=== PATIENT | female | born 1955 | race Caucasian/White ===

== ENCOUNTER 2019-06-18 12:28 | Inpatient (IN) | payer MEDICARE, OTHER ==
[~2019-06-18] VITALS: Ht 175.3 cm; Wt 68.5 kg
[2019-06-18] VITALS (12 sets, daily range): BP systolic 87–115; BP diastolic 44–67
--- NOTE | 2019-06-18 12:48 | PDOC1 ---
History and Physical Date of Admission Date of Admission DATE: 06/18/19 TIME: 12:48 Identification/Chief Complaint Chief Complaint SEEN IN ER [facility] WITH 4 DAY HX ABDOMINAL PAIN, NOW WORSE FEVER [address] C/W free air, concerning for colon perf, acute, direct admit ICU., SURGERY NOTIFIED, ID CONSULTED, given one gm rocephin in ER, 500MG IV FLAGYL X 1 Past Medical History Cardiovascular: Hyperlipidemia GI: Diverticulosis Heme/Onc: No pertinent hx Hepatobiliary: No pertinent hx Infectious disease: No pertinent hx Renal/: No pertinent hx Endocrine: Hypothyroidism Past Surgical History Past Surgical History: Tonsillectomy Family History Family History: Hypertension, Other (NO FHX COLON CA) Family History: Other Social History Smoke: No ALCOHOL: occassional Drugs: None Allergies Allergies: Coded Allergies: No Known Drug Allergies (Unverified , 06/18/19) ROS General: YES: Chills; No: Night Sweats, Fatigue, Malaise, Appetite, Other PSYCHOLOGICAL ROS: No: Anxiety, Behavioral Disorder, Concentration difficultie, Decreased libido, Depression, Disorientation, Hallucinations, Hostility, Irritablity, Memory difficulties, Mood Swings, Obsessive thoughts, Physical abuse, Sexual abuse, Sleep disturbances, Suicidal ideation, Other Eyes: No Blurry vision, No Decreased vision, No Double vision, No Dry eyes, No Excessive tearing, No Eye Pain, No Itchy Eyes, No Loss of vision, No Photophobia, No Scotomata, No Uses contacts, No Uses glasses, No Other HEENT: No: Heacaches, Visual Changes, Hearing change, Nasal congestion, Nasal discharge, Oral lesions, Sinus pain, Sore Throat, Epistaxis, Sneezing, Snoring, Tinnitus, Vertigo, Vocal changes, Other ALLERGY AND IMMUNOLOGY: No: Hives, Insect Bite Sensitivity, Itchy/Watery Eyes, Nasal Congestion, Post Nasal Drip, Seasonal Allergies, Other Hematological and Lymphatic: No: Bleeding Problems, Blood Clots, Blood Transfusions, Brusing, Night Sweats, Pallor, Swollen Lymph Nodes, Other ENDOCRINE: No: Breast Changes, Galactorrhea, Hair Pattern Changes, Hot Flashes, Malaise/lethargy, Mood Swings, Palpitations, Polydipsia/polyuria, Skin Changes, Temperature Intolerance, Unexpected Weight Changes, Other Breast: No New/Changing Breast Lumps, No Nipple changes, No Nipple discharge, No Other Respiratory: No: Cough, Hemoptysis, Orthopnea, Pleuritic Pain, Shortness of breath, SOB with excertion, Sputum Changes, Stridor, Tachypnea, Wheezing, Other Cardiovascular: No Chest Pain, No Palpitations, No Orthopnea, No Paroxysmal N oc. Dyspnea, No Edema, No Lt Headedness, No Other Gastrointestinal: Yes Abdominal Pain; No Nausea, No Vomiting, No Diarrhea, No Constipation, No Melena, No Hematochezia, No Other Genitourinary: No Dysuria, No Frequency, No Incontinence, No Hematuria, No Retention, No Discharge, No Urgency, No Pain, No Flank Pain, No Other, No , No , No , No , No , No , No Musculoskeletal: No Gait Disturbance, No Joint Pain, No Joint Stiffness, No Joint Swelling, No Muscle Pain, No Muscular Weakness, No Pain In:, No Swelling In:, No Other Neurological: No Behavorial Changes, No Bowel/Bladder ControlChng, No Confusion, No Dizziness, No Gait Disturbance, No Headaches, No Impaired Coord/balance, No Memory Loss, No Numbness/Tingling, No Seizures, No Speech Problems, No Tremors, No Visual Changes, No Weakness, No Other Skin: No Dry Skin, No Eczema, No Hair Changes, No Lumps, No Mole Changes, No Mottling, No Nail Changes, No Pruritus, No Rash, No Skin Lesion Changes, No Other, No Acne Physical Exam General: Alert, Oriented X3, Cooperative, mild distress HEENT: Atraumatic, PERRLA, EOMI, Mucous membr. moist/pink Lungs: Clear to auscultation, Normal air movement Heart: RRR Breasts: Not examined Abdomen: Other (diffuse tenderenee) Rectal Exam: not examined Extremities: No cyanosis Neuro: Normal speech, Cranial nerves 3-12 NL Psych/Mental Status: Mental status NL, Mood NL VTE Prophylaxis Ordered VTE Prophylaxis Devices: Yes VTE Pharmacological Prophylaxi: Contraindicated Assessment/Plan Assessment/Plan impression 1. acute colon perforation 2. abdominal pain SEC #1 3. SEPSIS 4. Thickening of mural high rectal region plan admit icu bed consult popcorn vendor consult DR DAY CONSULT ID CONSULT GI NPO IV FLUID SUPPORT IV PAIN CONTROL CEA EMPERIC IV ANTIBIOTICS, flagyl, zosyn COVID-19 SCREEN SCD'S 34 MIN CC TIME SADI VASQUEZ MD June 18, 2019 12:48
[2019-06-18] MEDS ORDERED: ALBUTEROL SULFATE 2.5 MG/3 ML NEBU. NEB PRN (13:00)
[2019-06-18] MEDS ORDERED: ACETAMINOPHEN 650 MG SUPP.RECT. PR PRN (13:00)
[2019-06-18] MEDS ORDERED: 0.9 % SODIUM CHLORIDE 10 ML DISP.SYRIN. IV PRN (13:00)
[2019-06-18] MEDS ORDERED: ONDANSETRON PF 4 MG/2 ML VIAL. IV PRN (13:00)
[2019-06-18] MEDS: IV NORMAL SALINE 1000ML BAG 1,000 ML IV SCH ×5 (13:15→22:48)
[2019-06-18] MEDS: fentaNYL PF VIAL 100 MCG/2 ML VIAL IVP PRN (13:16)
[2019-06-18] MEDS ORDERED: PANTOPRAZOLE IV PUSH 40 MG VIAL. IVP ONE (13:45)
[2019-06-18] MEDS: PIPERACILLIN/TAZOBACTAM 3.375 GM in IV NORMAL SALINE 50ML 50 ML IV SCH ×3 (13:47→23:21)
--- NOTE | 2019-06-18 14:08 | PDOC ---
PULMONARY PROGRESS NOTES Vitals Vital Signs Date Time Temp Pulse Resp B/P (MAP) Pulse Ox O2 Delivery O2 Flow Rate FiO2 06/18/19 13:16 Room Air Impression . Full note dictated, agree with current medical management for sepsis and colon perforation no signs of respiratory involvement DEREK BURNS MD June 18, 2019 14:08
[2019-06-18] MEDS ORDERED: HYDROmorphone 2 MG/ML VIAL IV PRN (14:30)
--- NOTE | 2019-06-18 15:11 | PDOC2 ---
BRANDIE RODRIGUEZ 06/18/19 1511: GI CONSULT Reason For Consult: possible colon perf HPI: HPI: Pleasant 64 y/o female transferred from [facility]. From [place], traveled here about 1.5 weeks ago to help w/ grandchildren - daughter is supposed to deliver twins soon. Noted fatigue, fevers up to 103, maybe some decreased appetite, and also constipation and "heaviness" in lower abdomen - no stools since she arrived except for small amount after Correctol a couple days ago. Occasional constipation in the past related to diet - this time assumed related to eating cashews on her drive. Progressively worse lower abdominal pain. At [facility]: WBC 15.5, Hgb 13.6, MCV 92, normal Cr, normal LFTs and lipase. CT w/ multifocal areas of bowel inflammation including the proximal sigmoid colon, rectum, and terminal ileum which may reflect colitis w/ reactive enteritis. There is associated perforation w/ free intraperitoneal air and extensive phlegmon (ddx: infectious/inflammatory colitis vs ischemic colitis, neoplasm also possible). Also noted is indeterminate left hepatic mass (1.7 x 1.5cm) and bilateral adnexal varices. On IV antibiotics and PPI; surgery and ID to see as well. Nurse says testing for COVID-19 as well. Denies reflux/heartburn, dysphagia, n/v, chronic abd pain, diarrhea, bleeding, and weight loss. ER note mentions h/o gastric ulcer - she denies. No previous EGD. Does say she had a colonoscopy in her 20s for some bleeding and was diagnosed w/ hemorrhoids. No colonoscopy since. No GB, liver, or pancreas history. Used to take pain meds long ago for migraines, but no frequent NSAID use now. PMH: PMH: HTN, hypothyroidism, HLD FH: Family History: No pertinent hx (denies GI cancers) Social History: Smoke: No ALCOHOL: occassional Drugs: None ROS: GEN: +fever HEENT: Denies blurred vision, sore throat CV: Denies chest pain RESP: Denies shortness of air, cough GI: Per HPI : Denies hematuria, dysuria ENDO: Denies weight changes NEURO: Denies confusion, dizziness MSK: +weakness SKIN: Denies jaundice, pruritus Vitals: Vitals: Vital Signs Date Time Temp Pulse Resp B/P (MAP) Pulse Ox O2 Delivery O2 Flow Rate FiO2 06/18/19 13:16 Room Air Allergies: Coded Allergies: No Known Drug Allergies (Unverified , 06/18/19) Medications: Current Medications Medications (Trade) Dose Ordered Sig/Neda Route PRN Reason Start Time Stop Time Status Last Admin Dose Admin Sodium Chloride 1,000 ml @ 100 mls/hr Q10H IV 06/18/19 12:48 06/18/19 13:15 Piperacillin Sod/ Tazobactam Sod 3.375 gm/Sodium Chloride 50 ml @ 100 mls/hr Q6HRS IV 06/18/19 13:00 06/18/19 13:47 Fentanyl Citrate (Fentanyl 2ml Vial) 50 mcg PRN Q2HR PRN IVP MOD TO SEVERE PAIN, 2ND CHOICE 06/18/19 13:00 06/18/19 13:16 Pantoprazole Sodium (PROTONIX VIAL for IV PUSH) 40 mg 1X ONCE IVP 06/18/19 13:45 06/18/19 13:46 DC 06/18/19 13:50 Imaging: Imaging: Per HPI. PE: GEN: NAD, calm and cooperative HEENT: Atraumatic, PERRL LUNGS: clear anteriorly HEART: RRR ABD: quiet, quite tender BLQ and suprapubic region EXTREMITY: No edema SKIN: No rashes, no jaundice NEURO/PSYCH: A & O 3 A/P: A/P: Fever, change in bowel habits/constipation Leukocytosis Abnormal CT - multifocal areas of bowel inflammation including the proximal sigmoid colon, rectum, and TI, associated perforation w/ free intraperitoneal air and extensive phlegmon, indeterminate left hepatic mass CRC screen - colonoscopy 40 years ago, reportedly normal except hemorrhoids R/o COVID-19 -- Agree w/ NPO, antibiotics, and PPI. D/w nurse - surgery has seen. Will review additional recs w/ Dr. Wang. JC WANG MD 06/18/19 1519: BRANDIE RODRIGUEZ June 18, 2019 15:11 JC WANG MD June 18, 2019 15:19
[2019-06-18] MEDS: HYDROmorphone 2 MG/ML VIAL IV PRN ×3 (15:12→21:16)
[2019-06-18] MEDS ORDERED: IV NORMAL SALINE 500ML BAG 500 ML IV PRN (15:15)
--- NOTE | 2019-06-18 15:21 | PDOC2 ---
CONSULT Date of Consult Date of Consult DATE: 06/18/19 TIME: 15:14 Reason for Consult Reason for Consult: perforated diverticulitis Referring Physician Referring Physician: HELGA Identification/Chief Complaint Chief Complaint severe abdominal pain Source Source: Chart review, Patient History of Present Illness Reason for Visit: Ms Dumont is a 64 yo lady who drove from [employer] to be with her daughter who is expecting twins. She developed severe abdominal pain and in the ED at [facility] was found to have sigmoid colitis with microperf. She was transferred to [facility] for further care Past Medical History Cardiovascular: Hyperlipidemia GI: Diverticulosis Heme/Onc: No pertinent hx Hepatobiliary: No pertinent hx Infectious disease: No pertinent hx Renal/: No pertinent hx Endocrine: Hypothyroidism Past Surgical History Past Surgical History: Tonsillectomy Family History Family History: Hypertension, Other (NO FHX COLON CA) Social History Social History: Other No ALCOHOL: occassional Drugs: None Current Medications Current Medications Current Medications Sodium Chloride (Normal Saline Flush) 3 ml QSHIFT PRN IV AFTER MEDS AND BLOOD DRAWS; Start 06/18/19 at 13:00 Sodium Chloride 1,000 ml @ 100 mls/hr Q10H IV Last administered on 06/18/19at 13:15; Start 06/18/19 at 12:48 Ondansetron HCl (Zofran) 4 mg PRN Q4HRS PRN IV NAUSEA/VOMITING; Start 06/18/19 at 13:00 Acetaminophen (Tylenol Supp) 650 mg PRN Q4HRS PRN HI TEMP OVER 100.4F OR MILD PAIN; Start 06/18/19 at 13:00 Albuterol Sulfate (Ventolin Neb Soln) 2.5 mg PRN Q4HRS PRN NEB SHORTNESS OF BREATH; Start 06/18/19 at 13:00 Piperacillin Sod/ Tazobactam Sod 3.375 gm/Sodium Chloride 50 ml @ 100 mls/hr Q6HRS IV Last administered on 06/18/19at 13:47; Start 06/18/19 at 13:00 Fentanyl Citrate (Fentanyl 2ml Vial) 50 mcg PRN Q2HR PRN IVP MOD TO SEVERE PAIN, 2ND CHOICE Last administered on 06/18/19at 13:16; Start 06/18/19 at 13:00 Pantoprazole Sodium (PROTONIX VIAL for IV PUSH) 40 mg DAILYAC IVP ; Start 06/19/19 at 07:30 Pantoprazole Sodium (PROTONIX VIAL for IV PUSH) 40 mg 1X ONCE IVP Last administered on 06/18/19at 13:50; Start 06/18/19 at 13:45; Stop 06/18/19 at 13:46; Status DC Metronidazole 100 ml @ 100 mls/hr Q8HRS IV Last administered on 06/18/19at 15:12; Start 06/18/19 at 14:00 Hydromorphone HCl (Dilaudid) 1 mg PRN Q3HRS PRN IV MODERATE PAIN, 1ST CHOICE Last administered on 06/18/19at 15:12; Start 06/18/19 at 14:30 Hydromorphone HCl (Dilaudid) 1.5 mg PRN Q3HRS PRN IV SEVERE PAIN 7-10, 1ST CHOICE; Start 06/18/19 at 14:30 Sodium Chloride 1,000 ml @ 1,980 mls/hr Q31M IV ; Start 06/18/19 at 15:06 Sodium Chloride 500 ml @ 1,000 mls/hr PRN Q30MIN PRN IV SEE COMMENTS; Start 06/18/19 at 15:15 Meropenem 1 gm/ Sodium Chloride 100 ml @ 200 mls/hr Q8HRS IV ; Start 06/18/19 at 15:15 Allergies Allergies: Coded Allergies: No Known Drug Allergies (Unverified , 06/18/19) ROS Review of System negative with exception of present complaints Physical Exam General: Alert, Oriented X3, No acute distress HEENT: Atraumatic Lungs: Normal air movement Heart: Regular rate Abdomen: Other (exquisitely TTP in BLQ) Extremities: No clubbing Skin: Other (warm,dry) Vitals VITALS Vital Signs Date Time Temp Pulse Resp B/P (MAP) Pulse Ox O2 Delivery O2 Flow Rate FiO2 06/18/19 15:12 Room Air Images Images CT done at [facility] is reviewed Assessment/Plan Assessment/Plan colitis with microperforation recommend bowel rest, IV abx, serial exams hopefully manage non operative initially to avoid stoma d/w patient questions answered Thanks for consult CADE DAY MD June 18, 2019 15:21
[2019-06-18 15:56] LABS: BASO % 0 % (0-3); EOS % 0 % (0-3); HEMATOCRIT 37.1 % (36.0-47.0); HEMOGLOBIN 12.3 g/dL (12.0-15.5); LYMPH # 1.1 x10^3/uL (1.0-4.8); LYMPH % 8 % (24-48); MEAN CORPUSCULAR HEMOGLOBIN 30 pg (25-35); MEAN CORPUSCULAR HGB CONC 33 g/dL (31-37); MEAN CORPUSCULAR VOLUME 90 fL (79-100); MONO # 1.2 x10^3/uL (0.0-1.1); MONO % 9 % (0-9); NEUT # 11.7 x10^3/uL (1.8-7.7); NEUT % 83 % (31-73); PLATELET COUNT 292 x10^3/uL (140-400); RED BLOOD COUNT 4.11 x10^6/uL (3.50-5.40); RED CELL DISTRIBUTION WIDTH 17.2 % (11.5-14.5); WHITE BLOOD COUNT 14.1 x10^3/uL (4.0-11.0)
[2019-06-18 16:12] LABS: PROTHROMBIN TIME PATIENT 15.9 SEC (11.7-14.0)
[2019-06-18 16:14] LABS: ALBUMIN 2.7 g/dL (3.4-5.0); ALBUMIN/GLOBULIN RATIO 0.7 (1.0-1.7); CALCIUM 8.4 mg/dL (8.5-10.1); CREATININE 0.7 mg/dL (0.6-1.0); POTASSIUM 3.7 mmol/L (3.5-5.1); TOTAL BILIRUBIN 0.6 mg/dL (0.2-1.0); TOTAL PROTEIN 6.5 g/dL (6.4-8.2)
[2019-06-18] MEDS: MEROPENEM 1 GM in IV NORMAL SALINE 100ML 100 ML IV SCH ×2 (16:44→22:31)
[2019-06-18] MEDS ORDERED: LIOT5TAB4 PO (19:25)
[2019-06-18] MEDS ORDERED: VITA100T5 PO (19:25)
[2019-06-18] MEDS ORDERED: LISI10TA2 PO (19:25)
[2019-06-18] MEDS ORDERED: SAFF1000 PO (19:25)
[2019-06-18] MEDS ORDERED: MAGN200T7 PO (19:25)
[2019-06-18] MEDS ORDERED: LEVO100T5 PO (19:25)
[2019-06-18] MEDS ORDERED: CYAN25008 PO (19:25)
[2019-06-18] MEDS ORDERED: PRAV20TA2 PO (19:25)
--- NOTE | 2019-06-18 20:53 | CONS ---
DATE OF CONSULTATION: 06/18/2019 ATTENDING PHYSICIAN: Dr. Mcclure. REASON FOR CONSULTATION: The patient seen in pulmonary consultation at the request of Dr. Mcclure during the COVID-19 pandemic, temperature of 103, and abdominal pain. HISTORY OF PRESENT ILLNESS: The patient is a 64-year-old that was visiting her daughter at [place]. She presented to [facility] with a 4-day history of abdominal pain, worsening over the last 24 hours. She had a fever of 103. She was transferred to [place] for further evaluation. She had a CT abdomen and pelvis revealing free air. There were concern for colon perforation. She was directly admitted to the ICU. I was asked to see her in consultation. Unclear at this time if the patient requires surgical intervention. She has no pulmonary issues, now with increasing shortness of breath. She has been a social smoker. No history of asthma. PAST MEDICAL HISTORY: Diverticulosis, hyperlipidemia, and hypothyroidism. PAST SURGICAL HISTORY: Status post tonsillectomy. FAMILY HISTORY: Hypertension and colon cancer. SOCIAL HISTORY: Occasional use of alcohol, currently not smoking. ALLERGIES: No known drug allergies. REVIEW OF SYSTEMS: As indicated above, otherwise, a 10-point system was reviewed and negative. PHYSICAL EXAMINATION: VITAL SIGNS: Since admission, she has been afebrile. HEENT: Eyes: The sclerae were nonicteric. NECK: Jugular venous distention was not elevated. No lymphadenopathy. CHEST: Full expansion. LUNGS: Adequate air flow with no wheezes. CARDIOVASCULAR: Regular rate and rhythm with S1, S2. No S3. ABDOMEN: Diffuse tenderness. EXTREMITIES: No clubbing, cyanosis or edema NEUROLOGIC: The patient was awake, alert, following commands. A detailed neuro exam was not performed. LABORATORY DATA: Currently pending. Chest x-ray is pending. IMPRESSION: 1. Abdominal pain secondary to acute colon perforation. 2. Colon perforation. 3. Sepsis. 4. Fever. 5. Remote history of social smoking. 6. Hypothyroidism. DISCUSSION: I suspect fever is related to her colon perforation and sepsis, doubt anyhow is related to COVID-19 or pneumonia. With that being said, we will continue current support. The patient is currently on Flagyl and Zosyn. PLAN: 1. She will be seen by Dr. Chau for possible surgical intervention. ID has been consulted. GI has been consulted. Her respiratory status is currently stable. 2. SARS-CoV-2 pending. I do appreciate the privilege in sharing in the patient's care. DEREK BURNS MD DR: ANTONIO/kayla JOB#: [id number] / [id number]
[2019-06-19] VITALS (17 sets, daily range): BP systolic 84–118; BP diastolic 45–69
[2019-06-19] MEDS: HYDROmorphone 2 MG/ML VIAL IV PRN ×3 (00:19→23:13)
[2019-06-19] MEDS: PIPERACILLIN/TAZOBACTAM 3.375 GM in IV NORMAL SALINE 50ML 50 ML IV SCH ×4 (05:18→23:12)
[2019-06-19 05:35] LABS: BASO # 0.1 x10^3/uL (0.0-0.2); BASO % 0 % (0-3); EOS # 0.1 x10^3/uL (0.0-0.7); EOS % 1 % (0-3); HEMATOCRIT 31.4 % (36.0-47.0); HEMOGLOBIN 10.5 g/dL (12.0-15.5); LYMPH % 9 % (24-48); MEAN CORPUSCULAR HEMOGLOBIN 30 pg (25-35); MEAN CORPUSCULAR HGB CONC 33 g/dL (31-37); MEAN CORPUSCULAR VOLUME 90 fL (79-100); MONO # 1.1 x10^3/uL (0.0-1.1); MONO % 10 % (0-9); NEUT # 9.3 x10^3/uL (1.8-7.7); NEUT % 81 % (31-73); PLATELET COUNT 254 x10^3/uL (140-400); RED BLOOD COUNT 3.47 x10^6/uL (3.50-5.40); WHITE BLOOD COUNT 11.6 x10^3/uL (4.0-11.0)
[2019-06-19] MEDS: MEROPENEM 1 GM in IV NORMAL SALINE 100ML 100 ML IV SCH (05:50)
[2019-06-19 05:53] LABS: ALBUMIN 2.2 g/dL (3.4-5.0); ALBUMIN/GLOBULIN RATIO 0.7 (1.0-1.7); CALCIUM 7.9 mg/dL (8.5-10.1); CREATININE 0.7 mg/dL (0.6-1.0); POTASSIUM 3.3 mmol/L (3.5-5.1); TOTAL BILIRUBIN 0.6 mg/dL (0.2-1.0); TOTAL PROTEIN 5.4 g/dL (6.4-8.2)
[2019-06-19] MEDS: IV NORMAL SALINE 1000ML BAG 1,000 ML IV SCH ×3 (05:54→23:19)
[2019-06-19] MEDS: PANTOPRAZOLE IV PUSH 40 MG VIAL. IVP SCH (07:47)
--- NOTE | 2019-06-19 08:25 | PDOC ---
Infectious Disease Note Vital Sign Vital Signs Vital Signs Date Time Temp Pulse Resp B/P (MAP) Pulse Ox O2 Delivery O2 Flow Rate FiO2 06/19/19 07:15 95 Room Air 06/19/19 07:00 77 30 90/46 (61) 06/19/19 04:00 98.9 98.9 Labs Lab Laboratory Tests Test 06/18/19 12:45 06/18/19 15:48 06/19/19 05:00 Coronavirus (COVID-19)(PCR) See separate report White Blood Count 14.1 x10^3/uL (4.0-11.0) 11.6 x10^3/uL (4.0-11.0) Red Blood Count 4.11 x10^6/uL (3.50-5.40) 3.47 x10^6/uL (3.50-5.40) Hemoglobin 12.3 g/dL (12.0-15.5) 10.5 g/dL (12.0-15.5) Hematocrit 37.1 % (36.0-47.0) 31.4 % (36.0-47.0) Mean Corpuscular Volume 90 fL (79-100) 90 fL (79-100) Mean Corpuscular Hemoglobin 30 pg (25-35) 30 pg (25-35) Mean Corpuscular Hemoglobin Concent 33 g/dL (31-37) 33 g/dL (31-37) Red Cell Distribution Width 17.2 % (11.5-14.5) 17.0 % (11.5-14.5) Platelet Count 292 x10^3/uL (140-400) 254 x10^3/uL (140-400) Neutrophils (%) (Auto) 83 % (31-73) 81 % (31-73) Lymphocytes (%) (Auto) 8 % (24-48) 9 % (24-48) Monocytes (%) (Auto) 9 % (0-9) 10 % (0-9) Eosinophils (%) (Auto) 0 % (0-3) 1 % (0-3) Basophils (%) (Auto) 0 % (0-3) 0 % (0-3) Neutrophils # (Auto) 11.7 x10^3/uL (1.8-7.7) 9.3 x10^3/uL (1.8-7.7) Lymphocytes # (Auto) 1.1 x10^3/uL (1.0-4.8) 1.0 x10^3/uL (1.0-4.8) Monocytes # (Auto) 1.2 x10^3/uL (0.0-1.1) 1.1 x10^3/uL (0.0-1.1) Eosinophils # (Auto) 0.0 x10^3/uL (0.0-0.7) 0.1 x10^3/uL (0.0-0.7) Basophils # (Auto) 0.0 x10^3/uL (0.0-0.2) 0.1 x10^3/uL (0.0-0.2) Prothrombin Time 15.9 SEC (11.7-14.0) Prothromb Time International Ratio 1.3 (0.8-1.1) Fibrinogen 766 mg/dL (200-440) D-Dimer (Ana Lilia) 2.00 ug/mlFEU (0.00-0.50) Sodium Level 135 mmol/L (136-145) 141 mmol/L (136-145) Potassium Level 3.7 mmol/L (3.5-5.1) 3.3 mmol/L (3.5-5.1) Chloride Level 99 mmol/L (98-107) 107 mmol/L (98-107) Carbon Dioxide Level 24 mmol/L (21-32) 21 mmol/L (21-32) Anion Gap 12 (6-14) 13 (6-14) Blood Urea Nitrogen 11 mg/dL (7-20) 10 mg/dL (7-20) Creatinine 0.7 mg/dL (0.6-1.0) 0.7 mg/dL (0.6-1.0) Estimated GFR (Cockcroft-Gault) 84.0 84.0 BUN/Creatinine Ratio 16 (6-20) 14 (6-20) Glucose Level 91 mg/dL (70-99) 79 mg/dL (70-99) Lactic Acid Level 0.8 mmol/L (0.4-2.0) Calcium Level 8.4 mg/dL (8.5-10.1) 7.9 mg/dL (8.5-10.1) Total Bilirubin 0.6 mg/dL (0.2-1.0) 0.6 mg/dL (0.2-1.0) Aspartate Amino Transf (AST/SGOT) 11 U/L (15-37) 11 U/L (15-37) Alanine Aminotransferase (ALT/SGPT) 11 U/L (14-59) 12 U/L (14-59) Alkaline Phosphatase 43 U/L (46-116) 38 U/L (46-116) Total Protein 6.5 g/dL (6.4-8.2) 5.4 g/dL (6.4-8.2) Albumin 2.7 g/dL (3.4-5.0) 2.2 g/dL (3.4-5.0) Albumin/Globulin Ratio 0.7 (1.0-1.7) 0.7 (1.0-1.7) Procalcitonin 0.68 ng/mL (0.00-0.10) Objective Assessment Acute sigmoid colitis with perforation Leukocytosis Pyruia, 5/8 (SJ) Left hepatic mass (measures1.7 x 1.5 cm) Hypothyroidism r/o COVID-19 Plan Plan of Care Continue Zosyn Discontinue Merrem and Flagyl Bowel rest f/u cultures and labs Airborne isolation till COVID-19 resulted D/w nursing D/w Dr. Chau Thank you [id number] Patient seen and examined. Chart reviewed in detail. Case discussed with CALL CENTER OPERATIONS MANAGER. Agree with above plan DUC POLLARD APRN June 19, 2019 08:25 NOE CLARK MD June 19, 2019 20:58
--- NOTE | 2019-06-19 09:17 | PDOC ---
SURGICAL PROGRESS NOTE Subjective pain a little better is thirsty Vital Signs Vital Signs Date Time Temp Pulse Resp B/P (MAP) Pulse Ox O2 Delivery O2 Flow Rate FiO2 06/19/19 09:01 76 14 87/47 (60) 95 Room Air 06/19/19 04:00 98.9 98.9 has been afebrile since presentation I&O Intake and Output 06/19/19 07:00 Intake Total 1300 ml Output Total 700 ml Balance 600 ml Intake Oral 0 ml IV Total 1300 ml Output Urine Total 700 ml # Voids 1 PATIENT HAS A MAYA: No General: Alert, No acute distress Labs Laboratory Tests Test 06/18/19 12:45 06/18/19 15:48 06/19/19 05:00 Coronavirus (COVID-19)(PCR) See separate report White Blood Count 14.1 x10^3/uL (4.0-11.0) 11.6 x10^3/uL (4.0-11.0) Red Blood Count 4.11 x10^6/uL (3.50-5.40) 3.47 x10^6/uL (3.50-5.40) Hemoglobin 12.3 g/dL (12.0-15.5) 10.5 g/dL (12.0-15.5) Hematocrit 37.1 % (36.0-47.0) 31.4 % (36.0-47.0) Mean Corpuscular Volume 90 fL (79-100) 90 fL (79-100) Mean Corpuscular Hemoglobin 30 pg (25-35) 30 pg (25-35) Mean Corpuscular Hemoglobin Concent 33 g/dL (31-37) 33 g/dL (31-37) Red Cell Distribution Width 17.2 % (11.5-14.5) 17.0 % (11.5-14.5) Platelet Count 292 x10^3/uL (140-400) 254 x10^3/uL (140-400) Neutrophils (%) (Auto) 83 % (31-73) 81 % (31-73) Lymphocytes (%) (Auto) 8 % (24-48) 9 % (24-48) Monocytes (%) (Auto) 9 % (0-9) 10 % (0-9) Eosinophils (%) (Auto) 0 % (0-3) 1 % (0-3) Basophils (%) (Auto) 0 % (0-3) 0 % (0-3) Neutrophils # (Auto) 11.7 x10^3/uL (1.8-7.7) 9.3 x10^3/uL (1.8-7.7) Lymphocytes # (Auto) 1.1 x10^3/uL (1.0-4.8) 1.0 x10^3/uL (1.0-4.8) Monocytes # (Auto) 1.2 x10^3/uL (0.0-1.1) 1.1 x10^3/uL (0.0-1.1) Eosinophils # (Auto) 0.0 x10^3/uL (0.0-0.7) 0.1 x10^3/uL (0.0-0.7) Basophils # (Auto) 0.0 x10^3/uL (0.0-0.2) 0.1 x10^3/uL (0.0-0.2) Prothrombin Time 15.9 SEC (11.7-14.0) Prothromb Time International Ratio 1.3 (0.8-1.1) Fibrinogen 766 mg/dL (200-440) D-Dimer (Ana Lilia) 2.00 ug/mlFEU (0.00-0.50) Sodium Level 135 mmol/L (136-145) 141 mmol/L (136-145) Potassium Level 3.7 mmol/L (3.5-5.1) 3.3 mmol/L (3.5-5.1) Chloride Level 99 mmol/L (98-107) 107 mmol/L (98-107) Carbon Dioxide Level 24 mmol/L (21-32) 21 mmol/L (21-32) Anion Gap 12 (6-14) 13 (6-14) Blood Urea Nitrogen 11 mg/dL (7-20) 10 mg/dL (7-20) Creatinine 0.7 mg/dL (0.6-1.0) 0.7 mg/dL (0.6-1.0) Estimated GFR (Cockcroft-Gault) 84.0 84.0 BUN/Creatinine Ratio 16 (6-20) 14 (6-20) Glucose Level 91 mg/dL (70-99) 79 mg/dL (70-99) Lactic Acid Level 0.8 mmol/L (0.4-2.0) Calcium Level 8.4 mg/dL (8.5-10.1) 7.9 mg/dL (8.5-10.1) Total Bilirubin 0.6 mg/dL (0.2-1.0) 0.6 mg/dL (0.2-1.0) Aspartate Amino Transf (AST/SGOT) 11 U/L (15-37) 11 U/L (15-37) Alanine Aminotransferase (ALT/SGPT) 11 U/L (14-59) 12 U/L (14-59) Alkaline Phosphatase 43 U/L (46-116) 38 U/L (46-116) Total Protein 6.5 g/dL (6.4-8.2) 5.4 g/dL (6.4-8.2) Albumin 2.7 g/dL (3.4-5.0) 2.2 g/dL (3.4-5.0) Albumin/Globulin Ratio 0.7 (1.0-1.7) 0.7 (1.0-1.7) Procalcitonin 0.68 ng/mL (0.00-0.10) Laboratory Tests Test 06/18/19 12:45 06/18/19 15:48 06/19/19 05:00 Coronavirus (COVID-19)(PCR) See separate report White Blood Count 14.1 x10^3/uL (4.0-11.0) 11.6 x10^3/uL (4.0-11.0) Red Blood Count 4.11 x10^6/uL (3.50-5.40) 3.47 x10^6/uL (3.50-5.40) Hemoglobin 12.3 g/dL (12.0-15.5) 10.5 g/dL (12.0-15.5) Hematocrit 37.1 % (36.0-47.0) 31.4 % (36.0-47.0) Mean Corpuscular Volume 90 fL (79-100) 90 fL (79-100) Mean Corpuscular Hemoglobin 30 pg (25-35) 30 pg (25-35) Mean Corpuscular Hemoglobin Concent 33 g/dL (31-37) 33 g/dL (31-37) Red Cell Distribution Width 17.2 % (11.5-14.5) 17.0 % (11.5-14.5) Platelet Count 292 x10^3/uL (140-400) 254 x10^3/uL (140-400) Neutrophils (%) (Auto) 83 % (31-73) 81 % (31-73) Lymphocytes (%) (Auto) 8 % (24-48) 9 % (24-48) Monocytes (%) (Auto) 9 % (0-9) 10 % (0-9) Eosinophils (%) (Auto) 0 % (0-3) 1 % (0-3) Basophils (%) (Auto) 0 % (0-3) 0 % (0-3) Neutrophils # (Auto) 11.7 x10^3/uL (1.8-7.7) 9.3 x10^3/uL (1.8-7.7) Lymphocytes # (Auto) 1.1 x10^3/uL (1.0-4.8) 1.0 x10^3/uL (1.0-4.8) Monocytes # (Auto) 1.2 x10^3/uL (0.0-1.1) 1.1 x10^3/uL (0.0-1.1) Eosinophils # (Auto) 0.0 x10^3/uL (0.0-0.7) 0.1 x10^3/uL (0.0-0.7) Basophils # (Auto) 0.0 x10^3/uL (0.0-0.2) 0.1 x10^3/uL (0.0-0.2) Prothrombin Time 15.9 SEC (11.7-14.0) Prothromb Time International Ratio 1.3 (0.8-1.1) Fibrinogen 766 mg/dL (200-440) D-Dimer (Ana Lilia) 2.00 ug/mlFEU (0.00-0.50) Sodium Level 135 mmol/L (136-145) 141 mmol/L (136-145) Potassium Level 3.7 mmol/L (3.5-5.1) 3.3 mmol/L (3.5-5.1) Chloride Level 99 mmol/L (98-107) 107 mmol/L (98-107) Carbon Dioxide Level 24 mmol/L (21-32) 21 mmol/L (21-32) Anion Gap 12 (6-14) 13 (6-14) Blood Urea Nitrogen 11 mg/dL (7-20) 10 mg/dL (7-20) Creatinine 0.7 mg/dL (0.6-1.0) 0.7 mg/dL (0.6-1.0) Estimated GFR (Cockcroft-Gault) 84.0 84.0 BUN/Creatinine Ratio 16 (6-20) 14 (6-20) Glucose Level 91 mg/dL (70-99) 79 mg/dL (70-99) Lactic Acid Level 0.8 mmol/L (0.4-2.0) Calcium Level 8.4 mg/dL (8.5-10.1) 7.9 mg/dL (8.5-10.1) Total Bilirubin 0.6 mg/dL (0.2-1.0) 0.6 mg/dL (0.2-1.0) Aspartate Amino Transf (AST/SGOT) 11 U/L (15-37) 11 U/L (15-37) Alanine Aminotransferase (ALT/SGPT) 11 U/L (14-59) 12 U/L (14-59) Alkaline Phosphatase 43 U/L (46-116) 38 U/L (46-116) Total Protein 6.5 g/dL (6.4-8.2) 5.4 g/dL (6.4-8.2) Albumin 2.7 g/dL (3.4-5.0) 2.2 g/dL (3.4-5.0) Albumin/Globulin Ratio 0.7 (1.0-1.7) 0.7 (1.0-1.7) Procalcitonin 0.68 ng/mL (0.00-0.10) WBC improved Problem List colitis with microperf covid 19 testing PND sips of water, ice continue current Rx CADE DAY MD June 19, 2019 09:17
--- NOTE | 2019-06-19 09:59 | CONS ---
DATE OF CONSULTATION: 06/19/2019 DICTATED BY: This is Rommel Ramírez, nurse practitioner dictating for Dr. Noe Clark, Infectious Disease. REFERRING PHYSICIAN: Thai Mcclure MD REASON FOR CONSULTATION: Colon perforation. HISTORY OF PRESENT ILLNESS: This patient is a 64-year-old female with a history of diverticulosis who initially presented to [facility] yesterday with a 4-day history of worsening lower abdominal pain, fever of 103 and chills. She says she had been eating cashews on her drive up to [place] from [place] when she started not to feel well. She became bloated, constipated and her appetite decreased. She took aspirin and two Correctol laxatives with minimal relief. A CT abdomen/pelvis demonstrated multifocal areas of bowel inflammation including the proximal sigmoid colon, rectum and terminal ileum associated perforation with free intraperitoneal air and extensive phlegmon without a definite abscess. A indeterminate left hepatic mass measuring 1.7 x 1.5 cm also noted. She has since been transferred to [facility] and is now on bowel rest and IV antibiotics. She was seen by Dr. Chau with no plans for surgery at this time. The patient says she is feeling a little bit better. She states her abdominal pain is not as intense. She says she is not passing any gas. She denies nausea or vomiting. She is currently being tested for COVID-19. She denies exposure. She has been staying at home and when she goes out to the store for example, she wears her mask and gloves and uses good handwashing. She denies recent antibiotics or hospitalizations within the last several months. Denies cough, shortness of air, chest discomfort or headache. PAST MEDICAL HISTORY: Diverticulosis, hypothyroidism, history of gastric ulcer, hypercholesterolemia and hypertension. PAST SURGICAL HISTORY: Tonsillectomy and adenoidectomy. SOCIAL HISTORY: The patient is a . She lives in [place], [place]. Former smoker. FAMILY HISTORY: Hypertension. ALLERGIES: No known drug allergies. MEDICATIONS: Reviewed on APR and includes meropenem, metronidazole, Zosyn, one time dose of ceftriaxone and pantoprazole. REVIEW OF SYSTEMS: Per HPI, otherwise all other review of systems are negative. PHYSICAL EXAMINATION: VITAL SIGNS: Temperature 98.9, blood pressure 90/46, heart rate 77, respiratory rate 30, pulse oximetry 95% on room air, BMI 23. GENERAL: The patient is propped up in bed, alert, appears comfortable. HEENT: Pupils equally round and reactive. Oropharynx pink and moist. No lesions seen. NECK: Supple. LUNGS: Clear to auscultation. CARDIAC: S1 and S2 regular. ABDOMEN: Mildly distended, soft, diffusely tender. Bowel sounds present. EXTREMITIES: No gross edema or cyanosis. SKIN: Warm to touch or signs of rash. NEUROLOGIC: Alert and oriented x 3. LABORATORY DATA: Today's WBC 11.6 from 15.5, hemoglobin 10.5 and platelets 254,000. Sodium 141, potassium 3.3, creatinine 0.7, BUN 10 and glucose 79. Lactic acid 0.8, total bilirubin 0.6, AST 11, ALT 12 and albumin 2.2. Procalcitonin 0.68. Lipase 114. Urinalysis from 06/18/2019 ([facility]) positive for wbc's, leukocyte esterase, bacteria and moderate squamous epithelial cells. Blood cultures from 06/18/[address] A [address] abdomen/pelvis per HPI. Chest x-ray showed clear lungs bilaterally. IMPRESSION: 1. Acute sigmoid colitis with perforation. 2. Leukocytosis. 3. Pyuria. 4. Left hepatic mass. 5. Hypothyroidism. 6. Rule out COVID-19. PLAN: 1. Records from [facility] were reviewed. 2. Continue Zosyn. 3. Discontinue the meropenem and metronidazole. 4. Follow up on cultures. 5. Monitor laboratory values. 6. Bowel rest. 7. Airborne isolation until COVID-19 results known. 8. Discussed with nursing and Dr. Chau. Thank you, Dr. Mcclure for asking us to participate in this patient's care. Should you have further questions or concerns, please call. NOE CLARK MD DR: LAKISHA/kayla JOB#: [id number] / [id number] WENDY
--- NOTE | 2019-06-19 11:00 | NUR ---
IP:Pt is COVID negative.
--- NOTE | 2019-06-19 11:27 | PDOC ---
PROGRESS NOTES Chief Complaint Chief Complaint 1. acute colitis with microperforation 2. abdominal pain secondary to the above improved 3. SEPSIS secondary to the above improved 4. Thickening of mural high rectal region Plan: Patient may be transferred out of the intensive care unit to a telemetry floor now that COVID-19 testing has come back negative Pain management Continue antibiotics Supportive measures Pain management Follow blood pressure which is on the low end due to pain management most likely Is is in the a.m. Further recommendations based on the clinical course History of Present Illness History of Present Illness No acute events reported overnight, case discussed with nursing staff patient in no acute distress no complaints during my visit Vitals Vitals Vital Signs Date Time Temp Pulse Resp B/P (MAP) Pulse Ox O2 Delivery O2 Flow Rate FiO2 06/19/19 11:05 78 20 118/69 (85) 97 Room Air 06/19/19 10:04 98.7 98.7 Physical Exam General: Alert, No acute distress Heart: Regular rate Abdomen: Other (exquisitely TTP in BLQ) Extremities: No clubbing Skin: Other (warm,dry) Labs LABS Laboratory Tests Test 06/18/19 12:45 06/18/19 15:48 06/19/19 05:00 Coronavirus (COVID-19)(PCR) See separate report White Blood Count 14.1 x10^3/uL (4.0-11.0) 11.6 x10^3/uL (4.0-11.0) Red Blood Count 4.11 x10^6/uL (3.50-5.40) 3.47 x10^6/uL (3.50-5.40) Hemoglobin 12.3 g/dL (12.0-15.5) 10.5 g/dL (12.0-15.5) Hematocrit 37.1 % (36.0-47.0) 31.4 % (36.0-47.0) Mean Corpuscular Volume 90 fL (79-100) 90 fL (79-100) Mean Corpuscular Hemoglobin 30 pg (25-35) 30 pg (25-35) Mean Corpuscular Hemoglobin Concent 33 g/dL (31-37) 33 g/dL (31-37) Red Cell Distribution Width 17.2 % (11.5-14.5) 17.0 % (11.5-14.5) Platelet Count 292 x10^3/uL (140-400) 254 x10^3/uL (140-400) Neutrophils (%) (Auto) 83 % (31-73) 81 % (31-73) Lymphocytes (%) (Auto) 8 % (24-48) 9 % (24-48) Monocytes (%) (Auto) 9 % (0-9) 10 % (0-9) Eosinophils (%) (Auto) 0 % (0-3) 1 % (0-3) Basophils (%) (Auto) 0 % (0-3) 0 % (0-3) Neutrophils # (Auto) 11.7 x10^3/uL (1.8-7.7) 9.3 x10^3/uL (1.8-7.7) Lymphocytes # (Auto) 1.1 x10^3/uL (1.0-4.8) 1.0 x10^3/uL (1.0-4.8) Monocytes # (Auto) 1.2 x10^3/uL (0.0-1.1) 1.1 x10^3/uL (0.0-1.1) Eosinophils # (Auto) 0.0 x10^3/uL (0.0-0.7) 0.1 x10^3/uL (0.0-0.7) Basophils # (Auto) 0.0 x10^3/uL (0.0-0.2) 0.1 x10^3/uL (0.0-0.2) Prothrombin Time 15.9 SEC (11.7-14.0) Prothromb Time International Ratio 1.3 (0.8-1.1) Fibrinogen 766 mg/dL (200-440) D-Dimer (Ana Lilia) 2.00 ug/mlFEU (0.00-0.50) Sodium Level 135 mmol/L (136-145) 141 mmol/L (136-145) Potassium Level 3.7 mmol/L (3.5-5.1) 3.3 mmol/L (3.5-5.1) Chloride Level 99 mmol/L (98-107) 107 mmol/L (98-107) Carbon Dioxide Level 24 mmol/L (21-32) 21 mmol/L (21-32) Anion Gap 12 (6-14) 13 (6-14) Blood Urea Nitrogen 11 mg/dL (7-20) 10 mg/dL (7-20) Creatinine 0.7 mg/dL (0.6-1.0) 0.7 mg/dL (0.6-1.0) Estimated GFR (Cockcroft-Gault) 84.0 84.0 BUN/Creatinine Ratio 16 (6-20) 14 (6-20) Glucose Level 91 mg/dL (70-99) 79 mg/dL (70-99) Lactic Acid Level 0.8 mmol/L (0.4-2.0) Calcium Level 8.4 mg/dL (8.5-10.1) 7.9 mg/dL (8.5-10.1) Total Bilirubin 0.6 mg/dL (0.2-1.0) 0.6 mg/dL (0.2-1.0) Aspartate Amino Transf (AST/SGOT) 11 U/L (15-37) 11 U/L (15-37) Alanine Aminotransferase (ALT/SGPT) 11 U/L (14-59) 12 U/L (14-59) Alkaline Phosphatase 43 U/L (46-116) 38 U/L (46-116) Total Protein 6.5 g/dL (6.4-8.2) 5.4 g/dL (6.4-8.2) Albumin 2.7 g/dL (3.4-5.0) 2.2 g/dL (3.4-5.0) Albumin/Globulin Ratio 0.7 (1.0-1.7) 0.7 (1.0-1.7) Procalcitonin 0.68 ng/mL (0.00-0.10) Comment Review of Relevant I have reviewed the following items franklyn (where applicable) has been applied. Labs Laboratory Tests Test 06/18/19 12:45 06/18/19 15:48 06/19/19 05:00 Coronavirus (COVID-19)(PCR) See separate report White Blood Count 14.1 x10^3/uL (4.0-11.0) 11.6 x10^3/uL (4.0-11.0) Red Blood Count 4.11 x10^6/uL (3.50-5.40) 3.47 x10^6/uL (3.50-5.40) Hemoglobin 12.3 g/dL (12.0-15.5) 10.5 g/dL (12.0-15.5) Hematocrit 37.1 % (36.0-47.0) 31.4 % (36.0-47.0) Mean Corpuscular Volume 90 fL (79-100) 90 fL (79-100) Mean Corpuscular Hemoglobin 30 pg (25-35) 30 pg (25-35) Mean Corpuscular Hemoglobin Concent 33 g/dL (31-37) 33 g/dL (31-37) Red Cell Distribution Width 17.2 % (11.5-14.5) 17.0 % (11.5-14.5) Platelet Count 292 x10^3/uL (140-400) 254 x10^3/uL (140-400) Neutrophils (%) (Auto) 83 % (31-73) 81 % (31-73) Lymphocytes (%) (Auto) 8 % (24-48) 9 % (24-48) Monocytes (%) (Auto) 9 % (0-9) 10 % (0-9) Eosinophils (%) (Auto) 0 % (0-3) 1 % (0-3) Basophils (%) (Auto) 0 % (0-3) 0 % (0-3) Neutrophils # (Auto) 11.7 x10^3/uL (1.8-7.7) 9.3 x10^3/uL (1.8-7.7) Lymphocytes # (Auto) 1.1 x10^3/uL (1.0-4.8) 1.0 x10^3/uL (1.0-4.8) Monocytes # (Auto) 1.2 x10^3/uL (0.0-1.1) 1.1 x10^3/uL (0.0-1.1) Eosinophils # (Auto) 0.0 x10^3/uL (0.0-0.7) 0.1 x10^3/uL (0.0-0.7) Basophils # (Auto) 0.0 x10^3/uL (0.0-0.2) 0.1 x10^3/uL (0.0-0.2) Prothrombin Time 15.9 SEC (11.7-14.0) Prothromb Time International Ratio 1.3 (0.8-1.1) Fibrinogen 766 mg/dL (200-440) D-Dimer (Ana Lilia) 2.00 ug/mlFEU (0.00-0.50) Sodium Level 135 mmol/L (136-145) 141 mmol/L (136-145) Potassium Level 3.7 mmol/L (3.5-5.1) 3.3 mmol/L (3.5-5.1) Chloride Level 99 mmol/L (98-107) 107 mmol/L (98-107) Carbon Dioxide Level 24 mmol/L (21-32) 21 mmol/L (21-32) Anion Gap 12 (6-14) 13 (6-14) Blood Urea Nitrogen 11 mg/dL (7-20) 10 mg/dL (7-20) Creatinine 0.7 mg/dL (0.6-1.0) 0.7 mg/dL (0.6-1.0) Estimated GFR (Cockcroft-Gault) 84.0 84.0 BUN/Creatinine Ratio 16 (6-20) 14 (6-20) Glucose Level 91 mg/dL (70-99) 79 mg/dL (70-99) Lactic Acid Level 0.8 mmol/L (0.4-2.0) Calcium Level 8.4 mg/dL (8.5-10.1) 7.9 mg/dL (8.5-10.1) Total Bilirubin 0.6 mg/dL (0.2-1.0) 0.6 mg/dL (0.2-1.0) Aspartate Amino Transf (AST/SGOT) 11 U/L (15-37) 11 U/L (15-37) Alanine Aminotransferase (ALT/SGPT) 11 U/L (14-59) 12 U/L (14-59) Alkaline Phosphatase 43 U/L (46-116) 38 U/L (46-116) Total Protein 6.5 g/dL (6.4-8.2) 5.4 g/dL (6.4-8.2) Albumin 2.7 g/dL (3.4-5.0) 2.2 g/dL (3.4-5.0) Albumin/Globulin Ratio 0.7 (1.0-1.7) 0.7 (1.0-1.7) Procalcitonin 0.68 ng/mL (0.00-0.10) Laboratory Tests Test 06/18/19 12:45 06/18/19 15:48 06/19/19 05:00 Coronavirus (COVID-19)(PCR) See separate report White Blood Count 14.1 x10^3/uL (4.0-11.0) 11.6 x10^3/uL (4.0-11.0) Red Blood Count 4.11 x10^6/uL (3.50-5.40) 3.47 x10^6/uL (3.50-5.40) Hemoglobin 12.3 g/dL (12.0-15.5) 10.5 g/dL (12.0-15.5) Hematocrit 37.1 % (36.0-47.0) 31.4 % (36.0-47.0) Mean Corpuscular Volume 90 fL (79-100) 90 fL (79-100) Mean Corpuscular Hemoglobin 30 pg (25-35) 30 pg (25-35) Mean Corpuscular Hemoglobin Concent 33 g/dL (31-37) 33 g/dL (31-37) Red Cell Distribution Width 17.2 % (11.5-14.5) 17.0 % (11.5-14.5) Platelet Count 292 x10^3/uL (140-400) 254 x10^3/uL (140-400) Neutrophils (%) (Auto) 83 % (31-73) 81 % (31-73) Lymphocytes (%) (Auto) 8 % (24-48) 9 % (24-48) Monocytes (%) (Auto) 9 % (0-9) 10 % (0-9) Eosinophils (%) (Auto) 0 % (0-3) 1 % (0-3) Basophils (%) (Auto) 0 % (0-3) 0 % (0-3) Neutrophils # (Auto) 11.7 x10^3/uL (1.8-7.7) 9.3 x10^3/uL (1.8-7.7) Lymphocytes # (Auto) 1.1 x10^3/uL (1.0-4.8) 1.0 x10^3/uL (1.0-4.8) Monocytes # (Auto) 1.2 x10^3/uL (0.0-1.1) 1.1 x10^3/uL (0.0-1.1) Eosinophils # (Auto) 0.0 x10^3/uL (0.0-0.7) 0.1 x10^3/uL (0.0-0.7) Basophils # (Auto) 0.0 x10^3/uL (0.0-0.2) 0.1 x10^3/uL (0.0-0.2) Prothrombin Time 15.9 SEC (11.7-14.0) Prothromb Time International Ratio 1.3 (0.8-1.1) Fibrinogen 766 mg/dL (200-440) D-Dimer (Ana Lilia) 2.00 ug/mlFEU (0.00-0.50) Sodium Level 135 mmol/L (136-145) 141 mmol/L (136-145) Potassium Level 3.7 mmol/L (3.5-5.1) 3.3 mmol/L (3.5-5.1) Chloride Level 99 mmol/L (98-107) 107 mmol/L (98-107) Carbon Dioxide Level 24 mmol/L (21-32) 21 mmol/L (21-32) Anion Gap 12 (6-14) 13 (6-14) Blood Urea Nitrogen 11 mg/dL (7-20) 10 mg/dL (7-20) Creatinine 0.7 mg/dL (0.6-1.0) 0.7 mg/dL (0.6-1.0) Estimated GFR (Cockcroft-Gault) 84.0 84.0 BUN/Creatinine Ratio 16 (6-20) 14 (6-20) Glucose Level 91 mg/dL (70-99) 79 mg/dL (70-99) Lactic Acid Level 0.8 mmol/L (0.4-2.0) Calcium Level 8.4 mg/dL (8.5-10.1) 7.9 mg/dL (8.5-10.1) Total Bilirubin 0.6 mg/dL (0.2-1.0) 0.6 mg/dL (0.2-1.0) Aspartate Amino Transf (AST/SGOT) 11 U/L (15-37) 11 U/L (15-37) Alanine Aminotransferase (ALT/SGPT) 11 U/L (14-59) 12 U/L (14-59) Alkaline Phosphatase 43 U/L (46-116) 38 U/L (46-116) Total Protein 6.5 g/dL (6.4-8.2) 5.4 g/dL (6.4-8.2) Albumin 2.7 g/dL (3.4-5.0) 2.2 g/dL (3.4-5.0) Albumin/Globulin Ratio 0.7 (1.0-1.7) 0.7 (1.0-1.7) Procalcitonin 0.68 ng/mL (0.00-0.10) Medications Current Medications Sodium Chloride (Normal Saline Flush) 3 ml QSHIFT PRN IV AFTER MEDS AND BLOOD DRAWS; Start 06/18/19 at 13:00 Sodium Chloride 1,000 ml @ 100 mls/hr Q10H IV Last administered on 06/19/19at 05:54; Start 06/18/19 at 12:48 Ondansetron HCl (Zofran) 4 mg PRN Q4HRS PRN IV NAUSEA/VOMITING; Start 06/18/19 at 13:00 Acetaminophen (Tylenol Supp) 650 mg PRN Q4HRS PRN NM TEMP OVER 100.4F OR MILD PAIN; Start 06/18/19 at 13:00 Albuterol Sulfate (Ventolin Neb Soln) 2.5 mg PRN Q4HRS PRN NEB SHORTNESS OF BREATH; Start 06/18/19 at 13:00 Piperacillin Sod/ Tazobactam Sod 3.375 gm/Sodium Chloride 50 ml @ 100 mls/hr Q6HRS IV Last administered on 06/19/19at 05:18; Start 06/18/19 at 13:00 Fentanyl Citrate (Fentanyl 2ml Vial) 50 mcg PRN Q2HR PRN IVP MOD TO SEVERE PAIN, 2ND CHOICE Last administered on 06/18/19at 13:16; Start 06/18/19 at 13:00 Pantoprazole Sodium (PROTONIX VIAL for IV PUSH) 40 mg DAILYAC IVP Last administered on 06/19/19at 07:47; Start 06/19/19 at 07:30 Pantoprazole Sodium (PROTONIX VIAL for IV PUSH) 40 mg 1X ONCE IVP Last administered on 06/18/19at 13:50; Start 06/18/19 at 13:45; Stop 06/18/19 at 13:46; Status DC Metronidazole 100 ml @ 100 mls/hr Q8HRS IV Last administered on 06/19/19at 06:45; Start 06/18/19 at 14:00; Stop 06/19/19 at 08:51; Status DC Hydromorphone HCl (Dilaudid) 1 mg PRN Q3HRS PRN IV MODERATE PAIN, 1ST CHOICE Last administered on 06/19/19at 06:45; Start 06/18/19 at 14:30 Hydromorphone HCl (Dilaudid) 1.5 mg PRN Q3HRS PRN IV SEVERE PAIN 7-10, 1ST CHOICE; Start 06/18/19 at 14:30 Sodium Chloride 1,000 ml @ 1,980 mls/hr Q31M IV Last administered on 06/18/19at 16:44; Start 06/18/19 at 15:06; Stop 06/18/19 at 16:06; Status DC Sodium Chloride 500 ml @ 1,000 mls/hr PRN Q30MIN PRN IV SEE COMMENTS; Start 06/18/19 at 15:15 Meropenem 1 gm/ Sodium Chloride 100 ml @ 200 mls/hr Q8HRS IV Last administered on 06/19/19at 05:50; Start 06/18/19 at 15:15; Stop 06/19/19 at 08:51; Status DC Active Scripts Active Reported Vitamin B12 (Cyanocobalamin (Vitamin B-12)) 2,500 Mcg Tablet 1 Tab PO DAILY 30 Days Vitamin E (Vitamin E Acid Succinate) 100 Unit Tablet 100 Unit PO DAILY Tonalin Cla 1,000 Mg Softgel (Safflower Oil/Linoleic Acid,Co) 1,000 Mg Capsule 1,000 Mg PO DAILY Mag-Oxide (Magnesium Oxide) 200 Mg Tablet 1 Tab PO DAILY 30 Days Levothyroxine Sodium 100 Mcg Tablet 1 Tab PO DAILY Liothyronine Sodium 5 Mcg Tablet 1 Tab PO DAILY 30 Days Lisinopril 10 Mg Tablet 1 Tab PO DAILY Pravastatin Sodium 20 Mg Tablet 1 Tab PO DAILY Vitals/I & O Vital Sign - Last 24 Hours 06/18/19 06/18/19 06/18/19 06/18/19 12:00 13:00 13:00 13:16 Temp 98.7 98.7 Pulse 90 90 Resp 20 18 B/P (MAP) 112/56 (74) 102/63 (76) Pulse Ox 98 95 O2 Delivery Room Air Room Air Room Air Room Air 06/18/19 06/18/19 06/18/19 06/18/19 14:00 15:12 15:30 15:52 Pulse 92 92 Resp 20 18 B/P (MAP) 115/66 (82) 110/67 (81) Pulse Ox 98 96 O2 Delivery Room Air Room Air Room Air Room Air 06/18/19 06/18/19 06/18/19 06/18/19 16:30 16:30 17:30 18:29 Temp 99.0 99.0 Pulse 90 90 Resp 18 18 B/P (MAP) 97/56 (70) 97/56 (70) Pulse Ox 98 95 O2 Delivery Room Air Room Air Room Air Room Air 06/18/19 06/18/19 06/18/19 06/18/19 18:30 19:00 19:13 20:00 Temp 99.0 99.2 99.0 99.2 Pulse 86 90 90 Resp 18 15 18 B/P (MAP) 95/54 (68) 100/59 (73) 97/54 (68) Pulse Ox 97 94 95 O2 Delivery Room Air Room Air Room Air Room Air 06/18/19 06/18/19 06/18/19 06/18/19 20:00 21:00 21:16 21:46 Pulse 90 Resp 15 18 16 B/P (MAP) 108/55 (72) Pulse Ox 94 O2 Delivery Room Air Room Air Room Air Room Air 06/18/19 06/18/19 06/19/19 06/19/19 22:00 23:00 00:00 00:00 Temp 98.9 98.9 Pulse 83 79 86 Resp 15 14 20 B/P (MAP) 87/55 (66) 102/44 (63) 99/58 (72) Pulse Ox 94 100 95 O2 Delivery Room Air Room Air Room Air Room Air 06/19/19 06/19/19 06/19/19 06/19/19 00:19 00:49 01:00 02:00 Pulse 86 81 Resp 18 18 16 15 B/P (MAP) 86/45 (59) 84/48 (60) Pulse Ox 94 96 O2 Delivery Room Air Room Air Room Air Room Air 06/19/19 06/19/19 06/19/19 06/19/19 03:00 04:00 04:00 05:00 Temp 98.9 98.9 Pulse 84 80 78 Resp 15 19 17 B/P (MAP) 94/58 (70) 94/58 (70) 104/59 (74) Pulse Ox 92 94 95 O2 Delivery Room Air Room Air Room Air Room Air 06/19/19 06/19/19 06/19/19 06/19/19 06:00 06:45 07:00 07:15 Pulse 86 77 Resp 20 18 30 B/P (MAP) 107/63 (78) 90/46 (61) Pulse Ox 95 96 95 O2 Delivery Room Air Room Air Room Air Room Air 06/19/19 06/19/19 06/19/19 06/19/19 08:17 08:17 09:01 10:04 Temp 98.7 98.7 Pulse 84 76 76 Resp 20 14 14 B/P (MAP) 107/63 (78) 87/47 (60) 103/59 (74) Pulse Ox 95 95 95 O2 Delivery Room Air Room Air Room Air Room Air 06/19/19 11:05 Pulse 78 Resp 20 B/P (MAP) 118/69 (85) Pulse Ox 97 O2 Delivery Room Air Intake and Output 06/18/19 06/18/19 06/19/19 15:00 23:00 07:00 Intake Total 100 ml 1200 ml Output Total 300 ml 400 ml Balance -300 ml 100 ml 800 ml MICHELLE TORRES MD June 19, 2019 11:27
--- NOTE | 2019-06-19 11:35 | PDOC ---
PULMONARY PROGRESS NOTES Subjective Patient is on room air, no overnight concerns from nursing Denies increase cough or SOA, afebrile Vitals Vital Signs Date Time Temp Pulse Resp B/P (MAP) Pulse Ox O2 Delivery O2 Flow Rate FiO2 06/19/19 11:05 78 20 118/69 (85) 97 Room Air 06/19/19 10:04 98.7 98.7 Comments Physical exam deferred secondary to COVID-19 pandemic, visual exam, patient looks good, no respiratory distress, no obvious rash or edema On room air Labs Laboratory Tests Test 06/18/19 12:45 06/18/19 15:48 06/19/19 05:00 Coronavirus (COVID-19)(PCR) See separate report White Blood Count 14.1 x10^3/uL (4.0-11.0) 11.6 x10^3/uL (4.0-11.0) Red Blood Count 4.11 x10^6/uL (3.50-5.40) 3.47 x10^6/uL (3.50-5.40) Hemoglobin 12.3 g/dL (12.0-15.5) 10.5 g/dL (12.0-15.5) Hematocrit 37.1 % (36.0-47.0) 31.4 % (36.0-47.0) Mean Corpuscular Volume 90 fL (79-100) 90 fL (79-100) Mean Corpuscular Hemoglobin 30 pg (25-35) 30 pg (25-35) Mean Corpuscular Hemoglobin Concent 33 g/dL (31-37) 33 g/dL (31-37) Red Cell Distribution Width 17.2 % (11.5-14.5) 17.0 % (11.5-14.5) Platelet Count 292 x10^3/uL (140-400) 254 x10^3/uL (140-400) Neutrophils (%) (Auto) 83 % (31-73) 81 % (31-73) Lymphocytes (%) (Auto) 8 % (24-48) 9 % (24-48) Monocytes (%) (Auto) 9 % (0-9) 10 % (0-9) Eosinophils (%) (Auto) 0 % (0-3) 1 % (0-3) Basophils (%) (Auto) 0 % (0-3) 0 % (0-3) Neutrophils # (Auto) 11.7 x10^3/uL (1.8-7.7) 9.3 x10^3/uL (1.8-7.7) Lymphocytes # (Auto) 1.1 x10^3/uL (1.0-4.8) 1.0 x10^3/uL (1.0-4.8) Monocytes # (Auto) 1.2 x10^3/uL (0.0-1.1) 1.1 x10^3/uL (0.0-1.1) Eosinophils # (Auto) 0.0 x10^3/uL (0.0-0.7) 0.1 x10^3/uL (0.0-0.7) Basophils # (Auto) 0.0 x10^3/uL (0.0-0.2) 0.1 x10^3/uL (0.0-0.2) Prothrombin Time 15.9 SEC (11.7-14.0) Prothromb Time International Ratio 1.3 (0.8-1.1) Fibrinogen 766 mg/dL (200-440) D-Dimer (Ana Lilia) 2.00 ug/mlFEU (0.00-0.50) Sodium Level 135 mmol/L (136-145) 141 mmol/L (136-145) Potassium Level 3.7 mmol/L (3.5-5.1) 3.3 mmol/L (3.5-5.1) Chloride Level 99 mmol/L (98-107) 107 mmol/L (98-107) Carbon Dioxide Level 24 mmol/L (21-32) 21 mmol/L (21-32) Anion Gap 12 (6-14) 13 (6-14) Blood Urea Nitrogen 11 mg/dL (7-20) 10 mg/dL (7-20) Creatinine 0.7 mg/dL (0.6-1.0) 0.7 mg/dL (0.6-1.0) Estimated GFR (Cockcroft-Gault) 84.0 84.0 BUN/Creatinine Ratio 16 (6-20) 14 (6-20) Glucose Level 91 mg/dL (70-99) 79 mg/dL (70-99) Lactic Acid Level 0.8 mmol/L (0.4-2.0) Calcium Level 8.4 mg/dL (8.5-10.1) 7.9 mg/dL (8.5-10.1) Total Bilirubin 0.6 mg/dL (0.2-1.0) 0.6 mg/dL (0.2-1.0) Aspartate Amino Transf (AST/SGOT) 11 U/L (15-37) 11 U/L (15-37) Alanine Aminotransferase (ALT/SGPT) 11 U/L (14-59) 12 U/L (14-59) Alkaline Phosphatase 43 U/L (46-116) 38 U/L (46-116) Total Protein 6.5 g/dL (6.4-8.2) 5.4 g/dL (6.4-8.2) Albumin 2.7 g/dL (3.4-5.0) 2.2 g/dL (3.4-5.0) Albumin/Globulin Ratio 0.7 (1.0-1.7) 0.7 (1.0-1.7) Procalcitonin 0.68 ng/mL (0.00-0.10) Laboratory Tests Test 06/18/19 12:45 06/18/19 15:48 06/19/19 05:00 Coronavirus (COVID-19)(PCR) See separate report White Blood Count 14.1 x10^3/uL (4.0-11.0) 11.6 x10^3/uL (4.0-11.0) Red Blood Count 4.11 x10^6/uL (3.50-5.40) 3.47 x10^6/uL (3.50-5.40) Hemoglobin 12.3 g/dL (12.0-15.5) 10.5 g/dL (12.0-15.5) Hematocrit 37.1 % (36.0-47.0) 31.4 % (36.0-47.0) Mean Corpuscular Volume 90 fL (79-100) 90 fL (79-100) Mean Corpuscular Hemoglobin 30 pg (25-35) 30 pg (25-35) Mean Corpuscular Hemoglobin Concent 33 g/dL (31-37) 33 g/dL (31-37) Red Cell Distribution Width 17.2 % (11.5-14.5) 17.0 % (11.5-14.5) Platelet Count 292 x10^3/uL (140-400) 254 x10^3/uL (140-400) Neutrophils (%) (Auto) 83 % (31-73) 81 % (31-73) Lymphocytes (%) (Auto) 8 % (24-48) 9 % (24-48) Monocytes (%) (Auto) 9 % (0-9) 10 % (0-9) Eosinophils (%) (Auto) 0 % (0-3) 1 % (0-3) Basophils (%) (Auto) 0 % (0-3) 0 % (0-3) Neutrophils # (Auto) 11.7 x10^3/uL (1.8-7.7) 9.3 x10^3/uL (1.8-7.7) Lymphocytes # (Auto) 1.1 x10^3/uL (1.0-4.8) 1.0 x10^3/uL (1.0-4.8) Monocytes # (Auto) 1.2 x10^3/uL (0.0-1.1) 1.1 x10^3/uL (0.0-1.1) Eosinophils # (Auto) 0.0 x10^3/uL (0.0-0.7) 0.1 x10^3/uL (0.0-0.7) Basophils # (Auto) 0.0 x10^3/uL (0.0-0.2) 0.1 x10^3/uL (0.0-0.2) Prothrombin Time 15.9 SEC (11.7-14.0) Prothromb Time International Ratio 1.3 (0.8-1.1) Fibrinogen 766 mg/dL (200-440) D-Dimer (Ana Lilia) 2.00 ug/mlFEU (0.00-0.50) Sodium Level 135 mmol/L (136-145) 141 mmol/L (136-145) Potassium Level 3.7 mmol/L (3.5-5.1) 3.3 mmol/L (3.5-5.1) Chloride Level 99 mmol/L (98-107) 107 mmol/L (98-107) Carbon Dioxide Level 24 mmol/L (21-32) 21 mmol/L (21-32) Anion Gap 12 (6-14) 13 (6-14) Blood Urea Nitrogen 11 mg/dL (7-20) 10 mg/dL (7-20) Creatinine 0.7 mg/dL (0.6-1.0) 0.7 mg/dL (0.6-1.0) Estimated GFR (Cockcroft-Gault) 84.0 84.0 BUN/Creatinine Ratio 16 (6-20) 14 (6-20) Glucose Level 91 mg/dL (70-99) 79 mg/dL (70-99) Lactic Acid Level 0.8 mmol/L (0.4-2.0) Calcium Level 8.4 mg/dL (8.5-10.1) 7.9 mg/dL (8.5-10.1) Total Bilirubin 0.6 mg/dL (0.2-1.0) 0.6 mg/dL (0.2-1.0) Aspartate Amino Transf (AST/SGOT) 11 U/L (15-37) 11 U/L (15-37) Alanine Aminotransferase (ALT/SGPT) 11 U/L (14-59) 12 U/L (14-59) Alkaline Phosphatase 43 U/L (46-116) 38 U/L (46-116) Total Protein 6.5 g/dL (6.4-8.2) 5.4 g/dL (6.4-8.2) Albumin 2.7 g/dL (3.4-5.0) 2.2 g/dL (3.4-5.0) Albumin/Globulin Ratio 0.7 (1.0-1.7) 0.7 (1.0-1.7) Procalcitonin 0.68 ng/mL (0.00-0.10) Medications Active Scripts Medications Dose Route/Sig Max Daily Dose Days Date Category Vitamin B12 (Cyanocobalamin (Vitamin B-12)) 2,500 Mcg Tablet 1 Tab PO DAILY 30 06/18/19 Reported Vitamin E (Vitamin E Acid Succinate) 100 Unit Tablet 100 Unit PO DAILY 06/18/19 Reported Tonalin Cla 1,000 Mg Softgel (Safflower Oil/Linoleic Acid,Co) 1,000 Mg Capsule 1,000 Mg PO DAILY 06/18/19 Reported Mag-Oxide (Magnesium Oxide) 200 Mg Tablet 1 Tab PO DAILY 30 06/18/19 Reported Levothyroxine Sodium 100 Mcg Tablet 1 Tab PO DAILY 06/18/19 Reported Liothyronine Sodium 5 Mcg Tablet 1 Tab PO DAILY 30 06/18/19 Reported Lisinopril 10 Mg Tablet 1 Tab PO DAILY 06/18/19 Reported Pravastatin Sodium 20 Mg Tablet 1 Tab PO DAILY 06/18/19 Reported Impression . IMPRESSION: 1. Abdominal pain secondary to acute colon perforation. 2. Colon perforation. 3. Sepsis- improving 4. Fever--resolved 5. Remote history of social smoking. 6. Hypothyroidism. Plan . PLAN: COVID-19 (-) on 06/19/2019-- no need to repeat this test Follow GI recs Follow surgery recs Cont. ABX Stable from respiratory standpoint May move out of ICU/ isolation if ok with other consults GI PPX:Protonix DEREK BURNS MD June 19, 2019 11:34
[2019-06-19] MEDS: ACETAMINOPHEN 325 MG TABLET. PO PRN ×2 (11:37→17:31)
--- NOTE | 2019-06-19 13:08 | PDOC ---
GI PROGRESS NOTES Date Date/Time DATE: 06/19/19 TIME: 13:03 Subjective Subjective ABD PAIN, ABN CT Objective Vitals Vital Signs Date Time Temp Pulse Resp B/P (MAP) Pulse Ox O2 Delivery O2 Flow Rate FiO2 06/19/19 12:04 73 20 90/49 (63) 99 Room Air 06/19/19 11:05 78 20 118/69 (85) 97 Room Air 06/19/19 10:04 98.7 76 14 103/59 (74) 95 Room Air 98.7 06/19/19 09:01 76 14 87/47 (60) 95 Room Air 06/19/19 08:17 84 20 107/63 (78) 95 Room Air 06/19/19 08:17 Room Air 06/19/19 07:15 95 Room Air 06/19/19 07:00 77 30 90/46 (61) 96 Room Air 06/19/19 06:45 18 Room Air 06/19/19 06:00 86 20 107/63 (78) 95 Room Air 06/19/19 05:00 78 17 104/59 (74) 95 Room Air 06/19/19 04:00 Room Air 06/19/19 04:00 98.9 80 19 94/58 (70) 94 Room Air 98.9 06/19/19 03:00 84 15 94/58 (70) 92 Room Air 06/19/19 02:00 81 15 84/48 (60) 96 Room Air 06/19/19 01:00 86 16 86/45 (59) 94 Room Air 06/19/19 00:49 18 Room Air 06/19/19 00:19 18 Room Air 06/19/19 00:00 98.9 86 20 99/58 (72) 95 Room Air 98.9 06/19/19 00:00 Room Air 06/18/19 23:00 79 14 102/44 (63) 100 Room Air 06/18/19 22:00 83 15 87/55 (66) 94 Room Air 06/18/19 21:46 16 Room Air 06/18/19 21:16 18 Room Air 06/18/19 21:00 90 15 108/55 (72) 94 Room Air 06/18/19 20:00 Room Air 06/18/19 20:00 99.2 90 18 97/54 (68) 95 Room Air 99.2 06/18/19 19:13 Room Air 06/18/19 19:00 90 15 100/59 (73) 94 Room Air 06/18/19 18:30 99.0 86 18 95/54 (68) 97 Room Air 99.0 06/18/19 18:29 Room Air 06/18/19 17:30 99.0 90 18 97/56 (70) 95 Room Air 99.0 06/18/19 16:30 90 18 97/56 (70) 98 Room Air 06/18/19 16:30 Room Air 06/18/19 15:52 Room Air 06/18/19 15:30 92 18 110/67 (81) 96 Room Air 06/18/19 15:12 Room Air 06/18/19 14:00 92 20 115/66 (82) 98 Room Air 06/18/19 13:16 Room Air Labs Labs Laboratory Tests Test 06/18/19 15:48 06/19/19 05:00 White Blood Count 14.1 x10^3/uL (4.0-11.0) 11.6 x10^3/uL (4.0-11.0) Red Blood Count 4.11 x10^6/uL (3.50-5.40) 3.47 x10^6/uL (3.50-5.40) Hemoglobin 12.3 g/dL (12.0-15.5) 10.5 g/dL (12.0-15.5) Hematocrit 37.1 % (36.0-47.0) 31.4 % (36.0-47.0) Mean Corpuscular Volume 90 fL (79-100) 90 fL (79-100) Mean Corpuscular Hemoglobin 30 pg (25-35) 30 pg (25-35) Mean Corpuscular Hemoglobin Concent 33 g/dL (31-37) 33 g/dL (31-37) Red Cell Distribution Width 17.2 % (11.5-14.5) 17.0 % (11.5-14.5) Platelet Count 292 x10^3/uL (140-400) 254 x10^3/uL (140-400) Neutrophils (%) (Auto) 83 % (31-73) 81 % (31-73) Lymphocytes (%) (Auto) 8 % (24-48) 9 % (24-48) Monocytes (%) (Auto) 9 % (0-9) 10 % (0-9) Eosinophils (%) (Auto) 0 % (0-3) 1 % (0-3) Basophils (%) (Auto) 0 % (0-3) 0 % (0-3) Neutrophils # (Auto) 11.7 x10^3/uL (1.8-7.7) 9.3 x10^3/uL (1.8-7.7) Lymphocytes # (Auto) 1.1 x10^3/uL (1.0-4.8) 1.0 x10^3/uL (1.0-4.8) Monocytes # (Auto) 1.2 x10^3/uL (0.0-1.1) 1.1 x10^3/uL (0.0-1.1) Eosinophils # (Auto) 0.0 x10^3/uL (0.0-0.7) 0.1 x10^3/uL (0.0-0.7) Basophils # (Auto) 0.0 x10^3/uL (0.0-0.2) 0.1 x10^3/uL (0.0-0.2) Prothrombin Time 15.9 SEC (11.7-14.0) Prothromb Time International Ratio 1.3 (0.8-1.1) Fibrinogen 766 mg/dL (200-440) D-Dimer (Ana Lilia) 2.00 ug/mlFEU (0.00-0.50) Sodium Level 135 mmol/L (136-145) 141 mmol/L (136-145) Potassium Level 3.7 mmol/L (3.5-5.1) 3.3 mmol/L (3.5-5.1) Chloride Level 99 mmol/L (98-107) 107 mmol/L (98-107) Carbon Dioxide Level 24 mmol/L (21-32) 21 mmol/L (21-32) Anion Gap 12 (6-14) 13 (6-14) Blood Urea Nitrogen 11 mg/dL (7-20) 10 mg/dL (7-20) Creatinine 0.7 mg/dL (0.6-1.0) 0.7 mg/dL (0.6-1.0) Estimated GFR (Cockcroft-Gault) 84.0 84.0 BUN/Creatinine Ratio 16 (6-20) 14 (6-20) Glucose Level 91 mg/dL (70-99) 79 mg/dL (70-99) Lactic Acid Level 0.8 mmol/L (0.4-2.0) Calcium Level 8.4 mg/dL (8.5-10.1) 7.9 mg/dL (8.5-10.1) Total Bilirubin 0.6 mg/dL (0.2-1.0) 0.6 mg/dL (0.2-1.0) Aspartate Amino Transf (AST/SGOT) 11 U/L (15-37) 11 U/L (15-37) Alanine Aminotransferase (ALT/SGPT) 11 U/L (14-59) 12 U/L (14-59) Alkaline Phosphatase 43 U/L (46-116) 38 U/L (46-116) Total Protein 6.5 g/dL (6.4-8.2) 5.4 g/dL (6.4-8.2) Albumin 2.7 g/dL (3.4-5.0) 2.2 g/dL (3.4-5.0) Albumin/Globulin Ratio 0.7 (1.0-1.7) 0.7 (1.0-1.7) Procalcitonin 0.68 ng/mL (0.00-0.10) Physical Exam Physical Exam Alert chest -clear abd- soft- mildly tender but no point tenderness or rebound. Bowel sounds decreased but present Assessment Assessment ABd pain - history of constipation, worsening this week then acute abd pain- here with daughter helping with children ( with twins and in and out of country)- CT and labs suggest perforation - could be IBD based on several areas of inflammation but could also be diverticular or neoplastic- no colonoscopy in 40 years, so all options are a possibility Plan Plan ABX monitor defer to surgery on plans FELY MCINTOSH MD June 19, 2019 13:08
[2019-06-19] MEDS: fentaNYL PF VIAL 100 MCG/2 ML VIAL IVP PRN ×2 (15:50→20:23)
--- NOTE | 2019-06-19 18:49 | RAD ---
Exam: VENOUS LOWER EXT BILATERAL Indication: Bilateral leg pain, elevated d-dimer Technique: Color-flow and pulsed wave duplex ultrasound with compression of venous structures of the bilateral lower extremities. Comparison: None Available. Findings: Duplex ultrasound with compression of the deep venous structures of the bilateral lower extremities from the common femoral vein through the popliteal vein is negative for DVT. The posterior tibial and peroneal veins are segmentally visualized and patent where seen. Normal venous waveforms and augmentation are noted throughout. Impression: No evidence for DVT in the bilateral lower extremities. Electronically signed by: Mickey Ulrich MD (06/19/2019 6:46 PM) [facility]
[2019-06-20 03:00] VITALS: BP 107/55
[2019-06-20] MEDS: PIPERACILLIN/TAZOBACTAM 3.375 GM in IV NORMAL SALINE 50ML 50 ML IV SCH ×4 (05:09→23:02)
[2019-06-20] MEDS: fentaNYL PF VIAL 100 MCG/2 ML VIAL IVP PRN (05:09)
[2019-06-20 07:00] VITALS: BP 125/78
[2019-06-20] MEDS: PANTOPRAZOLE IV PUSH 40 MG VIAL. IVP SCH (08:27)
--- NOTE | 2019-06-20 09:52 | PDOC ---
PULMONARY PROGRESS NOTES Subjective Patient is on room air Denies increase cough or SOA, afebrile Vitals Vital Signs Date Time Temp Pulse Resp B/P (MAP) Pulse Ox O2 Delivery O2 Flow Rate FiO2 06/20/19 07:00 98.6 77 17 125/78 (94) 96 Room Air 98.6 ROS: No Nausea, No Chest Pain, No Abdominal Pain, No Increase Cough General: Alert, Oriented X4 Lungs: Clear Cardiovascular: S2 Abdomen: Soft, Non-tender Neuro Exam: Alert, Oriented Extremities: No Edema Skin: Warm Labs Laboratory Tests Test 06/18/19 12:45 06/18/19 15:48 06/19/19 05:00 Coronavirus (COVID-19)(PCR) See separate report White Blood Count 14.1 x10^3/uL (4.0-11.0) 11.6 x10^3/uL (4.0-11.0) Red Blood Count 4.11 x10^6/uL (3.50-5.40) 3.47 x10^6/uL (3.50-5.40) Hemoglobin 12.3 g/dL (12.0-15.5) 10.5 g/dL (12.0-15.5) Hematocrit 37.1 % (36.0-47.0) 31.4 % (36.0-47.0) Mean Corpuscular Volume 90 fL (79-100) 90 fL (79-100) Mean Corpuscular Hemoglobin 30 pg (25-35) 30 pg (25-35) Mean Corpuscular Hemoglobin Concent 33 g/dL (31-37) 33 g/dL (31-37) Red Cell Distribution Width 17.2 % (11.5-14.5) 17.0 % (11.5-14.5) Platelet Count 292 x10^3/uL (140-400) 254 x10^3/uL (140-400) Neutrophils (%) (Auto) 83 % (31-73) 81 % (31-73) Lymphocytes (%) (Auto) 8 % (24-48) 9 % (24-48) Monocytes (%) (Auto) 9 % (0-9) 10 % (0-9) Eosinophils (%) (Auto) 0 % (0-3) 1 % (0-3) Basophils (%) (Auto) 0 % (0-3) 0 % (0-3) Neutrophils # (Auto) 11.7 x10^3/uL (1.8-7.7) 9.3 x10^3/uL (1.8-7.7) Lymphocytes # (Auto) 1.1 x10^3/uL (1.0-4.8) 1.0 x10^3/uL (1.0-4.8) Monocytes # (Auto) 1.2 x10^3/uL (0.0-1.1) 1.1 x10^3/uL (0.0-1.1) Eosinophils # (Auto) 0.0 x10^3/uL (0.0-0.7) 0.1 x10^3/uL (0.0-0.7) Basophils # (Auto) 0.0 x10^3/uL (0.0-0.2) 0.1 x10^3/uL (0.0-0.2) Prothrombin Time 15.9 SEC (11.7-14.0) Prothromb Time International Ratio 1.3 (0.8-1.1) Fibrinogen 766 mg/dL (200-440) D-Dimer (Ana Lilia) 2.00 ug/mlFEU (0.00-0.50) Sodium Level 135 mmol/L (136-145) 141 mmol/L (136-145) Potassium Level 3.7 mmol/L (3.5-5.1) 3.3 mmol/L (3.5-5.1) Chloride Level 99 mmol/L (98-107) 107 mmol/L (98-107) Carbon Dioxide Level 24 mmol/L (21-32) 21 mmol/L (21-32) Anion Gap 12 (6-14) 13 (6-14) Blood Urea Nitrogen 11 mg/dL (7-20) 10 mg/dL (7-20) Creatinine 0.7 mg/dL (0.6-1.0) 0.7 mg/dL (0.6-1.0) Estimated GFR (Cockcroft-Gault) 84.0 84.0 BUN/Creatinine Ratio 16 (6-20) 14 (6-20) Glucose Level 91 mg/dL (70-99) 79 mg/dL (70-99) Lactic Acid Level 0.8 mmol/L (0.4-2.0) Calcium Level 8.4 mg/dL (8.5-10.1) 7.9 mg/dL (8.5-10.1) Total Bilirubin 0.6 mg/dL (0.2-1.0) 0.6 mg/dL (0.2-1.0) Aspartate Amino Transf (AST/SGOT) 11 U/L (15-37) 11 U/L (15-37) Alanine Aminotransferase (ALT/SGPT) 11 U/L (14-59) 12 U/L (14-59) Alkaline Phosphatase 43 U/L (46-116) 38 U/L (46-116) Total Protein 6.5 g/dL (6.4-8.2) 5.4 g/dL (6.4-8.2) Albumin 2.7 g/dL (3.4-5.0) 2.2 g/dL (3.4-5.0) Albumin/Globulin Ratio 0.7 (1.0-1.7) 0.7 (1.0-1.7) Procalcitonin 0.68 ng/mL (0.00-0.10) Medications Active Scripts Medications Dose Route/Sig Max Daily Dose Days Date Category Vitamin B12 (Cyanocobalamin (Vitamin B-12)) 2,500 Mcg Tablet 1 Tab PO DAILY 06/18/19 Reported Vitamin E (Vitamin E Acid Succinate) 100 Unit Tablet 100 Unit PO DAILY 06/18/19 Reported Tonalin Cla 1,000 Mg Softgel (Safflower Oil/Linoleic Acid,Co) 1,000 Mg Capsule 1,000 Mg PO DAILY 06/18/19 Reported Mag-Oxide (Magnesium Oxide) 200 Mg Tablet 1 Tab PO DAILY 06/18/19 Reported Levothyroxine Sodium 100 Mcg Tablet 1 Tab PO DAILY 06/18/19 Reported Liothyronine Sodium 5 Mcg Tablet 1 Tab PO DAILY 06/18/19 Reported Lisinopril 10 Mg Tablet 1 Tab PO DAILY 06/18/19 Reported Pravastatin Sodium 20 Mg Tablet 1 Tab PO DAILY 06/18/19 Reported Impression . IMPRESSION: 1. Abdominal pain secondary to acute colon perforation. 2. Colon perforation. 3. Sepsis- improving 4. Fever--resolved 5. Remote history of social smoking. 6. Hypothyroidism. Plan . PLAN: COVID-19 (-) on 06/19/2019-- no need to repeat this test Follow GI recs Follow surgery recs Cont. ABX Stable from respiratory standpoint-- we will sign off, feel free to call with any concerns thank you DEREK BURNS MD June 20, 2019 09:52
--- NOTE | 2019-06-20 10:31 | PDOC ---
PROGRESS NOTES Chief Complaint Chief Complaint impression 1. acute colitis with microperforation 2. abdominal pain secondary to the above improved 3. SEPSIS secondary to the above improved 4. Thickening of mural high rectal region Plan: Patient may be transferred telemetry floor now that COVID-19 testing has come back negative Pain management Continue antibiotics Supportive measures Pain management Follow blood pressure which is on the low end due to pain management most likely 37 MIN pt exam, chart review, > 50% of time spent with exam, chart review, pt care coordination History of Present Illness History of Present Illness No acute events reported overnight, case discussed with nursing staff patient in no acute distress no complaints during my visit Vitals Vitals Vital Signs Date Time Temp Pulse Resp B/P (MAP) Pulse Ox O2 Delivery O2 Flow Rate FiO2 06/20/19 07:00 98.6 77 17 125/78 (94) 96 Room Air 98.6 Physical Exam General: Alert, Oriented X3, Cooperative, No acute distress Heart: Regular rate, Normal S1 Lungs: Clear Abdomen: Other (exquisitely TTP in BLQ) Extremities: No clubbing Skin: Other (warm,dry) Labs LABS Exam: VENOUS LOWER EXT BILATERAL Indication: Bilateral leg pain, elevated d-dimer Technique: Color-flow and pulsed wave duplex ultrasound with compression of venous structures of the bilateral lower extremities. Comparison: None Available. Findings: Duplex ultrasound with compression of the deep venous structures of the bilateral lower extremities from the common femoral vein through the popliteal vein is negative for DVT. The posterior tibial and peroneal veins are segmentally visualized and patent where seen. Normal venous waveforms and augmentation are noted throughout. Impression: No evidence for DVT in the bilateral lower extremities. Electronically signed by: Wenceslao Victoria MD (06/19/2019 6:46 PM) [facility] DICTATED and SIGNED BY: WENCESLAO VICTORIA MD DATE: 06/19/19 184 Comment Review of Relevant I have reviewed the following items franklyn (where applicable) has been applied. Labs Laboratory Tests Test 06/18/19 12:45 06/18/19 15:48 06/19/19 05:00 Coronavirus (COVID-19)(PCR) See separate report White Blood Count 14.1 x10^3/uL (4.0-11.0) 11.6 x10^3/uL (4.0-11.0) Red Blood Count 4.11 x10^6/uL (3.50-5.40) 3.47 x10^6/uL (3.50-5.40) Hemoglobin 12.3 g/dL (12.0-15.5) 10.5 g/dL (12.0-15.5) Hematocrit 37.1 % (36.0-47.0) 31.4 % (36.0-47.0) Mean Corpuscular Volume 90 fL (79-100) 90 fL (79-100) Mean Corpuscular Hemoglobin 30 pg (25-35) 30 pg (25-35) Mean Corpuscular Hemoglobin Concent 33 g/dL (31-37) 33 g/dL (31-37) Red Cell Distribution Width 17.2 % (11.5-14.5) 17.0 % (11.5-14.5) Platelet Count 292 x10^3/uL (140-400) 254 x10^3/uL (140-400) Neutrophils (%) (Auto) 83 % (31-73) 81 % (31-73) Lymphocytes (%) (Auto) 8 % (24-48) 9 % (24-48) Monocytes (%) (Auto) 9 % (0-9) 10 % (0-9) Eosinophils (%) (Auto) 0 % (0-3) 1 % (0-3) Basophils (%) (Auto) 0 % (0-3) 0 % (0-3) Neutrophils # (Auto) 11.7 x10^3/uL (1.8-7.7) 9.3 x10^3/uL (1.8-7.7) Lymphocytes # (Auto) 1.1 x10^3/uL (1.0-4.8) 1.0 x10^3/uL (1.0-4.8) Monocytes # (Auto) 1.2 x10^3/uL (0.0-1.1) 1.1 x10^3/uL (0.0-1.1) Eosinophils # (Auto) 0.0 x10^3/uL (0.0-0.7) 0.1 x10^3/uL (0.0-0.7) Basophils # (Auto) 0.0 x10^3/uL (0.0-0.2) 0.1 x10^3/uL (0.0-0.2) Prothrombin Time 15.9 SEC (11.7-14.0) Prothromb Time International Ratio 1.3 (0.8-1.1) Fibrinogen 766 mg/dL (200-440) D-Dimer (Ana Lilia) 2.00 ug/mlFEU (0.00-0.50) Sodium Level 135 mmol/L (136-145) 141 mmol/L (136-145) Potassium Level 3.7 mmol/L (3.5-5.1) 3.3 mmol/L (3.5-5.1) Chloride Level 99 mmol/L (98-107) 107 mmol/L (98-107) Carbon Dioxide Level 24 mmol/L (21-32) 21 mmol/L (21-32) Anion Gap 12 (6-14) 13 (6-14) Blood Urea Nitrogen 11 mg/dL (7-20) 10 mg/dL (7-20) Creatinine 0.7 mg/dL (0.6-1.0) 0.7 mg/dL (0.6-1.0) Estimated GFR (Cockcroft-Gault) 84.0 84.0 BUN/Creatinine Ratio 16 (6-20) 14 (6-20) Glucose Level 91 mg/dL (70-99) 79 mg/dL (70-99) Lactic Acid Level 0.8 mmol/L (0.4-2.0) Calcium Level 8.4 mg/dL (8.5-10.1) 7.9 mg/dL (8.5-10.1) Total Bilirubin 0.6 mg/dL (0.2-1.0) 0.6 mg/dL (0.2-1.0) Aspartate Amino Transf (AST/SGOT) 11 U/L (15-37) 11 U/L (15-37) Alanine Aminotransferase (ALT/SGPT) 11 U/L (14-59) 12 U/L (14-59) Alkaline Phosphatase 43 U/L (46-116) 38 U/L (46-116) Total Protein 6.5 g/dL (6.4-8.2) 5.4 g/dL (6.4-8.2) Albumin 2.7 g/dL (3.4-5.0) 2.2 g/dL (3.4-5.0) Albumin/Globulin Ratio 0.7 (1.0-1.7) 0.7 (1.0-1.7) Procalcitonin 0.68 ng/mL (0.00-0.10) Microbiology 06/18/19 Blood Culture - Preliminary, Resulted NO GROWTH AFTER 1 DAY Medications Current Medications Sodium Chloride (Normal Saline Flush) 3 ml QSHIFT PRN IV AFTER MEDS AND BLOOD DRAWS; Start 06/18/19 at 13:00 Sodium Chloride 1,000 ml @ 100 mls/hr Q10H IV Last administered on 06/19/19at 23:19; Start 06/18/19 at 12:48 Ondansetron HCl (Zofran) 4 mg PRN Q4HRS PRN IV NAUSEA/VOMITING; Start 06/18/19 at 13:00 Acetaminophen (Tylenol Supp) 650 mg PRN Q4HRS PRN WA TEMP OVER 100.4F OR MILD PAIN; Start 06/18/19 at 13:00 Albuterol Sulfate (Ventolin Neb Soln) 2.5 mg PRN Q4HRS PRN NEB SHORTNESS OF BREATH; Start 06/18/19 at 13:00 Piperacillin Sod/ Tazobactam Sod 3.375 gm/Sodium Chloride 50 ml @ 100 mls/hr Q6HRS IV Last administered on 06/20/19at 05:09; Start 06/18/19 at 13:00 Fentanyl Citrate (Fentanyl 2ml Vial) 50 mcg PRN Q2HR PRN IVP MOD TO SEVERE PAIN, 2ND CHOICE Last administered on 06/20/19at 05:09; Start 06/18/19 at 13:00 Pantoprazole Sodium (PROTONIX VIAL for IV PUSH) 40 mg DAILYAC IVP Last administered on 06/20/19at 08:27; Start 06/19/19 at 07:30 Pantoprazole Sodium (PROTONIX VIAL for IV PUSH) 40 mg 1X ONCE IVP Last administered on 06/18/19at 13:50; Start 06/18/19 at 13:45; Stop 06/18/19 at 13:46; Status DC Metronidazole 100 ml @ 100 mls/hr Q8HRS IV Last administered on 06/19/19at 06:45; Start 06/18/19 at 14:00; Stop 06/19/19 at 08:51; Status DC Hydromorphone HCl (Dilaudid) 1 mg PRN Q3HRS PRN IV MODERATE PAIN, 1ST CHOICE Last administered on 06/19/19at 23:13; Start 06/18/19 at 14:30 Hydromorphone HCl (Dilaudid) 1.5 mg PRN Q3HRS PRN IV SEVERE PAIN 7-10, 1ST CHOICE; Start 06/18/19 at 14:30 Sodium Chloride 1,000 ml @ 1,980 mls/hr Q31M IV Last administered on 06/18/19at 16:44; Start 06/18/19 at 15:06; Stop 06/18/19 at 16:06; Status DC Sodium Chloride 500 ml @ 1,000 mls/hr PRN Q30MIN PRN IV SEE COMMENTS; Start 06/18/19 at 15:15 Meropenem 1 gm/ Sodium Chloride 100 ml @ 200 mls/hr Q8HRS IV Last administered on 06/19/19at 05:50; Start 06/18/19 at 15:15; Stop 06/19/19 at 08:51; Status DC Acetaminophen (Tylenol) 650 mg PRN Q6HRS PRN PO PAIN Last administered on 06/19/19at 17:31; Start 06/19/19 at 11:30 Active Scripts Active Reported Vitamin B12 (Cyanocobalamin (Vitamin B-12)) 2,500 Mcg Tablet 1 Tab PO DAILY 30 Days Vitamin E (Vitamin E Acid Succinate) 100 Unit Tablet 100 Unit PO DAILY Tonalin Cla 1,000 Mg Softgel (Safflower Oil/Linoleic Acid,Co) 1,000 Mg Capsule 1,000 Mg PO DAILY Mag-Oxide (Magnesium Oxide) 200 Mg Tablet 1 Tab PO DAILY 30 Days Levothyroxine Sodium 100 Mcg Tablet 1 Tab PO DAILY Liothyronine Sodium 5 Mcg Tablet 1 Tab PO DAILY 30 Days Lisinopril 10 Mg Tablet 1 Tab PO DAILY Pravastatin Sodium 20 Mg Tablet 1 Tab PO DAILY Vitals/I & O Vital Sign - Last 24 Hours 06/19/19 06/19/19 06/19/19 06/19/19 11:05 12:04 13:39 15:15 Temp 98.9 98.9 Pulse 78 73 74 68 Resp 20 20 20 16 B/P (MAP) 118/69 (85) 90/49 (63) 111/67 (82) 115/69 (84) Pulse Ox 97 99 98 96 O2 Delivery Room Air Room Air Room Air Room Air 06/19/19 06/19/19 06/19/19 06/19/19 15:50 16:20 19:00 20:00 Temp 98.4 98.4 Pulse 65 Resp 18 B/P (MAP) 116/63 (80) Pulse Ox 96 O2 Delivery Room Air Room Air Room Air Room Air 06/19/19 06/19/19 06/19/19 06/19/19 20:23 20:53 23:00 23:13 Temp 98.7 98.7 Pulse 79 Resp 18 18 18 18 B/P (MAP) 108/60 (76) Pulse Ox 96 96 96 96 O2 Delivery Room Air Room Air Room Air Room Air 06/19/19 06/20/19 06/20/19 06/20/19 23:43 03:00 05:09 05:39 Temp 98.9 98.9 Pulse 74 Resp 18 18 18 18 B/P (MAP) 107/55 (72) Pulse Ox 96 95 95 95 O2 Delivery Room Air Room Air Room Air Room Air 06/20/19 07:00 Temp 98.6 98.6 Pulse 77 Resp 17 B/P (MAP) 125/78 (94) Pulse Ox 96 O2 Delivery Room Air Intake and Output 06/19/19 06/19/19 06/20/19 15:00 23:00 07:00 Intake Total 250 ml 500 ml Output Total 350 ml Balance -100 ml 500 ml SADI VASQUEZ MD June 20, 2019 10:31
[2019-06-20] MEDS: IV NORMAL SALINE 1000ML BAG 1,000 ML IV SCH ×2 (10:58→21:04)
[2019-06-20 11:00] VITALS: BP 128/80
--- NOTE | 2019-06-20 11:09 | PDOC ---
Infectious Disease Note Subjective Subjective Transferred to 4th floor COVID-19 neg Tolerating ice chips Denies worsening abdominal pain Still feeling bloated. No BM or flatus No F/C ROS ROS per HPI Vital Sign Vital Signs Vital Signs Date Time Temp Pulse Resp B/P (MAP) Pulse Ox O2 Delivery O2 Flow Rate FiO2 06/20/19 07:00 98.6 77 17 125/78 (94) 96 Room Air 98.6 Physical Exam PHYSICAL EXAM GENERAL: Propped up in bed, alert, appears comfortable. HEENT: Pupils equally round and reactive. Oropharynx pink and moist. No lesions seen. NECK: Supple. LUNGS: Clear to auscultation. CARDIAC: S1 and S2 regular. ABDOMEN: Mildly distended, soft, diffusely tender. Bowel sounds present. EXTREMITIES: No gross edema or cyanosis. SKIN: Warm to touch or signs of rash. Tattoo NEUROLOGIC: Alert and oriented x 3. Labs Micro Microbiology 06/18/19 Blood Culture - Preliminary, Resulted NO GROWTH AFTER 1 DAY Objective Assessment Acute sigmoid colitis with perforation Leukocytosis - improved Pyruia, 06/17 (SJ) Left hepatic mass (measures1.7 x 1.5 cm) Hypothyroidism COVID-19 negative Plan Plan of Care Continue Zosyn Bowel rest f/u cultures and labs Supportive care Last colonoscopy > 40yrs ago Patient seen and examined. Chart reviewed in detail. Case discussed with [employer].Agree with above plan DUC POLLARD APRN June 20, 2019 11:07 NOE CLARK MD June 20, 2019 16:51
--- NOTE | 2019-06-20 11:57 | PDOC ---
GI PROGRESS NOTES Date Date/Time DATE: 06/20/19 TIME: 11:53 Subjective Subjective feels better- panel machine tender - more in R abd than LLQ Objective Vitals Vital Signs Date Time Temp Pulse Resp B/P (MAP) Pulse Ox O2 Delivery O2 Flow Rate FiO2 06/20/19 11:00 98.4 78 17 128/80 (96) 97 Room Air 98.4 06/20/19 07:00 98.6 77 17 125/78 (94) 96 Room Air 98.6 06/20/19 05:39 18 95 Room Air 06/20/19 05:09 18 95 Room Air 06/20/19 03:00 98.9 74 18 107/55 (72) 95 Room Air 98.9 06/19/19 23:43 18 96 Room Air 06/19/19 23:13 18 96 Room Air 06/19/19 23:00 98.7 79 18 108/60 (76) 96 Room Air 98.7 06/19/19 20:53 18 96 Room Air 06/19/19 20:23 18 96 Room Air 06/19/19 20:00 Room Air 06/19/19 19:00 98.4 65 18 116/63 (80) 96 Room Air 98.4 06/19/19 16:20 Room Air 06/19/19 15:50 Room Air 06/19/19 15:15 98.9 68 16 115/69 (84) 96 Room Air 98.9 06/19/19 13:39 74 20 111/67 (82) 98 Room Air 06/19/19 12:04 73 20 90/49 (63) 99 Room Air Physical Exam Physical Exam Alert chest -clear abd- soft- mildly tender inn R mid abd and lesser tenderness in LLQ but no point tenderness or rebound. Bowel sounds decreased but present Assessment Assessment ABd pain - history of constipation, worsening this week then acute abd pain- here with daughter helping with children ( with twins and in and out of country)- CT and labs suggest perforation - could be IBD based on several areas of inflammation but could also be diverticular or neoplastic- no colonoscopy in 40 years, so all options are a possibility Plan Plan ABX monitor draw markers - CRP CEA etc to guide us since improving, consider CLD and careful miralax or similar to gently get bowels working- will defer to surgery when to start Now suggesting conservative treatment and then colonoscopy as soon as deemed safe as outpt to confirm diagnosis FELY MCINTOSH MD June 20, 2019 11:57
[2019-06-20 15:00] VITALS: BP 130/84
[2019-06-20] MEDS: POLYETHYLENE GLYCOL 3350 17 GM PACKET. PO SCH (17:19)
[2019-06-20] MEDS: ACETAMINOPHEN 325 MG TABLET. PO PRN ×2 (17:24→20:57)
[2019-06-20 19:00] VITALS: BP 133/77
[2019-06-20 23:00] VITALS: BP 114/75
[2019-06-21 03:00] VITALS: BP 140/85
[2019-06-21] MEDS: PIPERACILLIN/TAZOBACTAM 3.375 GM in IV NORMAL SALINE 50ML 50 ML IV SCH ×3 (05:34→18:08)
[2019-06-21] MEDS: PANTOPRAZOLE IV PUSH 40 MG VIAL. IVP SCH (05:34)
[2019-06-21] MEDS: IV NORMAL SALINE 1000ML BAG 1,000 ML IV SCH ×2 (06:04→20:48)
[2019-06-21 07:00] VITALS: BP 126/75
[2019-06-21] MEDS: POLYETHYLENE GLYCOL 3350 17 GM PACKET. PO SCH (07:56)
--- NOTE | 2019-06-21 09:04 | PDOC ---
Infectious Disease Note Subjective Subjective feeling good, has no abd pain, no n/v/d/or fever ROS ROS as above Vital Sign Vital Signs Vital Signs Date Time Temp Pulse Resp B/P (MAP) Pulse Ox O2 Delivery O2 Flow Rate FiO2 06/21/19 07:00 98.6 62 18 126/75 (92) 96 Room Air 98.6 Physical Exam PHYSICAL EXAM GENERAL: Propped up in bed, alert, appears comfortable. HEENT: Pupils equally round and reactive. Oropharynx pink and moist. No lesions seen. NECK: Supple. LUNGS: Clear to auscultation. CARDIAC: S1 and S2 regular. ABDOMEN: Mildly distended, soft, diffusely tender. Bowel sounds present. EXTREMITIES: No gross edema or cyanosis. SKIN: Warm to touch or signs of rash. Tattoo NEUROLOGIC: Alert and oriented x 3. Labs Lab Laboratory Tests Test 06/21/19 03:25 C-Reactive Protein, Quantitative 100.5 mg/L (0-3.3) Micro Microbiology 06/18/19 Blood Culture - Preliminary, Resulted NO GROWTH AFTER 2 DAYS Objective Assessment Acute sigmoid colitis with perforation Leukocytosis - improved Pyruia, 06/17 ([facility]) Left hepatic mass (measures1.7 x 1.5 cm) Hypothyroidism COVID-19 negative Plan Plan of Care Continue Zosyn,,, change to po augmentin soon f/u cultures and labs Supportive care colonoscopy planned out pt ROSLYN GARCIA MD June 21, 2019 09:04
--- NOTE | 2019-06-21 10:11 | PDOC ---
Subjective: Subjective: Feels 100% better, would like to be discharged - also curious if having another CT would be beneficial. No abd pain. Passing gas, no stool. Tolerating clears. Wants to get up and walk. Will take daughter and grandchildren back to [place] after twin born - they are moving to [place] later this year. She understands she should having a colonoscopy and would like to schedule that at home over the summer. Pain began around belly button before moving lower. Objective: Objective: D/w Dr. Maloney - changing to PO atbx. Vital Signs: Vital Signs Date Time Temp Pulse Resp B/P (MAP) Pulse Ox O2 Delivery O2 Flow Rate FiO2 06/21/19 07:00 98.6 62 18 126/75 (92) 96 Room Air 98.6 Labs: Laboratory Tests Test 06/21/19 03:25 C-Reactive Protein, Quantitative 100.5 mg/L BLOOD CULTURE Preliminary NO GROWTH AFTER 2 DAYS PE: GEN: NAD LUNGS: CTAB HEART: RRR ABD: NABS, soft, non-tender NEURO/PSYCH: A & O 3 A/P: Fever (resolved), change in bowel habits/constipation Leukocytosis (improved), elevated CRP Abnormal CT - multifocal areas of bowel inflammation including the proximal sigmoid colon, rectum, and TI, associated perforation w/ free intraperitoneal air and extensive phlegmon, indeterminate left hepatic mass CRC screen - done 40 years ago COVID-19 negative Anemia -- Reviewed w/ Dr. Wang - defer diet, ?interval CT (she asks about), and DC consideration to surgery. Colonoscopy recommendations discussed. Consider US at some point to monitor hepatic findings on CT. Check anemia parameters. Hemodynamically unstable?: No Is patient in severe pain?: No Is NPO status required?: No BRANDIE RODRIGUEZ June 21, 2019 10:11
--- NOTE | 2019-06-21 10:59 | PDOC ---
PROGRESS NOTES Chief Complaint Chief Complaint impression 1. acute colitis with microperforation 2. abdominal pain secondary to the above improved 3. SEPSIS secondary to the above improved 4. Thickening of mural high rectal region Plan: Patient may be transferred telemetry floor now that COVID-19 testing has come back negative Pain management Continue antibiotics Supportive measures Pain management Follow blood pressure which is on the low end due to pain management most likely D/C SOON WHEN OK WITH SURGERY 06/20 CONTINUE IV ZOSYN 38 MIN pt exam, chart review, > 50% of time spent with exam, chart review, pt care coordination History of Present Illness History of Present Illness No acute events reported overnight, case discussed with nursing staff patient in no acute distress no complaints during my visit HAD A BM, FEELS MUCH BETTER 06/20 Vitals Vitals Vital Signs Date Time Temp Pulse Resp B/P (MAP) Pulse Ox O2 Delivery O2 Flow Rate FiO2 06/21/19 07:52 Room Air 06/21/19 07:00 98.6 62 18 126/75 (92) 96 98.6 Physical Exam Physical Exam GENERAL: Propped up in bed, alert, appears comfortable. HEENT: Pupils equally round and reactive. Oropharynx pink and moist. No lesions seen. NECK: Supple. LUNGS: Clear to auscultation. CARDIAC: S1 and S2 regular. ABDOMEN: Mildly distended, soft, diffusely tender. Bowel sounds present. EXTREMITIES: No gross edema or cyanosis. SKIN: Warm to touch or signs of rash. Tattoo NEUROLOGIC: Alert and oriented x 3. General: Alert, Oriented X3, Cooperative, No acute distress Heart: Regular rate, Normal S1, No murmurs Lungs: Clear Abdomen: Normal bowel sounds, Other (MINIMAL TENDERNESS) Extremities: No clubbing Skin: Other (warm,dry) Labs LABS Laboratory Tests Test 06/21/19 03:25 Iron Level 28 ug/dL (50-170) Total Iron Binding Capacity 108 ug/dL (250-450) Iron Saturation 26 % (15-34) C-Reactive Protein, Quantitative 100.5 mg/L (0-3.3) Comment Review of Relevant I have reviewed the following items franklyn (where applicable) has been applied. Labs Laboratory Tests Test 06/21/19 03:25 Iron Level 28 ug/dL (50-170) Total Iron Binding Capacity 108 ug/dL (250-450) Iron Saturation 26 % (15-34) C-Reactive Protein, Quantitative 100.5 mg/L (0-3.3) Laboratory Tests Test 06/21/19 03:25 Iron Level 28 ug/dL (50-170) Total Iron Binding Capacity 108 ug/dL (250-450) Iron Saturation 26 % (15-34) C-Reactive Protein, Quantitative 100.5 mg/L (0-3.3) Microbiology 06/18/19 Blood Culture - Preliminary, Resulted NO GROWTH AFTER 2 DAYS Medications Current Medications Sodium Chloride (Normal Saline Flush) 3 ml QSHIFT PRN IV AFTER MEDS AND BLOOD DRAWS; Start 06/18/19 at 13:00 Sodium Chloride 1,000 ml @ 100 mls/hr Q10H IV Last administered on 06/21/19at 06:04; Start 06/18/19 at 12:48 Ondansetron HCl (Zofran) 4 mg PRN Q4HRS PRN IV NAUSEA/VOMITING; Start 06/18/19 at 13:00 Acetaminophen (Tylenol Supp) 650 mg PRN Q4HRS PRN NE TEMP OVER 100.4F OR MILD PAIN; Start 06/18/19 at 13:00 Albuterol Sulfate (Ventolin Neb Soln) 2.5 mg PRN Q4HRS PRN NEB SHORTNESS OF BREATH; Start 06/18/19 at 13:00 Piperacillin Sod/ Tazobactam Sod 3.375 gm/Sodium Chloride 50 ml @ 100 mls/hr Q6HRS IV Last administered on 06/21/19at 05:34; Start 06/18/19 at 13:00 Fentanyl Citrate (Fentanyl 2ml Vial) 50 mcg PRN Q2HR PRN IVP MOD TO SEVERE PAIN, 2ND CHOICE Last administered on 06/20/19at 05:09; Start 06/18/19 at 13:00 Pantoprazole Sodium (PROTONIX VIAL for IV PUSH) 40 mg DAILYAC IVP Last administered on 06/21/19at 05:34; Start 06/19/19 at 07:30; Stop 06/21/19 at 10:11; Status DC Pantoprazole Sodium (PROTONIX VIAL for IV PUSH) 40 mg 1X ONCE IVP Last administered on 06/18/19at 13:50; Start 06/18/19 at 13:45; Stop 06/18/19 at 13:46; Status DC Metronidazole 100 ml @ 100 mls/hr Q8HRS IV Last administered on 06/19/19at 06:45; Start 06/18/19 at 14:00; Stop 06/19/19 at 08:51; Status DC Hydromorphone HCl (Dilaudid) 1 mg PRN Q3HRS PRN IV MODERATE PAIN, 1ST CHOICE Last administered on 06/19/19at 23:13; Start 06/18/19 at 14:30 Hydromorphone HCl (Dilaudid) 1.5 mg PRN Q3HRS PRN IV SEVERE PAIN 7-10, 1ST CHOICE; Start 06/18/19 at 14:30 Sodium Chloride 1,000 ml @ 1,980 mls/hr Q31M IV Last administered on 06/18/19at 16:44; Start 06/18/19 at 15:06; Stop 06/18/19 at 16:06; Status DC Sodium Chloride 500 ml @ 1,000 mls/hr PRN Q30MIN PRN IV SEE COMMENTS; Start 06/18/19 at 15:15 Meropenem 1 gm/ Sodium Chloride 100 ml @ 200 mls/hr Q8HRS IV Last administered on 06/19/19at 05:50; Start 06/18/19 at 15:15; Stop 06/19/19 at 08:51; Status DC Acetaminophen (Tylenol) 650 mg PRN Q6HRS PRN PO PAIN Last administered on 06/20/19at 20:57; Start 06/19/19 at 11:30 Polyethylene Glycol (miraLAX PACKET) 17 gm DAILY PO Last administered on 06/21/19at 07:56; Start 06/20/19 at 17:30 Pantoprazole Sodium (Protonix) 40 mg DAILYAC PO ; Start 06/22/19 at 07:30 Active Scripts Active Reported Vitamin B12 (Cyanocobalamin (Vitamin B-12)) 2,500 Mcg Tablet 1 Tab PO DAILY 30 Days Vitamin E (Vitamin E Acid Succinate) 100 Unit Tablet 100 Unit PO DAILY Tonalin Cla 1,000 Mg Softgel (Safflower Oil/Linoleic Acid,Co) 1,000 Mg Capsule 1,000 Mg PO DAILY Mag-Oxide (Magnesium Oxide) 200 Mg Tablet 1 Tab PO DAILY 30 Days Levothyroxine Sodium 100 Mcg Tablet 1 Tab PO DAILY Liothyronine Sodium 5 Mcg Tablet 1 Tab PO DAILY 30 Days Lisinopril 10 Mg Tablet 1 Tab PO DAILY Pravastatin Sodium 20 Mg Tablet 1 Tab PO DAILY Vitals/I & O Vital Sign - Last 24 Hours 06/20/19 06/20/19 06/20/19 06/20/19 11:00 15:00 19:00 20:00 Temp 98.4 98.4 97.9 98.4 98.4 97.9 Pulse 78 78 69 Resp 17 17 18 B/P (MAP) 128/80 (96) 130/84 (99) 133/77 (95) Pulse Ox 97 96 95 O2 Delivery Room Air Room Air Room Air Room Air 06/20/19 06/21/19 06/21/19 06/21/19 23:00 03:00 07:00 07:52 Temp 98.4 98.6 98.6 98.4 98.6 98.6 Pulse 62 67 62 Resp 18 18 18 B/P (MAP) 114/75 (88) 140/85 (103) 126/75 (92) Pulse Ox 95 94 96 O2 Delivery Room Air Room Air Room Air Room Air Intake and Output 06/20/19 06/20/19 06/21/19 14:59 22:59 06:59 Intake Total 1350 ml 1100 ml Balance 1350 ml 1100 ml Hemodynamically unstable?: No Is patient in severe pain?: No Is NPO status required?: No SADI VASQUEZ MD June 21, 2019 10:59
[2019-06-21 11:04] VITALS: BP 128/77
--- NOTE | 2019-06-21 12:09 | NUR ---
SW following. Discussed with RN, pt wanting to go home today, COVID-19 negative, clear liquid diet, room air. Pt on IV zosyn, blood cultures pending. SW will continue to follow.
[2019-06-21] MEDS ORDERED: POTASSIUM CHLORIDE 20 MEQ TABLET.ER. PO ONE ×2 (13:15→18:30)
[2019-06-21 13:29] LABS: BASO # 0.1 x10^3/uL (0.0-0.2); BASO % 1 % (0-3); EOS # 0.2 x10^3/uL (0.0-0.7); EOS % 3 % (0-3); HEMATOCRIT 33.4 % (36.0-47.0); HEMOGLOBIN 11.2 g/dL (12.0-15.5); LYMPH # 1.2 x10^3/uL (1.0-4.8); LYMPH % 17 % (24-48); MEAN CORPUSCULAR HEMOGLOBIN 30 pg (25-35); MEAN CORPUSCULAR HGB CONC 34 g/dL (31-37); MEAN CORPUSCULAR VOLUME 91 fL (79-100); MONO # 0.8 x10^3/uL (0.0-1.1); MONO % 12 % (0-9); NEUT # 4.6 x10^3/uL (1.8-7.7); NEUT % 67 % (31-73); PLATELET COUNT 316 x10^3/uL (140-400); RED CELL DISTRIBUTION WIDTH 16.9 % (11.5-14.5); WHITE BLOOD COUNT 6.9 x10^3/uL (4.0-11.0)
[2019-06-21 13:51] LABS: ALBUMIN 2.3 g/dL (3.4-5.0); ALBUMIN/GLOBULIN RATIO 0.9 (1.0-1.7); CALCIUM 8.1 mg/dL (8.5-10.1); CREATININE 0.6 mg/dL (0.6-1.0); GFR 100.3; POTASSIUM 3.1 mmol/L (3.5-5.1); TOTAL BILIRUBIN 0.5 mg/dL (0.2-1.0)
[2019-06-21 15:00] VITALS: BP 126/68
--- NOTE | 2019-06-21 16:05 | RAD ---
EXAM: ABDOMEN 2 VIEWS. HISTORY: Colonic perforation. COMPARISON: 06/18/2019. FINDINGS: Supine and upright views of the abdomen are obtained. There is no clear free pneumoperitoneum. There is mild gaseous distention of the small and large bowel with gas distally. The small site of focal perforation in the right hemipelvis is not well appreciated by radiographs. There are moderate degenerative changes of the lower lumbar spine with a mild S-shaped scoliosis. IMPRESSION: 1. The small focal perforation in the right hemipelvis is not appreciable by radiographs. No evidence of free perforation or obstruction. Electronically signed by: Josie Givens MD (06/21/2019 4:02 PM) [id number]
[2019-06-21 19:00] VITALS: BP 131/71
[2019-06-21 23:00] VITALS: BP 129/49
[2019-06-22] MEDS: PIPERACILLIN/TAZOBACTAM 3.375 GM in IV NORMAL SALINE 50ML 50 ML IV SCH ×2 (00:18→06:10)
[2019-06-22 03:00] VITALS: BP 138/79
[2019-06-22] MEDS: PANTOPRAZOLE 40 MG TABLET.DR. PO SCH (06:30)
[2019-06-22 07:00] VITALS: BP 126/63
[2019-06-22] MEDS ORDERED: IOHEXOL 300 MG/ML 100ML VIAL. IV ONE (08:30)
[2019-06-22] MEDS ORDERED: IOHEXOL 240 MG/ML 50ML VIAL. PO ONE (08:30)
[2019-06-22] MEDS ORDERED: CONTRAST GIVEN. MC PRN (08:30)
--- NOTE | 2019-06-22 08:36 | PDOC ---
Infectious Disease Note Subjective Subjective feeling good, has no abd pain, no n/v/d/or fever Vital Sign Vital Signs Vital Signs Date Time Temp Pulse Resp B/P (MAP) Pulse Ox O2 Delivery O2 Flow Rate FiO2 06/22/19 07:00 98.5 76 17 126/63 (84) 94 Room Air 98.5 Physical Exam PHYSICAL EXAM GENERAL: Propped up in bed, alert, appears comfortable. HEENT: Pupils equally round and reactive. Oropharynx pink and moist. No lesions seen. NECK: Supple. LUNGS: Clear to auscultation. CARDIAC: S1 and S2 regular. ABDOMEN: Mildly distended, soft, diffusely tender. Bowel sounds present. EXTREMITIES: No gross edema or cyanosis. SKIN: Warm to touch or signs of rash. Tattoo NEUROLOGIC: Alert and oriented x 3. Labs Micro Microbiology 06/18/19 Blood Culture - Preliminary, Resulted NO GROWTH AFTER 2 DAYS Objective Assessment Acute sigmoid colitis with perforation Leukocytosis - improved Pyruia, 06/17 ([place]) Left hepatic mass (measures1.7 x 1.5 cm) Hypothyroidism COVID-19 negative Plan Plan of Care Continue Zosyn,,, change to po augmentin soon f/u cultures and labs Supportive care colonoscopy planned out pt ct today ROSLYN GARCIA MD June 22, 2019 08:36
[2019-06-22] MEDS: AMOXICILLIN/K CLAV 875/125MG TABLET. PO SCH ×2 (10:02→21:59)
[2019-06-22] MEDS: POLYETHYLENE GLYCOL 3350 17 GM PACKET. PO SCH (10:03)
--- NOTE | 2019-06-22 10:10 | RAD ---
EXAM: CT ABDOMEN/PELVIS WITH CONTRAST. HISTORY: Abdominal pain, colitis. TECHNIQUE: Computed tomography of the abdomen and pelvis was performed after the intravenous administration of iodinated contrast. One or more of the following individualized dose reduction techniques were utilized for this examination: 1. Automated exposure control. 2. Adjustment of the mA and/or kV according to patient size. 3. Use of iterative reconstruction technique. COMPARISON: None. FINDINGS: Lung windows through the visualized portions of the bases reveal trace bilateral pleural effusions and dependent atelectasis. Bone windows reveal no suspicious lesions. A peripherally enhancing lesion in hepatic segment 2 comparison views 2.3 cm and is consistent with a benign hemangioma. A long calculus in the right distal ureter measures 2.2 cm in length and 6 mm transaxially. There is only mild dilatation of a right extrarenal pelvis. The kidneys are otherwise unremarkable. The gallbladder, pancreas, adrenal glands, and spleen are unremarkable. There are no pathologically enlarged lymph nodes. An extraluminal gas and fluid collection in the midline false pelvis measures 4.8 x 3.5 cm and is consistent with an abscess. It abuts a few adjacent small bowel loops in the sigmoid colon with mild secondary inflammation. There is no small bowel obstruction. Fluid throughout the right colon may be normal or reflect diarrhea. IMPRESSION: 1. 4.8 x 3.5 cm abscess in the false pelvis to the right of midline. 2. A long calculus in the right distal ureter measures 2.2 x 0.6 cm. No significant proximal obstructive findings 3. Trace bilateral pleural effusions. Electronically signed by: Josie Givens MD (06/22/2019 10:07 AM) [id number]
--- NOTE | 2019-06-22 10:24 | PDOC ---
Objective: Objective: Reviewed ID note. Vital Signs: Vital Signs Date Time Temp Pulse Resp B/P (MAP) Pulse Ox O2 Delivery O2 Flow Rate FiO2 06/22/19 07:00 98.5 76 17 126/63 (84) 94 Room Air 98.5 Imaging: CT A/P w/ PO & IV contrast FINDINGS: Lung windows through the visualized portions of the bases reveal trace bilateral pleural effusions and dependent atelectasis. Bone windows reveal no suspicious lesions. A peripherally enhancing lesion in hepatic segment 2 comparison views 2.3 cm and is consistent with a benign hemangioma. A long calculus in the right distal ureter measures 2.2 cm in length and 6 mm transaxially. There is only mild dilatation of a right extrarenal pelvis. The kidneys are otherwise unremarkable. The gallbladder, pancreas, adrenal glands, and spleen ar e unremarkable. There are no pathologically enlarged lymph nodes. An extraluminal gas and fluid collection in the midline false pelvis measures 4.8 x 3.5 cm and is consistent with an abscess. It abuts a few adjacent small bowel loops in the sigmoid colon with mild secondary inflammation. There is no small bowel obstruction. Fluid throughout the right colon may be normal or reflect diarrhea. IMPRESSION: 1. 4.8 x 3.5 cm abscess in the false pelvis to the right of midline. 2. A long calculus in the right distal ureter measures 2.2 x 0.6 cm. No significant proximal obstructive findings 3. Trace bilateral pleural effusions. PE: out of room A/P: Abnormal CT - 4.8 x 3.5 cm abscess in the false pelvis to the right of midline Hepatic hemangioma ACD -- Interval CT as above, await surgery follow-up. Previously discussed outpt colonoscopy. Hemodynamically unstable?: No Is patient in severe pain?: No Is NPO status required?: No BRANDIE RODRIGUEZ June 22, 2019 10:24
[2019-06-22 10:47] VITALS: BP 121/78
--- NOTE | 2019-06-22 11:01 | NUR ---
SW following. Discussed with RN, pt having a CT today, full liquid diet. PO Augmentin soon. Pt wanting to go home. SW will continue to follow.
--- NOTE | 2019-06-22 11:40 | PDOC ---
SURGICAL PROGRESS NOTE Subjective feels well taking full liquids denies pain has had bowel movements Vital Signs Vital Signs Date Time Temp Pulse Resp B/P (MAP) Pulse Ox O2 Delivery O2 Flow Rate FiO2 06/22/19 10:47 98.4 83 18 121/78 (92) 95 Room Air 98.4 I&O Intake and Output 06/22/19 07:00 Intake Total 2000 ml Balance 2000 ml Intake Oral 2000 ml # Voids 7 PATIENT HAS A MAYA: No General: Alert, Oriented X3, No acute distress Abdomen: Soft, No tenderness Labs Laboratory Tests Test 06/21/19 03:25 White Blood Count 6.9 x10^3/uL (4.0-11.0) Red Blood Count 3.70 x10^6/uL (3.50-5.40) Hemoglobin 11.2 g/dL (12.0-15.5) Hematocrit 33.4 % (36.0-47.0) Mean Corpuscular Volume 91 fL (79-100) Mean Corpuscular Hemoglobin 30 pg (25-35) Mean Corpuscular Hemoglobin Concent 34 g/dL (31-37) Red Cell Distribution Width 16.9 % (11.5-14.5) Platelet Count 316 x10^3/uL (140-400) Neutrophils (%) (Auto) 67 % (31-73) Lymphocytes (%) (Auto) 17 % (24-48) Monocytes (%) (Auto) 12 % (0-9) Eosinophils (%) (Auto) 3 % (0-3) Basophils (%) (Auto) 1 % (0-3) Neutrophils # (Auto) 4.6 x10^3/uL (1.8-7.7) Lymphocytes # (Auto) 1.2 x10^3/uL (1.0-4.8) Monocytes # (Auto) 0.8 x10^3/uL (0.0-1.1) Eosinophils # (Auto) 0.2 x10^3/uL (0.0-0.7) Basophils # (Auto) 0.1 x10^3/uL (0.0-0.2) Sodium Level 142 mmol/L (136-145) Potassium Level 3.1 mmol/L (3.5-5.1) Chloride Level 106 mmol/L (98-107) Carbon Dioxide Level 22 mmol/L (21-32) Anion Gap 14 (6-14) Blood Urea Nitrogen 1 mg/dL (7-20) Creatinine 0.6 mg/dL (0.6-1.0) Estimated GFR (Cockcroft-Gault) 100.3 BUN/Creatinine Ratio 2 (6-20) Glucose Level 70 mg/dL (70-99) Calcium Level 8.1 mg/dL (8.5-10.1) Iron Level 28 ug/dL (50-170) Total Iron Binding Capacity 108 ug/dL (250-450) Iron Saturation 26 % (15-34) Total Bilirubin 0.5 mg/dL (0.2-1.0) Aspartate Amino Transf (AST/SGOT) 14 U/L (15-37) Alanine Aminotransferase (ALT/SGPT) 17 U/L (14-59) Alkaline Phosphatase 80 U/L (46-116) C-Reactive Protein, Quantitative 100.5 mg/L (0-3.3) Total Protein 5.0 g/dL (6.4-8.2) Albumin 2.3 g/dL (3.4-5.0) Albumin/Globulin Ratio 0.9 (1.0-1.7) Vitamin B12 Level 1548 pg/mL (247-911) I have reviewed the following CT done this morning is reviewed with radiologist and IR progression of abscess with suggestion of possible appendiceal origin explained options to Ms Dumont and by speaker phone (at her request) her two daughters !) continue same (bowel rest, IV abx) which has not been successful to this point 2)attempt per cutaneous drainage with plan to defervesce acute process and return later (6 wks) for elective appendectomy 3)l/s appendectomy with drainage, possible bowel resection with temporary stoma if the abscess originates from the colon risks explained for each questions answered she will take under advisement, discuss with her family and I will talk with her later CADE DAY MD June 22, 2019 11:40
--- NOTE | 2019-06-22 11:50 | PDOC ---
PROGRESS NOTES Chief Complaint Chief Complaint 1. acute colitis with microperforation 2. abdominal pain secondary to the above improved 3. SEPSIS secondary to the above improved 4. Thickening of mural high rectal region Plan: Pain management Continue IV abx Supportive measures Pain management Follow blood pressure which is on the low end due to pain management most likely repeat CT shows: 1. 4.8 x 3.5 cm abscess in the false pelvis to the right of midline. 2. A long calculus in the right distal ureter measures 2.2 x 0.6 cm. No significant proximal obstructive findings 3. Trace bilateral pleural effusions. Surgery discussing with patient regarding surgical options since conservative therapy not working it seems 06/20 CONTINUE IV ZOSYN 38 MIN pt exam, chart review, > 50% of time spent with exam, chart review, pt care coordination History of Present Illness History of Present Illness No acute events reported overnight, case discussed with nursing staff patient in no acute distress no complaints during my visit HAD A BM, FEELS MUCH BETTER 06/20 Vitals Vitals Vital Signs Date Time Temp Pulse Resp B/P (MAP) Pulse Ox O2 Delivery O2 Flow Rate FiO2 06/22/19 10:47 98.4 83 18 121/78 (92) 95 Room Air 98.4 Physical Exam Physical Exam GENERAL: Propped up in bed, alert, appears comfortable. HEENT: Pupils equally round and reactive. Oropharynx pink and moist. No lesions seen. NECK: Supple. LUNGS: Clear to auscultation. CARDIAC: S1 and S2 regular. ABDOMEN: Mildly distended, soft, diffusely tender. Bowel sounds present. EXTREMITIES: No gross edema or cyanosis. SKIN: Warm to touch or signs of rash. Tattoo NEUROLOGIC: Alert and oriented x 3. General: Alert, Oriented X3, No acute distress Heart: Regular rate, Normal S1, No murmurs Lungs: Clear Abdomen: Soft, No tenderness Extremities: No clubbing Skin: Other (warm,dry) Comment Review of Relevant I have reviewed the following items franklyn (where applicable) has been applied. Labs Laboratory Tests Test 06/21/19 03:25 White Blood Count 6.9 x10^3/uL (4.0-11.0) Red Blood Count 3.70 x10^6/uL (3.50-5.40) Hemoglobin 11.2 g/dL (12.0-15.5) Hematocrit 33.4 % (36.0-47.0) Mean Corpuscular Volume 91 fL (79-100) Mean Corpuscular Hemoglobin 30 pg (25-35) Mean Corpuscular Hemoglobin Concent 34 g/dL (31-37) Red Cell Distribution Width 16.9 % (11.5-14.5) Platelet Count 316 x10^3/uL (140-400) Neutrophils (%) (Auto) 67 % (31-73) Lymphocytes (%) (Auto) 17 % (24-48) Monocytes (%) (Auto) 12 % (0-9) Eosinophils (%) (Auto) 3 % (0-3) Basophils (%) (Auto) 1 % (0-3) Neutrophils # (Auto) 4.6 x10^3/uL (1.8-7.7) Lymphocytes # (Auto) 1.2 x10^3/uL (1.0-4.8) Monocytes # (Auto) 0.8 x10^3/uL (0.0-1.1) Eosinophils # (Auto) 0.2 x10^3/uL (0.0-0.7) Basophils # (Auto) 0.1 x10^3/uL (0.0-0.2) Sodium Level 142 mmol/L (136-145) Potassium Level 3.1 mmol/L (3.5-5.1) Chloride Level 106 mmol/L (98-107) Carbon Dioxide Level 22 mmol/L (21-32) Anion Gap 14 (6-14) Blood Urea Nitrogen 1 mg/dL (7-20) Creatinine 0.6 mg/dL (0.6-1.0) Estimated GFR (Cockcroft-Gault) 100.3 BUN/Creatinine Ratio 2 (6-20) Glucose Level 70 mg/dL (70-99) Calcium Level 8.1 mg/dL (8.5-10.1) Iron Level 28 ug/dL (50-170) Total Iron Binding Capacity 108 ug/dL (250-450) Iron Saturation 26 % (15-34) Total Bilirubin 0.5 mg/dL (0.2-1.0) Aspartate Amino Transf (AST/SGOT) 14 U/L (15-37) Alanine Aminotransferase (ALT/SGPT) 17 U/L (14-59) Alkaline Phosphatase 80 U/L (46-116) C-Reactive Protein, Quantitative 100.5 mg/L (0-3.3) Total Protein 5.0 g/dL (6.4-8.2) Albumin 2.3 g/dL (3.4-5.0) Albumin/Globulin Ratio 0.9 (1.0-1.7) Vitamin B12 Level 1548 pg/mL (247-911) Microbiology 06/18/19 Blood Culture - Preliminary, Resulted NO GROWTH AFTER 3 DAYS Medications Current Medications Sodium Chloride (Normal Saline Flush) 3 ml QSHIFT PRN IV AFTER MEDS AND BLOOD DRAWS; Start 06/18/19 at 13:00 Sodium Chloride 1,000 ml @ 100 mls/hr Q10H IV Last administered on 06/21/19at 06:04; Start 06/18/19 at 12:48 Ondansetron HCl (Zofran) 4 mg PRN Q4HRS PRN IV NAUSEA/VOMITING; Start 06/18/19 at 13:00 Acetaminophen (Tylenol Supp) 650 mg PRN Q4HRS PRN NH TEMP OVER 100.4F OR MILD PAIN; Start 06/18/19 at 13:00 Albuterol Sulfate (Ventolin Neb Soln) 2.5 mg PRN Q4HRS PRN NEB SHORTNESS OF BREATH; Start 06/18/19 at 13:00 Piperacillin Sod/ Tazobactam Sod 3.375 gm/Sodium Chloride 50 ml @ 100 mls/hr Q6HRS IV Last administered on 06/22/19at 06:10; Start 06/18/19 at 13:00; Stop 06/22/19 at 08:34; Status DC Fentanyl Citrate (Fentanyl 2ml Vial) 50 mcg PRN Q2HR PRN IVP MOD TO SEVERE PAIN, 2ND CHOICE Last administered on 06/20/19at 05:09; Start 06/18/19 at 13:00 Pantoprazole Sodium (PROTONIX VIAL for IV PUSH) 40 mg DAILYAC IVP Last administered on 06/21/19at 05:34; Start 06/19/19 at 07:30; Stop 06/21/19 at 10:11; Status DC Pantoprazole Sodium (PROTONIX VIAL for IV PUSH) 40 mg 1X ONCE IVP Last administered on 06/18/19at 13:50; Start 06/18/19 at 13:45; Stop 06/18/19 at 13:46; Status DC Metronidazole 100 ml @ 100 mls/hr Q8HRS IV Last administered on 06/19/19at 06:45; Start 06/18/19 at 14:00; Stop 06/19/19 at 08:51; Status DC Hydromorphone HCl (Dilaudid) 1 mg PRN Q3HRS PRN IV MODERATE PAIN, 1ST CHOICE Last administered on 06/19/19at 23:13; Start 06/18/19 at 14:30 Hydromorphone HCl (Dilaudid) 1.5 mg PRN Q3HRS PRN IV SEVERE PAIN 7-10, 1ST CHOICE; Start 06/18/19 at 14:30 Sodium Chloride 1,000 ml @ 1,980 mls/hr Q31M IV Last administered on 06/18/19at 16:44; Start 06/18/19 at 15:06; Stop 06/18/19 at 16:06; Status DC Sodium Chloride 500 ml @ 1,000 mls/hr PRN Q30MIN PRN IV SEE COMMENTS; Start 06/18/19 at 15:15 Meropenem 1 gm/ Sodium Chloride 100 ml @ 200 mls/hr Q8HRS IV Last administered on 06/19/19at 05:50; Start 06/18/19 at 15:15; Stop 06/19/19 at 08:51; Status DC Acetaminophen (Tylenol) 650 mg PRN Q6HRS PRN PO PAIN Last administered on 06/20/19at 20:57; Start 06/19/19 at 11:30 Polyethylene Glycol (miraLAX PACKET) 17 gm DAILY PO Last administered on 06/22/19at 10:03; Start 06/20/19 at 17:30 Pantoprazole Sodium (Protonix) 40 mg DAILYAC PO Last administered on 06/22/19at 06:30; Start 06/22/19 at 07:30 Potassium Chloride (Klor-Con) 40 meq 1X ONCE PO Last administered on 06/21/19at 18:09; Start 06/21/19 at 13:15; Stop 06/21/19 at 13:16; Status DC Potassium Chloride (Klor-Con) 40 meq 1X ONCE PO ; Start 06/21/19 at 18:30; St op 06/21/19 at 18:31; Status DC Iohexol (Omnipaque 240 Mg/ml) 50 ml 1X ONCE PO Last administered on 06/22/19at 08:30; Start 06/22/19 at 08:30; Stop 06/22/19 at 08:31; Status DC Iohexol (Omnipaque 300 Mg/ml) 75 ml 1X ONCE IV Last administered on 06/22/19at 08:30; Start 06/22/19 at 08:30; Stop 06/22/19 at 08:31; Status DC Info (CONTRAST GIVEN -- Rx MONITORING) 1 each PRN DAILY PRN MC SEE COMMENTS; Start 06/22/19 at 08:30; Stop 06/24/19 at 08:29 Amoxicillin/ Clavulanate Potassium (Augmentin 875/ 125mg) 1 tab BID PO Last administered on 06/22/19at 10:02; Start 06/22/19 at 09:00 Active Scripts Active Reported Vitamin B12 (Cyanocobalamin (Vitamin B-12)) 2,500 Mcg Tablet 1 Tab PO DAILY 30 Days Vitamin E (Vitamin E Acid Succinate) 100 Unit Tablet 100 Unit PO DAILY Tonalin Cla 1,000 Mg Softgel (Safflower Oil/Linoleic Acid,Co) 1,000 Mg Capsule 1,000 Mg PO DAILY Mag-Oxide (Magnesium Oxide) 200 Mg Tablet 1 Tab PO DAILY 30 Days Levothyroxine Sodium 100 Mcg Tablet 1 Tab PO DAILY Liothyronine Sodium 5 Mcg Tablet 1 Tab PO DAILY 30 Days Lisinopril 10 Mg Tablet 1 Tab PO DAILY Pravastatin Sodium 20 Mg Tablet 1 Tab PO DAILY Vitals/I & O Vital Sign - Last 24 Hours 06/21/19 06/21/19 06/21/19 06/21/19 15:00 19:00 20:25 23:00 Temp 99.3 98.4 98.0 99.3 98.4 98.0 Pulse 66 69 73 Resp 18 18 18 B/P (MAP) 126/68 (87) 131/71 (91) 129/49 (75) Pulse Ox 96 97 92 O2 Delivery Room Air Room Air Room Air Room Air 06/22/19 06/22/19 06/22/19 03:00 07:00 10:47 Temp 98.4 98.5 98.4 98.4 98.5 98.4 Pulse 66 76 83 Resp 18 17 18 B/P (MAP) 138/79 (98) 126/63 (84) 121/78 (92) Pulse Ox 95 94 95 O2 Delivery Room Air Room Air Room Air Intake and Output 06/21/19 06/21/19 06/22/19 15:00 23:00 07:00 Intake Total 200 ml 1400 ml 400 ml Balance 200 ml 1400 ml 400 ml Hemodynamically unstable?: No Is patient in severe pain?: No Is NPO status required?: No KELVIN AGUIRRE MD June 22, 2019 11:50
[2019-06-22 14:49] VITALS: BP 115/74
[2019-06-22] MEDS: IV NORMAL SALINE 1000ML BAG 1,000 ML IV SCH (16:43)
[2019-06-22 19:30] VITALS: BP 112/77
[2019-06-22] MEDS ORDERED: LORazepam 0.5 MG TABLET PO ONE (21:00)
[2019-06-22 23:10] VITALS: BP 132/81
[2019-06-23] VITALS (10 sets, daily range): BP systolic 121–142; BP diastolic 64–84
[2019-06-23] MEDS ORDERED: IV RINGERS,LACTATED 1000ML 1,000 ML IV SCH (07:00)
[2019-06-23] MEDS ORDERED: ONDANSETRON PF 4 MG/2 ML VIAL. IV PRN (07:00)
[2019-06-23] MEDS ORDERED: HYDROmorphone 2 MG/ML VIAL IV PRN ×2 (07:00→12:00)
[2019-06-23] MEDS ORDERED: fentaNYL PF VIAL 100 MCG/2 ML VIAL IV PRN (07:00)
[2019-06-23] MEDS ORDERED: LIDOCAINE 1% PF 2 ML VIAL. ID PRN (07:00)
[2019-06-23] MEDS ORDERED: PROCHLORPERAZINE 10 MG/2 ML VIAL. IV PRN (07:00)
[2019-06-23] MEDS: PANTOPRAZOLE 40 MG TABLET.DR. PO SCH (07:30)
--- NOTE | 2019-06-23 07:54 | NUR ---
Has been NPO since midnight. Refusing IV stick at this time, "want to take shower first, but not now."
--- NOTE | 2019-06-23 08:04 | PDOC ---
Infectious Disease Note Subjective Subjective feeling good, has no abd pain, no n/v/d/or fever ROS ROS as above Vital Sign Vital Signs Vital Signs Date Time Temp Pulse Resp B/P (MAP) Pulse Ox O2 Delivery O2 Flow Rate FiO2 06/23/19 03:15 99.5 69 20 121/64 (83) 94 Room Air 99.5 Physical Exam PHYSICAL EXAM GENERAL: Propped up in bed, alert, appears comfortable. HEENT: Pupils equally round and reactive. Oropharynx pink and moist. No lesions seen. NECK: Supple. LUNGS: Clear to auscultation. CARDIAC: S1 and S2 regular. ABDOMEN: Mildly distended, soft, diffusely tender. Bowel sounds present. EXTREMITIES: No gross edema or cyanosis. SKIN: Warm to touch or signs of rash. Tattoo NEUROLOGIC: Alert and oriented x 3. Labs Micro Microbiology 06/18/19 Blood Culture - Preliminary, Resulted NO GROWTH AFTER 2 DAYS Objective Assessment Acute sigmoid colitis with perforation Leukocytosis - improved Pyruia, 06/17 ([facility]) Left hepatic mass (measures1.7 x 1.5 cm) Hypothyroidism COVID-19 negative Abd abscess Plan Plan of Care Continue Zosyn,,, f/u cultures and labs Supportive care ct noted, surgery planned for today ROSLYN GARCIA MD June 23, 2019 08:04
--- NOTE | 2019-06-23 08:38 | NUR ---
SW following. Discussed with RN, pt now on IV zosyn. Pt having surgery today. SW will continue to follow.
[2019-06-23] MEDS: POLYETHYLENE GLYCOL 3350 17 GM PACKET. PO SCH (09:00)
--- NOTE | 2019-06-23 09:18 | NUR ---
Attempted IV restart x2 without success, will leave for surgery to restart
[2019-06-23] MEDS ORDERED: SUCCINYLCHOLINE 200 MG/10 ML VIAL. ONE (09:41)
[2019-06-23] MEDS ORDERED: PROPOFOL 10 MG/ML (20ML) VIAL. IV ONE (09:41)
[2019-06-23] MEDS ORDERED: fentaNYL PF VIAL 100 MCG/2 ML VIAL ONE ×4 (09:41→12:56)
[2019-06-23] MEDS ORDERED: ONDANSETRON PF 4 MG/2 ML VIAL. ONE ×2 (09:41)
[2019-06-23] MEDS ORDERED: DEXAMETHASONE SOD PHOS 4 MG/ML VIAL ONE (09:41)
[2019-06-23] MEDS ORDERED: LIDOCAINE 2% PF 5 ML VIAL. ONE (09:41)
[2019-06-23] MEDS ORDERED: ROCURONIUM 50 MG/5 ML VIAL. ONE (09:42)
--- NOTE | 2019-06-23 09:44 | NUR ---
To surgery per bed, alert/oriented
[2019-06-23] MEDS ORDERED: BUPIVACAINE-EPI 0.5%-1:200000 MPF 30 ML VIAL. ONE (09:45)
[2019-06-23] MEDS: PIPERACILLIN/TAZOBACTAM 3.375 GM in IV NORMAL SALINE 50ML 50 ML IV SCH ×2 (09:59→17:45)
[2019-06-23] MEDS ORDERED: BACITRACIN 50,000 UNIT in IV NORMAL SALINE 500ML BAG 500 ML IRR ONE (10:00)
--- NOTE | 2019-06-23 10:24 | PDOC ---
Subjective: Subjective: Uncomfortable, feels like bad gas pains. Objective: Objective: D/w Dr. Maloney, reviewed surg notes. Vital Signs: Vital Signs Date Time Temp Pulse Resp B/P (MAP) Pulse Ox O2 Delivery O2 Flow Rate FiO2 06/23/19 09:54 99.7 81 15 135/75 97 Room Air 99.7 PE: GEN: NAD LUNGS: CTAB HEART: RRR ABD: a bit distended, periumbilical tenderness and below NEURO/PSYCH: A & O 3 A/P: Abd pain Abnormal CT - 4.8 x 3.5 cm abscess in the false pelvis to the right of midline Hepatic hemangioma ACD -- To OR today, will follow. Hemodynamically unstable?: No Is patient in severe pain?: No Is NPO status required?: No BRANDIE RODRIGUEZ June 23, 2019 10:24
[2019-06-23] MEDS ORDERED: NEOSTIGMINE METHYLSULFATE 5 MG/5 ML SYRINGE. ONE (11:01)
[2019-06-23] MEDS ORDERED: GLYCOPYRROLATE 1 MG/5 ML VIAL. ONE (11:01)
[2019-06-23] MEDS ORDERED: PHENYLEPHRINE in 0.9% NACL PF 1 MG/10 ML SYRINGE. IV ONE (11:02)
[2019-06-23] MEDS ORDERED: DESFLURANE 61 TO 120 MINUTES IH ONE (11:18)
[2019-06-23] MEDS ORDERED: IV NORMAL SALINE 1000ML BAG 1,000 ML IV SCH (11:57)
[2019-06-23] MEDS ORDERED: diphenhydrAMINE HCL 25 MG CAPSULE PO PRN (12:00)
[2019-06-23] MEDS ORDERED: NALOXONE 0.4 MG/ML VIAL. IV PRN (12:00)
[2019-06-23] MEDS ORDERED: 0.9 % SODIUM CHLORIDE 10 ML DISP.SYRIN. IV PRN (12:00)
[2019-06-23] MEDS ORDERED: ONDANSETRON PF 4 MG/2 ML VIAL. IVP PRN (12:00)
[2019-06-23] MEDS ORDERED: MORPHINE SULFATE 2 MG/ML VIAL. ONE (12:12)
[2019-06-23] MEDS: MORPHINE SULFATE 2 MG/ML VIAL. IV PRN ×2 (12:14→12:31)
--- NOTE | 2019-06-23 12:18 | PDOC ---
BRIEF OPERATIVE NOTE Date: June 23, 2019 Pre-Op Diagnosis pelvic abscess Post-Op Diagnosis same 2/2 perforated appendicitis Procedure Performed Dx l/s, open appendectomy Surgeon Isac DE LA TORRE Anesthesia Type: General Blood Loss 25cc IV Fluid 900cc Urine Output 100cc Specimens Obtained appendix, cultures Findings ruptured appendicitis with abscess Complications none Operative Note Wk # [id number] CADE DAY MD June 23, 2019 12:17
[2019-06-23] MEDS: fentaNYL PF VIAL 100 MCG/2 ML VIAL IV PRN ×3 (12:22→12:58)
--- NOTE | 2019-06-23 12:26 | OP ---
DATE OF SURGERY: PREOPERATIVE DIAGNOSIS: Pelvic abscess. POSTOPERATIVE DIAGNOSIS: Pelvic abscess secondary to perforated appendicitis. PROCEDURE: Diagnostic laparoscopy, open appendectomy. SURGEON: Dayton Day MD [employer] SE[employer] AND TESTER: WIL Cash ANESTHESIA: General endotracheal. ESTIMATED BLOOD LOSS: 25 mL. INTRAVENOUS FLUIDS: 900 mL. URINE OUTPUT: 100 mL. INDICATIONS: The patient is a 64-year-old with pelvic abscess brought for exploration. OPERATIVE FINDINGS: She had an acute appendicitis, which had ruptured at the tip and drained into the pelvis. DESCRIPTION OF PROCEDURE: The patient brought to the operating suite, given a general endotracheal anesthetic. Alvarado catheter placed to dependent drainage. She was placed in lithotomy position. An epigastric incision was infiltrated with local anesthetic, incised and a 5 mm Visiport used to gain access into the abdominal cavity. Pneumoperitoneum established. Camera inserted. Inspection carried out. A suprapubic and left lower quadrant port were placed under direct vision. Inspection of the right lower quadrant with the bed in Trendelenburg rolled to the left, revealed an acute suppurative appendix, which headed down toward a very firm indurated area in the right hemipelvis. Attempt to break into the abscess was unsuccessful and as such, I opted to convert to an open procedure. Ports were removed. Table returned to level, and a low midline incision was made and access gained to the abdomen. The Omni self-retaining retractor was used for exposure and with careful blunt dissection, we broke into a large abscess, which was evacuated and then cultured. The base of the appendix was transected with an Endo-REANNA stapler with tissue load. The mesoappendix was taken serially with vascular loads. Good hemostasis was present at the appendiceal stump and mesoappendix. Area was then copiously irrigated in the distal small bowel run to assure no loculated abscess. None were found. A 19-[place] round Po drain was brought through the left lower quadrant port site and left in the pelvis for postoperative drainage. When a correct sponge count had been obtained, the incision was closed by running the posterior sheath peritoneum with 0 Vicryl. Anterior sheath closed in running fashion with looped 0 PDS tied in the middle. SubQ irrigated and checked for hemostasis. When present and a Austin drain was left in the subcutaneous space and the skin was closed with a subcuticular 4-0 Monocryl. Sterile dressings applied. Alvarado catheter removed. Postop foreign body film was negative for unexplained foreign body. The patient was awakened from her anesthetic and taken to the recovery room in satisfactory condition. DAYTON DAY MD DR: SARIA/kayla JOB#: [id number] / [id number] CURTIS Dewey MD
[2019-06-23] MEDS: HYDROmorphone 2 MG/ML VIAL IV PRN ×3 (13:20→20:29)
--- NOTE | 2019-06-23 13:27 | NUR ---
Returned from PACU ped bed, states pain 10/10 medicated Dilaudid IVP, drsg to midline shows some shadowing, DAWOOD drain with serosanguineous drainage, emptied 60cc, called a spoke with family members by telephone, side rails up x2 call light in place, oxygen at 2l?nc desats to 90% reminede to breath deeply, pulls in 2000cc with incentive spirometry, will continue to observe.
--- NOTE | 2019-06-23 13:40 | RAD ---
EXAM: KUB 06/23/2019 12:00 AM CLINICAL INDICATION:Postop KUB in OR. Post open appendectomy, abscess drain. Counts okay. COMPARISON:CT abdomen and pelvis 06/22/2019 TECHNIQUE:AP supine view of the abdomen FINDINGS:There is a new surgical drain projecting over the pelvis, terminating near the right sacroiliac joint. Adjacent to this is a long rectangular radiopaque device measuring approximately 12 x 0.8 cm with a bent end, possibly part of the surgical drain with an intervening nonradiopaque component. Otherwise, no retained radiopaque foreign body. Suture material seen in the pelvis. There is gaseous distention of bowel. Lumbar scoliosis and degenerative disc disease is redemonstrated. IMPRESSION:New surgical drain in the pelvis. A long rectangular radiopaque device projecting over the right hemisacrum is likely part of the surgical drain, however recommend correlation with operative report to exclude retained surgical sponge. Electronically signed by: Kiki Vo MD (06/23/2019 1:37 PM) [id number]
--- NOTE | 2019-06-23 13:58 | PDOC ---
PROGRESS NOTES Chief Complaint Chief Complaint ASSESSMENT acute colitis with microperforation abdominal pain secondary to the above SEPSIS secondary to the above improved Pelvic abscess secondary to perforated appendicitis. PLAN Pain management Continue IV abx Supportive measures Pain management Follow blood pressure which is on the low end due to pain management most likely repeat CT shows: 1. 4.8 x 3.5 cm abscess in the false pelvis to the right of midline. 2. A long calculus in the right distal ureter measures 2.2 x 0.6 cm. No significant proximal obstructive findings 3. Trace bilateral pleural effusions. s/p Diagnostic laparoscopy, open appendectomy 06/22. noted Pelvic abscess secondary to perforated appendicitis. diet per sx 38 MIN pt exam, chart review, > 50% of time spent with exam, chart review, pt care coordination History of Present Illness History of Present Illness No acute events reported overnight, case discussed with nursing staff patient in no acute distress no complaints during my visit HAD A BM, FEELS MUCH BETTER 06/20 Vitals Vitals Vital Signs Date Time Temp Pulse Resp B/P (MAP) Pulse Ox O2 Delivery O2 Flow Rate FiO2 06/23/19 13:15 98.2 73 18 133/84 (100) 95 Nasal Cannula 2.0 98.2 Physical Exam Physical Exam GENERAL: Propped up in bed, alert, appears comfortable. HEENT: Pupils equally round and reactive. Oropharynx pink and moist. No lesions seen. NECK: Supple. LUNGS: Clear to auscultation. CARDIAC: S1 and S2 regular. ABDOMEN: Mildly distended, soft, diffusely tender. Bowel sounds present. EXTREMITIES: No gross edema or cyanosis. SKIN: Warm to touch or signs of rash. Tattoo NEUROLOGIC: Alert and oriented x 3. General: Alert, Oriented X3, No acute distress Heart: Regular rate, Normal S1, No murmurs Lungs: Clear Abdomen: Soft, No tenderness Extremities: No clubbing Skin: Other (warm,dry) Comment Review of Relevant I have reviewed the following items franklyn (where applicable) has been applied. Labs Microbiology 06/18/19 Blood Culture - Preliminary, Resulted NO GROWTH AFTER 4 DAYS Medications Current Medications Sodium Chloride (Normal Saline Flush) 3 ml QSHIFT PRN IV AFTER MEDS AND BLOOD DRAWS; Start 06/18/19 at 13:00; Stop 06/23/19 at 12:09; Status DC Sodium Chloride 1,000 ml @ 100 mls/hr Q10H IV Last administered on 06/21/19at 06:04; Start 06/18/19 at 12:48 Ondansetron HCl (Zofran) 4 mg PRN Q4HRS PRN IV NAUSEA/VOMITING; Start 06/18/19 at 13:00; Stop 06/23/19 at 12:10; Status DC Acetaminophen (Tylenol Supp) 650 mg PRN Q4HRS PRN WI TEMP OVER 100.4F OR MILD PAIN; Start 06/18/19 at 13:00 Albuterol Sulfate (Ventolin Neb Soln) 2.5 mg PRN Q4HRS PRN NEB SHORTNESS OF BREATH; Start 06/18/19 at 13:00 Piperacillin Sod/ Tazobactam Sod 3.375 gm/Sodium Chloride 50 ml @ 100 mls/hr Q6HRS IV Last administered on 06/22/19at 06:10; Start 06/18/19 at 13:00; Stop 06/22/19 at 08:34; Status DC Fentanyl Citrate (Fentanyl 2ml Vial) 50 mcg PRN Q2HR PRN IVP MOD TO SEVERE PAIN, 2ND CHOICE Last administered on 06/20/19at 05:09; Start 06/18/19 at 13:00 Pantoprazole Sodium (PROTONIX VIAL for IV PUSH) 40 mg DAILYAC IVP Last administered on 06/21/19at 05:34; Start 06/19/19 at 07:30; Stop 06/21/19 at 10:11; Status DC Pantoprazole Sodium (PROTONIX VIAL for IV PUSH) 40 mg 1X ONCE IVP Last administered on 06/18/19at 13:50; Start 06/18/19 at 13:45; Stop 06/18/19 at 13:46; Status DC Metronidazole 100 ml @ 100 mls/hr Q8HRS IV Last administered on 06/19/19at 06:45; Start 06/18/19 at 14:00; Stop 06/19/19 at 08:51; Status DC Hydromorphone HCl (Dilaudid) 1 mg PRN Q3HRS PRN IV MODERATE PAIN, 1ST CHOICE Last administered on 06/23/19at 13:20; Start 06/18/19 at 14:30 Hydromorphone HCl (Dilaudid) 1.5 mg PRN Q3HRS PRN IV SEVERE PAIN 7-10, 1ST CHOICE; Start 06/18/19 at 14:30 Sodium Chloride 1,000 ml @ 1,980 mls/hr Q31M IV Last administered on 06/18/19at 16:44; Start 06/18/19 at 15:06; Stop 06/18/19 at 16:06; Status DC Sodium Chloride 500 ml @ 1,000 mls/hr PRN Q30MIN PRN IV SEE COMMENTS; Start 06/18/19 at 15:15 Meropenem 1 gm/ Sodium Chloride 100 ml @ 200 mls/hr Q8HRS IV Last administered on 06/19/19at 05:50; Start 06/18/19 at 15:15; Stop 06/19/19 at 08:51; Status DC Acetaminophen (Tylenol) 650 mg PRN Q6HRS PRN PO PAIN Last administered on 06/20/19at 20:57; Start 06/19/19 at 11:30 Polyethylene Glycol (miraLAX PACKET) 17 gm DAILY PO Last administered on 06/21at 10:03; Start 06/20/19 at 17:30 Pantoprazole Sodium (Protonix) 40 mg DAILYAC PO Last administered on 06/22/19at 06:30; Start 06/22/19 at 07:30 Potassium Chloride (Klor-Con) 40 meq 1X ONCE PO Last administered on 06/21/19at 18:09; Start 06/21/19 at 13:15; Stop 06/21/19 at 13:16; Status DC Potassium Chloride (Klor-Con) 40 meq 1X ONCE PO ; Start 06/21/19 at 18:30; Stop 06/21/19 at 18:31; Status DC Iohexol (Omnipaque 240 Mg/ml) 50 ml 1X ONCE PO Last administered on 06/22/19at 08:30; Start 06/22/19 at 08:30; Stop 06/22/19 at 08:31; Status DC Iohexol (Omnipaque 300 Mg/ml) 75 ml 1X ONCE IV Last administered on 06/22/19at 08:30; Start 06/22/19 at 08:30; Stop 06/22/19 at 08:31; Status DC Info (CONTRAST GIVEN -- Rx MONITORING) 1 each PRN DAILY PRN MC SEE COMMENTS; Start 06/22/19 at 08:30; Stop 06/24/19 at 08:29 Amoxicillin/ Clavulanate Potassium (Augmentin 875/ 125mg) 1 tab BID PO Last administered on 06/22/19at 21:59; Start 06/22/19 at 09:00; Stop 06/23/19 at 08:04; Status DC Lorazepam (Ativan) 2 mg 1X ONCE PO Last administered on 06/22/19at 21:59; Start 06/22/19 at 21:00; Stop 06/22/19 at 21:01; Status DC Ondansetron HCl (Zofran) 4 mg PRN Q6HRS PRN IV NAUSEA/VOMITING; Start 06/23/19 at 07:00; Stop 06/24/19 at 06:59 Fentanyl Citrate (Fentanyl 2ml Vial) 25 mcg PRN Q5MIN PRN IV MILD PAIN 1-3; Start 06/23/19 at 07:00; Stop 06/24/19 at 06:59 Fentanyl Citrate (Fentanyl 2ml Vial) 50 mcg PRN Q5MIN PRN IV MODERATE TO SEVERE PAIN Last administered on 06/23/19at 12:58; Start 06/23/19 at 07:00; Stop 06/24/19 at 06:59 Morphine Sulfate (Morphine Sulfate) 1 mg PRN Q10MIN PRN IV SEVERE PAIN 7-10 Last administered on 06/23/19at 12:31; Start 06/23/19 at 07:00; Stop 06/24/19 at 06:59 Ringer's Solution 1,000 ml @ 30 mls/hr Q24H IV Last administered on 06/23/19at 09:58; Start 06/23/19 at 07:00; Stop 06/23/19 at 18:59 Lidocaine HCl (Xylocaine-Mpf 1% 2ml Vial) 2 ml PRN 1X PRN ID PRIOR TO IV START; Start 06/23/19 at 07:00; Stop 06/24/19 at 06:59 Hydromorphone HCl (Dilaudid) 0.5 mg PRN Q10MIN PRN IV SEV PAIN, Second choice; Start 06/23/19 at 07:00; Stop 06/24/19 at 06:59 Prochlorperazine Edisylate (Compazine) 5 mg PACU PRN PRN IV NAUSEA, MRX1; Sta rt 06/23/19 at 07:00; Stop 06/24/19 at 06:59 Piperacillin Sod/ Tazobactam Sod 3.375 gm/Sodium Chloride 50 ml @ 100 mls/hr Q6HRS IV Last administered on 06/23/19at 09:59; Start 06/23/19 at 10:00 Propofol (Diprivan) 200 mg STK-MED ONCE IV ; Start 06/23/19 at 09:41; Stop 06/23/19 at 09:41; Status DC Dexamethasone Sodium Phosphate (Decadron) 4 mg STK-MED ONCE .ROUTE ; Start 06/23/19 at 09:41; Stop 06/23/19 at 09:41; Status DC Lidocaine HCl (Lidocaine Pf 2% Vial) 5 ml STK-MED ONCE .ROUTE ; Start 06/23/19 at 09:41; Stop 06/23/19 at 09:41; Status DC Ondansetron HCl (Zofran) 4 mg STK-MED ONCE .ROUTE ; Start 06/23/19 at 09:41; Stop 06/23/19 at 09:41; Status DC Succinylcholine Chloride (Anectine) 200 mg STK-MED ONCE .ROUTE ; Start 06/23/19 at 09:41; Stop 06/23/19 at 09:41; Status DC Ondansetron HCl (Zofran) 4 mg STK-MED ONCE .ROUTE ; Start 06/23/19 at 09:41; Stop 06/23/19 at 09:42; Status DC Fentanyl Citrate (Fentanyl 2ml Vial) 100 mcg STK-MED ONCE .ROUTE ; Start 06/23/19 at 09:41; Stop 06/23/19 at 09:42; Status DC Rocuronium Whiteside (Zemuron) 50 mg STK-MED ONCE .ROUTE ; Start 06/23/19 at 09:42; Stop 06/23/19 at 09:42; Status DC Bupivacaine HCl/ Epinephrine Bitart (Sensorcain-Epi 0.5%-1:947956 Mpf) 30 ml STK-MED ONCE .ROUTE Last administered on 06/23/19at 10:33; Start 06/23/19 at 09:45; Stop 06/23/19 at 09:46; Status DC Bacitracin 62386 unit/Sodium Chloride 500 ml @ 500 mls/hr 1X ONCE IRR ; Start 06/23/19 at 10:00; Stop 06/23/19 at 10:59; Status DC Glycopyrrolate (Robinul) 1 mg STK-MED ONCE .ROUTE ; Start 06/23/19 at 11:01; Stop 06/23/19 at 11:01; Status DC Neostigmine Whiteside (Neostigmine Methylsulfate) 5 mg STK-MED ONCE .ROUTE ; S tart 06/23/19 at 11:01; Stop 06/23/19 at 11:01; Status DC Phenylephrine HCl (PHENYLEPHRINE in 0.9% NACL PF) 1 mg STK-MED ONCE IV ; Start 06/23/19 at 11:02; Stop 06/23/19 at 11:02; Status DC Desflurane (Suprane) 60 ml STK-MED ONCE IH ; Start 06/23/19 at 11:18; Stop 06/23/19 at 11:19; Status DC Fentanyl Citrate (Fentanyl 2ml Vial) 100 mcg STK-MED ONCE .ROUTE ; Start 06/23/19 at 11:18; Stop 06/23/19 at 11:19; Status DC Diphenhydramine HCl (Benadryl) 25 mg PRN Q6HRS PRN PO ITCHING; Start 06/23/19 at 12:00 Enoxaparin Sodium (Lovenox 40mg Syringe) 40 mg Q24H SQ ; Start 06/23/19 at 21:00 Sodium Chloride (Normal Saline Flush) 3 ml QSHIFT PRN IV AFTER MEDS AND BLOOD DRAWS; Start 06/23/19 at 12:00 Oxycodone/ Acetaminophen (Percocet 5/325) 1 tab PRN Q4HRS PRN PO MILD PAIN, 1ST CHOICE; Start 06/23/19 at 12:00 Naloxone HCl (Narcan) 0.4 mg PRN Q2MIN PRN IV SEE INSTRUCTIONS; Start 06/23/19 at 12:00 Sodium Chloride 1,000 ml @ 25 mls/hr Q24H IV ; Start 06/23/19 at 11:57; Status UNV Hydromorphone HCl (Dilaudid) 1 mg PRN Q3HRS PRN IV PAIN; Start 06/23/19 at 12:00 Docusate Sodium (Colace) 100 mg BID PO ; Start 06/23/19 at 21:00 Ondansetron HCl (Zofran) 4 mg PRN Q6HRS PRN IVP NAUESA, 1ST CHOICE; Start 06/23/19 at 12:00 Morphine Sulfate (Morphine Sulfate) 2 mg STK-MED ONCE .ROUTE ; Start 06/23/19 at 12:12; Stop 06/23/19 at 12:12; Status DC Fentanyl Citrate (Fentanyl 2ml Vial) 100 mcg STK-MED ONCE .ROUTE ; Start 06/23/19 at 12:21; Stop 06/23/19 at 12:22; Status DC Fentanyl Citrate (Fentanyl 2ml Vial) 100 mcg STK-MED ONCE .ROUTE ; Start 06/23/19 at 12:56; Stop 06/23/19 at 12:57; Status DC Active Scripts Active Reported Vitamin B12 (Cyanocobalamin (Vitamin B-12)) 2,500 Mcg Tablet 1 Tab PO DAILY 30 Days Vitamin E (Vitamin E Acid Succinate) 100 Unit Tablet 100 Unit PO DAILY Tonalin Cla 1,000 Mg Softgel (Safflower Oil/Linoleic Acid,Co) 1,000 Mg Capsule 1,000 Mg PO DAILY Mag-Oxide (Magnesium Oxide) 200 Mg Tablet 1 Tab PO DAILY 30 Days Levothyroxine Sodium 100 Mcg Tablet 1 Tab PO DAILY Liothyronine Sodium 5 Mcg Tablet 1 Tab PO DAILY 30 Days Lisinopril 10 Mg Tablet 1 Tab PO DAILY Pravastatin Sodium 20 Mg Tablet 1 Tab PO DAILY Vitals/I & O Vital Sign - Last 24 Hours 06/22/19 06/22/19 06/22/19 06/23/19 14:49 19:30 23:10 03:15 Temp 99.2 99.2 98.8 99.5 99.2 99.2 98.8 99.5 Pulse 76 79 68 69 Resp 18 18 18 20 B/P (MAP) 115/74 (88) 112/77 (89) 132/81 (98) 121/64 (83) Pulse Ox 96 94 93 94 O2 Delivery Room Air Room Air Room Air Room Air 06/23/19 06/23/19 06/23/19 06/23/19 07:00 09:54 11:43 11:43 Temp 97.9 99.7 98.0 97.9 99.7 98.0 Pulse 86 81 68 Resp 17 15 14 B/P (MAP) 122/80 (94) 135/75 171/52 Pulse Ox 92 97 100 O2 Delivery Room Air Room Air Simple Mask Room Air O2 Flow Rate 8 8 06/23/19 06/23/19 06/23/19 06/23/19 12:00 12:14 12:15 12:22 Pulse 70 69 Resp 18 18 14 14 B/P (MAP) 147/74 131/53 Pulse Ox 100 100 99 100 O2 Delivery Simple Mask Simple Mask Simple Mask Simple Mask O2 Flow Rate 8 8.0 8 8.0 06/23/19 06/23/19 06/23/19 06/23/19 12:30 12:31 12:36 12:45 Temp 98.0 98.0 98.0 98.0 Pulse 66 67 Resp 12 18 14 14 B/P (MAP) 126/75 132/73 Pulse Ox 97 94 97 97 O2 Delivery Nasal Cannula Nasal Cannula Nasal Cannula Nasal Cannula O2 Flow Rate 2 2.0 2.0 2 06/23/19 06/23/19 06/23/19 06/23/19 12:51 12:58 13:00 13:15 Temp 98.0 98.2 98.0 98.2 Pulse 72 73 Resp 14 14 18 B/P (MAP) 126/77 133/84 (100) Pulse Ox 96 96 95 O2 Delivery Nasal Cannula Nasal Cannula Nasal Cannula Nasal Cannula O2 Flow Rate 2 2.0 2 2.0 Intake and Output 06/22/19 06/22/19 06/23/19 15:00 23:00 07:00 Intake Total 680 ml 240 ml 540 ml Balance 680 ml 240 ml 540 ml Hemodynamically unstable?: No Is patient in severe pain?: No Is NPO status required?: No KELVIN AGUIRRE MD June 23, 2019 13:58
[2019-06-23] MEDS: IV NORMAL SALINE 1000ML BAG 1,000 ML IV SCH (20:21)
[2019-06-23] MEDS: DOCUSATE SODIUM 100 MG CAPSULE. PO SCH (20:28)
--- NOTE | 2019-06-23 23:00 | NUR ---
Ambulated w/o difficulty, voided 250cc tea colored urine.
[2019-06-24] MEDS: PIPERACILLIN/TAZOBACTAM 3.375 GM in IV NORMAL SALINE 50ML 50 ML IV SCH ×4 (00:11→17:25)
[2019-06-24] MEDS: ENOXAPARIN 40 MG/0.4 ML SYRINGE. SQ SCH ×2 (00:11→20:36)
[2019-06-24] MEDS: HYDROmorphone 2 MG/ML VIAL IV PRN (00:19)
[2019-06-24 03:00] VITALS: BP 116/70
[2019-06-24] MEDS: oxyCODONE/APAP 5/325 1 TAB TABLET PO PRN ×5 (04:54→20:37)
[2019-06-24 07:00] VITALS: BP 137/79
[2019-06-24] MEDS: DOCUSATE SODIUM 100 MG CAPSULE. PO SCH ×2 (08:26→20:35)
[2019-06-24] MEDS: PANTOPRAZOLE 40 MG TABLET.DR. PO SCH (08:26)
[2019-06-24] MEDS: POLYETHYLENE GLYCOL 3350 17 GM PACKET. PO SCH (08:26)
[2019-06-24] MEDS: IV NORMAL SALINE 1000ML BAG 1,000 ML IV SCH ×3 (08:29→17:30)
--- NOTE | 2019-06-24 09:05 | PDOC ---
PROGRESS NOTES Chief Complaint Chief Complaint ASSESSMENT acute colitis with microperforation, s/p Diagnostic laparoscopy, open appendectomy 06/22. noted Pelvic abscess secondary to perforated appendicitis. abdominal pain secondary to the above SEPSIS secondary to the above improved Pelvic abscess secondary to perforated appendicitis. PLAN Pain management Continue IV zosyn Supportive measures Pain management repeat CT shows: 1. 4.8 x 3.5 cm abscess in the false pelvis to the right of midline. 2. A long calculus in the right distal ureter measures 2.2 x 0.6 cm. No significant proximal obstructive findings 3. Trace bilateral pleural effusions. advance diet per sx apprec ID input 38 MIN pt exam, chart review, > 50% of time spent with exam, chart review, pt care coordination History of Present Illness History of Present Illness doing well, no complaints. denies chest pain sob. VSS. tolerating PO diet. Vitals Vitals Vital Signs Date Time Temp Pulse Resp B/P (MAP) Pulse Ox O2 Delivery O2 Flow Rate FiO2 06/24/19 08:25 Room Air 06/24/19 07:00 99.1 70 18 137/79 (98) 90 99.1 06/24/19 04:54 3.0 Physical Exam Physical Exam GENERAL: Propped up in bed, alert, appears comfortable. HEENT: Pupils equally round and reactive. Oropharynx pink and moist. No lesions seen. NECK: Supple. LUNGS: Clear to auscultation. CARDIAC: S1 and S2 regular. ABDOMEN: Mildly distended, soft, diffusely tender. Bowel sounds present. EXTREMITIES: No gross edema or cyanosis. SKIN: Warm to touch or signs of rash. Tattoo NEUROLOGIC: Alert and oriented x 3. General: Alert, Oriented X3, No acute distress Heart: Regular rate, Normal S1, No murmurs Lungs: Clear Abdomen: Soft, No tenderness Extremities: No clubbing Skin: Other (warm,dry) Comment Review of Relevant I have reviewed the following items franklyn (where applicable) has been applied. Labs Microbiology 06/18/19 Blood Culture - Final, Complete NO GROWTH AFTER 5 DAYS Medications Current Medications Sodium Chloride (Normal Saline Flush) 3 ml QSHIFT PRN IV AFTER MEDS AND BLOOD DRAWS; Start 06/18/19 at 13:00; Stop 06/23/19 at 12:09; Status DC Sodium Chloride 1,000 ml @ 100 mls/hr Q10H IV Last administered on 06/24/19at 08:29; Start 06/18/19 at 12:48 Ondansetron HCl (Zofran) 4 mg PRN Q4HRS PRN IV NAUSEA/VOMITING; Start 06/18/19 at 13:00; Stop 06/23/19 at 12:10; Status DC Acetaminophen (Tylenol Supp) 650 mg PRN Q4HRS PRN TN TEMP OVER 100.4F OR MILD PAIN; Start 06/18/19 at 13:00 Albuterol Sulfate (Ventolin Neb Soln) 2.5 mg PRN Q4HRS PRN NEB SHORTNESS OF BREATH; Start 06/18/19 at 13:00 Piperacillin Sod/ Tazobactam Sod 3.375 gm/Sodium Chloride 50 ml @ 100 mls/hr Q6HRS IV Last administered on 06/22/19at 06:10; Start 06/18/19 at 13:00; Stop 06/22/19 at 08:34; Status DC Fentanyl Citrate (Fentanyl 2ml Vial) 50 mcg PRN Q2HR PRN IVP MOD TO SEVERE PAIN, 2ND CHOICE Last administered on 06/20/19at 05:09; Start 06/18/19 at 13:00 Pantoprazole Sodium (PROTONIX VIAL for IV PUSH) 40 mg DAILYAC IVP Last administered on 06/21/19at 05:34; Start 06/19/19 at 07:30; Stop 06/21/19 at 10:11; Status DC Pantoprazole Sodium (PROTONIX VIAL for IV PUSH) 40 mg 1X ONCE IVP Last administered on 06/18/19at 13:50; Start 06/18/19 at 13:45; Stop 06/18/19 at 13:46; Status DC Metronidazole 100 ml @ 100 mls/hr Q8HRS IV Last administered on 06/19/19at 06:45; Start 06/18/19 at 14:00; Stop 06/19/19 at 08:51; Status DC Hydromorphone HCl (Dilaudid) 1 mg PRN Q3HRS PRN IV MODERATE PAIN, 1ST CHOICE Last administered on 06/24/19at 00:19; Start 06/18/19 at 14:30 Hydromorphone HCl (Dilaudid) 1.5 mg PRN Q3HRS PRN IV SEVERE PAIN 7-10, 1ST CHOICE; Start 06/18/19 at 14:30 Sodium Chloride 1,000 ml @ 1,980 mls/hr Q31M IV Last administered on 06/18/19at 16:44; Start 06/18/19 at 15:06; Stop 06/18/19 at 16:06; Status DC Sodium Chloride 500 ml @ 1,000 mls/hr PRN Q30MIN PRN IV SEE COMMENTS; Start 06/18/19 at 15:15 Meropenem 1 gm/ Sodium Chloride 100 ml @ 200 mls/hr Q8HRS IV Last administered on 06/19/19at 05:50; Start 06/18/19 at 15:15; Stop 06/19/19 at 08:51; Status DC Acetaminophen (Tylenol) 650 mg PRN Q6HRS PRN PO PAIN Last administered on 06/20/19at 20:57; Start 06/19/19 at 11:30 Polyethylene Glycol (miraLAX PACKET) 17 gm DAILY PO Last administered on 06/24/19at 08:26; Start 06/20/19 at 17:30 Pantoprazole Sodium (Protonix) 40 mg DAILYAC PO Last administered on 06/24/19at 08:26; Start 06/22/19 at 07:30 Potassium Chloride (Klor-Con) 40 meq 1X ONCE PO Last administered on 06/21/19at 18:09; Start 06/21/19 at 13:15; Stop 06/21/19 at 13:16; Status DC Potassium Chloride (Klor-Con) 40 meq 1X ONCE PO ; Start 06/21/19 at 18:30; Stop 06/21/19 at 18:31; Status DC Iohexol (Omnipaque 240 Mg/ml) 50 ml 1X ONCE PO Last administered on 06/22/19at 08:30; Start 06/22/19 at 08:30; Stop 06/22/19 at 08:31; Status DC Iohexol (Omnipaque 300 Mg/ml) 75 ml 1X ONCE IV Last administered on 06/22/19at 08:30; Start 06/22/19 at 08:30; Stop 06/22/19 at 08:31; Status DC Info (CONTRAST GIVEN -- Rx MONITORING) 1 each PRN DAILY PRN MC SEE COMMENTS; Start 06/22/19 at 08:30; Stop 06/24/19 at 08:29; Status DC Amoxicillin/ Clavulanate Potassium (Augmentin 875/ 125mg) 1 tab BID PO Last administered on 06/22/19at 21:59; Start 06/22/19 at 09:00; Stop 06/23/19 at 08:04; Status DC Lorazepam (Ativan) 2 mg 1X ONCE PO Last administered on 06/22/19at 21:59; Start 06/22/19 at 21:00; Stop 06/22/19 at 21:01; Status DC Ondansetron HCl (Zofran) 4 mg PRN Q6HRS PRN IV NAUSEA/VOMITING; Start 06/23/19 at 07:00; Stop 06/24/19 at 06:59; Status DC Fentanyl Citrate (Fentanyl 2ml Vial) 25 mcg PRN Q5MIN PRN IV MILD PAIN 1-3; Start 06/23/19 at 07:00; Stop 06/24/19 at 06:59; Status DC Fentanyl Citrate (Fentanyl 2ml Vial) 50 mcg PRN Q5MIN PRN IV MODERATE TO SEVERE PAIN Last administered on 06/23/19at 12:58; Start 06/23/19 at 07:00; Stop 06/24/19 at 06:59; Status DC Morphine Sulfate (Morphine Sulfate) 1 mg PRN Q10MIN PRN IV SEVERE PAIN 7-10 Last administered on 06/23/19at 12:31; Start 06/23/19 at 07:00; Stop 06/24/19 at 06:59; Status DC Ringer's Solution 1,000 ml @ 30 mls/hr Q24H IV Last administered on 06/23/19at 09:58; Start 06/23/19 at 07:00; Stop 06/23/19 at 18:59; Status DC Lidocaine HCl (Xylocaine-Mpf 1% 2ml Vial) 2 ml PRN 1X PRN ID PRIOR TO IV START; Start 06/23/19 at 07:00; Stop 06/24/19 at 06:59; Status DC Hydromorphone HCl (Dilaudid) 0.5 mg PRN Q10MIN PRN IV SEV PAIN, Second choice; Start 06/23/19 at 07:00; Stop 06/24/19 at 06:59; Status DC Prochlorperazine Edisylate (Compazine) 5 mg PACU PRN PRN IV NAUSEA, MRX1; Start 06/23/19 at 07:00; Stop 06/24/19 at 06:59; Status DC Piperacillin Sod/ Tazobactam Sod 3.375 gm/Sodium Chloride 50 ml @ 100 mls/hr Q6HRS IV Last administered on 06/24/19at 06:00; Start 06/23/19 at 10:00 Propofol (Diprivan) 200 mg STK-MED ONCE IV ; Start 06/23/19 at 09:41; Stop 06/23/19 at 09:41; Status DC Dexamethasone Sodium Phosphate (Decadron) 4 mg STK-MED ONCE .ROUTE ; Start 06/23/19 at 09:41; Stop 06/23/19 at 09:41; Status DC Lidocaine HCl (Lidocaine Pf 2% Vial) 5 ml STK-MED ONCE .ROUTE ; Start 06/23/19 at 09:41; Stop 06/23/19 at 09:41; Status DC Ondansetron HCl (Zofran) 4 mg STK-MED ONCE .ROUTE ; Start 06/23/19 at 09:41; Stop 06/23/19 at 09:41; Status DC Succinylcholine Chloride (Anectine) 200 mg STK-MED ONCE .ROUTE ; Start 06/23/19 at 09:41; Stop 06/23/19 at 09:41; Status DC Ondansetron HCl (Zofran) 4 mg STK-MED ONCE .ROUTE ; Start 06/23/19 at 09:41; Stop 06/23/19 at 09:42; Status DC Fentanyl Citrate (Fentanyl 2ml Vial) 100 mcg STK-MED ONCE .ROUTE ; Start 06/23/19 at 09:41; Stop 06/23/19 at 09:42; Status DC Rocuronium [place] (Zemuron) 50 mg STK-MED ONCE .ROUTE ; Start 06/23/19 at 09:42; Stop 06/23/19 at 09:42; Status DC Bupivacaine HCl/ Epinephrine Bitart (Sensorcain-Epi 0.5%-1:197921 Mpf) 30 ml STK-MED ONCE .ROUTE Last administered on 06/23/19at 10:33; Start 06/23/19 at 09:45; Stop 06/23/19 at 09:46; Status DC Bacitracin 24130 unit/Sodium Chloride 500 ml @ 500 mls/hr 1X ONCE IRR ; Start 06/23/19 at 10:00; Stop 06/23/19 at 10:59; Status DC Glycopyrrolate (Robinul) 1 mg STK-MED ONCE .ROUTE ; Start 06/23/19 at 11:01; Stop 06/23/19 at 11:01; Status DC Neostigmine [place] (Neostigmine Methylsulfate) 5 mg STK-MED ONCE .ROUTE ; Start 06/23/19 at 11:01; Stop 06/23/19 at 11:01; Status DC Phenylephrine HCl (PHENYLEPHRINE in 0.9% NACL PF) 1 mg STK-MED ONCE IV ; Start 06/23/19 at 11:02; Stop 06/23/19 at 11:02; Status DC Desflurane (Suprane) 60 ml STK-MED ONCE IH ; Start 06/23/19 at 11:18; Stop 06/23/19 at 11:19; Status DC Fentanyl Citrate (Fentanyl 2ml Vial) 100 mcg STK-MED ONCE .ROUTE ; Start 06/23/19 at 11:18; Stop 06/23/19 at 11:19; Status DC Diphenhydramine HCl (Benadryl) 25 mg PRN Q6HRS PRN PO ITCHING; Start 06/23/19 at 12:00 Enoxaparin Sodium (Lovenox 40mg Syringe) 40 mg Q24H SQ Last administered on 06/24/19at 00:11; Start 06/23/19 at 21:00 Sodium Chloride (Normal Saline Flush) 3 ml QSHIFT PRN IV AFTER MEDS AND BLOOD DRAWS; Start 06/23/19 at 12:00 Oxycodone/ Acetaminophen (Percocet 5/325) 1 tab PRN Q4HRS PRN PO MILD PAIN, 1ST CHOICE Last administered on 06/24/19at 08:25; Start 06/23/19 at 12:00 Naloxone HCl (Narcan) 0.4 mg PRN Q2MIN PRN IV SEE INSTRUCTIONS; Start 06/23/19 at 12:00 Sodium Chloride 1,000 ml @ 25 mls/hr Q24H IV ; Start 06/23/19 at 11:57; Status UNV Hydromorphone HCl (Dilaudid) 1 mg PRN Q3HRS PRN IV PAIN; Start 06/23/19 at 12:00 Docusate Sodium (Colace) 100 mg BID PO Last administered on 06/24/19at 08:26; Start 06/23/19 at 21:00 Ondansetron HCl (Zofran) 4 mg PRN Q6HRS PRN IVP NAUESA, 1ST CHOICE; Start 06/23/19 at 12:00 Morphine Sulfate (Morphine Sulfate) 2 mg STK-MED ONCE .ROUTE ; Start 06/23/19 at 12:12; Stop 06/23/19 at 12:12; Status DC Fentanyl Citrate (Fentanyl 2ml Vial) 100 mcg STK-MED ONCE .ROUTE ; Start 06/23/19 at 12:21; Stop 06/23/19 at 12:22; Status DC Fentanyl Citrate (Fentanyl 2ml Vial) 100 mcg STK-MED ONCE .ROUTE ; Start 06/23/19 at 12:56; Stop 06/23/19 at 12:57; Status DC Active Scripts Active Reported Vitamin B12 (Cyanocobalamin (Vitamin B-12)) 2,500 Mcg Tablet 1 Tab PO DAILY 30 Days Vitamin E (Vitamin E Acid Succinate) 100 Unit Tablet 100 Unit PO DAILY Tonalin Cla 1,000 Mg Softgel (Safflower Oil/Linoleic Acid,Co) 1,000 Mg Capsule 1,000 Mg PO DAILY Mag-Oxide (Magnesium Oxide) 200 Mg Tablet 1 Tab PO DAILY 30 Days Levothyroxine Sodium 100 Mcg Tablet 1 Tab PO DAILY Liothyronine Sodium 5 Mcg Tablet 1 Tab PO DAILY 30 Days Lisinopril 10 Mg Tablet 1 Tab PO DAILY Pravastatin Sodium 20 Mg Tablet 1 Tab PO DAILY Vitals/I & O Vital Sign - Last 24 Hours 06/23/19 06/23/19 06/23/19 06/23/19 09:54 11:43 11:43 12:00 Temp 99.7 98.0 99.7 98.0 Pulse 81 68 70 Resp 15 14 18 B/P (MAP) 135/75 171/52 147/74 Pulse Ox 97 100 100 O2 Delivery Room Air Simple Mask Room Air Simple Mask O2 Flow Rate 8 8 8 06/23/19 06/23/19 06/23/19 06/23/19 12:14 12:15 12:22 12:30 Temp 98.0 98.0 Pulse 69 66 Resp 18 14 14 12 B/P (MAP) 131/53 126/75 Pulse Ox 100 99 100 97 O2 Delivery Simple Mask Simple Mask Simple Mask Nasal Cannula O2 Flow Rate 8.0 8 8.0 2 06/23/19 06/23/19 06/23/19 06/23/19 12:31 12:36 12:45 12:51 Temp 98.0 98.0 Pulse 67 Resp 18 14 14 B/P (MAP) 132/73 Pulse Ox 94 97 97 O2 Delivery Nasal Cannula Nasal Cannula Nasal Cannula Nasal Cannula O2 Flow Rate 2.0 2.0 2 2 06/23/19 06/23/19 06/23/19 06/23/19 12:58 13:00 13:15 13:30 Temp 98.0 98.2 98.0 98.2 Pulse 72 73 71 Resp 14 14 18 B/P (MAP) 126/77 133/84 (100) 129/77 (94) Pulse Ox 96 96 95 O2 Delivery Nasal Cannula Nasal Cannula Nasal Cannula O2 Flow Rate 2.0 2 2.0 06/23/19 06/23/19 06/23/19 06/23/19 13:45 14:00 14:15 14:30 Temp 97.6 97.6 Pulse 66 69 76 Resp 20 B/P (MAP) 131/80 (97) 132/69 (90) 124/77 (93) Pulse Ox 96 92 O2 Delivery Nasal Cannula Nasal Cannula O2 Flow Rate 2.0 2.0 06/23/19 06/23/19 06/23/19 06/23/19 15:00 16:13 19:00 20:00 Temp 98.1 97.5 98.1 97.5 Pulse 77 71 Resp 18 16 B/P (MAP) 133/84 (100) 121/77 (92) Pulse Ox 96 96 92 O2 Delivery Nasal Cannula Nasal Cannula Nasal Cannula Nasal Cannula O2 Flow Rate 2.0 2.0 2.0 2.0 06/23/19 06/23/19 06/23/19 06/24/19 20:29 21:00 23:00 00:19 Temp 98.5 98.5 Pulse 67 Resp 20 20 16 20 B/P (MAP) 142/73 (96) Pulse Ox 94 O2 Delivery Room Air Nasal Cannula Nasal Cannula O2 Flow Rate 2.0 2.0 06/24/19 06/24/19 06/24/19 06/24/19 00:50 03:00 04:54 05:58 Temp 98.0 98.0 Pulse 64 Resp 24 16 20 24 B/P (MAP) 116/70 (85) Pulse Ox 97 O2 Delivery Nasal Cannula Nasal Cannula Nasal Cannula O2 Flow Rate 2.0 3.0 06/24/19 06/24/19 07:00 08:25 Temp 99.1 99.1 Pulse 70 Resp 18 B/P (MAP) 137/79 (98) Pulse Ox 90 O2 Delivery Room Air Room Air Intake and Output 06/23/19 06/23/19 06/24/19 15:00 23:00 07:00 Intake Total 1200 ml 1000 ml Output Total 125 ml 50 ml 335 ml Balance 1075 ml 950 ml -335 ml Hemodynamically unstable?: No Is patient in severe pain?: No Is NPO status required?: No KELVIN AGUIRRE MD June 24, 2019 09:05
--- NOTE | 2019-06-24 09:29 | PDOC ---
Infectious Disease Note Subjective Subjective Patient is feeling okay does have abdominal pain. Did have surgery yesterday ROS ROS No nausea vomiting diarrhea chest pain Vital Sign Vital Signs Vital Signs Date Time Temp Pulse Resp B/P (MAP) Pulse Ox O2 Delivery O2 Flow Rate FiO2 06/24/19 08:25 Room Air 06/24/19 07:00 99.1 70 18 137/79 (98) 90 99.1 06/24/19 04:54 3.0 Physical Exam PHYSICAL EXAM GENERAL: Propped up in bed, alert, appears comfortable. HEENT: Pupils equally round and reactive. Oropharynx pink and moist. No lesions seen. NECK: Supple. LUNGS: Clear to auscultation. CARDIAC: S1 and S2 regular. ABDOMEN: Mildly distended, soft, diffusely tender. Bowel sounds present. EXTREMITIES: No gross edema or cyanosis. SKIN: Warm to touch or signs of rash. Tattoo NEUROLOGIC: Alert and oriented x 3. Labs Micro Microbiology 06/18/19 Blood Culture - Preliminary, Resulted NO GROWTH AFTER 2 DAYS Objective Assessment Acute sigmoid colitis with perforation, perforated appendix status post surgery Leukocytosis - improved Pyruia, 06/17 ([facility]) Left hepatic mass (measures1.7 x 1.5 cm) Hypothyroidism COVID-19 negative Abd abscess Plan Plan of Care Continue Zosyn,,, f/u cultures and labs Supportive care ROSLYN GARCIA MD June 24, 2019 09:29
--- NOTE | 2019-06-24 09:57 | PDOC ---
Subjective: Subjective: Has pain like gas cramps, wonders if drain is leaking. Drank some tea, no flatus. Asks details of surgery. Objective: Vital Signs: Vital Signs Date Time Temp Pulse Resp B/P (MAP) Pulse Ox O2 Delivery O2 Flow Rate FiO2 06/24/19 08:25 Room Air 06/24/19 07:00 99.1 70 18 137/79 (98) 90 99.1 06/24/19 04:54 3.0 PE: GEN: NAD LUNGS: CTAB HEART: RRR ABD: tender to light touch, dressing intact, drain NEURO/PSYCH: A & O 3 A/P: Pelvic abscess 2/2 perforated appendicitis s/p diagnostic laparoscopy and open appendectomy 06/23/19 -- Continue per surgery. Hemodynamically unstable?: No Is patient in severe pain?: No Is NPO status required?: No BRANDIE RODRIGUEZ June 24, 2019 09:57
--- NOTE | 2019-06-24 10:39 | NUR ---
SW following. Discussed with RN, pt from [place], here visiting daughters. Pt had surgery yesterday, clear liquid diet. Pt does not normally wear oxygen at home. SW will continue to follow.
[2019-06-24 10:53] VITALS: BP 134/75
[2019-06-24 15:02] VITALS: BP 126/72
--- NOTE | 2019-06-24 18:06 | PATHOLOGY ---
[facility] Accession Number: [id number] . 01 Material submitted: . appendix - APPENDIX . 01 Clinical history: . perforated appendicitis . 02 Diagnosis: Appendix, open appendectomy: - Acute appendicitis of distal appendiceal tip, ruptured, with acute periappendicitis/periappendiceal abscess. (JPM/db; 06/24/2019) LBQ 06/24/2019 1310 Local . 02 Electronically signed: . Marty Aviles MD, Pathologist NPI- [id number] . 01 Gross description: . The specimen is received in formalin, labeled "Jaspersadiq, Carrol, appendix" and consists of an intact pink-purple appendix measuring 9.7 cm in length and up to 1.2 cm in diameter with an attached hemorrhagic mesoappendix measuring up to 2.6 cm in thickness with a slight amount of overlying exudate. There are two serosal surface defects measuring 0.9 x 0.3 cm and 0.6 x 0.2 cm with possible evidence of perforation at the distal tip. The proximal margin is inked. Sectioning reveals a lumen measuring from pinpoint up to 0.3 cm in diameter. [employer] Teacher sections are submitted as follows: A1: Proximal margin and bisected tip A2: Serosal defects A3: Additional cross sections of the appendix (GILBERT; 06/23/2019) JFQ/JFQ 06/24/2019 1308 Local . 02 Pathologist provided ICD-10: K35.21 . 02 CPT . 833651 Specimen Comment: A courtesy copy of this report has been sent to [phone] Specimen Comment: [id number] Specimen Comment: Report sent to / DR VASQUEZ Performed at: 01 [facility] [address], [place], [place] [id number] MD Alfonso Rose MD Phone: [phone] Performed at: 02 [facility] [address] [place], [place] [id number] MD Marty Aviles MD Phone: [phone]
[2019-06-24 23:00] VITALS: BP 131/68
[2019-06-25] MEDS: PIPERACILLIN/TAZOBACTAM 3.375 GM in IV NORMAL SALINE 50ML 50 ML IV SCH ×4 (00:31→18:11)
[2019-06-25] MEDS: oxyCODONE/APAP 5/325 1 TAB TABLET PO PRN ×6 (00:32→21:29)
[2019-06-25 02:23] VITALS: BP 112/66
[2019-06-25 05:09] LABS: HEMOGLOBIN 11.4 g/dL (12.0-15.5); RED BLOOD COUNT 3.79 x10^6/uL (3.50-5.40); RED CELL DISTRIBUTION WIDTH 16.8 % (11.5-14.5); WHITE BLOOD COUNT 7.5 x10^3/uL (4.0-11.0)
[2019-06-25 05:20] LABS: CALCIUM 7.7 mg/dL (8.5-10.1); CREATININE 0.8 mg/dL (0.6-1.0); POTASSIUM 3.5 mmol/L (3.5-5.1)
[2019-06-25 07:00] VITALS: BP 120/66
[2019-06-25] MEDS: PANTOPRAZOLE 40 MG TABLET.DR. PO SCH (07:26)
[2019-06-25] MEDS: POLYETHYLENE GLYCOL 3350 17 GM PACKET. PO SCH (08:50)
[2019-06-25] MEDS: DOCUSATE SODIUM 100 MG CAPSULE. PO SCH ×2 (08:50→21:28)
--- NOTE | 2019-06-25 08:57 | PDOC ---
Infectious Disease Note Subjective Subjective Patient is feeling much better. Walking. Eating on soft diet Pain is much better ROS ROS No nausea vomiting diarrhea fever Vital Sign Vital Signs Vital Signs Date Time Temp Pulse Resp B/P (MAP) Pulse Ox O2 Delivery O2 Flow Rate FiO2 06/25/19 07:00 98.6 58 16 120/66 (84) 92 Room Air 98.6 06/25/19 06:33 3.0 Physical Exam PHYSICAL EXAM GENERAL: Propped up in bed, alert, appears comfortable. HEENT: Pupils equally round and reactive. Oropharynx pink and moist. No lesions seen. NECK: Supple. LUNGS: Clear to auscultation. CARDIAC: S1 and S2 regular. ABDOMEN: Mildly distended, soft, diffusely tender. Bowel sounds present. EXTREMITIES: No gross edema or cyanosis. SKIN: Warm to touch or signs of rash. Tattoo NEUROLOGIC: Alert and oriented x 3. Labs Lab Laboratory Tests Test 06/25/19 03:47 White Blood Count 7.5 x10^3/uL (4.0-11.0) Red Blood Count 3.79 x10^6/uL (3.50-5.40) Hemoglobin 11.4 g/dL (12.0-15.5) Hematocrit 34.0 % (36.0-47.0) Mean Corpuscular Volume 90 fL (79-100) Mean Corpuscular Hemoglobin 30 pg (25-35) Mean Corpuscular Hemoglobin Concent 34 g/dL (31-37) Red Cell Distribution Width 16.8 % (11.5-14.5) Platelet Count 473 x10^3/uL (140-400) Sodium Level 143 mmol/L (136-145) Potassium Level 3.5 mmol/L (3.5-5.1) Chloride Level 105 mmol/L (98-107) Carbon Dioxide Level 31 mmol/L (21-32) Anion Gap 7 (6-14) Blood Urea Nitrogen 5 mg/dL (7-20) Creatinine 0.8 mg/dL (0.6-1.0) Estimated GFR (Cockcroft-Gault) 72.0 Glucose Level 80 mg/dL (70-99) Calcium Level 7.7 mg/dL (8.5-10.1) Micro Microbiology 06/18/19 Blood Culture - Preliminary, Resulted NO GROWTH AFTER 2 DAYS Abdominal culture gram-negative rods Objective Assessment Acute sigmoid colitis with perforation, perforated appendix status post surgery Leukocytosis - improved Pyruia, 5/8 ([facility]) Left hepatic mass (measures1.7 x 1.5 cm) Hypothyroidism COVID-19 negative Abd abscess Plan Plan of Care Continue Zosyn,,, f/u cultures and labs Supportive care ROSLYN GARCIA MD June 25, 2019 08:57
--- NOTE | 2019-06-25 09:28 | PDOC ---
PROGRESS NOTES Chief Complaint Chief Complaint ASSESSMENT acute colitis with microperforation, s/p Diagnostic laparoscopy, open appendectomy 06/22. noted Pelvic abscess secondary to perforated appendicitis. abdominal pain secondary to the above SEPSIS secondary to the above improved Pelvic abscess secondary to perforated appendicitis. PLAN Pain management Continue IV zosyn Supportive measures Pain management repeat CT shows: 1. 4.8 x 3.5 cm abscess in the false pelvis to the right of midline. 2. A long calculus in the right distal ureter measures 2.2 x 0.6 cm. No significant proximal obstructive findings 3. Trace bilateral pleural effusions. advance diet per sx apprec ID input 38 MIN pt exam, chart review, > 50% of time spent with exam, chart review, pt care coordination History of Present Illness History of Present Illness doing well, no complaints. denies chest pain sob. VSS. tolerating PO diet. Vitals Vitals Vital Signs Date Time Temp Pulse Resp B/P (MAP) Pulse Ox O2 Delivery O2 Flow Rate FiO2 06/25/19 07:00 98.6 58 16 120/66 (84) 92 Room Air 98.6 06/25/19 06:33 3.0 Physical Exam Physical Exam GENERAL: Propped up in bed, alert, appears comfortable. HEENT: Pupils equally round and reactive. Oropharynx pink and moist. No lesions seen. NECK: Supple. LUNGS: Clear to auscultation. CARDIAC: S1 and S2 regular. ABDOMEN: Mildly distended, soft, diffusely tender. Bowel sounds present. EXTREMITIES: No gross edema or cyanosis. SKIN: Warm to touch or signs of rash. Tattoo NEUROLOGIC: Alert and oriented x 3. General: Alert, Oriented X3, No acute distress Heart: Regular rate, Normal S1, No murmurs Lungs: Clear Abdomen: Soft, No tenderness Extremities: No clubbing Skin: Other (warm,dry) Labs LABS Laboratory Tests Test 06/25/19 03:47 White Blood Count 7.5 x10^3/uL (4.0-11.0) Red Blood Count 3.79 x10^6/uL (3.50-5.40) Hemoglobin 11.4 g/dL (12.0-15.5) Hematocrit 34.0 % (36.0-47.0) Mean Corpuscular Volume 90 fL (79-100) Mean Corpuscular Hemoglobin 30 pg (25-35) Mean Corpuscular Hemoglobin Concent 34 g/dL (31-37) Red Cell Distribution Width 16.8 % (11.5-14.5) Platelet Count 473 x10^3/uL (140-400) Sodium Level 143 mmol/L (136-145) Potassium Level 3.5 mmol/L (3.5-5.1) Chloride Level 105 mmol/L (98-107) Carbon Dioxide Level 31 mmol/L (21-32) Anion Gap 7 (6-14) Blood Urea Nitrogen 5 mg/dL (7-20) Creatinine 0.8 mg/dL (0.6-1.0) Estimated GFR (Cockcroft-Gault) 72.0 Glucose Level 80 mg/dL (70-99) Calcium Level 7.7 mg/dL (8.5-10.1) Comment Review of Relevant I have reviewed the following items franklyn (where applicable) has been applied. Labs Laboratory Tests Test 06/25/19 03:47 White Blood Count 7.5 x10^3/uL (4.0-11.0) Red Blood Count 3.79 x10^6/uL (3.50-5.40) Hemoglobin 11.4 g/dL (12.0-15.5) Hematocrit 34.0 % (36.0-47.0) Mean Corpuscular Volume 90 fL (79-100) Mean Corpuscular Hemoglobin 30 pg (25-35) Mean Corpuscular Hemoglobin Concent 34 g/dL (31-37) Red Cell Distribution Width 16.8 % (11.5-14.5) Platelet Count 473 x10^3/uL (140-400) Sodium Level 143 mmol/L (136-145) Potassium Level 3.5 mmol/L (3.5-5.1) Chloride Level 105 mmol/L (98-107) Carbon Dioxide Level 31 mmol/L (21-32) Anion Gap 7 (6-14) Blood Urea Nitrogen 5 mg/dL (7-20) Creatinine 0.8 mg/dL (0.6-1.0) Estimated GFR (Cockcroft-Gault) 72.0 Glucose Level 80 mg/dL (70-99) Calcium Level 7.7 mg/dL (8.5-10.1) Laboratory Tests Test 06/25/19 03:47 White Blood Count 7.5 x10^3/uL (4.0-11.0) Red Blood Count 3.79 x10^6/uL (3.50-5.40) Hemoglobin 11.4 g/dL (12.0-15.5) Hematocrit 34.0 % (36.0-47.0) Mean Corpuscular Volume 90 fL (79-100) Mean Corpuscular Hemoglobin 30 pg (25-35) Mean Corpuscular Hemoglobin Concent 34 g/dL (31-37) Red Cell Distribution Width 16.8 % (11.5-14.5) Platelet Count 473 x10^3/uL (140-400) Sodium Level 143 mmol/L (136-145) Potassium Level 3.5 mmol/L (3.5-5.1) Chloride Level 105 mmol/L (98-107) Carbon Dioxide Level 31 mmol/L (21-32) Anion Gap 7 (6-14) Blood Urea Nitrogen 5 mg/dL (7-20) Creatinine 0.8 mg/dL (0.6-1.0) Estimated GFR (Cockcroft-Gault) 72.0 Glucose Level 80 mg/dL (70-99) Calcium Level 7.7 mg/dL (8.5-10.1) Microbiology 06/23/19 Aerobic and Anaerobic Culture, Resulted Pending 06/23/19 Anaerobic Culture Result 1 (GLENROY), Resulted Pending 06/23/19 Aerobic Culture, Resulted Pending 06/23/19 Aerobic Culture Result 1 (GLENROY), Resulted Pending 06/23/19 Gram Stain - Final, Resulted 06/23/19 Gram Stain Result 1 (GLENROY) - Final, Resulted 06/23/19 Gram Stain Result 2 (GLENROY) - Final, Resulted 06/18/19 Blood Culture - Final, Complete NO GROWTH AFTER 5 DAYS Medications Current Medications Sodium Chloride (Normal Saline Flush) 3 ml QSHIFT PRN IV AFTER MEDS AND BLOOD DRAWS; Start 06/18/19 at 13:00; Stop 06/23/19 at 12:09; Status DC Sodium Chloride 1,000 ml @ 50 mls/hr Q20H IV Last administered on 06/24/19at 17:30; Start 06/18/19 at 12:48 Ondansetron HCl (Zofran) 4 mg PRN Q4HRS PRN IV NAUSEA/VOMITING; Start 06/18/19 at 13:00; Stop 06/23/19 at 12:10; Status DC Acetaminophen (Tylenol Supp) 650 mg PRN Q4HRS PRN MO TEMP OVER 100.4F OR MILD PAIN; Start 06/18/19 at 13:00 Albuterol Sulfate (Ventolin Neb Soln) 2.5 mg PRN Q4HRS PRN NEB SHORTNESS OF BREATH; Start 06/18/19 at 13:00 Piperacillin Sod/ Tazobactam Sod 3.375 gm/Sodium Chloride 50 ml @ 100 mls/hr Q6HRS IV Last administered on 06/22/19at 06:10; Start 06/18/19 at 13:00; Stop 06/22/19 at 08:34; Status DC Fentanyl Citrate (Fentanyl 2ml Vial) 50 mcg PRN Q2HR PRN IVP MOD TO SEVERE PAIN, 2ND CHOICE Last administered on 06/20/19at 05:09; Start 06/18/19 at 13:00 Pantoprazole Sodium (PROTONIX VIAL for IV PUSH) 40 mg DAILYAC IVP Last administered on 06/21/19at 05:34; Start 06/19/19 at 07:30; Stop 06/21/19 at 10:11; Status DC Pantoprazole Sodium (PROTONIX VIAL for IV PUSH) 40 mg 1X ONCE IVP Last ad ministered on 06/18/19at 13:50; Start 06/18/19 at 13:45; Stop 06/18/19 at 13:46; Status DC Metronidazole 100 ml @ 100 mls/hr Q8HRS IV Last administered on 06/19/19at 06:45; Start 06/18/19 at 14:00; Stop 06/19/19 at 08:51; Status DC Hydromorphone HCl (Dilaudid) 1 mg PRN Q3HRS PRN IV MODERATE PAIN, 1ST CHOICE Last administered on 06/24/19at 00:19; Start 06/18/19 at 14:30 Hydromorphone HCl (Dilaudid) 1.5 mg PRN Q3HRS PRN IV SEVERE PAIN 7-10, 1ST CHOICE; Start 06/18/19 at 14:30 Sodium Chloride 1,000 ml @ 1,980 mls/hr Q31M IV Last administered on 06/18/19at 16:44; Start 06/18/19 at 15:06; Stop 06/18/19 at 16:06; Status DC Sodium Chloride 500 ml @ 1,000 mls/hr PRN Q30MIN PRN IV SEE COMMENTS; Start 06/18/19 at 15:15 Meropenem 1 gm/ Sodium Chloride 100 ml @ 200 mls/hr Q8HRS IV Last administered on 06/19/19at 05:50; Start 06/18/19 at 15:15; Stop 06/19/19 at 08:51; Status DC Acetaminophen (Tylenol) 650 mg PRN Q6HRS PRN PO MILD PAIN 1-3 Last administered on 06/20/19at 20:57; Start 06/19/19 at 11:30 Polyethylene Glycol (miraLAX PACKET) 17 gm DAILY PO Last administered on 06/25/19at 08:50; Start 06/20/19 at 17:30 Pantoprazole Sodium (Protonix) 40 mg DAILYAC PO Last administered on 06/25/19at 07:26; Start 06/22/19 at 07:30 Potassium Chloride (Klor-Con) 40 meq 1X ONCE PO Last administered on 06/21/19at 18:09; Start 06/21/19 at 13:15; Stop 06/21/19 at 13:16; Status DC Potassium Chloride (Klor-Con) 40 meq 1X ONCE PO ; Start 06/21/19 at 18:30; Stop 06/21/19 at 18:31; Status DC Iohexol (Omnipaque 240 Mg/ml) 50 ml 1X ONCE PO Last administered on 06/22/19at 08:30; Start 06/22/19 at 08:30; Stop 06/22/19 at 08:31; Status DC Iohexol (Omnipaque 300 Mg/ml) 75 ml 1X ONCE IV Last administered on 06/22/19at 08:30; Start 06/22/19 at 08:30; Stop 06/22/19 at 08:31; Status DC Info (CONTRAST GIVEN -- Rx MONITORING) 1 each PRN DAILY PRN MC SEE COMMENTS; Start 06/22/19 at 08:30; Stop 06/24/19 at 08:29; Status DC Amoxicillin/ Clavulanate Potassium (Augmentin 875/ 125mg) 1 tab BID PO Last administered on 06/22/19at 21:59; Start 06/22/19 at 09:00; Stop 06/23/19 at 08:04; Status DC Lorazepam (Ativan) 2 mg 1X ONCE PO Last administered on 06/22/19at 21:59; Start 06/22/19 at 21:00; Stop 06/22/19 at 21:01; Status DC Ondansetron HCl (Zofran) 4 mg PRN Q6HRS PRN IV NAUSEA/VOMITING; Start 06/23/19 at 07:00; Stop 06/24/19 at 06:59; Status DC Fentanyl Citrate (Fentanyl 2ml Vial) 25 mcg PRN Q5MIN PRN IV MILD PAIN 1-3; Start 06/23/19 at 07:00; Stop 06/24/19 at 06:59; Status DC Fentanyl Citrate (Fentanyl 2ml Vial) 50 mcg PRN Q5MIN PRN IV MODERATE TO SEVERE PAIN Last administered on 06/23/19at 12:58; Start 06/23/19 at 07:00; Stop 06/24/19 at 06:59; Status DC Morphine Sulfate (Morphine Sulfate) 1 mg PRN Q10MIN PRN IV SEVERE PAIN 7-10 Last administered on 06/23/19at 12:31; Start 06/23/19 at 07:00; Stop 06/24/19 at 06:59; Status DC Ringer's Solution 1,000 ml @ 30 mls/hr Q24H IV Last administered on 06/23/19at 09:58; Start 06/23/19 at 07:00; Stop 06/23/19 at 18:59; Status DC Lidocaine HCl (Xylocaine-Mpf 1% 2ml Vial) 2 ml PRN 1X PRN ID PRIOR TO IV START; Start 06/23/19 at 07:00; Stop 06/24/19 at 06:59; Status DC Hydromorphone HCl (Dilaudid) 0.5 mg PRN Q10MIN PRN IV SEV PAIN, Second choice; Start 06/23/19 at 07:00; Stop 06/24/19 at 06:59; Status DC Prochlorperazine Edisylate (Compazine) 5 mg PACU PRN PRN IV NAUSEA, MRX1; Start 06/23/19 at 07:00; Stop 06/24/19 at 06:59; Status DC Piperacillin Sod/ Tazobactam Sod 3.375 gm/Sodium Chloride 50 ml @ 100 mls/hr Q6HRS IV Last administered on 06/25/19at 06:00; Start 06/23/19 at 10:00 Propofol (Diprivan) 200 mg STK-MED ONCE IV ; Start 06/23/19 at 09:41; Stop 06/23/19 at 09:41; Status DC Dexamethasone Sodium Phosphate (Decadron) 4 mg STK-MED ONCE .ROUTE ; Start 06/23/19 at 09:41; Stop 06/23/19 at 09:41; Status DC Lidocaine HCl (Lidocaine Pf 2% Vial) 5 ml STK-MED ONCE .ROUTE ; Start 06/23/19 at 09:41; Stop 06/23/19 at 09:41; Status DC Ondansetron HCl (Zofran) 4 mg STK-MED ONCE .ROUTE ; Start 06/23/19 at 09:41; Stop 06/23/19 at 09:41; Status DC Succinylcholine Chloride (Anectine) 200 mg STK-MED ONCE .ROUTE ; Start 06/23/19 at 09:41; Stop 06/23/19 at 09:41; Status DC Ondansetron HCl (Zofran) 4 mg STK-MED ONCE .ROUTE ; Start 06/23/19 at 09:41; Stop 06/23/19 at 09:42; Status DC Fentanyl Citrate (Fentanyl 2ml Vial) 100 mcg STK-MED ONCE .ROUTE ; Start 06/23/19 at 09:41; Stop 06/23/19 at 09:42; Status DC Rocuronium [place] (Zemuron) 50 mg STK-MED ONCE .ROUTE ; Start 06/23/19 at 09:42; Stop 06/23/19 at 09:42; Status DC Bupivacaine HCl/ Epinephrine Bitart (Sensorcain-Epi 0.5%-1:259169 Mpf) 30 ml STK-MED ONCE .ROUTE Last administered on 06/23/19at 10:33; Start 06/23/19 at 09:45; Stop 06/23/19 at 09:46; Status DC Bacitracin 24084 unit/Sodium Chloride 500 ml @ 500 mls/hr 1X ONCE IRR ; Start 06/23/19 at 10:00; Stop 06/23/19 at 10:59; Status DC Glycopyrrolate (Robinul) 1 mg STK-MED ONCE .ROUTE ; Start 06/23/19 at 11:01; Stop 06/23/19 at 11:01; Status DC Neostigmine [place] (Neostigmine Methylsulfate) 5 mg STK-MED ONCE .ROUTE ; Start 06/23/19 at 11:01; Stop 06/23/19 at 11:01; Status DC Phenylephrine HCl (PHENYLEPHRINE in 0.9% NACL PF) 1 mg STK-MED ONCE IV ; Start 06/23/19 at 11:02; Stop 06/23/19 at 11:02; Status DC Desflurane (Suprane) 60 ml STK-MED ONCE IH ; Start 06/23/19 at 11:18; Stop 06/23/19 at 11:19; Status DC Fentanyl Citrate (Fentanyl 2ml Vial) 100 mcg STK-MED ONCE .ROUTE ; Start 06/23/19 at 11:18; Stop 06/23/19 at 11:19; Status DC Diphenhydramine HCl (Benadryl) 25 mg PRN Q6HRS PRN PO ITCHING; Start 06/23/19 at 12:00 Enoxaparin Sodium (Lovenox 40mg Syringe) 40 mg Q24H SQ Last administered on 06/24/19at 20:36; Start 06/23/19 at 21:00 Sodium Chloride (Normal Saline Flush) 3 ml QSHIFT PRN IV AFTER MEDS AND BLOOD DRAWS; Start 06/23/19 at 12:00 Oxycodone/ Acetaminophen (Percocet 5/325) 1 tab PRN Q4HRS PRN PO MODERATE PAIN, SEVERE PAIN Last administered on 06/25/19at 08:50; Start 06/23/19 at 12:00 Naloxone HCl (Narcan) 0.4 mg PRN Q2MIN PRN IV SEE INSTRUCTIONS; Start 06/23/19 at 12:00 Sodium Chloride 1,000 ml @ 25 mls/hr Q24H IV ; Start 06/23/19 at 11:57; Status UNV Hydromorphone HCl (Dilaudid) 1 mg PRN Q3HRS PRN IV PAIN; Start 06/23/19 at 12:00; Stop 06/24/19 at 12:16; Status DC Docusate Sodium (Colace) 100 mg BID PO Last administered on 06/25/19at 08:50; Start 06/23/19 at 21:00 Ondansetron HCl (Zofran) 4 mg PRN Q6HRS PRN IVP NAUESA, 1ST CHOICE; Start 06/23/19 at 12:00 Morphine Sulfate (Morphine Sulfate) 2 mg STK-MED ONCE .ROUTE ; Start 06/23/19 at 12:12; Stop 06/23/19 at 12:12; Status DC Fentanyl Citrate (Fentanyl 2ml Vial) 100 mcg STK-MED ONCE .ROUTE ; Start 06/23/19 at 12:21; Stop 06/23/19 at 12:22; Status DC Fentanyl Citrate (Fentanyl 2ml Vial) 100 mcg STK-MED ONCE .ROUTE ; Start 06/23/19 at 12:56; Stop 06/23/19 at 12:57; Status DC Active Scripts Active Reported Vitamin B12 (Cyanocobalamin (Vitamin B-12)) 2,500 Mcg Tablet 1 Tab PO DAILY 30 Days Vitamin E (Vitamin E Acid Succinate) 100 Unit Tablet 100 Unit PO DAILY Tonalin Cla 1,000 Mg Softgel (Safflower Oil/Linoleic Acid,Co) 1,000 Mg Capsule 1,000 Mg PO DAILY Mag-Oxide (Magnesium Oxide) 200 Mg Tablet 1 Tab PO DAILY 30 Days Levothyroxine Sodium 100 Mcg Tablet 1 Tab PO DAILY Liothyronine Sodium 5 Mcg Tablet 1 Tab PO DAILY 30 Days Lisinopril 10 Mg Tablet 1 Tab PO DAILY Pravastatin Sodium 20 Mg Tablet 1 Tab PO DAILY Vitals/I & O Vital Sign - Last 24 Hours 06/24/19 06/24/19 06/24/19 06/24/19 10:53 12:30 13:30 15:02 Temp 98.2 98.1 98.2 98.1 Pulse 65 63 Resp 18 20 B/P (MAP) 134/75 (94) 126/72 (90) Pulse Ox 91 92 O2 Delivery Room Air Room Air Room Air Room Air 06/24/19 06/24/19 06/24/19 06/24/19 16:42 17:40 20:00 20:37 Resp 18 O2 Delivery Room Air Room Air Room Air Room Air O2 Flow Rate 3.0 06/24/19 06/24/19 06/25/19 06/25/19 21:40 23:00 00:32 02:23 Temp 98.7 98.7 98.7 98.7 Pulse 76 66 Resp 20 18 18 16 B/P (MAP) 131/68 (89) 112/66 (81) Pulse Ox 92 90 91 O2 Delivery Nasal Cannula Room Air Room Air O2 Flow Rate 3.0 06/25/19 06/25/19 06/25/19 05:25 06:33 07:00 Temp 98.6 98.6 Pulse 58 Resp 20 16 B/P (MAP) 120/66 (84) Pulse Ox 91 92 O2 Delivery Room Air Room Air O2 Flow Rate 3.0 Intake and Output 06/24/19 06/24/19 06/25/19 14:59 22:59 06:59 Intake Total 360 ml 410 ml 50 ml Output Total 340 ml 660 ml Balance 20 ml -250 ml 50 ml Hemodynamically unstable?: No Is patient in severe pain?: No Is NPO status required?: No KELVIN AGUIRRE MD June 25, 2019 09:28
--- NOTE | 2019-06-25 10:18 | PDOC ---
Subjective: Subjective: Hangin' in there, had a rough night. Taking sips of clears, no flatus. Objective: Vital Signs: Vital Signs Date Time Temp Pulse Resp B/P (MAP) Pulse Ox O2 Delivery O2 Flow Rate FiO2 06/25/19 08:00 Room Air 06/25/19 07:00 98.6 58 16 120/66 (84) 92 98.6 06/25/19 06:33 3.0 Labs: Laboratory Tests Test 06/25/19 03:47 White Blood Count 7.5 x10^3/uL Red Blood Count 3.79 x10^6/uL Hemoglobin 11.4 g/dL Hematocrit 34.0 % Mean Corpuscular Volume 90 fL Mean Corpuscular Hemoglobin 30 pg Mean Corpuscular Hemoglobin Concent 34 g/dL Red Cell Distribution Width 16.8 % Platelet Count 473 x10^3/uL Sodium Level 143 mmol/L Potassium Level 3.5 mmol/L Chloride Level 105 mmol/L Carbon Dioxide Level 31 mmol/L Anion Gap 7 Blood Urea Nitrogen 5 mg/dL Creatinine 0.8 mg/dL Estimated GFR (Cockcroft-Gault) 72.0 Glucose Level 80 mg/dL Calcium Level 7.7 mg/dL Material submitted: . appendix - APPENDIX Clinical history: . perforated appendicitis Diagnosis: Appendix, open appendectomy: - Acute appendicitis of distal appendiceal tip, ruptured, with acute periappendicitis/periappendiceal abscess. PE: GEN: NAD LUNGS: CTAB HEART: RRR ABD: a few quiet gurgles, tender to light palpation BLQ (worse to left?) NEURO/PSYCH: A & O 3 A/P: Pelvic abscess 2/2 perforated appendicitis s/p diagnostic laparoscopy and open appendectomy 06/23/19 ACD -- Says she's taking Miralax - defer this and diet to surgery. Hemodynamically unstable?: No Is patient in severe pain?: No Is NPO status required?: No BRANDIE RODRIGUEZ June 25, 2019 10:18
[2019-06-25 10:37] VITALS: BP 130/73
--- NOTE | 2019-06-25 10:37 | NUR ---
SW following. Discussed with RN, pt on room air, IV zosyn, full liquid diet. SW will continue to follow.
[2019-06-25] MEDS: IV NORMAL SALINE 1000ML BAG 1,000 ML IV SCH (11:35)
--- NOTE | 2019-06-25 13:34 | PDOC ---
SURGICAL PROGRESS NOTE Subjective would like something more to eat Vital Signs Vital Signs Date Time Temp Pulse Resp B/P (MAP) Pulse Ox O2 Delivery O2 Flow Rate FiO2 06/25/19 10:37 98.1 67 16 130/73 (92) 92 Room Air 98.1 06/25/19 06:33 3.0 I&O Intake and Output 06/25/19 07:00 Intake Total 820 ml Output Total 1000 ml Balance -180 ml Intake Oral 720 ml IV Total 100 ml Output Urine Total 800 ml Drainage Total 200 ml # Voids 3 PATIENT HAS A MAYA: No General: Alert Abdomen: Soft, Other (DAWOOD with serous drainage) Labs Laboratory Tests Test 06/25/19 03:47 White Blood Count 7.5 x10^3/uL (4.0-11.0) Red Blood Count 3.79 x10^6/uL (3.50-5.40) Hemoglobin 11.4 g/dL (12.0-15.5) Hematocrit 34.0 % (36.0-47.0) Mean Corpuscular Volume 90 fL (79-100) Mean Corpuscular Hemoglobin 30 pg (25-35) Mean Corpuscular Hemoglobin Concent 34 g/dL (31-37) Red Cell Distribution Width 16.8 % (11.5-14.5) Platelet Count 473 x10^3/uL (140-400) Sodium Level 143 mmol/L (136-145) Potassium Level 3.5 mmol/L (3.5-5.1) Chloride Level 105 mmol/L (98-107) Carbon Dioxide Level 31 mmol/L (21-32) Anion Gap 7 (6-14) Blood Urea Nitrogen 5 mg/dL (7-20) Creatinine 0.8 mg/dL (0.6-1.0) Estimated GFR (Cockcroft-Gault) 72.0 Glucose Level 80 mg/dL (70-99) Calcium Level 7.7 mg/dL (8.5-10.1) Laboratory Tests Test 06/25/19 03:47 White Blood Count 7.5 x10^3/uL (4.0-11.0) Red Blood Count 3.79 x10^6/uL (3.50-5.40) Hemoglobin 11.4 g/dL (12.0-15.5) Hematocrit 34.0 % (36.0-47.0) Mean Corpuscular Volume 90 fL (79-100) Mean Corpuscular Hemoglobin 30 pg (25-35) Mean Corpuscular Hemoglobin Concent 34 g/dL (31-37) Red Cell Distribution Width 16.8 % (11.5-14.5) Platelet Count 473 x10^3/uL (140-400) Sodium Level 143 mmol/L (136-145) Potassium Level 3.5 mmol/L (3.5-5.1) Chloride Level 105 mmol/L (98-107) Carbon Dioxide Level 31 mmol/L (21-32) Anion Gap 7 (6-14) Blood Urea Nitrogen 5 mg/dL (7-20) Creatinine 0.8 mg/dL (0.6-1.0) Estimated GFR (Cockcroft-Gault) 72.0 Glucose Level 80 mg/dL (70-99) Calcium Level 7.7 mg/dL (8.5-10.1) Assessment/Plan POD 2 open appendectomy advance diet, activity Dr Blum to follow over the weekend CADE DAY MD June 25, 2019 13:34
[2019-06-25 14:17] VITALS: BP 134/77
[2019-06-25 19:31] VITALS: BP 137/78
[2019-06-25] MEDS: LACTOBACILLUS RHAMNOSUS GG 1 CAPSULE. PO SCH (21:28)
[2019-06-25] MEDS: ENOXAPARIN 40 MG/0.4 ML SYRINGE. SQ SCH (21:29)
[2019-06-25 23:25] VITALS: BP 118/68
[2019-06-26] MEDS: oxyCODONE/APAP 5/325 1 TAB TABLET PO PRN ×5 (01:46→23:34)
[2019-06-26 03:28] VITALS: BP 118/68
[2019-06-26] MEDS: PIPERACILLIN/TAZOBACTAM 3.375 GM in IV NORMAL SALINE 50ML 50 ML IV SCH ×6 (05:47→23:34)
[2019-06-26] MEDS: PANTOPRAZOLE 40 MG TABLET.DR. PO SCH (05:48)
[2019-06-26 07:59] VITALS: BP 113/67
--- NOTE | 2019-06-26 08:53 | PDOC ---
Infectious Disease Note Subjective Subjective Patient is feeling much better. Walking. Eating on soft diet Pain is much better + BM today Vital Sign Vital Signs Vital Signs Date Time Temp Pulse Resp B/P (MAP) Pulse Ox O2 Delivery O2 Flow Rate FiO2 06/26/19 05:47 3 06/26/19 03:28 98.2 60 118/68 (85) 91 Room Air 98.2 06/26/19 03:00 3.0 Physical Exam PHYSICAL EXAM GENERAL: Propped up in bed, alert, appears comfortable. HEENT: Pupils equally round and reactive. Oropharynx pink and moist. No lesions seen. NECK: Supple. LUNGS: Clear to auscultation. CARDIAC: S1 and S2 regular. ABDOMEN: Mildly distended, soft, diffusely tender. Bowel sounds present.DAWOOD with serous fluid EXTREMITIES: No gross edema or cyanosis. SKIN: Warm to touch or signs of rash. Tattoo NEUROLOGIC: Alert and oriented x 3. Labs Micro Microbiology 06/23/19 Aerobic and Anaerobic Culture, Resulted Pending 06/23/19 Anaerobic Culture Result 1 (GLENROY), Resulted Pending 06/23/19 Aerobic Culture - Preliminary, Resulted 06/23/19 Aerobic Culture Result 1 (GLENROY) - Preliminary, Resulted 06/23/19 Gram Stain - Final, Resulted 06/23/19 Gram Stain Result 1 (GLENROY) - Final, Resulted 06/23/19 Gram Stain Result 2 (GLENROY) - Final, Resulted 06/18/19 Blood Culture - Final, Complete NO GROWTH AFTER 5 DAYS Objective Assessment Acute sigmoid colitis with perforation, perforated appendix status post surgery 06/22 Abd abscess - GNR 06/22 Leukocytosis - improved Pyruia, 06/17 ([facility]) Left hepatic mass (measures1.7 x 1.5 cm) Hypothyroidism COVID-19 negative Plan Plan of Care Continue Zosyn f/u cultures and labs Supportive care RICHARD SIERRA MD June 26, 2019 08:53
[2019-06-26] MEDS: POLYETHYLENE GLYCOL 3350 17 GM PACKET. PO SCH (09:00)
--- NOTE | 2019-06-26 09:11 | PDOC ---
PROGRESS NOTES Chief Complaint Chief Complaint ASSESSMENT acute colitis with microperforation, s/p Diagnostic laparoscopy, open appendectomy 06/22. noted Pelvic abscess secondary to perforated appendicitis. abdominal pain secondary to the above SEPSIS secondary to the above improved Pelvic abscess secondary to perforated appendicitis. PLAN Pain management Continue IV zosyn Supportive measures Pain management repeat CT shows: 1. 4.8 x 3.5 cm abscess in the false pelvis to the right of midline. 2. A long calculus in the right distal ureter measures 2.2 x 0.6 cm. No significant proximal obstructive findings 3. Trace bilateral pleural effusions. advance diet per sx apprec ID input [id number] MIN pt exam, chart review, > 50% of time spent with exam, chart review, pt care coordination History of Present Illness History of Present Illness doing well, no complaints. denies chest pain sob. VSS. tolerating PO diet. drain in place and still drainging Vitals Vitals Vital Signs Date Time Temp Pulse Resp B/P (MAP) Pulse Ox O2 Delivery O2 Flow Rate FiO2 06/26/19 05:47 3 06/26/19 03:28 98.2 60 118/68 (85) 91 Room Air 98.2 06/26/19 03:00 3.0 Physical Exam Physical Exam GENERAL: Propped up in bed, alert, appears comfortable. HEENT: Pupils equally round and reactive. Oropharynx pink and moist. No lesions seen. NECK: Supple. LUNGS: Clear to auscultation. CARDIAC: S1 and S2 regular. ABDOMEN: Mildly distended, soft, diffusely tender. Bowel sounds present.DAWOOD with serous fluid EXTREMITIES: No gross edema or cyanosis. SKIN: Warm to touch or signs of rash. Tattoo NEUROLOGIC: Alert and oriented x 3. General: Alert Heart: Regular rate, Normal S1, No murmurs Lungs: Clear Abdomen: Soft, Other (DAWOOD with serous drainage) Extremities: No clubbing Skin: Other (warm,dry) Comment Review of Relevant I have reviewed the following items franklyn (where applicable) has been applied. Labs Laboratory Tests Test 06/25/19 03:47 White Blood Count 7.5 x10^3/uL (4.0-11.0) Red Blood Count 3.79 x10^6/uL (3.50-5.40) Hemoglobin 11.4 g/dL (12.0-15.5) Hematocrit 34.0 % (36.0-47.0) Mean Corpuscular Volume 90 fL (79-100) Mean Corpuscular Hemoglobin 30 pg (25-35) Mean Corpuscular Hemoglobin Concent 34 g/dL (31-37) Red Cell Distribution Width 16.8 % (11.5-14.5) Platelet Count 473 x10^3/uL (140-400) Sodium Level 143 mmol/L (136-145) Potassium Level 3.5 mmol/L (3.5-5.1) Chloride Level 105 mmol/L (98-107) Carbon Dioxide Level 31 mmol/L (21-32) Anion Gap 7 (6-14) Blood Urea Nitrogen 5 mg/dL (7-20) Creatinine 0.8 mg/dL (0.6-1.0) Estimated GFR (Cockcroft-Gault) 72.0 Glucose Level 80 mg/dL (70-99) Calcium Level 7.7 mg/dL (8.5-10.1) Microbiology 06/23/19 Aerobic and Anaerobic Culture, Resulted Pending 06/23/19 Anaerobic Culture Result 1 (GLENROY), Resulted Pending 06/23/19 Aerobic Culture - Preliminary, Resulted 06/23/19 Aerobic Culture Result 1 (GLENROY) - Preliminary, Resulted 06/23/19 Gram Stain - Final, Resulted 06/23/19 Gram Stain Result 1 (GLENROY) - Final, Resulted 06/23/19 Gram Stain Result 2 (GLENROY) - Final, Resulted 06/18/19 Blood Culture - Final, Complete NO GROWTH AFTER 5 DAYS Medications Current Medications Sodium Chloride (Normal Saline Flush) 3 ml QSHIFT PRN IV AFTER MEDS AND BLOOD DRAWS; Start 06/18/19 at 13:00; Stop 06/23/19 at 12:09; Status DC Sodium Chloride 1,000 ml @ 50 mls/hr Q20H IV Last administered on 06/25/19at 11:35; Start 06/18/19 at 12:48 Ondansetron HCl (Zofran) 4 mg PRN Q4HRS PRN IV NAUSEA/VOMITING; Start 06/18/19 at 13:00; Stop 06/23/19 at 12:10; Status DC Acetaminophen (Tylenol Supp) 650 mg PRN Q4HRS PRN WA TEMP OVER 100.4F OR MILD PAIN; Start 06/18/19 at 13:00 Albuterol Sulfate (Ventolin Neb Soln) 2.5 mg PRN Q4HRS PRN NEB SHORTNESS OF BREATH; Start 06/18/19 at 13:00 Piperacillin Sod/ Tazobactam Sod 3.375 gm/Sodium Chloride 50 ml @ 100 mls/hr Q6HRS IV Last administered on 06/22/19at 06:10; Start 06/18/19 at 13:00; Stop 06/22/19 at 08:34; Status DC Fentanyl Citrate (Fentanyl 2ml Vial) 50 mcg PRN Q2HR PRN IVP MOD TO SEVERE PAIN, 2ND CHOICE Last administered on 06/20/19at 05:09; Start 06/18/19 at 13:00 Pantoprazole Sodium (PROTONIX VIAL for IV PUSH) 40 mg DAILYAC IVP Last administered on 06/21/19at 05:34; Start 06/19/19 at 07:30; Stop 06/21/19 at 10:11; Status DC Pantoprazole Sodium (PROTONIX VIAL for IV PUSH) 40 mg 1X ONCE IVP Last administered on 06/18/19at 13:50; Start 06/18/19 at 13:45; Stop 06/18/19 at 13:46; Status DC Metronidazole 100 ml @ 100 mls/hr Q8HRS IV Last administered on 06/19/19at 06:45; Start 06/18/19 at 14:00; Stop 06/19/19 at 08:51; Status DC Hydromorphone HCl (Dilaudid) 1 mg PRN Q3HRS PRN IV MODERATE PAIN, 1ST CHOICE Last administered on 06/24/19at 00:19; Start 06/18/19 at 14:30 Hydromorphone HCl (Dilaudid) 1.5 mg PRN Q3HRS PRN IV SEVERE PAIN 7-10, 1ST CHOICE; Start 06/18/19 at 14:30 Sodium Chloride 1,000 ml @ 1,980 mls/hr Q31M IV Last administered on 06/18/19at 16:44; Start 06/18/19 at 15:06; Stop 06/18/19 at 16:06; Status DC Sodium Chloride 500 ml @ 1,000 mls/hr PRN Q30MIN PRN IV SEE COMMENTS; Start 06/18/19 at 15:15 Meropenem 1 gm/ Sodium Chloride 100 ml @ 200 mls/hr Q8HRS IV Last administered on 06/19/19at 05:50; Start 06/18/19 at 15:15; Stop 06/19/19 at 08:51; Status DC Acetaminophen (Tylenol) 650 mg PRN Q6HRS PRN PO MILD PAIN 1-3 Last administered on 06/20/19at 20:57; Start 06/19/19 at 11:30 Polyethylene Glycol (miraLAX PACKET) 17 gm DAILY PO Last administered on 06/25/19at 08:50; Start 06/20/19 at 17:30 Pantoprazole Sodium (Protonix) 40 mg DAILYAC PO Last administered on 06/26/19at 05:48; Start 06/22/19 at 07:30 Potassium Chloride (Klor-Con) 40 meq 1X ONCE PO Last administered on 06/21/19at 18:09; Start 06/21/19 at 13:15; Stop 06/21/19 at 13:16; Status DC Potassium Chloride (Klor-Con) 40 meq 1X ONCE PO ; Start 06/21/19 at 18:30; Stop 06/21/19 at 18:31; Status DC Iohexol (Omnipaque 240 Mg/ml) 50 ml 1X ONCE PO Last administered on 06/22/19at 08:30; Start 06/22/19 at 08:30; Stop 06/22/19 at 08:31; Status DC Iohexol (Omnipaque 300 Mg/ml) 75 ml 1X ONCE IV Last administered on 06/22/19at 08:30; Start 06/22/19 at 08:30; Stop 06/22/19 at 08:31; Status DC Info (CONTRAST GIVEN -- Rx MONITORING) 1 each PRN DAILY PRN MC SEE COMMENTS; Start 06/22/19 at 08:30; Stop 06/24/19 at 08:29; Status DC Amoxicillin/ Clavulanate Potassium (Augmentin 875/ 125mg) 1 tab BID PO Last administered on 06/22/19at 21:59; Start 06/22/19 at 09:00; Stop 06/23/19 at 08:0 4; Status DC Lorazepam (Ativan) 2 mg 1X ONCE PO Last administered on 06/22/19at 21:59; Start 06/22/19 at 21:00; Stop 06/22/19 at 21:01; Status DC Ondansetron HCl (Zofran) 4 mg PRN Q6HRS PRN IV NAUSEA/VOMITING; Start 06/23/19 at 07:00; Stop 06/24/19 at 06:59; Status DC Fentanyl Citrate (Fentanyl 2ml Vial) 25 mcg PRN Q5MIN PRN IV MILD PAIN 1-3; Start 06/23/19 at 07:00; Stop 06/24/19 at 06:59; Status DC Fentanyl Citrate (Fentanyl 2ml Vial) 50 mcg PRN Q5MIN PRN IV MODERATE TO SEVERE PAIN Last administered on 06/23/19at 12:58; Start 06/23/19 at 07:00; Stop 06/24/19 at 06:59; Status DC Morphine Sulfate (Morphine Sulfate) 1 mg PRN Q10MIN PRN IV SEVERE PAIN 7-10 Last administered on 06/23/19at 12:31; Start 06/23/19 at 07:00; Stop 06/24/19 at 06:59; Status DC Ringer's Solution 1,000 ml @ 30 mls/hr Q24H IV Last administered on 06/23/19at 09:58; Start 06/23/19 at 07:00; Stop 06/23/19 at 18:59; Status DC Lidocaine HCl (Xylocaine-Mpf 1% 2ml Vial) 2 ml PRN 1X PRN ID PRIOR TO IV START; Start 06/23/19 at 07:00; Stop 06/24/19 at 06:59; Status DC Hydromorphone HCl (Dilaudid) 0.5 mg PRN Q10MIN PRN IV SEV PAIN, Second choice; Start 06/23/19 at 07:00; Stop 06/24/19 at 06:59; Status DC Prochlorperazine Edisylate (Compazine) 5 mg PACU PRN PRN IV NAUSEA, MRX1; Start 06/23/19 at 07:00; Stop 06/24/19 at 06:59; Status DC Piperacillin Sod/ Tazobactam Sod 3.375 gm/Sodium Chloride 50 ml @ 100 mls/hr Q6HRS IV Last administered on 06/26/19at 05:47; Start 06/23/19 at 10:00 Propofol (Diprivan) 200 mg STK-MED ONCE IV ; Start 06/23/19 at 09:41; Stop 06/23/19 at 09:41; Status DC Dexamethasone Sodium Phosphate (Decadron) 4 mg STK-MED ONCE .ROUTE ; Start 06/23/19 at 09:41; Stop 06/23/19 at 09:41; Status DC Lidocaine HCl (Lidocaine Pf 2% Vial) 5 ml STK-MED ONCE .ROUTE ; Start 06/23/19 at 09:41; Stop 06/23/19 at 09:41; Status DC Ondansetron HCl (Zofran) 4 mg STK-MED ONCE .ROUTE ; Start 06/23/19 at 09:41; S top 06/23/19 at 09:41; Status DC Succinylcholine Chloride (Anectine) 200 mg STK-MED ONCE .ROUTE ; Start 06/23/19 at 09:41; Stop 06/23/19 at 09:41; Status DC Ondansetron HCl (Zofran) 4 mg STK-MED ONCE .ROUTE ; Start 06/23/19 at 09:41; Stop 06/23/19 at 09:42; Status DC Fentanyl Citrate (Fentanyl 2ml Vial) 100 mcg STK-MED ONCE .ROUTE ; Start 06/23/19 at 09:41; Stop 06/23/19 at 09:42; Status DC Rocuronium [place] (Zemuron) 50 mg STK-MED ONCE .ROUTE ; Start 06/23/19 at 09:42; Stop 06/23/19 at 09:42; Status DC Bupivacaine HCl/ Epinephrine Bitart (Sensorcain-Epi 0.5%-1:454765 Mpf) 30 ml STK-MED ONCE .ROUTE Last administered on 06/23/19at 10:33; Start 06/23/19 at 09:45; Stop 06/23/19 at 09:46; Status DC Bacitracin 88426 unit/Sodium Chloride 500 ml @ 500 mls/hr 1X ONCE IRR ; Start 06/23/19 at 10:00; Stop 06/23/19 at 10:59; Status DC Glycopyrrolate (Robinul) 1 mg STK-MED ONCE .ROUTE ; Start 06/23/19 at 11:01; Stop 06/23/19 at 11:01; Status DC Neostigmine [place] (Neostigmine Methylsulfate) 5 mg STK-MED ONCE .ROUTE ; Start 06/23/19 at 11:01; Stop 06/23/19 at 11:01; Status DC Phenylephrine HCl (PHENYLEPHRINE in 0.9% NACL PF) 1 mg STK-MED ONCE IV ; Start 06/23/19 at 11:02; Stop 06/23/19 at 11:02; Status DC Desflurane (Suprane) 60 ml STK-MED ONCE IH ; Start 06/23/19 at 11:18; Stop 06/23/19 at 11:19; Status DC Fentanyl Citrate (Fentanyl 2ml Vial) 100 mcg STK-MED ONCE .ROUTE ; Start at 11:18; Stop 06/23/19 at 11:19; Status DC Diphenhydramine HCl (Benadryl) 25 mg PRN Q6HRS PRN PO ITCHING; Start 06/23/19 a t 12:00 Enoxaparin Sodium (Lovenox 40mg Syringe) 40 mg Q24H SQ Last administered on 06/25/19at 21:29; Start 06/23/19 at 21:00 Sodium Chloride (Normal Saline Flush) 3 ml QSHIFT PRN IV AFTER MEDS AND BLOOD DRAWS; Start 06/23/19 at 12:00 Oxycodone/ Acetaminophen (Percocet 5/325) 1 tab PRN Q4HRS PRN PO MODERATE PAIN, SEVERE PAIN Last administered on 06/26/19at 05:47; Start 06/23/19 at 12:00 Naloxone HCl (Narcan) 0.4 mg PRN Q2MIN PRN IV SEE INSTRUCTIONS; Start 06/23/19 at 12:00 Sodium Chloride 1,000 ml @ 25 mls/hr Q24H IV ; Start 06/23/19 at 11:57; Status UNV Hydromorphone HCl (Dilaudid) 1 mg PRN Q3HRS PRN IV PAIN; Start 06/23/19 at 12:00; Stop 06/24/19 at 12:16; Status DC Docusate Sodium (Colace) 100 mg BID PO Last administered on 06/25/19at 21:28; Start 06/23/19 at 21:00 Ondansetron HCl (Zofran) 4 mg PRN Q6HRS PRN IVP NAUESA, 1ST CHOICE; Start 06/23/19 at 12:00 Morphine Sulfate (Morphine Sulfate) 2 mg STK-MED ONCE .ROUTE ; Start 06/23/19 at 12:12; Stop 06/23/19 at 12:12; Status DC Fentanyl Citrate (Fentanyl 2ml Vial) 100 mcg STK-MED ONCE .ROUTE ; Start 06/23/19 at 12:21; Stop 06/23/19 at 12:22; Status DC Fentanyl Citrate (Fentanyl 2ml Vial) 100 mcg STK-MED ONCE .ROUTE ; Start 06/23/19 at 12:56; Stop 06/23/19 at 12:57; Status DC Lactobacillus Rhamnosus (Culturelle) 1 cap BID PO Last administered on 06/25/19at 21:28; Start 06/25/19 at 21:00 Active Scripts Active Reported Vitamin B12 (Cyanocobalamin (Vitamin B-12)) 2,500 Mcg Tablet 1 Tab PO DAILY 30 Days Vitamin E (Vitamin E Acid Succinate) 100 Unit Tablet 100 Unit PO DAILY Tonalin Cla 1,000 Mg Softgel (Safflower Oil/Linoleic Acid,Co) 1,000 Mg Capsule 1,000 Mg PO DAILY Mag-Oxide (Magnesium Oxide) 200 Mg Tablet 1 Tab PO DAILY 30 Days Levothyroxine Sodium 100 Mcg Tablet 1 Tab PO DAILY Liothyronine Sodium 5 Mcg Tablet 1 Tab PO DAILY 30 Days Lisinopril 10 Mg Tablet 1 Tab PO DAILY Pravastatin Sodium 20 Mg Tablet 1 Tab PO DAILY Vitals/I & O Vital Sign - Last 24 Hours 06/25/19 06/25/19 06/25/19 06/25/19 10:37 13:42 14:17 19:31 Temp 98.1 98.3 98.1 98.1 98.3 98.1 Pulse 67 52 62 Resp 16 16 17 B/P (MAP) 130/73 (92) 134/77 (96) 137/78 (97) Pulse Ox 92 94 92 O2 Delivery Room Air Room Air Room Air Room Air 06/25/19 06/25/19 06/25/19 06/26/19 20:00 21:29 23:25 03:00 Temp 98.8 98.8 Pulse 76 Resp 22 17 20 B/P (MAP) 118/68 (85) Pulse Ox 92 91 O2 Delivery Room Air Room Air Room Air O2 Flow Rate 3.0 06/26/19 06/26/19 03:28 05:47 Temp 98.2 98.2 Pulse 60 Resp 16 3 B/P (MAP) 118/68 (85) Pulse Ox 91 O2 Delivery Room Air Intake and Output 06/25/19 06/25/19 06/26/19 15:00 23:00 07:00 Intake Total 120 ml Output Total 770 ml 950 ml 480 ml Balance -650 ml -950 ml -480 ml Hemodynamically unstable?: No Is patient in severe pain?: No Is NPO status required?: No KELVIN AGUIRRE MD June 26, 2019 09:11
[2019-06-26] MEDS: IV NORMAL SALINE 1000ML BAG 1,000 ML IV SCH ×2 (10:08→17:26)
[2019-06-26] MEDS: LACTOBACILLUS RHAMNOSUS GG 1 CAPSULE. PO SCH ×2 (10:08→20:48)
[2019-06-26] MEDS: DOCUSATE SODIUM 100 MG CAPSULE. PO SCH ×2 (10:09→20:48)
--- NOTE | 2019-06-26 10:35 | PDOC ---
PROGRESS NOTES Subjective Subjective feels distended, but having stools Objective Objective Vital Signs Date Time Temp Pulse Resp B/P (MAP) Pulse Ox O2 Delivery O2 Flow Rate FiO2 06/26/19 10:08 20 Room Air 06/26/19 07:59 98.1 71 113/67 (82) 94 98.1 06/26/19 03:00 3.0 Intake and Output 06/26/19 07:00 Intake Total 120 ml Output Total 2200 ml Balance -2080 ml Intake Oral 120 ml Output Urine Total 1450 ml Drainage Total 750 ml # Voids 3 Physical Exam Abdomen: Soft (distended) Assessment Assessment S/P appy Plan Plan of Care Continue abx, postop management Comment Review of Relevant I have reviewed the following items franklyn (where applicable) has been applied. Labs Laboratory Tests Test 06/25/19 03:47 White Blood Count 7.5 x10^3/uL (4.0-11.0) Red Blood Count 3.79 x10^6/uL (3.50-5.40) Hemoglobin 11.4 g/dL (12.0-15.5) Hematocrit 34.0 % (36.0-47.0) Mean Corpuscular Volume 90 fL (79-100) Mean Corpuscular Hemoglobin 30 pg (25-35) Mean Corpuscular Hemoglobin Concent 34 g/dL (31-37) Red Cell Distribution Width 16.8 % (11.5-14.5) Platelet Count 473 x10^3/uL (140-400) Sodium Level 143 mmol/L (136-145) Potassium Level 3.5 mmol/L (3.5-5.1) Chloride Level 105 mmol/L (98-107) Carbon Dioxide Level 31 mmol/L (21-32) Anion Gap 7 (6-14) Blood Urea Nitrogen 5 mg/dL (7-20) Creatinine 0.8 mg/dL (0.6-1.0) Estimated GFR (Cockcroft-Gault) 72.0 Glucose Level 80 mg/dL (70-99) Calcium Level 7.7 mg/dL (8.5-10.1) Microbiology 06/23/19 Aerobic and Anaerobic Culture, Resulted Pending 06/23/19 Anaerobic Culture Result 1 (GLENROY), Resulted Pending 06/23/19 Aerobic Culture - Preliminary, Resulted 06/23/19 Aerobic Culture Result 1 (GLENROY) - Preliminary, Resulted 06/23/19 Gram Stain - Final, Resulted 06/23/19 Gram Stain Result 1 (GLENROY) - Final, Resulted 06/23/19 Gram Stain Result 2 (GLENROY) - Final, Resulted 06/18/19 Blood Culture - Final, Complete NO GROWTH AFTER 5 DAYS Medications Current Medications Sodium Chloride (Normal Saline Flush) 3 ml QSHIFT PRN IV AFTER MEDS AND BLOOD DRAWS; Start 06/18/19 at 13:00; Stop 06/23/19 at 12:09; Status DC Sodium Chloride 1,000 ml @ 50 mls/hr Q20H IV Last administered on 06/26/19at 10:08; Start 06/18/19 at 12:48 Ondansetron HCl (Zofran) 4 mg PRN Q4HRS PRN IV NAUSEA/VOMITING; Start 06/18/19 at 13:00; Stop 06/23/19 at 12:10; Status DC Acetaminophen (Tylenol Supp) 650 mg PRN Q4HRS PRN IA TEMP OVER 100.4F OR MILD PAIN; Start 06/18/19 at 13:00 Albuterol Sulfate (Ventolin Neb Soln) 2.5 mg PRN Q4HRS PRN NEB SHORTNESS OF BREATH; Start 06/18/19 at 13:00 Piperacillin Sod/ Tazobactam Sod 3.375 gm/Sodium Chloride 50 ml @ 100 mls/hr Q6HRS IV Last administered on 06/22/19at 06:10; Start 06/18/19 at 13:00; Stop 06/22/19 at 08:34; Status DC Fentanyl Citrate (Fentanyl 2ml Vial) 50 mcg PRN Q2HR PRN IVP MOD TO SEVERE PAIN, 2ND CHOICE Last administered on 06/20/19at 05:09; Start 06/18/19 at 13:00 Pantoprazole Sodium (PROTONIX VIAL for IV PUSH) 40 mg DAILYAC IVP Last administered on 06/21/19at 05:34; Start 06/19/19 at 07:30; Stop 06/21/19 at 10:11; Status DC Pantoprazole Sodium (PROTONIX VIAL for IV PUSH) 40 mg 1X ONCE IVP Last administered on 06/18/19at 13:50; Start 06/18/19 at 13:45; Stop 06/18/19 at 13:46; Status DC Metronidazole 100 ml @ 100 mls/hr Q8HRS IV Last administered on 06/19/19at 06:45; Start 06/18/19 at 14:00; Stop 06/19/19 at 08:51; Status DC Hydromorphone HCl (Dilaudid) 1 mg PRN Q3HRS PRN IV MODERATE PAIN, 1ST CHOICE Last administered on 06/24/19at 00:19; Start 06/18/19 at 14:30 Hydromorphone HCl (Dilaudid) 1.5 mg PRN Q3HRS PRN IV SEVERE PAIN 7-10, 1ST CHOICE; Start 06/18/19 at 14:30 Sodium Chloride 1,000 ml @ 1,980 mls/hr Q31M IV Last administered on 06/18/19at 16:44; Start 06/18/19 at 15:06; Stop 06/18/19 at 16:06; Status DC Sodium Chloride 500 ml @ 1,000 mls/hr PRN Q30MIN PRN IV SEE COMMENTS; Start 06/18/19 at 15:15 Meropenem 1 gm/ Sodium Chloride 100 ml @ 200 mls/hr Q8HRS IV Last administered on 06/19/19at 05:50; Start 06/18/19 at 15:15; Stop 06/19/19 at 08:51; Status DC Acetaminophen (Tylenol) 650 mg PRN Q6HRS PRN PO MILD PAIN 1-3 Last administered on 06/20/19at 20:57; Start 06/19/19 at 11:30 Polyethylene Glycol (miraLAX PACKET) 17 gm DAILY PO Last administered on 06/25/19at 08:50; Start 06/20/19 at 17:30 Pantoprazole Sodium (Protonix) 40 mg DAILYAC PO Last administered on 06/26/19at 05:48; Start 06/22/19 at 07:30 Potassium Chloride (Klor-Con) 40 meq 1X ONCE PO Last administered on 06/21/19at 18:09; Start 06/21/19 at 13:15; Stop 06/21/19 at 13:16; Status DC Potassium Chloride (Klor-Con) 40 meq 1X ONCE PO ; Start 06/21/19 at 18:30; Stop 06/21/19 at 18:31; Status DC Iohexol (Omnipaque 240 Mg/ml) 50 ml 1X ONCE PO Last administered on 06/22/19at 08:30; Start 06/22/19 at 08:30; Stop 06/22/19 at 08:31; Status DC Iohexol (Omnipaque 300 Mg/ml) 75 ml 1X ONCE IV Last administered on 06/22/19at 08:30; Start 06/22/19 at 08:30; Stop 06/22/19 at 08:31; Status DC Info (CONTRAST GIVEN -- Rx MONITORING) 1 each PRN DAILY PRN MC SEE COMMENTS; Start 06/22/19 at 08:30; Stop 06/24/19 at 08:29; Status DC Amoxicillin/ Clavulanate Potassium (Augmentin 875/ 125mg) 1 tab BID PO Last administered on 06/22/19at 21:59; Start 06/22/19 at 09:00; Stop 06/23/19 at 08:04; Status DC Lorazepam (Ativan) 2 mg 1X ONCE PO Last administered on 06/22/19at 21:59; Start 06/22/19 at 21:00; Stop 06/22/19 at 21:01; Status DC Ondansetron HCl (Zofran) 4 mg PRN Q6HRS PRN IV NAUSEA/VOMITING; Start 06/23/19 at 07:00; Stop 06/24/19 at 06:59; Status DC Fentanyl Citrate (Fentanyl 2ml Vial) 25 mcg PRN Q5MIN PRN IV MILD PAIN 1-3; Start 06/23/19 at 07:00; Stop 06/24/19 at 06:59; Status DC Fentanyl Citrate (Fentanyl 2ml Vial) 50 mcg PRN Q5MIN PRN IV MODERATE TO SEVERE PAIN Last administered on 06/23/19at 12:58; Start 06/23/19 at 07:00; Stop 06/24/19 at 06:59; Status DC Morphine Sulfate (Morphine Sulfate) 1 mg PRN Q10MIN PRN IV SEVERE PAIN 7-10 Last administered on 06/23/19at 12:31; Start 06/23/19 at 07:00; Stop 06/24/19 at 06:59; Status DC Ringer's Solution 1,000 ml @ 30 mls/hr Q24H IV Last administered on 06/23/19at 09:58; Start 06/23/19 at 07:00; Stop 06/23/19 at 18:59; Status DC Lidocaine HCl (Xylocaine-Mpf 1% 2ml Vial) 2 ml PRN 1X PRN ID PRIOR TO IV START; Start 06/23/19 at 07:00; Stop 06/24/19 at 06:59; Status DC Hydromorphone HCl (Dilaudid) 0.5 mg PRN Q10MIN PRN IV SEV PAIN, Second choice; Start 06/23/19 at 07:00; Stop 06/24/19 at 06:59; Status DC Prochlorperazine Edisylate (Compazine) 5 mg PACU PRN PRN IV NAUSEA, MRX1; Start 06/23/19 at 07:00; Stop 06/24/19 at 06:59; Status DC Piperacillin Sod/ Tazobactam Sod 3.375 gm/Sodium Chloride 50 ml @ 100 mls/hr Q6HRS IV Last administered on 06/26/19at 05:47; Start 06/23/19 at 10:00 Propofol (Diprivan) 200 mg STK-MED ONCE IV ; Start 06/23/19 at 09:41; Stop 06/23/19 at 09:41; Status DC Dexamethasone Sodium Phosphate (Decadron) 4 mg STK-MED ONCE .ROUTE ; Start 06/23/19 at 09:41; Stop 06/23/19 at 09:41; Status DC Lidocaine HCl (Lidocaine Pf 2% Vial) 5 ml STK-MED ONCE .ROUTE ; Start 06/23/19 at 09:41; Stop 06/23/19 at 09:41; Status DC Ondansetron HCl (Zofran) 4 mg STK-MED ONCE .ROUTE ; Start 06/23/19 at 09:41; Stop 06/23/19 at 09:41; Status DC Succinylcholine Chloride (Anectine) 200 mg STK-MED ONCE .ROUTE ; Start 06/23/19 at 09:41; Stop 06/23/19 at 09:41; Status DC Ondansetron HCl (Zofran) 4 mg STK-MED ONCE .ROUTE ; Start 06/23/19 at 09:41; Stop 06/23/19 at 09:42; Status DC Fentanyl Citrate (Fentanyl 2ml Vial) 100 mcg STK-MED ONCE .ROUTE ; Start 06/23/19 at 09:41; Stop 06/23/19 at 09:42; Status DC Rocuronium [place] (Zemuron) 50 mg STK-MED ONCE .ROUTE ; Start 06/23/19 at 09:42; Stop 06/23/19 at 09:42; Status DC Bupivacaine HCl/ Epinephrine Bitart (Sensorcain-Epi 0.5%-1:334865 Mpf) 30 ml STK-MED ONCE .ROUTE Last administered on 06/23/19at 10:33; Start 06/23/19 at 09:45; Stop 06/23/19 at 09:46; Status DC Bacitracin 28096 unit/Sodium Chloride 500 ml @ 500 mls/hr 1X ONCE IRR ; Start 06/23/19 at 10:00; Stop 06/23/19 at 10:59; Status DC Glycopyrrolate (Robinul) 1 mg STK-MED ONCE .ROUTE ; Start 06/23/19 at 11:01; Stop 06/23/19 at 11:01; Status DC Neostigmine [place] (Neostigmine Methylsulfate) 5 mg STK-MED ONCE .ROUTE ; Start 06/23/19 at 11:01; Stop 06/23/19 at 11:01; Status DC Phenylephrine HCl (PHENYLEPHRINE in 0.9% NACL PF) 1 mg STK-MED ONCE IV ; Start 06/23/19 at 11:02; Stop 06/23/19 at 11:02; Status DC Desflurane (Suprane) 60 ml STK-MED ONCE IH ; Start 06/23/19 at 11:18; Stop 06/23/19 at 11:19; Status DC Fentanyl Citrate (Fentanyl 2ml Vial) 100 mcg STK-MED ONCE .ROUTE ; Start 06/23/19 at 11:18; Stop 06/23/19 at 11:19; Status DC Diphenhydramine HCl (Benadryl) 25 mg PRN Q6HRS PRN PO ITCHING; Start 06/23/19 at 12:00 Enoxaparin Sodium (Lovenox 40mg Syringe) 40 mg Q24H SQ Last administered on 06/25/19at 21:29; Start 06/23/19 at 21:00 Sodium Chloride (Normal Saline Flush) 3 ml QSHIFT PRN IV AFTER MEDS AND BLOOD DRAWS; Start 06/23/19 at 12:00 Oxycodone/ Acetaminophen (Percocet 5/325) 1 tab PRN Q4HRS PRN PO MODERATE PAIN, SEVERE PAIN Last administered on 06/26/19at 10:08; Start 06/23/19 at 12:00 Naloxone HCl (Narcan) 0.4 mg PRN Q2MIN PRN IV SEE INSTRUCTIONS; Start 06/23/19 at 12:00 Sodium Chloride 1,000 ml @ 25 mls/hr Q24H IV ; Start 06/23/19 at 11:57; Status UNV Hydromorphone HCl (Dilaudid) 1 mg PRN Q3HRS PRN IV PAIN; Start 06/23/19 at 12:00; Stop 06/24/19 at 12:16; Status DC Docusate Sodium (Colace) 100 mg BID PO Last administered on 06/26/19at 10:09; Start 06/23/19 at 21:00 Ondansetron HCl (Zofran) 4 mg PRN Q6HRS PRN IVP NAUESA, 1ST CHOICE; Start 06/23/19 at 12:00 Morphine Sulfate (Morphine Sulfate) 2 mg STK-MED ONCE .ROUTE ; Start 06/23/19 at 12:12; Stop 06/23/19 at 12:12; Status DC Fentanyl Citrate (Fentanyl 2ml Vial) 100 mcg STK-MED ONCE .ROUTE ; Start 06/23/19 at 12:21; Stop 06/23/19 at 12:22; Status DC Fentanyl Citrate (Fentanyl 2ml Vial) 100 mcg STK-MED ONCE .ROUTE ; Start 06/23/19 at 12:56; Stop 06/23/19 at 12:57; Status DC Lactobacillus Rhamnosus (Culturelle) 1 cap BID PO Last administered on 06/26/19at 10:08; Start 06/25/19 at 21:00 Active Scripts Active Reported Vitamin B12 (Cyanocobalamin (Vitamin B-12)) 2,500 Mcg Tablet 1 Tab PO DAILY 30 Days Vitamin E (Vitamin E Acid Succinate) 100 Unit Tablet 100 Unit PO DAILY Tonalin Cla 1,000 Mg Softgel (Safflower Oil/Linoleic Acid,Co) 1,000 Mg Capsule 1,000 Mg PO DAILY Mag-Oxide (Magnesium Oxide) 200 Mg Tablet 1 Tab PO DAILY 30 Days Levothyroxine Sodium 100 Mcg Tablet 1 Tab PO DAILY Liothyronine Sodium 5 Mcg Tablet 1 Tab PO DAILY 30 Days Lisinopril 10 Mg Tablet 1 Tab PO DAILY Pravastatin Sodium 20 Mg Tablet 1 Tab PO DAILY Vitals/I & O Vital Sign - Last 24 Hours 06/25/19 06/25/19 06/25/19 06/25/19 10:37 13:42 14:17 19:31 Temp 98.1 98.3 98.1 98.1 98.3 98.1 Pulse 67 52 62 Resp 16 16 17 B/P (MAP) 130/73 (92) 134/77 (96) 137/78 (97) Pulse Ox 92 94 92 O2 Delivery Room Air Room Air Room Air Room Air 06/25/19 06/25/19 06/25/19 06/26/19 20:00 21:29 23:25 03:00 Temp 98.8 98.8 Pulse 76 Resp 22 17 20 B/P (MAP) 118/68 (85) Pulse Ox 92 91 O2 Delivery Room Air Room Air Room Air O2 Flow Rate 3.0 06/26/19 06/26/19 06/26/19 06/26/19 03:28 05:47 07:59 10:08 Temp 98.2 98.1 98.2 98.1 Pulse 60 71 Resp 16 3 18 20 B/P (MAP) 118/68 (85) 113/67 (82) Pulse Ox 91 94 O2 Delivery Room Air Room Air Room Air Intake and Output 06/25/19 06/25/19 06/26/19 15:00 23:00 07:00 Intake Total 120 ml Output Total 770 ml 950 ml 480 ml Balance -650 ml -950 ml -480 ml Hemodynamically unstable?: No Is patient in severe pain?: No Is NPO status required?: No JC YAN MD June 26, 2019 10:35
[2019-06-26 11:03] VITALS: BP 139/82
--- NOTE | 2019-06-26 13:51 | PDOC ---
G I PROGRESS NOTE Reason for Follow-up Peritonitis with appendicitis Subjective Feeling better/hungry Physical Exam Lungs clear CV S1 S2 ABD +BS, soft, incision intact Review of Relevant I have reviewed the following items franklyn (where applicable) has been applied. Labs Laboratory Tests Test 06/25/19 03:47 White Blood Count 7.5 x10^3/uL (4.0-11.0) Red Blood Count 3.79 x10^6/uL (3.50-5.40) Hemoglobin 11.4 g/dL (12.0-15.5) Hematocrit 34.0 % (36.0-47.0) Mean Corpuscular Volume 90 fL (79-100) Mean Corpuscular Hemoglobin 30 pg (25-35) Mean Corpuscular Hemoglobin Concent 34 g/dL (31-37) Red Cell Distribution Width 16.8 % (11.5-14.5) Platelet Count 473 x10^3/uL (140-400) Sodium Level 143 mmol/L (136-145) Potassium Level 3.5 mmol/L (3.5-5.1) Chloride Level 105 mmol/L (98-107) Carbon Dioxide Level 31 mmol/L (21-32) Anion Gap 7 (6-14) Blood Urea Nitrogen 5 mg/dL (7-20) Creatinine 0.8 mg/dL (0.6-1.0) Estimated GFR (Cockcroft-Gault) 72.0 Glucose Level 80 mg/dL (70-99) Calcium Level 7.7 mg/dL (8.5-10.1) Microbiology 06/23/19 Aerobic and Anaerobic Culture, Resulted Pending 06/23/19 Anaerobic Culture Result 1 (GLENROY), Resulted Pending 06/23/19 Aerobic Culture - Preliminary, Resulted 06/23/19 Aerobic Culture Result 1 (GLENROY) - Preliminary, Resulted 06/23/19 Gram Stain - Final, Resulted 06/23/19 Gram Stain Result 1 (GLENROY) - Final, Resulted 06/23/19 Gram Stain Result 2 (GLENROY) - Final, Resulted 06/18/19 Blood Culture - Final, Complete NO GROWTH AFTER 5 DAYS Medications Current Medications Sodium Chloride (Normal Saline Flush) 3 ml QSHIFT PRN IV AFTER MEDS AND BLOOD DRAWS; Start 06/18/19 at 13:00; Stop 06/23/19 at 12:09; Status DC Sodium Chloride 1,000 ml @ 50 mls/hr Q20H IV Last administered on 06/26/19at 10:08; Start 06/18/19 at 12:48 Ondansetron HCl (Zofran) 4 mg PRN Q4HRS PRN IV NAUSEA/VOMITING; Start 06/18/19 at 13:00; Stop 06/23/19 at 12:10; Status DC Acetaminophen (Tylenol Supp) 650 mg PRN Q4HRS PRN IA TEMP OVER 100.4F OR MILD PAIN; Start 06/18/19 at 13:00 Albuterol Sulfate (Ventolin Neb Soln) 2.5 mg PRN Q4HRS PRN NEB SHORTNESS OF BREATH; Start 06/18/19 at 13:00 Piperacillin Sod/ Tazobactam Sod 3.375 gm/Sodium Chloride 50 ml @ 100 mls/hr Q6HRS IV Last administered on 06/22/19at 06:10; Start 06/18/19 at 13:00; Stop 06/22/19 at 08:34; Status DC Fentanyl Citrate (Fentanyl 2ml Vial) 50 mcg PRN Q2HR PRN IVP MOD TO SEVERE PAIN, 2ND CHOICE Last administered on 06/20/19at 05:09; Start 06/18/19 at 13:00 Pantoprazole Sodium (PROTONIX VIAL for IV PUSH) 40 mg DAILYAC IVP Last administered on 06/21/19at 05:34; Start 06/19/19 at 07:30; Stop 06/21/19 at 10:11; Status DC Pantoprazole Sodium (PROTONIX VIAL for IV PUSH) 40 mg 1X ONCE IVP Last administered on 06/18/19at 13:50; Start 06/18/19 at 13:45; Stop 06/18/19 at 13:46; Status DC Metronidazole 100 ml @ 100 mls/hr Q8HRS IV Last administered on 06/19/19at 06:45; Start 06/18/19 at 14:00; Stop 06/19/19 at 08:51; Status DC Hydromorphone HCl (Dilaudid) 1 mg PRN Q3HRS PRN IV MODERATE PAIN, 1ST CHOICE Last administered on 06/24/19at 00:19; Start 06/18/19 at 14:30 Hydromorphone HCl (Dilaudid) 1.5 mg PRN Q3HRS PRN IV SEVERE PAIN 7-10, 1ST CHOICE; Start 06/18/19 at 14:30 Sodium Chloride 1,000 ml @ 1,980 mls/hr Q31M IV Last administered on 06/18/19at 16:44; Start 06/18/19 at 15:06; Stop 06/18/19 at 16:06; Status DC Sodium Chloride 500 ml @ 1,000 mls/hr PRN Q30MIN PRN IV SEE COMMENTS; Start 06/18/19 at 15:15 Meropenem 1 gm/ Sodium Chloride 100 ml @ 200 mls/hr Q8HRS IV Last administered on 06/19/19at 05:50; Start 06/18/19 at 15:15; Stop 06/19/19 at 08:51; Status DC Acetaminophen (Tylenol) 650 mg PRN Q6HRS PRN PO MILD PAIN 1-3 Last administered on 06/20/19at 20:57; Start 06/19/19 at 11:30 Polyethylene Glycol (miraLAX PACKET) 17 gm DAILY PO Last administered on 06/25/19at 08:50; Start 06/20/19 at 17:30 Pantoprazole Sodium (Protonix) 40 mg DAILYAC PO Last administered on 06/26/19at 05:48; Start 06/22/19 at 07:30 Potassium Chloride (Klor-Con) 40 meq 1X ONCE PO Last administered on 06/21/19at 18:09; Start 06/21/19 at 13:15; Stop 06/21/19 at 13:16; Status DC Potassium Chloride (Klor-Con) 40 meq 1X ONCE PO ; Start 06/21/19 at 18:30; Stop 06/21/19 at 18:31; Status DC Iohexol (Omnipaque 240 Mg/ml) 50 ml 1X ONCE PO Last administered on 06/22/19at 08:30; Start 06/22/19 at 08:30; Stop 06/22/19 at 08:31; Status DC Iohexol (Omnipaque 300 Mg/ml) 75 ml 1X ONCE IV Last administered on 06/22/19at 08:30; Start 06/22/19 at 08:30; Stop 06/22/19 at 08:31; Status DC Info (CONTRAST GIVEN -- Rx MONITORING) 1 each PRN DAILY PRN MC SEE COMMENTS; Start 06/22/19 at 08:30; Stop 06/24/19 at 08:29; Status DC Amoxicillin/ Clavulanate Potassium (Augmentin 875/ 125mg) 1 tab BID PO Last administered on 06/22/19at 21:59; Start 06/22/19 at 09:00; Stop 06/23/19 at 08:04; Status DC Lorazepam (Ativan) 2 mg 1X ONCE PO Last administered on 06/22/19at 21:59; Start 06/22/19 at 21:00; Stop 06/22/19 at 21:01; Status DC Ondansetron HCl (Zofran) 4 mg PRN Q6HRS PRN IV NAUSEA/VOMITING; Start 06/23/19 at 07:00; Stop 06/24/19 at 06:59; Status DC Fentanyl Citrate (Fentanyl 2ml Vial) 25 mcg PRN Q5MIN PRN IV MILD PAIN 1-3; Start 06/23/19 at 07:00; Stop 06/24/19 at 06:59; Status DC Fentanyl Citrate (Fentanyl 2ml Vial) 50 mcg PRN Q5MIN PRN IV MODERATE TO SEVERE PAIN Last administered on 06/23/19at 12:58; Start 06/23/19 at 07:00; Stop 06/24/19 at 06:59; Status DC Morphine Sulfate (Morphine Sulfate) 1 mg PRN Q10MIN PRN IV SEVERE PAIN 7-10 Last administered on 06/23/19at 12:31; Start 06/23/19 at 07:00; Stop 06/24/19 at 06:59; Status DC Ringer's Solution 1,000 ml @ 30 mls/hr Q24H IV Last administered on 06/23/19at 09:58; Start 06/23/19 at 07:00; Stop 06/23/19 at 18:59; Status DC Lidocaine HCl (Xylocaine-Mpf 1% 2ml Vial) 2 ml PRN 1X PRN ID PRIOR TO IV START; Start 06/23/19 at 07:00; Stop 06/24/19 at 06:59; Status DC Hydromorphone HCl (Dilaudid) 0.5 mg PRN Q10MIN PRN IV SEV PAIN, Second choice; Start 06/23/19 at 07:00; Stop 06/24/19 at 06:59; Status DC Prochlorperazine Edisylate (Compazine) 5 mg PACU PRN PRN IV NAUSEA, MRX1; Start 06/23/19 at 07:00; Stop 06/24/19 at 06:59; Status DC Piperacillin Sod/ Tazobactam Sod 3.375 gm/Sodium Chloride 50 ml @ 100 mls/hr Q6HRS IV Last administered on 06/26/19at 12:11; Start 06/23/19 at 10:00 Propofol (Diprivan) 200 mg STK-MED ONCE IV ; Start 06/23/19 at 09:41; Stop 06/23/19 at 09:41; Status DC Dexamethasone Sodium Phosphate (Decadron) 4 mg STK-MED ONCE .ROUTE ; Start 06/23/19 at 09:41; Stop 06/23/19 at 09:41; Status DC Lidocaine HCl (Lidocaine Pf 2% Vial) 5 ml STK-MED ONCE .ROUTE ; Start 06/23/19 at 09:41; Stop 06/23/19 at 09:41; Status DC Ondansetron HCl (Zofran) 4 mg STK-MED ONCE .ROUTE ; Start 06/23/19 at 09:41; Stop 06/23/19 at 09:41; Status DC Succinylcholine Chloride (Anectine) 200 mg STK-MED ONCE .ROUTE ; Start 06/23/19 at 09:41; Stop 06/23/19 at 09:41; Status DC Ondansetron HCl (Zofran) 4 mg STK-MED ONCE .ROUTE ; Start 06/23/19 at 09:41; Stop 06/23/19 at 09:42; Status DC Fentanyl Citrate (Fentanyl 2ml Vial) 100 mcg STK-MED ONCE .ROUTE ; Start 06/23/19 at 09:41; Stop 06/23/19 at 09:42; Status DC Rocuronium [place] (Zemuron) 50 mg STK-MED ONCE .ROUTE ; Start 06/23/19 at 09:42; Stop 06/23/19 at 09:42; Status DC Bupivacaine HCl/ Epinephrine Bitart (Sensorcain-Epi 0.5%-1:274463 Mpf) 30 ml STK-MED ONCE .ROUTE Last administered on 06/23/19at 10:33; Start 06/23/19 at 09:45; Stop 06/23/19 at 09:46; Status DC Bacitracin 67351 unit/Sodium Chloride 500 ml @ 500 mls/hr 1X ONCE IRR ; Start 06/23/19 at 10:00; Stop 06/23/19 at 10:59; Status DC Glycopyrrolate (Robinul) 1 mg STK-MED ONCE .ROUTE ; Start 06/23/19 at 11:01; Stop 06/23/19 at 11:01; Status DC Neostigmine [place] (Neostigmine Methylsulfate) 5 mg STK-MED ONCE .ROUTE ; Start 06/23/19 at 11:01; Stop 06/23/19 at 11:01; Status DC Phenylephrine HCl (PHENYLEPHRINE in 0.9% NACL PF) 1 mg STK-MED ONCE IV ; Start 06/23/19 at 11:02; Stop 06/23/19 at 11:02; Status DC Desflurane (Suprane) 60 ml STK-MED ONCE IH ; Start 06/23/19 at 11:18; Stop 06/23/19 at 11:19; Status DC Fentanyl Citrate (Fentanyl 2ml Vial) 100 mcg STK-MED ONCE .ROUTE ; Start 06/23/19 at 11:18; Stop 06/23/19 at 11:19; Status DC Diphenhydramine HCl (Benadryl) 25 mg PRN Q6HRS PRN PO ITCHING; Start 06/23/19 at 12:00 Enoxaparin Sodium (Lovenox 40mg Syringe) 40 mg Q24H SQ Last administered on 06/25/19at 21:29; Start 06/23/19 at 21:00 Sodium Chloride (Normal Saline Flush) 3 ml QSHIFT PRN IV AFTER MEDS AND BLOOD DRAWS; Start 06/23/19 at 12:00 Oxycodone/ Acetaminophen (Percocet 5/325) 1 tab PRN Q4HRS PRN PO MODERATE PAIN, SEVERE PAIN Last administered on 06/26/19at 10:08; Start 06/23/19 at 12:00 Naloxone HCl (Narcan) 0.4 mg PRN Q2MIN PRN IV SEE INSTRUCTIONS; Start 06/23/19 at 12:00 Sodium Chloride 1,000 ml @ 25 mls/hr Q24H IV ; Start 06/23/19 at 11:57; Status UNV Hydromorphone HCl (Dilaudid) 1 mg PRN Q3HRS PRN IV PAIN; Start 06/23/19 at 12:00; Stop 06/24/19 at 12:16; Status DC Docusate Sodium (Colace) 100 mg BID PO Last administered on 06/26/19at 10:09; Start 06/23/19 at 21:00 Ondansetron HCl (Zofran) 4 mg PRN Q6HRS PRN IVP NAUESA, 1ST CHOICE; Start at 12:00 Morphine Sulfate (Morphine Sulfate) 2 mg STK-MED ONCE .ROUTE ; Start 06/23/19 at 12:12; Stop 06/23/19 at 12:12; Status DC Fentanyl Citrate (Fentanyl 2ml Vial) 100 mcg STK-MED ONCE .ROUTE ; Start 06/23/19 at 12:21; Stop 06/23/19 at 12:22; Status DC Fentanyl Citrate (Fentanyl 2ml Vial) 100 mcg STK-MED ONCE .ROUTE ; Start 06/23/19 at 12:56; Stop 06/23/19 at 12:57; Status DC Lactobacillus Rhamnosus (Culturelle) 1 cap BID PO Last administered on 06/26/19at 10:08; Start 06/25/19 at 21:00 Active Scripts Active Reported Vitamin B12 (Cyanocobalamin (Vitamin B-12)) 2,500 Mcg Tablet 1 Tab PO DAILY 30 Days Vitamin E (Vitamin E Acid Succinate) 100 Unit Tablet 100 Unit PO DAILY Tonalin Cla 1,000 Mg Softgel (Safflower Oil/Linoleic Acid,Co) 1,000 Mg Capsule 1,000 Mg PO DAILY Mag-Oxide (Magnesium Oxide) 200 Mg Tablet 1 Tab PO DAILY 30 Days Levothyroxine Sodium 100 Mcg Tablet 1 Tab PO DAILY Liothyronine Sodium 5 Mcg Tablet 1 Tab PO DAILY 30 Days Lisinopril 10 Mg Tablet 1 Tab PO DAILY Pravastatin Sodium 20 Mg Tablet 1 Tab PO DAILY Vitals/I & O Vital Sign - Last 24 Hours 06/25/19 06/25/19 06/25/19 06/25/19 14:17 19:31 20:00 21:29 Temp 98.3 98.1 98.3 98.1 Pulse 52 62 Resp 16 17 22 B/P (MAP) 134/77 (96) 137/78 (97) Pulse Ox 94 92 O2 Delivery Room Air Room Air Room Air 06/25/19 06/26/19 06/26/19 06/26/19 23:25 03:00 03:28 05:47 Temp 98.8 98.2 98.8 98.2 Pulse 76 60 Resp 17 20 16 3 B/P (MAP) 118/68 (85) 118/68 (85) Pulse Ox 92 91 91 O2 Delivery Room Air Room Air Room Air O2 Flow Rate 3.0 06/26/19 06/26/19 06/26/19 06/26/19 06:47 07:59 10:08 11:03 Temp 98.1 98.3 98.1 98.3 Pulse 71 63 Resp 20 18 20 18 B/P (MAP) 113/67 (82) 139/82 (101) Pulse Ox 94 92 O2 Delivery Room Air Room Air Room Air Room Air 06/26/19 11:08 Resp 20 O2 Delivery Room Air Intake and Output 06/25/19 06/25/19 06/26/19 15:00 23:00 07:00 Intake Total 120 ml Output Total 770 ml 950 ml 480 ml Balance -650 ml -950 ml -480 ml Problem List Appendicitis- with abscess, continue with antibiotics, monitor drain output. CPM. Interval CT scan to reassess prior to discharge may be helpful Hemodynamically unstable?: No Is patient in severe pain?: No Is NPO status required?: No JC RAMIREZ MD June 26, 2019 13:51
[2019-06-26 14:51] VITALS: BP 125/75
[2019-06-26 19:30] VITALS: BP 141/78
[2019-06-26] MEDS: ENOXAPARIN 40 MG/0.4 ML SYRINGE. SQ SCH (20:48)
[2019-06-26 23:40] VITALS: BP 144/81
[2019-06-27 03:30] VITALS: BP 135/78
[2019-06-27 05:01] LABS: BASO # 0.1 x10^3/uL (0.0-0.2); BASO % 1 % (0-3); EOS # 0.5 x10^3/uL (0.0-0.7); EOS % 6 % (0-3); HEMATOCRIT 35.4 % (36.0-47.0); LYMPH # 1.9 x10^3/uL (1.0-4.8); LYMPH % 26 % (24-48); MEAN CORPUSCULAR HEMOGLOBIN 30 pg (25-35); MEAN CORPUSCULAR HGB CONC 34 g/dL (31-37); MEAN CORPUSCULAR VOLUME 88 fL (79-100); MONO # 0.7 x10^3/uL (0.0-1.1); MONO % 10 % (0-9); NEUT # 4.2 x10^3/uL (1.8-7.7); NEUT % 57 % (31-73); PLATELET COUNT 598 x10^3/uL (140-400); RED BLOOD COUNT 4.01 x10^6/uL (3.50-5.40); RED CELL DISTRIBUTION WIDTH 16.9 % (11.5-14.5); WHITE BLOOD COUNT 7.4 x10^3/uL (4.0-11.0)
[2019-06-27 05:29] LABS: CALCIUM 8.1 mg/dL (8.5-10.1); CREATININE 0.7 mg/dL (0.6-1.0)
[2019-06-27] MEDS: PIPERACILLIN/TAZOBACTAM 3.375 GM in IV NORMAL SALINE 50ML 50 ML IV SCH ×3 (05:42→18:05)
[2019-06-27] MEDS: PANTOPRAZOLE 40 MG TABLET.DR. PO SCH (05:45)
[2019-06-27] MEDS: oxyCODONE/APAP 5/325 1 TAB TABLET PO PRN ×4 (05:46→22:27)
[2019-06-27 07:30] VITALS: BP 134/83
--- NOTE | 2019-06-27 08:19 | PDOC ---
Infectious Disease Note Subjective Subjective Patient is feeling much better. Walking. Eating on soft diet Pain is much better. hoping to go home soon + BM today Vital Sign Vital Signs Vital Signs Date Time Temp Pulse Resp B/P (MAP) Pulse Ox O2 Delivery O2 Flow Rate FiO2 06/27/19 07:30 97.7 60 18 134/83 (100) 92 Room Air 97.7 Physical Exam PHYSICAL EXAM GENERAL: Propped up in bed, alert, appears comfortable. HEENT: Pupils equally round and reactive. Oropharynx pink and moist. No lesions seen. NECK: Supple. LUNGS: Clear to auscultation. CARDIAC: S1 and S2 regular. ABDOMEN: Mildly distended, soft, diffusely tender. Bowel sounds present.DAWOOD with serous fluid EXTREMITIES: No gross edema or cyanosis. SKIN: Warm to touch or signs of rash. Tattoo NEUROLOGIC: Alert and oriented x 3. Labs Lab Laboratory Tests Test 06/27/19 04:00 White Blood Count 7.4 x10^3/uL (4.0-11.0) Red Blood Count 4.01 x10^6/uL (3.50-5.40) Hemoglobin 12.0 g/dL (12.0-15.5) Hematocrit 35.4 % (36.0-47.0) Mean Corpuscular Volume 88 fL (79-100) Mean Corpuscular Hemoglobin 30 pg (25-35) Mean Corpuscular Hemoglobin Concent 34 g/dL (31-37) Red Cell Distribution Width 16.9 % (11.5-14.5) Platelet Count 598 x10^3/uL (140-400) Neutrophils (%) (Auto) 57 % (31-73) Lymphocytes (%) (Auto) 26 % (24-48) Monocytes (%) (Auto) 10 % (0-9) Eosinophils (%) (Auto) 6 % (0-3) Basophils (%) (Auto) 1 % (0-3) Neutrophils # (Auto) 4.2 x10^3/uL (1.8-7.7) Lymphocytes # (Auto) 1.9 x10^3/uL (1.0-4.8) Monocytes # (Auto) 0.7 x10^3/uL (0.0-1.1) Eosinophils # (Auto) 0.5 x10^3/uL (0.0-0.7) Basophils # (Auto) 0.1 x10^3/uL (0.0-0.2) Sodium Level 140 mmol/L (136-145) Potassium Level 3.0 mmol/L (3.5-5.1) Chloride Level 106 mmol/L (98-107) Carbon Dioxide Level 27 mmol/L (21-32) Anion Gap 7 (6-14) Blood Urea Nitrogen 5 mg/dL (7-20) Creatinine 0.7 mg/dL (0.6-1.0) Estimated GFR (Cockcroft-Gault) 84.0 Glucose Level 91 mg/dL (70-99) Calcium Level 8.1 mg/dL (8.5-10.1) Micro Microbiology 06/23/19 Aerobic and Anaerobic Culture, Resulted Pending 06/23/19 Anaerobic Culture Result 1 (GLENROY), Resulted Pending 06/23/19 Aerobic Culture - Preliminary, Resulted 06/23/19 Aerobic Culture Result 1 (GLENROY) - Preliminary, Resulted 06/23/19 Gram Stain - Final, Resulted 06/23/19 Gram Stain Result 1 (GLENROY) - Final, Resulted 06/23/19 Gram Stain Result 2 (GLENROY) - Final, Resulted 06/18/19 Blood Culture - Final, Complete NO GROWTH AFTER 5 DAYS Objective Assessment Acute sigmoid colitis with perforation, perforated appendix status post surgery 06/22 Abd abscess - GNR 06/22 Leukocytosis - improved Pyruia, 06/17 ([facility]) Left hepatic mass (measures1.7 x 1.5 cm) Hypothyroidism COVID-19 negative Plan Plan of Care Continue Zosyn - f/u GNR f/u cultures and labs Supportive care RICHARD SIERRA MD June 27, 2019 08:19
[2019-06-27] MEDS: IV NORMAL SALINE 1000ML BAG 1,000 ML IV SCH (08:46)
[2019-06-27] MEDS: LACTOBACILLUS RHAMNOSUS GG 1 CAPSULE. PO SCH ×2 (08:47→21:16)
[2019-06-27] MEDS: DOCUSATE SODIUM 100 MG CAPSULE. PO SCH ×2 (08:58→21:16)
[2019-06-27] MEDS: POLYETHYLENE GLYCOL 3350 17 GM PACKET. PO SCH (08:58)
--- NOTE | 2019-06-27 10:27 | PDOC ---
PROGRESS NOTES Chief Complaint Chief Complaint IMPRESSION acute colitis with microperforation, s/p Diagnostic laparoscopy, open appendectomy 06/22. noted Pelvic abscess secondary to perforated appendicitis. perforated appendix status post surgery 06/22 Abd abscess - GNR 06/22 abdominal pain secondary to the above SEPSIS secondary to the above improved Pelvic abscess secondary to perforated appendicitis. hypokalemia on replacement PLAN Pain management Continue IV zosyn Supportive measures Pain management repeat CT shows: 1. 4.8 x 3.5 cm abscess in the false pelvis to the right of midline. 2. A long calculus in the right distal ureter measures 2.2 x 0.6 cm. No significant proximal obstructive findings 3. Trace bilateral pleural effusions. advance diet per sx apprec ID input iv k 37 MIN pt exam, chart review, > 50% of time spent with exam, chart review, pt care coordination History of Present Illness History of Present Illness doing well, no complaints. denies chest pain sob. VSS. tolerating PO diet. drain in place and still draining // Bowel sounds present.DAWOOD with serous fluid Vitals Vitals Vital Signs Date Time Temp Pulse Resp B/P (MAP) Pulse Ox O2 Delivery O2 Flow Rate FiO2 06/27/19 07:30 97.7 60 18 134/83 (100) 92 Room Air 97.7 Physical Exam Physical Exam GENERAL: Propped up in bed, alert, appears comfortable. HEENT: Pupils equally round and reactive. Oropharynx pink and moist. No lesions seen. NECK: Supple. LUNGS: Clear to auscultation. CARDIAC: S1 and S2 regular. ABDOMEN: Mildly distended, soft, diffusely tender. Bowel sounds present.DAWOOD with serous fluid EXTREMITIES: No gross edema or cyanosis. SKIN: Warm to touch or signs of rash. Tattoo NEUROLOGIC: Alert and oriented x 3. General: Alert, Oriented X3, Cooperative, No acute distress Heart: Regular rate, Normal S1, No murmurs Lungs: Clear Abdomen: Soft (distended) Extremities: No clubbing Skin: Other (warm,dry) Labs LABS HISTORY: Abdominal pain, colitis. TECHNIQUE: Computed tomography of the abdomen and pelvis was performed after the intravenous administration of iodinated contrast. One or more of the following individualized dose reduction techniques were utilized for this examination: 1. Automated exposure control. 2. Adjustment of the mA and/or kV according to patient size. 3. Use of iterative reconstruction technique. COMPARISON: None. FINDINGS: Lung windows through the visualized portions of the bases reveal trace bilateral pleural effusions and dependent atelectasis. Bone windows reveal no suspicious lesions. A peripherally enhancing lesion in hepatic segment 2 comparison views 2.3 cm and is consistent with a benign hemangioma. A long calculus in the right distal ureter measures 2.2 cm in length and 6 mm transaxially. There is only mild dilatation of a right extrarenal pelvis. The kidneys are otherwise unremarkable. The gallbladder, pancreas, adrenal glands, and spleen are unremarkable. There are no pathologically enlarged lymph nodes. An extraluminal gas and fluid collection in the midline false pelvis measures 4.8 x 3.5 cm and is consistent with an abscess. It abuts a few adjacent small bowel loops in the sigmoid colon with mild secondary inflammation. There is no small bowel obstruction. Fluid throughout the right colon may be normal or reflect diarrhea. IMPRESSION: 1. 4.8 x 3.5 cm abscess in the false pelvis to the right of midline. 2. A long calculus in the right distal ureter measures 2.2 x 0.6 cm. No significant proximal obstructive findings 3. Trace bilateral pleural effusions. Electronically signed by: Josie Givens MD (06/22/2019 10:07 AM) [id number] DICTATED and SIGNED BY: CURTIS GIVENS MD DATE: 06/22/19 1007 EXAM: KUB 06/23/2019 12:00 AM CLINICAL INDICATION:Postop KUB in OR. Post open appendectomy, abscess drain. Counts okay. COMPARISON:CT abdomen and pelvis 06/22/2019 TECHNIQUE:AP supine view of the abdomen FINDINGS:There is a new surgical drain projecting over the pelvis, terminating near the right sacroiliac joint. Adjacent to this is a long rectangular radiopaque device measuring approximately 12 x 0.8 cm with a bent end, possibly part of the surgical drain with an intervening nonradiopaque component. Otherwise, no retained radiopaque foreign body. Suture material seen in the pelvis. There is gaseous distention of bowel. Lumbar scoliosis and degenerative disc disease is redemonstrated. IMPRESSION:New surgical drain in the pelvis. A long rectangular radiopaque device projecting over the right hemisacrum is likely part of the surgical drain, however recommend correlation with operative report to exclude retained surgical sponge. Electronically signed by: Kiki Vo MD (06/23/2019 1:37 PM) [id number] DICTATED and SIGNED BY: KIKI VO MD DATE: 06/23/19 4800 EXAM: CT ABDOMEN/PELVIS WITH CONTRAST. HISTORY: Abdominal pain, colitis. TECHNIQUE: Computed tomography of the abdomen and pelvis was performed after the intravenous administration of iodinated contrast. One or more of the following individualized dose reduction techniques were utilized for this examination: 1. Automated exposure control. 2. Adjustment of the mA and/or kV according to patient size. 3. Use of iterative reconstruction technique. COMPARISON: None. FINDINGS: Lung windows through the visualized portions of the bases reveal trace bilateral pleural effusions and dependent atelectasis. Bone windows reveal no suspicious lesions. A peripherally enhancing lesion in hepatic segment 2 comparison views 2.3 cm and is consistent with a benign hemangioma. A long calculus in the right distal ureter measures 2.2 cm in length and 6 mm transaxially. There is only mild dilatation of a right extrarenal pelvis. The kidneys are otherwise unremarkable. The gallbladder, pancreas, adrenal glands, and spleen are unremarkable. There are no pathologically enlarged lymph nodes. An extraluminal gas and fluid collection in the midline false pelvis measures 4.8 x 3.5 cm and is consistent with an abscess. It abuts a few adjacent small bowel loops in the sigmoid colon with mild secondary inflammation. There is no small bowel obstruction. Fluid throughout the right colon may be normal or reflect diarrhea. IMPRESSION: 1. 4.8 x 3.5 cm abscess in the false pelvis to the right of midline. 2. A long calculus in the right distal ureter measures 2.2 x 0.6 cm. No significant proximal obstructive findings 3. Trace bilateral pleural effusions. Electronically signed by: Josie Givens MD (06/22/2019 10:07 AM) [id number] Laboratory Tests Test 06/27/19 04:00 White Blood Count 7.4 x10^3/uL (4.0-11.0) Red Blood Count 4.01 x10^6/uL (3.50-5.40) Hemoglobin 12.0 g/dL (12.0-15.5) Hematocrit 35.4 % (36.0-47.0) Mean Corpuscular Volume 88 fL (79-100) Mean Corpuscular Hemoglobin 30 pg (25-35) Mean Corpuscular Hemoglobin Concent 34 g/dL (31-37) Red Cell Distribution Width 16.9 % (11.5-14.5) Platelet Count 598 x10^3/uL (140-400) Neutrophils (%) (Auto) 57 % (31-73) Lymphocytes (%) (Auto) 26 % (24-48) Monocytes (%) (Auto) 10 % (0-9) Eosinophils (%) (Auto) 6 % (0-3) Basophils (%) (Auto) 1 % (0-3) Neutrophils # (Auto) 4.2 x10^3/uL (1.8-7.7) Lymphocytes # (Auto) 1.9 x10^3/uL (1.0-4.8) Monocytes # (Auto) 0.7 x10^3/uL (0.0-1.1) Eosinophils # (Auto) 0.5 x10^3/uL (0.0-0.7) Basophils # (Auto) 0.1 x10^3/uL (0.0-0.2) Sodium Level 140 mmol/L (136-145) Potassium Level 3.0 mmol/L (3.5-5.1) Chloride Level 106 mmol/L (98-107) Carbon Dioxide Level 27 mmol/L (21-32) Anion Gap 7 (6-14) Blood Urea Nitrogen 5 mg/dL (7-20) Creatinine 0.7 mg/dL (0.6-1.0) Estimated GFR (Cockcroft-Gault) 84.0 Glucose Level 91 mg/dL (70-99) Calcium Level 8.1 mg/dL (8.5-10.1) Comment Review of Relevant I have reviewed the following items franklyn (where applicable) has been applied. Labs Laboratory Tests Test 06/27/19 04:00 White Blood Count 7.4 x10^3/uL (4.0-11.0) Red Blood Count 4.01 x10^6/uL (3.50-5.40) Hemoglobin 12.0 g/dL (12.0-15.5) Hematocrit 35.4 % (36.0-47.0) Mean Corpuscular Volume 88 fL (79-100) Mean Corpuscular Hemoglobin 30 pg (25-35) Mean Corpuscular Hemoglobin Concent 34 g/dL (31-37) Red Cell Distribution Width 16.9 % (11.5-14.5) Platelet Count 598 x10^3/uL (140-400) Neutrophils (%) (Auto) 57 % (31-73) Lymphocytes (%) (Auto) 26 % (24-48) Monocytes (%) (Auto) 10 % (0-9) Eosinophils (%) (Auto) 6 % (0-3) Basophils (%) (Auto) 1 % (0-3) Neutrophils # (Auto) 4.2 x10^3/uL (1.8-7.7) Lymphocytes # (Auto) 1.9 x10^3/uL (1.0-4.8) Monocytes # (Auto) 0.7 x10^3/uL (0.0-1.1) Eosinophils # (Auto) 0.5 x10^3/uL (0.0-0.7) Basophils # (Auto) 0.1 x10^3/uL (0.0-0.2) Sodium Level 140 mmol/L (136-145) Potassium Level 3.0 mmol/L (3.5-5.1) Chloride Level 106 mmol/L (98-107) Carbon Dioxide Level 27 mmol/L (21-32) Anion Gap 7 (6-14) Blood Urea Nitrogen 5 mg/dL (7-20) Creatinine 0.7 mg/dL (0.6-1.0) Estimated GFR (Cockcroft-Gault) 84.0 Glucose Level 91 mg/dL (70-99) Calcium Level 8.1 mg/dL (8.5-10.1) Laboratory Tests Test 06/27/19 04:00 White Blood Count 7.4 x10^3/uL (4.0-11.0) Red Blood Count 4.01 x10^6/uL (3.50-5.40) Hemoglobin 12.0 g/dL (12.0-15.5) Hematocrit 35.4 % (36.0-47.0) Mean Corpuscular Volume 88 fL (79-100) Mean Corpuscular Hemoglobin 30 pg (25-35) Mean Corpuscular Hemoglobin Concent 34 g/dL (31-37) Red Cell Distribution Width 16.9 % (11.5-14.5) Platelet Count 598 x10^3/uL (140-400) Neutrophils (%) (Auto) 57 % (31-73) Lymphocytes (%) (Auto) 26 % (24-48) Monocytes (%) (Auto) 10 % (0-9) Eosinophils (%) (Auto) 6 % (0-3) Basophils (%) (Auto) 1 % (0-3) Neutrophils # (Auto) 4.2 x10^3/uL (1.8-7.7) Lymphocytes # (Auto) 1.9 x10^3/uL (1.0-4.8) Monocytes # (Auto) 0.7 x10^3/uL (0.0-1.1) Eosinophils # (Auto) 0.5 x10^3/uL (0.0-0.7) Basophils # (Auto) 0.1 x10^3/uL (0.0-0.2) Sodium Level 140 mmol/L (136-145) Potassium Level 3.0 mmol/L (3.5-5.1) Chloride Level 106 mmol/L (98-107) Carbon Dioxide Level 27 mmol/L (21-32) Anion Gap 7 (6-14) Blood Urea Nitrogen 5 mg/dL (7-20) Creatinine 0.7 mg/dL (0.6-1.0) Estimated GFR (Cockcroft-Gault) 84.0 Glucose Level 91 mg/dL (70-99) Calcium Level 8.1 mg/dL (8.5-10.1) Microbiology 06/23/19 Aerobic and Anaerobic Culture, Resulted Pending 06/23/19 Anaerobic Culture Result 1 (GLENROY), Resulted Pending 06/23/19 Aerobic Culture - Preliminary, Resulted 06/23/19 Aerobic Culture Result 1 (GLENROY) - Preliminary, Resulted 06/23/19 Gram Stain - Final, Resulted 06/23/19 Gram Stain Result 1 (GLENROY) - Final, Resulted 06/23/19 Gram Stain Result 2 (GLENROY) - Final, Resulted 06/18/19 Blood Culture - Final, Complete NO GROWTH AFTER 5 DAYS Medications Current Medications Sodium Chloride (Normal Saline Flush) 3 ml QSHIFT PRN IV AFTER MEDS AND BLOOD DRAWS; Start 06/18/19 at 13:00; Stop 06/23/19 at 12:09; Status DC Sodium Chloride 1,000 ml @ 50 mls/hr Q20H IV Last administered on 06/27/19at 08:46; Start 06/18/19 at 12:48 Ondansetron HCl (Zofran) 4 mg PRN Q4HRS PRN IV NAUSEA/VOMITING; Start 06/18/19 at 13:00; Stop 06/23/19 at 12:10; Status DC Acetaminophen (Tylenol Supp) [address] Q4HRS PR[address] TEMP OVER 100.4F OR MILD PAIN; Start 06/18/19 at 13:00 Albuterol Sulfate (Ventolin Neb Soln) 2.5 mg PRN Q4HRS PRN NEB SHORTNESS OF BREATH; Start 06/18/19 at 13:00 Piperacillin Sod/ Tazobactam Sod 3.375 gm/Sodium Chloride 50 ml @ 100 mls/hr Q6HRS IV Last administered on 06/22/19at 06:10; Start 06/18/19 at 13:00; Stop 06/22/19 at 08:34; Status DC Fentanyl Citrate (Fentanyl 2ml Vial) 50 mcg PRN Q2HR PRN IVP MOD TO SEVERE PAIN, 2ND CHOICE Last administered on 06/20/19at 05:09; Start 06/18/19 at 13:00 Pantoprazole Sodium (PROTONIX VIAL for IV PUSH) 40 mg DAILYAC IVP Last administered on 06/21/19at 05:34; Start 06/19/19 at 07:30; Stop 06/21/19 at 10:11; Status DC Pantoprazole Sodium (PROTONIX VIAL for IV PUSH) 40 mg 1X ONCE IVP Last administered on 06/18/19at 13:50; Start 06/18/19 at 13:45; Stop 06/18/19 at 13:46; Status DC Metronidazole 100 ml @ 100 mls/hr Q8HRS IV Last administered on 06/19/19at 06:45; Start 06/18/19 at 14:00; Stop 06/19/19 at 08:51; Status DC Hydromorphone HCl (Dilaudid) 1 mg PRN Q3HRS PRN IV MODERATE PAIN, 1ST CHOICE Last administered on 06/24/19at 00:19; Start 06/18/19 at 14:30 Hydromorphone HCl (Dilaudid) 1.5 mg PRN Q3HRS PRN IV SEVERE PAIN 7-10, 1ST CHOICE; Start 06/18/19 at 14:30 Sodium Chloride 1,000 ml @ 1,980 mls/hr Q31M IV Last administered on 06/18/19at 16:44; Start 06/18/19 at 15:06; Stop 06/18/19 at 16:06; Status DC Sodium Chloride 500 ml @ 1,000 mls/hr PRN Q30MIN PRN IV SEE COMMENTS; Start 06/18/19 at 15:15 Meropenem 1 gm/ Sodium Chloride 100 ml @ 200 mls/hr Q8HRS IV Last administered on 06/19/19at 05:50; Start 06/18/19 at 15:15; Stop 06/19/19 at 08:51; Status DC Acetaminophen (Tylenol) 650 mg PRN Q6HRS PRN PO MILD PAIN 1-3 Last administered on 06/20/19at 20:57; Start 06/19/19 at 11:30 Polyethylene Glycol (miraLAX PACKET) 17 gm DAILY PO Last administered on 06/25/19at 08:50; Start 06/20/19 at 17:30 Pantoprazole Sodium (Protonix) 40 mg DAILYAC PO Last administered on 06/27/19at 05:45; Start 06/22/19 at 07:30 Potassium Chloride (Klor-Con) 40 meq 1X ONCE PO Last administered on 06/21/19at 18:09; Start 06/21/19 at 13:15; Stop 06/21/19 at 13:16; Status DC Potassium Chloride (Klor-Con) 40 meq 1X ONCE PO ; Start 06/21/19 at 18:30; Stop 06/21/19 at 18:31; Status DC Iohexol (Omnipaque 240 Mg/ml) 50 ml 1X ONCE PO Last administered on 06/22/19at 08:30; Start 06/22/19 at 08:30; Stop 06/22/19 at 08:31; Status DC Iohexol (Omnipaque 300 Mg/ml) 75 ml 1X ONCE IV Last administered on 06/22/19at 08:30; Start 06/22/19 at 08:30; Stop 06/22/19 at 08:31; Status DC Info (CONTRAST GIVEN -- Rx MONITORING) 1 each PRN DAILY PRN MC SEE COMMENTS; Start 06/22/19 at 08:30; Stop 06/24/19 at 08:29; Status DC Amoxicillin/ Clavulanate Potassium (Augmentin 875/ 125mg) 1 tab BID PO Last administered on 06/22/19at 21:59; Start 06/22/19 at 09:00; Stop 06/23/19 at 08:04; Status DC Lorazepam (Ativan) 2 mg 1X ONCE PO Last administered on 06/22/19at 21:59; Start 06/22/19 at 21:00; Stop 06/22/19 at 21:01; Status DC Ondansetron HCl (Zofran) 4 mg PRN Q6HRS PRN IV NAUSEA/VOMITING; Start 06/23/19 at 07:00; Stop 06/24/19 at 06:59; Status DC Fentanyl Citrate (Fentanyl 2ml Vial) 25 mcg PRN Q5MIN PRN IV MILD PAIN 1-3; Start 06/23/19 at 07:00; Stop 06/24/19 at 06:59; Status DC Fentanyl Citrate (Fentanyl 2ml Vial) 50 mcg PRN Q5MIN PRN IV MODERATE TO SEVERE PAIN Last administered on 06/23/19at 12:58; Start 06/23/19 at 07:00; Stop 06/24/19 at 06:59; Status DC Morphine Sulfate (Morphine Sulfate) 1 mg PRN Q10MIN PRN IV SEVERE PAIN 7-10 Last administered on 06/23/19at 12:31; Start 06/23/19 at 07:00; Stop 06/24/19 at 06:59; Status DC Ringer's Solution 1,000 ml @ 30 mls/hr Q24H IV Last administered on 06/23/19at 09:58; Start 06/23/19 at 07:00; Stop 06/23/19 at 18:59; Status DC Lidocaine HCl (Xylocaine-Mpf 1% 2ml Vial) 2 ml PRN 1X PRN ID PRIOR TO IV START; Start 06/23/19 at 07:00; Stop 06/24/19 at 06:59; Status DC Hydromorphone HCl (Dilaudid) 0.5 mg PRN Q10MIN PRN IV SEV PAIN, Second choice; Start 06/23/19 at 07:00; Stop 06/24/19 at 06:59; Status DC Prochlorperazine Edisylate (Compazine) 5 mg PACU PRN PRN IV NAUSEA, MRX1; Start 06/23/19 at 07:00; Stop 06/24/19 at 06:59; Status DC Piperacillin Sod/ Tazobactam Sod 3.375 gm/Sodium Chloride 50 ml @ 100 mls/hr Q6HRS IV Last administered on 06/27/19at 05:42; Start 06/23/19 at 10:00 Propofol (Diprivan) 200 mg STK-MED ONCE IV ; Start 06/23/19 at 09:41; Stop 06/23/19 at 09:41; Status DC Dexamethasone Sodium Phosphate (Decadron) 4 mg STK-MED ONCE .ROUTE ; Start 06/23/19 at 09:41; Stop 06/23/19 at 09:41; Status DC Lidocaine HCl (Lidocaine Pf 2% Vial) 5 ml STK-MED ONCE .ROUTE ; Start 06/23/19 at 09:41; Stop 06/23/19 at 09:41; Status DC Ondansetron HCl (Zofran) 4 mg STK-MED ONCE .ROUTE ; Start 06/23/19 at 09:41; Stop 06/23/19 at 09:41; Status DC Succinylcholine Chloride (Anectine) 200 mg STK-MED ONCE .ROUTE ; Start 06/23/19 at 09:41; Stop 06/23/19 at 09:41; Status DC Ondansetron HCl (Zofran) 4 mg STK-MED ONCE .ROUTE ; Start 06/23/19 at 09:41; Stop 06/23/19 at 09:42; Status DC Fentanyl Citrate (Fentanyl 2ml Vial) 100 mcg STK-MED ONCE .ROUTE ; Start 06/23/19 at 09:41; Stop 06/23/19 at 09:42; Status DC Rocuronium [place] (Zemuron) 50 mg STK-MED ONCE .ROUTE ; Start 06/23/19 at 09:42; Stop 06/23/19 at 09:42; Status DC Bupivacaine HCl/ Epinephrine Bitart (Sensorcain-Epi 0.5%-1:575113 Mpf) 30 ml STK-MED ONCE .ROUTE Last administered on 06/23/19at 10:33; Start 06/23/19 at 09:45; Stop 06/23/19 at 09:46; Status DC Bacitracin 39289 unit/Sodium Chloride 500 ml @ 500 mls/hr 1X ONCE IRR ; Start 06/23/19 at 10:00; Stop 06/23/19 at 10:59; Status DC Glycopyrrolate (Robinul) 1 mg STK-MED ONCE .ROUTE ; Start 06/23/19 at 11:01; Stop 06/23/19 at 11:01; Status DC Neostigmine [place] (Neostigmine Methylsulfate) 5 mg STK-MED ONCE .ROUTE ; Start 06/23/19 at 11:01; Stop 06/23/19 at 11:01; Status DC Phenylephrine HCl (PHENYLEPHRINE in 0.9% NACL PF) 1 mg STK-MED ONCE IV ; Start 06/23/19 at 11:02; Stop 06/23/19 at 11:02; Status DC Desflurane (Suprane) 60 ml STK-MED ONCE IH ; Start 06/23/19 at 11:18; Stop 06/23/19 at 11:19; Status DC Fentanyl Citrate (Fentanyl 2ml Vial) 100 mcg STK-MED ONCE .ROUTE ; Start 06/23/19 at 11:18; Stop 06/23/19 at 11:19; Status DC Diphenhydramine HCl (Benadryl) 25 mg PRN Q6HRS PRN PO ITCHING; Start 06/23/19 at 12:00 Enoxaparin Sodium (Lovenox 40mg Syringe) 40 mg Q24H SQ Last administered on 06/26/19at 20:48; Start 06/23/19 at 21:00 Sodium Chloride (Normal Saline Flush) 3 ml QSHIFT PRN IV AFTER MEDS AND BLOOD DRAWS; Start 06/23/19 at 12:00 Oxycodone/ Acetaminophen (Percocet 5/325) 1 tab PRN Q4HRS PRN PO MODERATE PAIN, SEVERE PAIN Last administered on 06/27/19at 05:46; Start 06/23/19 at 12:00 Naloxone HCl (Narcan) 0.4 mg PRN Q2MIN PRN IV SEE INSTRUCTIONS; Start 06/23/19 at 12:00 Sodium Chloride 1,000 ml @ 25 mls/hr Q24H IV ; Start 06/23/19 at 11:57; Status UNV Hydromorphone HCl (Dilaudid) 1 mg PRN Q3HRS PRN IV PAIN; Start 06/23/19 at 12:00; Stop 06/24/19 at 12:16; Status DC Docusate Sodium (Colace) 100 mg BID PO Last administered on 06/26/19at 20:48; Start 06/23/19 at 21:00 Ondansetron HCl (Zofran) 4 mg PRN Q6HRS PRN IVP NAUESA, 1ST CHOICE; Start 06/23/19 at 12:00 Morphine Sulfate (Morphine Sulfate) 2 mg STK-MED ONCE .ROUTE ; Start 06/23/19 at 12:12; Stop 06/23/19 at 12:12; Status DC Fentanyl Citrate (Fentanyl 2ml Vial) 100 mcg STK-MED ONCE .ROUTE ; Start 06/23/19 at 12:21; Stop 06/23/19 at 12:22; Status DC Fentanyl Citrate (Fentanyl 2ml Vial) 100 mcg STK-MED ONCE .ROUTE ; Start 06/23/19 at 12:56; Stop 06/23/19 at 12:57; Status DC Lactobacillus Rhamnosus (Culturelle) 1 cap BID PO Last administered on 06/27/19at 08:47; Start 06/25/19 at 21:00 Active Scripts Active Reported Vitamin B12 (Cyanocobalamin (Vitamin B-12)) 2,500 Mcg Tablet 1 Tab PO DAILY 30 Days Vitamin E (Vitamin E Acid Succinate) 100 Unit Tablet 100 Unit PO DAILY Tonalin Cla 1,000 Mg Softgel (Safflower Oil/Linoleic Acid,Co) 1,000 Mg Capsule 1,000 Mg PO DAILY Mag-Oxide (Magnesium Oxide) 200 Mg Tablet 1 Tab PO DAILY 30 Days Levothyroxine Sodium 100 Mcg Tablet 1 Tab PO DAILY Liothyronine Sodium 5 Mcg Tablet 1 Tab PO DAILY 30 Days Lisinopril 10 Mg Tablet 1 Tab PO DAILY Pravastatin Sodium 20 Mg Tablet 1 Tab PO DAILY Vitals/I & O Vital Sign - Last 24 Hours 06/26/19 06/26/19 06/26/19 06/26/19 11:03 11:08 14:51 17:28 Temp 98.3 98.1 98.3 98.1 Pulse 63 63 Resp 18 20 18 20 B/P (MAP) 139/82 (101) 125/75 (92) Pulse Ox 92 94 O2 Delivery Room Air Room Air Room Air Room Air 06/26/19 06/26/19 06/26/19 06/26/19 18:28 19:15 19:30 23:34 Temp 98.6 98.6 Pulse 60 Resp 20 18 17 B/P (MAP) 141/78 (99) Pulse Ox 94 O2 Delivery Room Air Room Air Room Air Room Air 06/26/19 06/27/19 06/27/19 06/27/19 23:40 00:30 03:30 05:46 Temp 98.1 98.0 98.1 98.0 Pulse 61 64 Resp 18 16 17 16 B/P (MAP) 144/81 (102) 135/78 (97) Pulse Ox 92 92 O2 Delivery Room Air Room Air Room Air Room Air 06/27/19 06/27/19 06:35 07:30 Temp 97.7 97.7 Pulse 60 Resp 17 18 B/P (MAP) 134/83 (100) Pulse Ox 92 O2 Delivery Room Air Room Air Intake and Output 06/26/19 06/26/19 06/27/19 15:00 23:00 07:00 Intake Total 220 ml 50 ml 400 ml Output Total 270 ml 245 ml Balance 220 ml -220 ml 155 ml Hemodynamically unstable?: No Is patient in severe pain?: No Is NPO status required?: No SADI VASQUEZ MD June 27, 2019 10:27
[2019-06-27] MEDS: POTASSIUM CHLORIDE 10MEQ 100 ML IV SCH ×4 (11:46→21:28)
[2019-06-27 11:59] VITALS: BP 115/61
--- NOTE | 2019-06-27 15:43 | PDOC ---
PROGRESS NOTES Subjective Subjective feeling better gradually Objective Objective Vital Signs Date Time Temp Pulse Resp B/P (MAP) Pulse Ox O2 Delivery O2 Flow Rate FiO2 06/27/19 13:17 20 Room Air 06/27/19 11:59 98.2 83 115/61 (79) 93 98.2 06/26/19 03:00 3.0 Intake and Output 06/27/19 07:00 Intake Total 790 ml Output Total 515 ml Balance 275 ml Intake Oral 640 ml IV Total 150 ml Drainage Total 515 ml Physical Exam Abdomen: Soft (drain in place) Plan Plan of Care Clinically improving, labs improving, getting potassium today Comment Review of Relevant I have reviewed the following items franklyn (where applicable) has been applied. Labs Laboratory Tests Test 06/27/19 04:00 White Blood Count 7.4 x10^3/uL (4.0-11.0) Red Blood Count 4.01 x10^6/uL (3.50-5.40) Hemoglobin 12.0 g/dL (12.0-15.5) Hematocrit 35.4 % (36.0-47.0) Mean Corpuscular Volume 88 fL (79-100) Mean Corpuscular Hemoglobin 30 pg (25-35) Mean Corpuscular Hemoglobin Concent 34 g/dL (31-37) Red Cell Distribution Width 16.9 % (11.5-14.5) Platelet Count 598 x10^3/uL (140-400) Neutrophils (%) (Auto) 57 % (31-73) Lymphocytes (%) (Auto) 26 % (24-48) Monocytes (%) (Auto) 10 % (0-9) Eosinophils (%) (Auto) 6 % (0-3) Basophils (%) (Auto) 1 % (0-3) Neutrophils # (Auto) 4.2 x10^3/uL (1.8-7.7) Lymphocytes # (Auto) 1.9 x10^3/uL (1.0-4.8) Monocytes # (Auto) 0.7 x10^3/uL (0.0-1.1) Eosinophils # (Auto) 0.5 x10^3/uL (0.0-0.7) Basophils # (Auto) 0.1 x10^3/uL (0.0-0.2) Sodium Level 140 mmol/L (136-145) Potassium Level 3.0 mmol/L (3.5-5.1) Chloride Level 106 mmol/L (98-107) Carbon Dioxide Level 27 mmol/L (21-32) Anion Gap 7 (6-14) Blood Urea Nitrogen 5 mg/dL (7-20) Creatinine 0.7 mg/dL (0.6-1.0) Estimated GFR (Cockcroft-Gault) 84.0 Glucose Level 91 mg/dL (70-99) Calcium Level 8.1 mg/dL (8.5-10.1) Laboratory Tests Test 06/27/19 04:00 White Blood Count 7.4 x10^3/uL (4.0-11.0) Red Blood Count 4.01 x10^6/uL (3.50-5.40) Hemoglobin 12.0 g/dL (12.0-15.5) Hematocrit 35.4 % (36.0-47.0) Mean Corpuscular Volume 88 fL (79-100) Mean Corpuscular Hemoglobin 30 pg (25-35) Mean Corpuscular Hemoglobin Concent 34 g/dL (31-37) Red Cell Distribution Width 16.9 % (11.5-14.5) Platelet Count 598 x10^3/uL (140-400) Neutrophils (%) (Auto) 57 % (31-73) Lymphocytes (%) (Auto) 26 % (24-48) Monocytes (%) (Auto) 10 % (0-9) Eosinophils (%) (Auto) 6 % (0-3) Basophils (%) (Auto) 1 % (0-3) Neutrophils # (Auto) 4.2 x10^3/uL (1.8-7.7) Lymphocytes # (Auto) 1.9 x10^3/uL (1.0-4.8) Monocytes # (Auto) 0.7 x10^3/uL (0.0-1.1) Eosinophils # (Auto) 0.5 x10^3/uL (0.0-0.7) Basophils # (Auto) 0.1 x10^3/uL (0.0-0.2) Sodium Level 140 mmol/L (136-145) Potassium Level 3.0 mmol/L (3.5-5.1) Chloride Level 106 mmol/L (98-107) Carbon Dioxide Level 27 mmol/L (21-32) Anion Gap 7 (6-14) Blood Urea Nitrogen 5 mg/dL (7-20) Creatinine 0.7 mg/dL (0.6-1.0) Estimated GFR (Cockcroft-Gault) 84.0 Glucose Level 91 mg/dL (70-99) Calcium Level 8.1 mg/dL (8.5-10.1) Microbiology 06/23/19 Aerobic and Anaerobic Culture, Resulted Pending 06/23/19 Anaerobic Culture Result 1 (GLENROY), Resulted Pending 06/23/19 Aerobic Culture - Final, Resulted 06/23/19 Aerobic Culture Result 1 (GLENROY) - Final, Resulted 06/23/19 Antimicrobic Susceptibility - Final, Resulted 06/23/19 Gram Stain - Final, Resulted 06/23/19 Gram Stain Result 1 (GLENROY) - Final, Resulted 06/23/19 Gram Stain Result 2 (GLENROY) - Final, Resulted 06/18/19 Blood Culture - Final, Complete NO GROWTH AFTER 5 DAYS Medications Current Medications Sodium Chloride (Normal Saline Flush) 3 ml QSHIFT PRN IV AFTER MEDS AND BLOOD DRAWS; Start 06/18/19 at 13:00; Stop 06/23/19 at 12:09; Status DC Sodium Chloride 1,000 ml @ 50 mls/hr Q20H IV Last administered on 06/27/19at 08:46; Start 06/18/19 at 12:48 Ondansetron HCl (Zofran) 4 mg PRN Q4HRS PRN IV NAUSEA/VOMITING; Start 06/18/19 at 13:00; Stop 06/23/19 at 12:10; Status DC Acetaminophen (Tylenol Supp) 650 mg PRN Q4HRS PRN CA TEMP OVER 100.4F OR MILD PAIN; Start 06/18/19 at 13:00 Albuterol Sulfate (Ventolin Neb Soln) 2.5 mg PRN Q4HRS PRN NEB SHORTNESS OF BREATH; Start 06/18/19 at 13:00 Piperacillin Sod/ Tazobactam Sod 3.375 gm/Sodium Chloride 50 ml @ 100 mls/hr Q6HRS IV Last administered on 06/22/19at 06:10; Start 06/18/19 at 13:00; Stop 06/22/19 at 08:34; Status DC Fentanyl Citrate (Fentanyl 2ml Vial) 50 mcg PRN Q2HR PRN IVP MOD TO SEVERE PAIN, 2ND CHOICE Last administered on 06/20/19at 05:09; Start 06/18/19 at 13:00 Pantoprazole Sodium (PROTONIX VIAL for IV PUSH) 40 mg DAILYAC IVP Last administered on 06/21/19at 05:34; Start 06/19/19 at 07:30; Stop 06/21/19 at 10:11; Status DC Pantoprazole Sodium (PROTONIX VIAL for IV PUSH) 40 mg 1X ONCE IVP Last administered on 06/18/19at 13:50; Start 06/18/19 at 13:45; Stop 06/18/19 at 13:46; Status DC Metronidazole 100 ml @ 100 mls/hr Q8HRS IV Last administered on 06/19/19at 06:45; Start 06/18/19 at 14:00; Stop 06/19/19 at 08:51; Status DC Hydromorphone HCl (Dilaudid) 1 mg PRN Q3HRS PRN IV MODERATE PAIN, 1ST CHOICE Last administered on 06/24/19at 00:19; Start 06/18/19 at 14:30 Hydromorphone HCl (Dilaudid) 1.5 mg PRN Q3HRS PRN IV SEVERE PAIN 7-10, 1ST CHOICE; Start 06/18/19 at 14:30 Sodium Chloride 1,000 ml @ 1,980 mls/hr Q31M IV Last administered on 06/18/19at 16:44; Start 06/18/19 at 15:06; Stop 06/18/19 at 16:06; Status DC Sodium Chloride 500 ml @ 1,000 mls/hr PRN Q30MIN PRN IV SEE COMMENTS; Start 06/18/19 at 15:15 Meropenem 1 gm/ Sodium Chloride 100 ml @ 200 mls/hr Q8HRS IV Last administered on 06/19/19at 05:50; Start 06/18/19 at 15:15; Stop 06/19/19 at 08:51; Status DC Acetaminophen (Tylenol) 650 mg PRN Q6HRS PRN PO MILD PAIN 1-3 Last administered on 06/20/19at 20:57; Start 06/19/19 at 11:30 Polyethylene Glycol (miraLAX PACKET) 17 gm DAILY PO Last administered on 06/25/19at 08:50; Start 06/20/19 at 17:30 Pantoprazole Sodium (Protonix) 40 mg DAILYAC PO Last administered on 06/27/19at 05:45; Start 06/22/19 at 07:30 Potassium Chloride (Klor-Con) 40 meq 1X ONCE PO Last administered on 06/21/19at 18:09; Start 06/21/19 at 13:15; Stop 06/21/19 at 13:16; Status DC Potassium Chloride (Klor-Con) 40 meq 1X ONCE PO ; Start 06/21/19 at 18:30; Stop 06/21/19 at 18:31; Status DC Iohexol (Omnipaque 240 Mg/ml) 50 ml 1X ONCE PO Last administered on 06/22/19at 08:30; Start 06/22/19 at 08:30; Stop 06/22/19 at 08:31; Status DC Iohexol (Omnipaque 300 Mg/ml) 75 ml 1X ONCE IV Last administered on 06/22/19at 08:30; Start 06/22/19 at 08:30; Stop 06/22/19 at 08:31; Status DC Info (CONTRAST GIVEN -- Rx MONITORING) 1 each PRN DAILY PRN MC SEE COMMENTS; Start 06/22/19 at 08:30; Stop 06/24/19 at 08:29; Status DC Amoxicillin/ Clavulanate Potassium (Augmentin 875/ 125mg) 1 tab BID PO Last administered on 06/22/19at 21:59; Start 06/22/19 at 09:00; Stop 06/23/19 at 08:04; Status DC Lorazepam (Ativan) 2 mg 1X ONCE PO Last administered on 06/22/19at 21:59; Start 06/22/19 at 21:00; Stop 06/22/19 at 21:01; Status DC Ondansetron HCl (Zofran) 4 mg PRN Q6HRS PRN IV NAUSEA/VOMITING; Start 06/23/19 at 07:00; Stop 06/24/19 at 06:59; Status DC Fentanyl Citrate (Fentanyl 2ml Vial) 25 mcg PRN Q5MIN PRN IV MILD PAIN 1-3; Start 06/23/19 at 07:00; Stop 06/24/19 at 06:59; Status DC Fentanyl Citrate (Fentanyl 2ml Vial) 50 mcg PRN Q5MIN PRN IV MODERATE TO SEVERE PAIN Last administered on 06/23/19at 12:58; Start 06/23/19 at 07:00; Stop 06/24/19 at 06:59; Status DC Morphine Sulfate (Morphine Sulfate) 1 mg PRN Q10MIN PRN IV SEVERE PAIN 7-10 Last administered on 06/23/19at 12:31; Start 06/23/19 at 07:00; Stop 06/24/19 at 06:59; Status DC Ringer's Solution 1,000 ml @ 30 mls/hr Q24H IV Last administered on 06/23/19at 09:58; Start 06/23/19 at 07:00; Stop 06/23/19 at 18:59; Status DC Lidocaine HCl (Xylocaine-Mpf 1% 2ml Vial) 2 ml PRN 1X PRN ID PRIOR TO IV START; Start 06/23/19 at 07:00; Stop 06/24/19 at 06:59; Status DC Hydromorphone HCl (Dilaudid) 0.5 mg PRN Q10MIN PRN IV SEV PAIN, Second choice; Start 06/23/19 at 07:00; Stop 06/24/19 at 06:59; Status DC Prochlorperazine Edisylate (Compazine) 5 mg PACU PRN PRN IV NAUSEA, MRX1; Start 06/23/19 at 07:00; Stop 06/24/19 at 06:59; Status DC Piperacillin Sod/ Tazobactam Sod 3.375 gm/Sodium Chloride 50 ml @ 100 mls/hr Q6HRS IV Last administered on 06/27/19at 14:11; Start 06/23/19 at 10:00 Propofol (Diprivan) 200 mg STK-MED ONCE IV ; Start 06/23/19 at 09:41; Stop 06/23/19 at 09:41; Status DC Dexamethasone Sodium Phosphate (Decadron) 4 mg STK-MED ONCE .ROUTE ; Start 06/23/19 at 09:41; Stop 06/23/19 at 09:41; Status DC Lidocaine HCl (Lidocaine Pf 2% Vial) 5 ml STK-MED ONCE .ROUTE ; Start 06/23/19 at 09:41; Stop 06/23/19 at 09:41; Status DC Ondansetron HCl (Zofran) 4 mg STK-MED ONCE .ROUTE ; Start 06/23/19 at 09:41; Stop 06/23/19 at 09:41; Status DC Succinylcholine Chloride (Anectine) 200 mg STK-MED ONCE .ROUTE ; Start 06/23/19 at 09:41; Stop 06/23/19 at 09:41; Status DC Ondansetron HCl (Zofran) 4 mg STK-MED ONCE .ROUTE ; Start 06/23/19 at 09:41; Stop 06/23/19 at 09:42; Status DC Fentanyl Citrate (Fentanyl 2ml Vial) 100 mcg STK-MED ONCE .ROUTE ; Start 06/23/19 at 09:41; Stop 06/23/19 at 09:42; Status DC Rocuronium [place] (Zemuron) 50 mg STK-MED ONCE .ROUTE ; Start 06/23/19 at 09:42; Stop 06/23/19 at 09:42; Status DC Bupivacaine HCl/ Epinephrine Bitart (Sensorcain-Epi 0.5%-1:918826 Mpf) 30 ml STK-MED ONCE .ROUTE Last administered on 06/23/19at 10:33; Start 06/23/19 at 09:45; Stop 06/23/19 at 09:46; Status DC Bacitracin 85606 unit/Sodium Chloride 500 ml @ 500 mls/hr 1X ONCE IRR ; Start 06/23/19 at 10:00; Stop 06/23/19 at 10:59; Status DC Glycopyrrolate (Robinul) 1 mg STK-MED ONCE .ROUTE ; Start 06/23/19 at 11:01; Stop 06/23/19 at 11:01; Status DC Neostigmine [place] (Neostigmine Methylsulfate) 5 mg STK-MED ONCE .ROUTE ; Start 06/23/19 at 11:01; Stop 06/23/19 at 11:01; Status DC Phenylephrine HCl (PHENYLEPHRINE in 0.9% NACL PF) 1 mg STK-MED ONCE IV ; Start 06/23/19 at 11:02; Stop 06/23/19 at 11:02; Status DC Desflurane (Suprane) 60 ml STK-MED ONCE IH ; Start 06/23/19 at 11:18; Stop 06/23/19 at 11:19; Status DC Fentanyl Citrate (Fentanyl 2ml Vial) 100 mcg STK-MED ONCE .ROUTE ; Start 06/23/19 at 11:18; Stop 06/23/19 at 11:19; Status DC Diphenhydramine HCl (Benadryl) 25 mg PRN Q6HRS PRN PO ITCHING; Start 06/23/19 at 12:00 Enoxaparin Sodium (Lovenox 40mg Syringe) 40 mg Q24H SQ Last administered on 06/26/19at 20:48; Start 06/23/19 at 21:00 Sodium Chloride (Normal Saline Flush) 3 ml QSHIFT PRN IV AFTER MEDS AND BLOOD DRAWS; Start 06/23/19 at 12:00 Oxycodone/ Acetaminophen (Percocet 5/325) 1 tab PRN Q4HRS PRN PO MODERATE PAIN, SEVERE PAIN Last administered on 06/27/19at 12:17; Start 06/23/19 at 12:00 Naloxone HCl (Narcan) 0.4 mg PRN Q2MIN PRN IV SEE INSTRUCTIONS; Start 06/23/19 at 12:00 Sodium Chloride 1,000 ml @ 25 mls/hr Q24H IV ; Start 06/23/19 at 11:57; Status UNV Hydromorphone HCl (Dilaudid) 1 mg PRN Q3HRS PRN IV PAIN; Start 06/23/19 at 12:00; Stop 06/24/19 at 12:16; Status DC Docusate Sodium (Colace) 100 mg BID PO Last administered on 06/26/19at 20:48; Start 06/23/19 at 21:00 Ondansetron HCl (Zofran) 4 mg PRN Q6HRS PRN IVP NAUESA, 1ST CHOICE; Start 06/23/19 at 12:00 Morphine Sulfate (Morphine Sulfate) 2 mg STK-MED ONCE .ROUTE ; Start 06/23/19 at 12:12; Stop 06/23/19 at 12:12; Status DC Fentanyl Citrate (Fentanyl 2ml Vial) 100 mcg STK-MED ONCE .ROUTE ; Start 06/23/19 at 12:21; Stop 06/23/19 at 12:22; Status DC Fentanyl Citrate (Fentanyl 2ml Vial) 100 mcg STK-MED ONCE .ROUTE ; Start 06/23/19 at 12:56; Stop 06/23/19 at 12:57; Status DC Lactobacillus Rhamnosus (Culturelle) 1 cap BID PO Last administered on 06/27/19at 08:47; Start 06/25/19 at 21:00 Potassium Chloride/Water 100 ml @ 100 mls/hr Q1H IV Last administered on at 14:11; Start 06/27/19 at 11:00; Stop 06/27/19 at 14:59; Status DC Active Scripts Active Reported Vitamin B12 (Cyanocobalamin (Vitamin B-12)) 2,500 Mcg Tablet 1 Tab PO DAILY 30 Days Vitamin E (Vitamin E Acid Succinate) 100 Unit Tablet 100 Unit PO DAILY Tonalin Cla 1,000 Mg Softgel (Safflower Oil/Linoleic Acid,Co) 1,000 Mg Capsule 1,000 Mg PO DAILY Mag-Oxide (Magnesium Oxide) 200 Mg Tablet 1 Tab PO DAILY 30 Days Levothyroxine Sodium 100 Mcg Tablet 1 Tab PO DAILY Liothyronine Sodium 5 Mcg Tablet 1 Tab PO DAILY 30 Days Lisinopril 10 Mg Tablet 1 Tab PO DAILY Pravastatin Sodium 20 Mg Tablet 1 Tab PO DAILY Vitals/I & O Vital Sign - Last 24 Hours 06/26/19 06/26/19 06/26/19 06/26/19 15:59 17:28 18:28 19:15 Resp 20 20 O2 Delivery Room Air Room Air Room Air Room Air 06/26/19 06/26/19 06/26/19 06/27/19 19:30 23:34 23:40 00:30 Temp 98.6 98.1 98.6 98.1 Pulse 60 61 Resp 18 17 18 16 B/P (MAP) 141/78 (99) 144/81 (102) Pulse Ox 94 92 O2 Delivery Room Air Room Air Room Air Room Air 06/27/19 06/27/19 06/27/19 06/27/19 03:30 05:46 06:35 07:30 Temp 98.0 97.7 98.0 97.7 Pulse 64 60 Resp 17 16 17 18 B/P (MAP) 135/78 (97) 134/83 (100) Pulse Ox 92 92 O2 Delivery Room Air Room Air Room Air Room Air 06/27/19 06/27/19 06/27/19 06/27/19 08:00 11:59 12:17 13:17 Temp 98.2 98.2 Pulse 83 Resp 18 20 20 B/P (MAP) 115/61 (79) Pulse Ox 93 O2 Delivery Room Air Room Air Room Air Room Air Intake and Output 06/26/19 06/26/19 06/27/19 15:00 23:00 07:00 Intake Total 220 ml 170 ml 400 ml Output Total 270 ml 245 ml Balance 220 ml -100 ml 155 ml Hemodynamically unstable?: No Is patient in severe pain?: No Is NPO status required?: No JC YAN MD June 27, 2019 15:43
[2019-06-27 15:59] VITALS: BP_SYST 116; BP_SYST 131; BP_DIAS 45; BP_DIAS 84
[2019-06-27 19:50] VITALS: BP 132/79
[2019-06-27] MEDS: ENOXAPARIN 40 MG/0.4 ML SYRINGE. SQ SCH (21:17)
[2019-06-27 23:00] VITALS: BP 144/83
[2019-06-28] MEDS: PIPERACILLIN/TAZOBACTAM 3.375 GM in IV NORMAL SALINE 50ML 50 ML IV SCH ×2 (00:23→06:06)
[2019-06-28 03:25] VITALS: BP 136/78
[2019-06-28] MEDS: oxyCODONE/APAP 5/325 1 TAB TABLET PO PRN ×2 (03:32→13:11)
[2019-06-28 04:42] LABS: BASO # 0.1 x10^3/uL (0.0-0.2); BASO % 1 % (0-3); EOS # 0.4 x10^3/uL (0.0-0.7); EOS % 6 % (0-3); HEMATOCRIT 36.4 % (36.0-47.0); HEMOGLOBIN 12.1 g/dL (12.0-15.5); LYMPH # 2.5 x10^3/uL (1.0-4.8); LYMPH % 39 % (24-48); MEAN CORPUSCULAR HEMOGLOBIN 30 pg (25-35); MEAN CORPUSCULAR HGB CONC 33 g/dL (31-37); MEAN CORPUSCULAR VOLUME 89 fL (79-100); MONO # 0.7 x10^3/uL (0.0-1.1); MONO % 10 % (0-9); NEUT # 2.8 x10^3/uL (1.8-7.7); NEUT % 44 % (31-73); PLATELET COUNT 642 x10^3/uL (140-400); RED CELL DISTRIBUTION WIDTH 17.1 % (11.5-14.5); WHITE BLOOD COUNT 6.4 x10^3/uL (4.0-11.0)
[2019-06-28 04:51] LABS: ALBUMIN 2.1 g/dL (3.4-5.0); ALBUMIN/GLOBULIN RATIO 0.7 (1.0-1.7); CREATININE 0.8 mg/dL (0.6-1.0); POTASSIUM 3.1 mmol/L (3.5-5.1); TOTAL BILIRUBIN 0.3 mg/dL (0.2-1.0); TOTAL PROTEIN 5.3 g/dL (6.4-8.2)
[2019-06-28] MEDS: PANTOPRAZOLE 40 MG TABLET.DR. PO SCH (06:06)
[2019-06-28 07:20] VITALS: BP 144/79
[2019-06-28] MEDS: LACTOBACILLUS RHAMNOSUS GG 1 CAPSULE. PO SCH (08:01)
--- NOTE | 2019-06-28 08:03 | PDOC ---
Infectious Disease Note Subjective: Subjective Patient is feeling much better. Walking. Eating on soft diet Pain is much better. hoping to go home soon + BM today Vital Signs: Vital Signs Vital Signs Date Time Temp Pulse Resp B/P (MAP) Pulse Ox O2 Delivery O2 Flow Rate FiO2 06/28/19 07:20 97.5 62 16 144/79 (100) 93 Room Air 97.5 Physical Exam: PHYSICAL EXAM GENERAL: Propped up in bed, alert, appears comfortable. HEENT: Pupils equally round and reactive. Oropharynx pink and moist. No lesions seen. NECK: Supple. LUNGS: Clear to auscultation. CARDIAC: S1 and S2 regular. ABDOMEN: Mildly distended, soft, diffusely tender. Bowel sounds present.DAWOOD with serous fluid EXTREMITIES: No gross edema or cyanosis. SKIN: Warm to touch or signs of rash. Tattoo NEUROLOGIC: Alert and oriented x 3. Medications: Inpatient Meds: Current Medications Medications (Trade) Dose Ordered Sig/Neda Start Time Stop Time Status Last Admin Dose Admin Acetaminophen (Tylenol Supp) 650 mg PRN Q4HRS PRN 06/18/19 13:00 Acetaminophen (Tylenol) 650 mg PRN Q6HRS PRN 06/19/19 11:30 06/20/19 20:57 650 MG Albuterol Sulfate (Ventolin Neb Soln) 2.5 mg PRN Q4HRS PRN 06/18/19 13:00 Amoxicillin/ Clavulanate Potassium (Augmentin 875/ 125mg) 1 tab BID 06/22/19 09:00 06/23/19 08:04 DC 06/22/19 21:59 1 TAB Bacitracin 49339 unit/Sodium Chloride 500 ml @ 500 mls/hr 1X ONCE 06/23/19 10:00 06/23/19 10:59 DC Bupivacaine HCl/ Epinephrine Bitart (Sensorcain-Epi 0.5%-1:772780 Mpf) 30 ml STK-MED ONCE 06/23/19 09:45 06/23/19 09:46 DC 06/23/19 10:33 30 ML Desflurane (Suprane) 60 ml STK-MED ONCE 06/23/19 11:18 06/23/19 11:19 DC Dexamethasone Sodium Phosphate (Decadron) 4 mg STK-MED ONCE 06/23/19 09:41 06/23/19 09:41 DC Diphenhydramine HCl (Benadryl) 25 mg PRN Q6HRS PRN 06/23/19 12:00 Docusate Sodium (Colace) 100 mg BID 06/23/19 21:00 06/27/19 21:16 100 MG Enoxaparin Sodium (Lovenox 40mg Syringe) 40 mg Q24H 06/23/19 21:00 06/27/19 21:17 40 MG Fentanyl Citrate (Fentanyl 2ml Vial) 100 mcg STK-MED ONCE 06/23/19 12:56 06/23/19 12:57 DC Glycopyrrolate (Robinul) 1 mg STK-MED ONCE 06/23/19 11:01 06/23/19 11:01 DC Hydromorphone HCl (Dilaudid) 1 mg PRN Q3HRS PRN 06/23/19 12:00 06/24/19 12:16 DC Info (CONTRAST GIVEN -- Rx MONITORING) 1 each PRN DAILY PRN 06/22/19 08:30 06/24/19 08:29 DC Iohexol (Omnipaque 240 Mg/ml) 50 ml 1X ONCE 06/22/19 08:30 06/22/19 08:31 DC 06/22/19 08:30 50 ML Iohexol (Omnipaque 300 Mg/ml) 75 ml 1X ONCE 06/22/19 08:30 06/22/19 08:31 DC 06/22/19 08:30 75 ML Lactobacillus Rhamnosus (Culturelle) 1 cap BID 06/25/19 21:00 06/28/19 08:01 1 CAP Lidocaine HCl (Lidocaine Pf 2% Vial) 5 ml STK-MED ONCE 06/23/19 09:41 06/23/19 09:41 DC Lidocaine HCl (Xylocaine-Mpf 1% 2ml Vial) 2 ml PRN 1X PRN 06/23/19 07:00 06/24/19 06:59 DC Lorazepam (Ativan) 2 mg 1X ONCE 06/22/19 21:00 06/22/19 21:01 DC 06/22/19 21:59 1 MG Meropenem 1 gm/ Sodium Chloride 100 ml @ 200 mls/hr Q8HRS 06/18/19 15:15 06/19/19 08:51 DC 06/19/19 05:50 200 MLS/HR Metronidazole 100 ml @ 100 mls/hr Q8HRS 06/18/19 14:00 06/19/19 08:51 DC 06/19/19 06:45 100 MLS/HR Morphine Sulfate (Morphine Sulfate) 2 mg STK-MED ONCE 06/23/19 12:12 06/23/19 12:12 DC Naloxone HCl (Narcan) 0.4 mg PRN Q2MIN PRN 06/23/19 12:00 Neostigmine [place] (Neostigmine Methylsulfate) 5 mg STK-MED ONCE 06/23/19 11:01 06/23/19 11:01 DC Ondansetron HCl (Zofran) 4 mg PRN Q6HRS PRN 06/23/19 12:00 Oxycodone/ Acetaminophen (Percocet 5/325) 1 tab PRN Q4HRS PRN 06/23/19 12:00 06/28/19 03:32 1 TAB Pantoprazole Sodium (PROTONIX VIAL for IV PUSH) 40 mg 1X ONCE 06/18/19 13:45 06/18/19 13:46 DC 06/18/19 13:50 40 MG Pantoprazole Sodium (Protonix) 40 mg DAILYAC 06/22/19 07:30 06/28/19 06:06 40 MG Phenylephrine HCl (PHENYLEPHRINE in 0.9% NACL PF) 1 mg STK-MED ONCE 06/23/19 11:02 06/23/19 11:02 DC Piperacillin Sod/ Tazobactam Sod 3.375 gm/Sodium Chloride 50 ml @ 100 mls/hr Q6HRS 06/23/19 10:00 06/28/19 06:06 100 MLS/HR Polyethylene Glycol (miraLAX PACKET) 17 gm DAILY 06/20/19 17:30 06/25/19 08:50 17 GM Potassium Chloride/Water 100 ml @ 100 mls/hr Q1H 06/27/19 11:00 06/27/19 14:59 DC 06/27/19 21:28 100 MLS/HR Potassium Chloride (Klor-Con) 40 meq 1X ONCE 06/21/19 18:30 06/21/19 18:31 DC Prochlorperazine Edisylate (Compazine) 5 mg PACU PRN PRN 06/23/19 07:00 06/24/19 06:59 DC Propofol (Diprivan) 200 mg STK-MED ONCE 06/23/19 09:41 06/23/19 09:41 DC Ringer's Solution 1,000 ml @ 30 mls/hr Q24H 06/23/19 07:00 06/23/19 18:59 DC 06/23/19 09:58 30 MLS/HR Rocuronium [place] (Zemuron) 50 mg STK-MED ONCE 06/23/19 09:42 06/23/19 09:42 DC Sodium Chloride 1,000 ml @ 25 mls/hr Q24H 06/23/19 11:57 UNV Sodium Chloride (Normal Saline Flush) 3 ml QSHIFT PRN 06/23/19 12:00 Succinylcholine Chloride (Anectine) 200 mg STK-MED ONCE 06/23/19 09:41 06/23/19 09:41 DC Labs: Lab Laboratory Tests Test 06/28/19 04:00 White Blood Count 6.4 x10^3/uL (4.0-11.0) Red Blood Count 4.10 x10^6/uL (3.50-5.40) Hemoglobin 12.1 g/dL (12.0-15.5) Hematocrit 36.4 % (36.0-47.0) Mean Corpuscular Volume 89 fL (79-100) Mean Corpuscular Hemoglobin 30 pg (25-35) Mean Corpuscular Hemoglobin Concent 33 g/dL (31-37) Red Cell Distribution Width 17.1 % (11.5-14.5) Platelet Count 642 x10^3/uL (140-400) Neutrophils (%) (Auto) 44 % (31-73) Lymphocytes (%) (Auto) 39 % (24-48) Monocytes (%) (Auto) 10 % (0-9) Eosinophils (%) (Auto) 6 % (0-3) Basophils (%) (Auto) 1 % (0-3) Neutrophils # (Auto) 2.8 x10^3/uL (1.8-7.7) Lymphocytes # (Auto) 2.5 x10^3/uL (1.0-4.8) Monocytes # (Auto) 0.7 x10^3/uL (0.0-1.1) Eosinophils # (Auto) 0.4 x10^3/uL (0.0-0.7) Basophils # (Auto) 0.1 x10^3/uL (0.0-0.2) Sodium Level 141 mmol/L (136-145) Potassium Level 3.1 mmol/L (3.5-5.1) Chloride Level 107 mmol/L (98-107) Carbon Dioxide Level 27 mmol/L (21-32) Anion Gap 7 (6-14) Blood Urea Nitrogen 3 mg/dL (7-20) Creatinine 0.8 mg/dL (0.6-1.0) Estimated GFR (Cockcroft-Gault) 72.0 BUN/Creatinine Ratio 4 (6-20) Glucose Level 79 mg/dL (70-99) Calcium Level 8.0 mg/dL (8.5-10.1) Total Bilirubin 0.3 mg/dL (0.2-1.0) Aspartate Amino Transf (AST/SGOT) 23 U/L (15-37) Alanine Aminotransferase (ALT/SGPT) 13 U/L (14-59) Alkaline Phosphatase 50 U/L (46-116) Total Protein 5.3 g/dL (6.4-8.2) Albumin 2.1 g/dL (3.4-5.0) Albumin/Globulin Ratio 0.7 (1.0-1.7) Micro RUN DATE: 06/27/19 [facility] *LIVE* PAGE 1 RUN TIME: 1209 Specimen Inquiry PATIENT: MONICA BHATTI ACCT: [id number] LOC: [address] [place] [address] U: [id number] AGE/SX: 64/F ROOM: 414 RE06/18/[address]: SADI VASQUEZ MD : 1955 BED: 1 DIS: STATUS: ADM IN TLOC: --- --------- SPEC #: [id number] VAIBHAV: 06/23/19 STATUS: RES REQ #: [id number] RECD: 06/23/[address]: SADI VASQUEZ MD SOURCE: PELVIS ENTR: 06/23/19-1228 [facility] DR: CADE DAY MD SPDESC: ABSCESS RICHARD SIERRA MD,STAFF JC RAMIREZ MD, SABATO MD ORDERED: ANAER/AEROB/CLAUDE COMMENTS: PELVIC ABSCESS SWAB Procedure Result ANAEROBIC-AEROBIC CULTURE PENDING ANAEROBIC RES 1 PENDING AEROBIC CULT Final Final report AEROBIC RES 1 Final Escherichia coli 1+ ANTIMICROBIAL SUSCEPTIBILITY Final Comment S = Susceptible; I = Intermediate; R = Resistant P = Positive; N = Negative MICS are expressed in micrograms per mL Antibiotic RSLT#1 RSLT#2 RSLT#3 RSLT#4 Amoxicillin/Clavulanic Acid S =4 Ampicillin S =8 Cefepime S<=0.12 Ceftriaxone S<=0.25 Cefuroxime S =4 Ciprofloxacin S<=0.25 Ertapenem S<=0.12 Gentamicin S<=1 Imipenem S<=0.25 Levofloxacin S<=0.12 Meropenem S<=0.25 Piperacillin/Tazobactam S<=4 Tetracycline S<=1 Tobramycin S<=1 Trimethoprim/Sulfa S<=20 CONTINUED ON NEXT PAGE ----- ------- RUN DATE: 06/27/19 [facility] *LIVE* PAGE 2 RUN TIME: 1209 Specimen Inquiry SPEC: [id number] PATIENT: MONICA BHATTI [id number] (Continued) Procedure Result GRAM STAIN Final Final report GRAM STAIN RES 1 Final Comment Rare white blood cells. GRAM STAIN RES 2 Final Comment Rare gram negative rods. Performed at: - [facility], [place], [place] [id number] [employer]: ZAN Avila MD, Phone: [phone] Objective: Assessment: Acute sigmoid colitis with perforation, perforated appendix status post surgery 06/22 Abd abscess - e coli 06/22 Leukocytosis - improved Thrombocytosis Pyruia, 06/17 ([facility]) Left hepatic mass (measures1.7 x 1.5 cm) Hypothyroidism COVID-19 negative Plan: Plan of Care Discontinue Zosyn Start Augmentin f/u cultures and labs Supportive care MANGO GARCIA MD June 28, 2019 08:03
--- NOTE | 2019-06-28 09:59 | NUR ---
SW following. Discussed with RN, pt wanting to go home. Potassium low, however pt refusing IV potassium. IV zosyn. SW will continue to follow.
--- NOTE | 2019-06-28 10:06 | PDOC ---
PROGRESS NOTES Chief Complaint Chief Complaint IMPRESSION acute colitis with microperforation, s/p Diagnostic laparoscopy, open appendectomy 06/22. noted Pelvic abscess secondary to perforated appendicitis. perforated appendix status post surgery 06/22 Abd abscess - GNR 06/22 abdominal pain secondary to the above SEPSIS secondary to the above improved Pelvic abscess secondary to perforated appendicitis. hypokalemia on replacement k =3.1 PLAN Pain management Continue IV zosyn Supportive measures Pain management repeat CT shows: 1. 4.8 x 3.5 cm abscess in the false pelvis to the right of midline. 2. A long calculus in the right distal ureter measures 2.2 x 0.6 cm. No significant proximal obstructive findings 3. Trace bilateral pleural effusions. advance diet per sx apprec ID input iv k po kcl 27 MIN pt exam, chart review, > 50% of time spent with exam, chart review, pt care coordination History of Present Illness History of Present Illness doing well, no complaints. denies chest pain //sob. VSS. tolerating PO diet. drain in place and still draining // Bowel sounds present.DAWOOD with serous fluid replacing k po Vitals Vitals Vital Signs Date Time Temp Pulse Resp B/P (MAP) Pulse Ox O2 Delivery O2 Flow Rate FiO2 06/28/19 07:20 97.5 62 16 144/79 (100) 93 Room Air 97.5 Physical Exam Physical Exam GENERAL: Propped up in bed, alert, appears comfortable. HEENT: Pupils equally round and reactive. Oropharynx pink and moist. No lesio ns seen. NECK: Supple. LUNGS: Clear to auscultation. CARDIAC: S1 and S2 regular. ABDOMEN: , soft, nontender. Bowel sounds present.DAWOOD with serous fluid EXTREMITIES: No gross edema or cyanosis. SKIN: Warm to touch or signs of rash. Tattoo NEUROLOGIC: Alert and oriented x 3. General: Alert, Oriented X3, Cooperative, No acute distress Heart: Regular rate, Normal S1, No murmurs Lungs: Clear Abdomen: Soft (drain in place) Extremities: No clubbing Skin: Other (warm,dry) Labs LABS HISTORY: Abdominal pain, colitis. TECHNIQUE: Computed tomography of the abdomen and pelvis was performed after the intravenous administration of iodinated contrast. One or more of the following individualized dose reduction techniques were utilized for this examination: 1. Automated exposure control. 2. Adjustment of the mA and/or kV according to patient size. 3. Use of iterative reconstruction technique. COMPARISON: None. FINDINGS: Lung windows through the visualized portions of the bases reveal trace bilateral pleural effusions and dependent atelectasis. Bone windows reveal no suspicious lesions. A peripherally enhancing lesion in hepatic segment 2 comparison views 2.3 cm and is consistent with a benign hemangioma. A long calculus in the right distal ureter measures 2.2 cm in length and 6 mm transaxially. There is only mild dilatation of a right extrarenal pelvis. The kidneys are otherwise unremarkable. The gallbladder, pancreas, adrenal glands, and spleen are unremarkable. There are no pathologically enlarged lymph nodes. An extraluminal gas and fluid collection in the midline false pelvis measures 4.8 x 3.5 cm and is consistent with an abscess. It abuts a few adjacent small bowel loops in the sigmoid colon with mild secondary inflammation. There is no small bowel obstruction. Fluid throughout the right colon may be normal or reflect diarrhea. IMPRESSION: 1. 4.8 x 3.5 cm abscess in the false pelvis to the right of midline. 2. A long calculus in the right distal ureter measures 2.2 x 0.6 cm. No significant proximal obstructive findings 3. Trace bilateral pleural effusions. Electronically signed by: Josie Givens MD (06/22/2019 10:07 AM) [id number] DICTATED and SIGNED BY: CURTIS GIVENS MD DATE: 06/22/19 1007 EXAM: KUB 06/23/2019 12:00 AM CLINICAL INDICATION:Postop KUB in OR. Post open appendectomy, abscess drain. Counts okay. COMPARISON:CT abdomen and pelvis 06/22/2019 TECHNIQUE:AP supine view of the abdomen FINDINGS:There is a new surgical drain projecting over the pelvis, terminating near the right sacroiliac joint. Adjacent to this is a long rectangular radiopaque device measuring approximately 12 x 0.8 cm with a bent end, possibly part of the surgical drain with an intervening nonradiopaque component. Otherwise, no retained radiopaque foreign body. Suture material seen in the pelvis. There is gaseous distention of bowel. Lumbar scoliosis and degenerative disc disease is redemonstrated. IMPRESSION:New surgical drain in the pelvis. A long rectangular radiopaque device projecting over the right hemisacrum is likely part of the surgical drain, however recommend correlation with operative report to exclude retained surgical sponge. Electronically signed by: Kiki Vo MD (06/23/2019 1:37 PM) [id number] DICTATED and SIGNED BY: KIKI VO MD DATE: 06/23/19 1740 EXAM: CT ABDOMEN/PELVIS WITH CONTRAST. HISTORY: Abdominal pain, colitis. TECHNIQUE: Computed tomography of the abdomen and pelvis was performed after the intravenous administration of iodinated contrast. One or more of the following individualized dose reduction techniques were utilized for this examination: 1. Automated exposure control. 2. Adjustment of the mA and/or kV according to patient size. 3. Use of iterative reconstruction technique. COMPARISON: None. FINDINGS: Lung windows through the visualized portions of the bases reveal trace bilateral pleural effusions and dependent atelectasis. Bone windows reveal no suspicious lesions. A peripherally enhancing lesion in hepatic segment 2 comparison views 2.3 cm and is consistent with a benign hemangioma. A long calculus in the right distal ureter measures 2.2 cm in length and 6 mm transaxially. There is only mild dilatation of a right extrarenal pelvis. The kidneys are otherwise unremarkable. The gallbladder, pancreas, adrenal glands, and spleen are unremarkable. There are no pathologically enlarged lymph nodes. An extraluminal gas and fluid collection in the midline false pelvis measures 4.8 x 3.5 cm and is consistent with an abscess. It abuts a few adjacent small bowel loops in the sigmoid colon with mild secondary inflammation. There is no small bowel obstruction. Fluid throughout the right colon may be normal or reflect diarrhea. IMPRESSION: 1. 4.8 x 3.5 cm abscess in the false pelvis to the right of midline. 2. A long calculus in the right distal ureter measures 2.2 x 0.6 cm. No significant proximal obstructive findings 3. Trace bilateral pleural effusions. Electronically signed by: Josie Givens MD (06/22/2019 10:07 AM) [id number] Laboratory Tests Test 06/28/19 04:00 White Blood Count 6.4 x10^3/uL (4.0-11.0) Red Blood Count 4.10 x10^6/uL (3.50-5.40) Hemoglobin 12.1 g/dL (12.0-15.5) Hematocrit 36.4 % (36.0-47.0) Mean Corpuscular Volume 89 fL (79-100) Mean Corpuscular Hemoglobin 30 pg (25-35) Mean Corpuscular Hemoglobin Concent 33 g/dL (31-37) Red Cell Distribution Width 17.1 % (11.5-14.5) Platelet Count 642 x10^3/uL (140-400) Neutrophils (%) (Auto) 44 % (31-73) Lymphocytes (%) (Auto) 39 % (24-48) Monocytes (%) (Auto) 10 % (0-9) Eosinophils (%) (Auto) 6 % (0-3) Basophils (%) (Auto) 1 % (0-3) Neutrophils # (Auto) 2.8 x10^3/uL (1.8-7.7) Lymphocytes # (Auto) 2.5 x10^3/uL (1.0-4.8) Monocytes # (Auto) 0.7 x10^3/uL (0.0-1.1) Eosinophils # (Auto) 0.4 x10^3/uL (0.0-0.7) Basophils # (Auto) 0.1 x10^3/uL (0.0-0.2) Sodium Level 141 mmol/L (136-145) Potassium Level 3.1 mmol/L (3.5-5.1) Chloride Level 107 mmol/L (98-107) Carbon Dioxide Level 27 mmol/L (21-32) Anion Gap 7 (6-14) Blood Urea Nitrogen 3 mg/dL (7-20) Creatinine 0.8 mg/dL (0.6-1.0) Estimated GFR (Cockcroft-Gault) 72.0 BUN/Creatinine Ratio 4 (6-20) Glucose Level 79 mg/dL (70-99) Calcium Level 8.0 mg/dL (8.5-10.1) Total Bilirubin 0.3 mg/dL (0.2-1.0) Aspartate Amino Transf (AST/SGOT) 23 U/L (15-37) Alanine Aminotransferase (ALT/SGPT) 13 U/L (14-59) Alkaline Phosphatase 50 U/L (46-116) Total Protein 5.3 g/dL (6.4-8.2) Albumin 2.1 g/dL (3.4-5.0) Albumin/Globulin Ratio 0.7 (1.0-1.7) Comment Review of Relevant I have reviewed the following items franklyn (where applicable) has been applied. Labs Laboratory Tests Test 06/27/19 04:00 06/28/19 04:00 White Blood Count 7.4 x10^3/uL (4.0-11.0) 6.4 x10^3/uL (4.0-11.0) Red Blood Count 4.01 x10^6/uL (3.50-5.40) 4.10 x10^6/uL (3.50-5.40) Hemoglobin 12.0 g/dL (12.0-15.5) 12.1 g/dL (12.0-15.5) Hematocrit 35.4 % (36.0-47.0) 36.4 % (36.0-47.0) Mean Corpuscular Volume 88 fL (79-100) 89 fL (79-100) Mean Corpuscular Hemoglobin 30 pg (25-35) 30 pg (25-35) Mean Corpuscular Hemoglobin Concent 34 g/dL (31-37) 33 g/dL (31-37) Red Cell Distribution Width 16.9 % (11.5-14.5) 17.1 % (11.5-14.5) Platelet Count 598 x10^3/uL (140-400) 642 x10^3/uL (140-400) Neutrophils (%) (Auto) 57 % (31-73) 44 % (31-73) Lymphocytes (%) (Auto) 26 % (24-48) 39 % (24-48) Monocytes (%) (Auto) 10 % (0-9) 10 % (0-9) Eosinophils (%) (Auto) 6 % (0-3) 6 % (0-3) Basophils (%) (Auto) 1 % (0-3) 1 % (0-3) Neutrophils # (Auto) 4.2 x10^3/uL (1.8-7.7) 2.8 x10^3/uL (1.8-7.7) Lymphocytes # (Auto) 1.9 x10^3/uL (1.0-4.8) 2.5 x10^3/uL (1.0-4.8) Monocytes # (Auto) 0.7 x10^3/uL (0.0-1.1) 0.7 x10^3/uL (0.0-1.1) Eosinophils # (Auto) 0.5 x10^3/uL (0.0-0.7) 0.4 x10^3/uL (0.0-0.7) Basophils # (Auto) 0.1 x10^3/uL (0.0-0.2) 0.1 x10^3/uL (0.0-0.2) Sodium Level 140 mmol/L (136-145) 141 mmol/L (136-145) Potassium Level 3.0 mmol/L (3.5-5.1) 3.1 mmol/L (3.5-5.1) Chloride Level 106 mmol/L (98-107) 107 mmol/L (98-107) Carbon Dioxide Level 27 mmol/L (21-32) 27 mmol/L (21-32) Anion Gap 7 (6-14) 7 (6-14) Blood Urea Nitrogen 5 mg/dL (7-20) 3 mg/dL (7-20) Creatinine 0.7 mg/dL (0.6-1.0) 0.8 mg/dL (0.6-1.0) Estimated GFR (Cockcroft-Gault) 84.0 72.0 Glucose Level 91 mg/dL (70-99) 79 mg/dL (70-99) Calcium Level 8.1 mg/dL (8.5-10.1) 8.0 mg/dL (8.5-10.1) BUN/Creatinine Ratio 4 (6-20) Total Bilirubin 0.3 mg/dL (0.2-1.0) Aspartate Amino Transf (AST/SGOT) 23 U/L (15-37) Alanine Aminotransferase (ALT/SGPT) 13 U/L (14-59) Alkaline Phosphatase 50 U/L (46-116) Total Protein 5.3 g/dL (6.4-8.2) Albumin 2.1 g/dL (3.4-5.0) Albumin/Globulin Ratio 0.7 (1.0-1.7) Laboratory Tests Test 06/28/19 04:00 White Blood Count 6.4 x10^3/uL (4.0-11.0) Red Blood Count 4.10 x10^6/uL (3.50-5.40) Hemoglobin 12.1 g/dL (12.0-15.5) Hematocrit 36.4 % (36.0-47.0) Mean Corpuscular Volume 89 fL (79-100) Mean Corpuscular Hemoglobin 30 pg (25-35) Mean Corpuscular Hemoglobin Concent 33 g/dL (31-37) Red Cell Distribution Width 17.1 % (11.5-14.5) Platelet Count 642 x10^3/uL (140-400) Neutrophils (%) (Auto) 44 % (31-73) Lymphocytes (%) (Auto) 39 % (24-48) Monocytes (%) (Auto) 10 % (0-9) Eosinophils (%) (Auto) 6 % (0-3) Basophils (%) (Auto) 1 % (0-3) Neutrophils # (Auto) 2.8 x10^3/uL (1.8-7.7) Lymphocytes # (Auto) 2.5 x10^3/uL (1.0-4.8) Monocytes # (Auto) 0.7 x10^3/uL (0.0-1.1) Eosinophils # (Auto) 0.4 x10^3/uL (0.0-0.7) Basophils # (Auto) 0.1 x10^3/uL (0.0-0.2) Sodium Level 141 mmol/L (136-145) Potassium Level 3.1 mmol/L (3.5-5.1) Chloride Level 107 mmol/L (98-107) Carbon Dioxide Level 27 mmol/L (21-32) Anion Gap 7 (6-14) Blood Urea Nitrogen 3 mg/dL (7-20) Creatinine 0.8 mg/dL (0.6-1.0) Estimated GFR (Cockcroft-Gault) 72.0 BUN/Creatinine Ratio 4 (6-20) Glucose Level 79 mg/dL (70-99) Calcium Level 8.0 mg/dL (8.5-10.1) Total Bilirubin 0.3 mg/dL (0.2-1.0) Aspartate Amino Transf (AST/SGOT) 23 U/L (15-37) Alanine Aminotransferase (ALT/SGPT) 13 U/L (14-59) Alkaline Phosphatase 50 U/L (46-116) Total Protein 5.3 g/dL (6.4-8.2) Albumin 2.1 g/dL (3.4-5.0) Albumin/Globulin Ratio 0.7 (1.0-1.7) Microbiology 06/23/19 Aerobic and Anaerobic Culture, Resulted Pending 06/23/19 Anaerobic Culture Result 1 (GLERNOY), Resulted Pending 06/23/19 Aerobic Culture - Final, Resulted 06/23/19 Aerobic Culture Result 1 (GLENROY) - Final, Resulted 06/23/19 Antimicrobic Susceptibility - Final, Resulted 06/23/19 Gram Stain - Final, Resulted 06/23/19 Gram Stain Result 1 (GLENROY) - Final, Resulted 06/23/19 Gram Stain Result 2 (GLENROY) - Final, Resulted 06/18/19 Blood Culture - Final, Complete NO GROWTH AFTER 5 DAYS Medications Current Medications Sodium Chloride (Normal Saline Flush) 3 ml QSHIFT PRN IV AFTER MEDS AND BLOOD DRAWS; Start 06/18/19 at 13:00; Stop 06/23/19 at 12:09; Status DC Sodium Chloride 1,000 ml @ 50 mls/hr Q20H IV Last administered on 06/27/19at 08:46; Start 06/18/19 at 12:48 Ondansetron HCl (Zofran) 4 mg PRN Q4HRS PRN IV NAUSEA/VOMITING; Start 06/18/19 at 13:00; Stop 06/23/19 at 12:10; Status DC Acetaminophen (Tylenol Supp) 650 mg PRN Q4HRS PRN NV TEMP OVER 100.4F OR MILD PAIN; Start 06/18/19 at 13:00 Albuterol Sulfate (Ventolin Neb Soln) 2.5 mg PRN Q4HRS PRN NEB SHORTNESS OF BREATH; Start 06/18/19 at 13:00 Piperacillin Sod/ Tazobactam Sod 3.375 gm/Sodium Chloride 50 ml @ 100 mls/hr Q6HRS IV Last administered on 06/22/19at 06:10; Start 06/18/19 at 13:00; Stop 06/22/19 at 08:34; Status DC Fentanyl Citrate (Fentanyl 2ml Vial) 50 mcg PRN Q2HR PRN IVP MOD TO SEVERE PAIN, 2ND CHOICE Last administered on 06/20/19at 05:09; Start 06/18/19 at 13:00 Pantoprazole Sodium (PROTONIX VIAL for IV PUSH) 40 mg DAILYAC IVP Last administered on 06/21/19at 05:34; Start 06/19/19 at 07:30; Stop 06/21/19 at 10:11; Status DC Pantoprazole Sodium (PROTONIX VIAL for IV PUSH) 40 mg 1X ONCE IVP Last administered on 06/18/19at 13:50; Start 06/18/19 at 13:45; Stop 06/18/19 at 13:46; Status DC Metronidazole 100 ml @ 100 mls/hr Q8HRS IV Last administered on 06/19/19at 06:45; Start 06/18/19 at 14:00; Stop 06/19/19 at 08:51; Status DC Hydromorphone HCl (Dilaudid) 1 mg PRN Q3HRS PRN IV MODERATE PAIN, 1ST CHOICE Last administered on 06/24/19at 00:19; Start 06/18/19 at 14:30 Hydromorphone HCl (Dilaudid) 1.5 mg PRN Q3HRS PRN IV SEVERE PAIN 7-10, 1ST CHOICE; Start 06/18/19 at 14:30 Sodium Chloride 1,000 ml @ 1,980 mls/hr Q31M IV Last administered on 06/18/19at 16:44; Start 06/18/19 at 15:06; Stop 06/18/19 at 16:06; Status DC Sodium Chloride 500 ml @ 1,000 mls/hr PRN Q30MIN PRN IV SEE COMMENTS; Start 06/18/19 at 15:15 Meropenem 1 gm/ Sodium Chloride 100 ml @ 200 mls/hr Q8HRS IV Last administered on 06/19/19at 05:50; Start 06/18/19 at 15:15; Stop 06/19/19 at 08:51; Status DC Acetaminophen (Tylenol) 650 mg PRN Q6HRS PRN PO MILD PAIN 1-3 Last administered on 06/20/19at 20:57; Start 06/19/19 at 11:30 Polyethylene Glycol (miraLAX PACKET) 17 gm DAILY PO Last administered on 06/25/19at 08:50; Start 06/20/19 at 17:30 Pantoprazole Sodium (Protonix) 40 mg DAILYAC PO Last administered on 06/28/19at 06:06; Start 06/22/19 at 07:30 Potassium Chloride (Klor-Con) 40 meq 1X ONCE PO Last administered on 06/21/19at 18:09; Start 06/21/19 at 13:15; Stop 06/21/19 at 13:16; Status DC Potassium Chloride (Klor-Con) 40 meq 1X ONCE PO ; Start 06/21/19 at 18:30; Stop 06/21/19 at 18:31; Status DC Iohexol (Omnipaque 240 Mg/ml) 50 ml 1X ONCE PO Last administered on 06/22/19at 08:30; Start 06/22/19 at 08:30; Stop 06/22/19 at 08:31; Status DC Iohexol (Omnipaque 300 Mg/ml) 75 ml 1X ONCE IV Last administered on 06/22/19at 08:30; Start 06/22/19 at 08:30; Stop 06/22/19 at 08:31; Status DC Info (CONTRAST GIVEN -- Rx MONITORING) 1 each PRN DAILY PRN MC SEE COMMENTS; Start 06/22/19 at 08:30; Stop 06/24/19 at 08:29; Status DC Amoxicillin/ Clavulanate Potassium (Augmentin 875/ 125mg) 1 tab BID PO Last administered on 06/22/19at 21:59; Start 06/22/19 at 09:00; Stop 06/23/19 at 08:04; Status DC Lorazepam (Ativan) 2 mg 1X ONCE PO Last administered on 06/22/19at 21:59; Start 06/22/19 at 21:00; Stop 06/22/19 at 21:01; Status DC Ondansetron HCl (Zofran) 4 mg PRN Q6HRS PRN IV NAUSEA/VOMITING; Start 06/23/19 at 07:00; Stop 06/24/19 at 06:59; Status DC Fentanyl Citrate (Fentanyl 2ml Vial) 25 mcg PRN Q5MIN PRN IV MILD PAIN 1-3; Start 06/23/19 at 07:00; Stop 06/24/19 at 06:59; Status DC Fentanyl Citrate (Fentanyl 2ml Vial) 50 mcg PRN Q5MIN PRN IV MODERATE TO SEVERE PAIN Last administered on 06/23/19at 12:58; Start 06/23/19 at 07:00; Stop 06/24/19 at 06:59; Status DC Morphine Sulfate (Morphine Sulfate) 1 mg PRN Q10MIN PRN IV SEVERE PAIN 7-10 Last administered on 06/23/19at 12:31; Start 06/23/19 at 07:00; Stop 06/24/19 at 06:59; Status DC Ringer's Solution 1,000 ml @ 30 mls/hr Q24H IV Last administered on 06/23/19at 09:58; Start 06/23/19 at 07:00; Stop 06/23/19 at 18:59; Status DC Lidocaine HCl (Xylocaine-Mpf 1% 2ml Vial) 2 ml PRN 1X PRN ID PRIOR TO IV START; Start 06/23/19 at 07:00; Stop 06/24/19 at 06:59; Status DC Hydromorphone HCl (Dilaudid) 0.5 mg PRN Q10MIN PRN IV SEV PAIN, Second choice; Start 06/23/19 at 07:00; Stop 06/24/19 at 06:59; Status DC Prochlorperazine Edisylate (Compazine) 5 mg PACU PRN PRN IV NAUSEA, MRX1; Start 06/23/19 at 07:00; Stop 06/24/19 at 06:59; Status DC Piperacillin Sod/ Tazobactam Sod 3.375 gm/Sodium Chloride 50 ml @ 100 mls/hr Q6HRS IV Last administered on 06/28/19at 06:06; Start 06/23/19 at 10:00; Stop 06/28/19 at 09:57; Status DC Propofol (Diprivan) 200 mg STK-MED ONCE IV ; Start 06/23/19 at 09:41; Stop 06/23/19 at 09:41; Status DC Dexamethasone Sodium Phosphate (Decadron) 4 mg STK-MED ONCE .ROUTE ; Start 06/23/19 at 09:41; Stop 06/23/19 at 09:41; Status DC Lidocaine HCl (Lidocaine Pf 2% Vial) 5 ml STK-MED ONCE .ROUTE ; Start 06/23/19 at 09:41; Stop 06/23/19 at 09:41; Status DC Ondansetron HCl (Zofran) 4 mg STK-MED ONCE .ROUTE ; Start 06/23/19 at 09:41; Stop 06/23/19 at 09:41; Status DC Succinylcholine Chloride (Anectine) 200 mg STK-MED ONCE .ROUTE ; Start 06/23/19 at 09:41; Stop 06/23/19 at 09:41; Status DC Ondansetron HCl (Zofran) 4 mg STK-MED ONCE .ROUTE ; Start 06/23/19 at 09:41; Stop 06/23/19 at 09:42; Status DC Fentanyl Citrate (Fentanyl 2ml Vial) 100 mcg STK-MED ONCE .ROUTE ; Start 06/23/19 at 09:41; Stop 06/23/19 at 09:42; Status DC Rocuronium [place] (Zemuron) 50 mg STK-MED ONCE .ROUTE ; Start 06/23/19 at 09:42; Stop 06/23/19 at 09:42; Status DC Bupivacaine HCl/ Epinephrine Bitart (Sensorcain-Epi 0.5%-1:828362 Mpf) 30 ml STK-MED ONCE .ROUTE Last administered on 06/23/19at 10:33; Start 06/23/19 at 09:45; Stop 06/23/19 at 09:46; Status DC Bacitracin 18659 unit/Sodium Chloride 500 ml @ 500 mls/hr 1X ONCE IRR ; Start 06/23/19 at 10:00; Stop 06/23/19 at 10:59; Status DC Glycopyrrolate (Robinul) 1 mg STK-MED ONCE .ROUTE ; Start 06/23/19 at 11:01; Stop 06/23/19 at 11:01; Status DC Neostigmine [place] (Neostigmine Methylsulfate) 5 mg STK-MED ONCE .ROUTE ; Start 06/23/19 at 11:01; Stop 06/23/19 at 11:01; Status DC Phenylephrine HCl (PHENYLEPHRINE in 0.9% NACL PF) 1 mg STK-MED ONCE IV ; Start 06/23/19 at 11:02; Stop 06/23/19 at 11:02; Status DC Desflurane (Suprane) 60 ml STK-MED ONCE IH ; Start 06/23/19 at 11:18; Stop 06/23/19 at 11:19; Status DC Fentanyl Citrate (Fentanyl 2ml Vial) 100 mcg STK-MED ONCE .ROUTE ; Start 06/23/19 at 11:18; Stop 06/23/19 at 11:19; Status DC Diphenhydramine HCl (Benadryl) 25 mg PRN Q6HRS PRN PO ITCHING; Start 06/23/19 at 12:00 Enoxaparin Sodium (Lovenox 40mg Syringe) 40 mg Q24H SQ Last administered on 06/27/19at 21:17; Start 06/23/19 at 21:00 Sodium Chloride (Normal Saline Flush) 3 ml QSHIFT PRN IV AFTER MEDS AND BLOOD DRAWS; Start 06/23/19 at 12:00 Oxycodone/ Acetaminophen (Percocet 5/325) 1 tab PRN Q4HRS PRN PO MODERATE PAIN, SEVERE PAIN Last administered on 06/28/19at 03:32; Start 06/23/19 at 12:00 Naloxone HCl (Narcan) 0.4 mg PRN Q2MIN PRN IV SEE INSTRUCTIONS; Start 06/23/19 at 12:00 Sodium Chloride 1,000 ml @ 25 mls/hr Q24H IV ; Start 06/23/19 at 11:57; Status UNV Hydromorphone HCl (Dilaudid) 1 mg PRN Q3HRS PRN IV PAIN; Start 06/23/19 at 12:00; Stop 06/24/19 at 12:16; Status DC Docusate Sodium (Colace) 100 mg BID PO Last administered on 06/27/19at 21:16; Start 06/23/19 at 21:00 Ondansetron HCl (Zofran) 4 mg PRN Q6HRS PRN IVP NAUESA, 1ST CHOICE; Start 06/23/19 at 12:00 Morphine Sulfate (Morphine Sulfate) 2 mg STK-MED ONCE .ROUTE ; Start 06/23/19 at 12:12; Stop 06/23/19 at 12:12; Status DC Fentanyl Citrate (Fentanyl 2ml Vial) 100 mcg STK-MED ONCE .ROUTE ; Start 06/23/19 at 12:21; Stop 06/23/19 at 12:22; Status DC Fentanyl Citrate (Fentanyl 2ml Vial) 100 mcg STK-MED ONCE .ROUTE ; Start 06/23/19 at 12:56; Stop 06/23/19 at 12:57; Status DC Lactobacillus Rhamnosus (Culturelle) 1 cap BID PO Last administered on 06/28/19at 08:01; Start 06/25/19 at 21:00 Potassium Chloride/Water 100 ml @ 100 mls/hr Q1H IV Last administered on 06/27/19at 21:28; Start 06/27/19 at 11:00; Stop 06/27/19 at 14:59; Status DC Amoxicillin/ Clavulanate Potassium (Augmentin 875/ 125mg) 1 tab BID PO ; Start 06/28/19 at 21:00 Active Scripts Active Reported Vitamin B12 (Cyanocobalamin (Vitamin B-12)) 2,500 Mcg Tablet 1 Tab PO DAILY 30 Days Vitamin E (Vitamin E Acid Succinate) 100 Unit Tablet 100 Unit PO DAILY Tonalin Cla 1,000 Mg Softgel (Safflower Oil/Linoleic Acid,Co) 1,000 Mg Capsule 1,000 Mg PO DAILY Mag-Oxide (Magnesium Oxide) 200 Mg Tablet 1 Tab PO DAILY 30 Days Levothyroxine Sodium 100 Mcg Tablet 1 Tab PO DAILY Liothyronine Sodium 5 Mcg Tablet 1 Tab PO DAILY 30 Days Lisinopril 10 Mg Tablet 1 Tab PO DAILY Pravastatin Sodium 20 Mg Tablet 1 Tab PO DAILY Vitals/I & O Vital Sign - Last 24 Hours 06/27/19 06/27/19 06/27/19 06/27/19 11:59 12:17 13:17 15:59 Temp 98.2 98.2 98.2 98.2 Pulse 83 67 Resp 18 20 20 18 B/P (MAP) 115/61 (79) 131/84 (100) Pulse Ox 93 96 O2 Delivery Room Air Room Air Room Air Room Air 06/27/19 06/27/19 06/27/19 06/27/19 15:59 18:12 19:12 19:50 Temp 97.6 97.6 97.6 97.6 Pulse 81 68 Resp 18 20 20 18 B/P (MAP) 116/45 (68) 132/79 (96) Pulse Ox 92 95 O2 Delivery Room Air Room Air Room Air Room Air 06/27/19 06/27/19 06/27/19 06/27/19 20:00 22:27 23:00 23:27 Temp 98.0 98.0 Pulse 58 Resp 20 18 18 B/P (MAP) 144/83 (103) Pulse Ox 95 95 95 O2 Delivery Room Air Room Air Room Air Room Air 06/28/19 06/28/19 06/28/19 06/28/19 03:25 03:32 04:32 07:20 Temp 97.8 97.5 97.8 97.5 Pulse 64 62 Resp 18 20 16 16 B/P (MAP) 136/78 (97) 144/79 (100) Pulse Ox 94 95 95 93 O2 Delivery Room Air Room Air Room Air Room Air Intake and Output 06/27/19 06/27/19 06/28/19 14:59 22:59 06:59 Intake Total 120 ml Output Total 170 ml 70 ml Balance 120 ml -170 ml -70 ml Hemodynamically unstable?: No Is patient in severe pain?: No Is NPO status required?: No SADI VASQUEZ MD June 28, 2019 10:06
[2019-06-28 10:41] VITALS: BP 144/89
--- NOTE | 2019-06-28 12:34 | PDOC ---
Subjective: Subjective: Feels much better, loose stools w/ Miralax, tolerating PO, no pain, decreased drain output, really wants to go home, also wonders about repeating CT. Objective: Objective: Changed to PO atbx. Vital Signs: Vital Signs Date Time Temp Pulse Resp B/P (MAP) Pulse Ox O2 Delivery O2 Flow Rate FiO2 06/28/19 10:41 97.9 66 17 144/89 (107) 95 Room Air 97.9 Labs: Laboratory Tests Test 06/28/19 04:00 White Blood Count 6.4 x10^3/uL Red Blood Count 4.10 x10^6/uL Hemoglobin 12.1 g/dL Hematocrit 36.4 % Mean Corpuscular Volume 89 fL Mean Corpuscular Hemoglobin 30 pg Mean Corpuscular Hemoglobin Concent 33 g/dL Red Cell Distribution Width 17.1 % Platelet Count 642 x10^3/uL Neutrophils (%) (Auto) 44 % Lymphocytes (%) (Auto) 39 % Monocytes (%) (Auto) 10 % Eosinophils (%) (Auto) 6 % Basophils (%) (Auto) 1 % Neutrophils # (Auto) 2.8 x10^3/uL Lymphocytes # (Auto) 2.5 x10^3/uL Monocytes # (Auto) 0.7 x10^3/uL Eosinophils # (Auto) 0.4 x10^3/uL Basophils # (Auto) 0.1 x10^3/uL Sodium Level 141 mmol/L Potassium Level 3.1 mmol/L Chloride Level 107 mmol/L Carbon Dioxide Level 27 mmol/L Anion Gap 7 Blood Urea Nitrogen 3 mg/dL Creatinine 0.8 mg/dL Estimated GFR (Cockcroft-Gault) 72.0 BUN/Creatinine Ratio 4 Glucose Level 79 mg/dL Calcium Level 8.0 mg/dL Total Bilirubin 0.3 mg/dL Aspartate Amino Transf (AST/SGOT) 23 U/L Alanine Aminotransferase (ALT/SGPT) 13 U/L Alkaline Phosphatase 50 U/L Total Protein 5.3 g/dL Albumin 2.1 g/dL Albumin/Globulin Ratio 0.7 ANAEROBIC-AEROBIC CULTURE Final Final report ANAEROBIC RES 1 Final Comment Bacteroides thetaiotaomicron 3+ ANAEROBIC RES 2 Final Bacteroides vulgatus 2+ AEROBIC CULT Final Final report AEROBIC RES 1 Final Escherichia coli 1+ ANTIMICROBIAL SUSCEPTIBILITY Final Comment S = Susceptible; I = Intermediate; R = Resistant P = Positive; N = Negative MICS are expressed in micrograms per mL Antibiotic RSLT#1 RSLT#2 RSLT#3 RSLT#4 Amoxicillin/Clavulanic Acid S =4 Ampicillin S =8 Cefepime S<=0.12 Ceftriaxone S<=0.25 Cefuroxime S =4 Ciprofloxacin S<=0.25 Ertapenem S<=0.12 Gentamicin S<=1 Imipenem S<=0.25 Levofloxacin S<=0.12 ANTIMICROBIAL SUSCEPTIBILITY Final (continued) Meropenem S<=0.25 Piperacillin/Tazobactam S<=4 Tetracycline S<=1 Tobramycin S<=1 Trimethoprim/Sulfa S<=20 GRAM STAIN Final Final report GRAM STAIN RES 1 Final Comment Rare white blood cells. GRAM STAIN RES 2 Final Comment Rare gram negative rods. PE: GEN: NAD LUNGS: CTAB HEART: RRR ABD: soft, non-tender, DAWOOD drain serous NEURO/PSYCH: A & O 3 A/P: Pelvic abscess 2/2 perforated appendicitis s/p diagnostic laparoscopy and open appendectomy 06/23/19 ACD, hypokalemia -- DC per surgery. Hemodynamically unstable?: No Is patient in severe pain?: No Is NPO status required?: No BRANDIE RODRIGUEZ June 28, 2019 12:34
[2019-06-28] MEDS ORDERED: POLYETHYLENE GLYCOL 3350 17 GM PACKET. PO PRN (12:45)
[2019-06-28] MEDS ORDERED: POTASSIUM CHLORIDE 20 MEQ TABLET.ER. PO ONE (12:45)
--- NOTE | 2019-06-28 14:05 | PDOC ---
SURGICAL PROGRESS NOTE Subjective feels well eating regular diet Vital Signs Vital Signs Date Time Temp Pulse Resp B/P (MAP) Pulse Ox O2 Delivery O2 Flow Rate FiO2 06/28/19 13:11 Room Air 06/28/19 10:41 97.9 66 17 144/89 (107) 95 97.9 I&O Intake and Output 06/28/19 07:00 Intake Total 120 ml Output Total 240 ml Balance -120 ml Intake Oral 120 ml Drainage Total 240 ml PATIENT HAS A MAYA: No General: Alert, Oriented X3, No acute distress Abdomen: Soft, No tenderness, Other (DAWOOD with serous drainage) Labs Laboratory Tests Test 06/27/19 04:00 06/28/19 04:00 White Blood Count 7.4 x10^3/uL (4.0-11.0) 6.4 x10^3/uL (4.0-11.0) Red Blood Count 4.01 x10^6/uL (3.50-5.40) 4.10 x10^6/uL (3.50-5.40) Hemoglobin 12.0 g/dL (12.0-15.5) 12.1 g/dL (12.0-15.5) Hematocrit 35.4 % (36.0-47.0) 36.4 % (36.0-47.0) Mean Corpuscular Volume 88 fL (79-100) 89 fL (79-100) Mean Corpuscular Hemoglobin 30 pg (25-35) 30 pg (25-35) Mean Corpuscular Hemoglobin Concent 34 g/dL (31-37) 33 g/dL (31-37) Red Cell Distribution Width 16.9 % (11.5-14.5) 17.1 % (11.5-14.5) Platelet Count 598 x10^3/uL (140-400) 642 x10^3/uL (140-400) Neutrophils (%) (Auto) 57 % (31-73) 44 % (31-73) Lymphocytes (%) (Auto) 26 % (24-48) 39 % (24-48) Monocytes (%) (Auto) 10 % (0-9) 10 % (0-9) Eosinophils (%) (Auto) 6 % (0-3) 6 % (0-3) Basophils (%) (Auto) 1 % (0-3) 1 % (0-3) Neutrophils # (Auto) 4.2 x10^3/uL (1.8-7.7) 2.8 x10^3/uL (1.8-7.7) Lymphocytes # (Auto) 1.9 x10^3/uL (1.0-4.8) 2.5 x10^3/uL (1.0-4.8) Monocytes # (Auto) 0.7 x10^3/uL (0.0-1.1) 0.7 x10^3/uL (0.0-1.1) Eosinophils # (Auto) 0.5 x10^3/uL (0.0-0.7) 0.4 x10^3/uL (0.0-0.7) Basophils # (Auto) 0.1 x10^3/uL (0.0-0.2) 0.1 x10^3/uL (0.0-0.2) Sodium Level 140 mmol/L (136-145) 141 mmol/L (136-145) Potassium Level 3.0 mmol/L (3.5-5.1) 3.1 mmol/L (3.5-5.1) Chloride Level 106 mmol/L (98-107) 107 mmol/L (98-107) Carbon Dioxide Level 27 mmol/L (21-32) 27 mmol/L (21-32) Anion Gap 7 (6-14) 7 (6-14) Blood Urea Nitrogen 5 mg/dL (7-20) 3 mg/dL (7-20) Creatinine 0.7 mg/dL (0.6-1.0) 0.8 mg/dL (0.6-1.0) Estimated GFR (Cockcroft-Gault) 84.0 72.0 Glucose Level 91 mg/dL (70-99) 79 mg/dL (70-99) Calcium Level 8.1 mg/dL (8.5-10.1) 8.0 mg/dL (8.5-10.1) BUN/Creatinine Ratio 4 (6-20) Total Bilirubin 0.3 mg/dL (0.2-1.0) Aspartate Amino Transf (AST/SGOT) 23 U/L (15-37) Alanine Aminotransferase (ALT/SGPT) 13 U/L (14-59) Alkaline Phosphatase 50 U/L (46-116) Total Protein 5.3 g/dL (6.4-8.2) Albumin 2.1 g/dL (3.4-5.0) Albumin/Globulin Ratio 0.7 (1.0-1.7) Laboratory Tests Test 06/28/19 04:00 White Blood Count 6.4 x10^3/uL (4.0-11.0) Red Blood Count 4.10 x10^6/uL (3.50-5.40) Hemoglobin 12.1 g/dL (12.0-15.5) Hematocrit 36.4 % (36.0-47.0) Mean Corpuscular Volume 89 fL (79-100) Mean Corpuscular Hemoglobin 30 pg (25-35) Mean Corpuscular Hemoglobin Concent 33 g/dL (31-37) Red Cell Distribution Width 17.1 % (11.5-14.5) Platelet Count 642 x10^3/uL (140-400) Neutrophils (%) (Auto) 44 % (31-73) Lymphocytes (%) (Auto) 39 % (24-48) Monocytes (%) (Auto) 10 % (0-9) Eosinophils (%) (Auto) 6 % (0-3) Basophils (%) (Auto) 1 % (0-3) Neutrophils # (Auto) 2.8 x10^3/uL (1.8-7.7) Lymphocytes # (Auto) 2.5 x10^3/uL (1.0-4.8) Monocytes # (Auto) 0.7 x10^3/uL (0.0-1.1) Eosinophils # (Auto) 0.4 x10^3/uL (0.0-0.7) Basophils # (Auto) 0.1 x10^3/uL (0.0-0.2) Sodium Level 141 mmol/L (136-145) Potassium Level 3.1 mmol/L (3.5-5.1) Chloride Level 107 mmol/L (98-107) Carbon Dioxide Level 27 mmol/L (21-32) Anion Gap 7 (6-14) Blood Urea Nitrogen 3 mg/dL (7-20) Creatinine 0.8 mg/dL (0.6-1.0) Estimated GFR (Cockcroft-Gault) 72.0 BUN/Creatinine Ratio 4 (6-20) Glucose Level 79 mg/dL (70-99) Calcium Level 8.0 mg/dL (8.5-10.1) Total Bilirubin 0.3 mg/dL (0.2-1.0) Aspartate Amino Transf (AST/SGOT) 23 U/L (15-37) Alanine Aminotransferase (ALT/SGPT) 13 U/L (14-59) Alkaline Phosphatase 50 U/L (46-116) Total Protein 5.3 g/dL (6.4-8.2) Albumin 2.1 g/dL (3.4-5.0) Albumin/Globulin Ratio 0.7 (1.0-1.7) Assessment/Plan POD 5 open appy OK for dismissal from surgical point of view f/u in the [facility] office 06/30 CADE DAY MD June 28, 2019 14:05
[2019-06-28] MEDS ORDERED: OXYC-325 PO (14:08)
[2019-06-28 14:20] VITALS: BP 132/83
[2019-06-28] MEDS ORDERED: PANT40TA77 PO (14:41)
[2019-06-28] MEDS ORDERED: LACT1CAP19 PO (14:41)
[2019-06-28] MEDS ORDERED: OXYC1TAB15 PO (14:41)
[2019-06-28] MEDS ORDERED: ACET325T9 PO (14:41)
[2019-06-28] MEDS ORDERED: POLY17PO28 PO (14:41)
[2019-06-28] MEDS ORDERED: AMOX1TAB11 PO (14:41)
--- NOTE | 2019-06-28 14:45 | PDOC3 ---
Discharge Summary Date of Admission: June 18, 2019 Date of Discharge: June 28, 2019 Follow-Up: 3-5 days Admitting Diagnosis comment: discharge dx acute colitis with microperforation, s/p Diagnostic laparoscopy, open appendectomy 06/22. noted Pelvic abscess secondary to perforated appendicitis. perforated appendix status post surgery 06/22 Abd abscess - GNR 06/22 abdominal pain secondary to the above SEPSIS secondary to the above improved Pelvic abscess secondary to perforated appendicitis. hypokalemia on replacement k =3.1 PLAN Pain management Continue IV zosyn Supportive measures Pain management repeat CT shows: 1. 4.8 x 3.5 cm abscess in the false pelvis to the right of midline. 2. A long calculus in the right distal ureter measures 2.2 x 0.6 cm. No significant proximal obstructive findings 3. Trace bilateral pleural effusions. advance diet per sx apprec ID input iv k po kcl 37 MIN pt exam, chart review d/c planning , > 50% of time spent with exam, chart review, pt care coordination History of Present Illness History of Present Illness doing well, no complaints. denies chest pain //sob. VSS. tolerating PO diet. drain in place and still draining // Bowel sounds present.DAWOOD with serous fluid replacing k po Vitals Vitals Vital Signs Date Time Temp Pulse Resp B/P (MAP) Pulse Ox O2 Delivery O2 Flow Rate FiO2 06/28/19 07:20 97.5 62 16 144/79 (100) 93 Room Air 97.5 Physical Exam Physical Exam GENERAL: Propped up in bed, alert, appears comfortable. HEENT: Pupils equally round and reactive. Oropharynx pink and moist. No lesions seen. NECK: Supple. LUNGS: Clear to auscultation. CARDIAC: S1 and S2 regular. ABDOMEN: , soft, nontender. Bowel sounds present.DAWOOD with serous fluid EXTREMITIES: No gross edema or cyanosis. SKIN: Warm to touch or signs of rash. Tattoo NEUROLOGIC: Alert and oriented x 3. General: Alert, Oriented X3, Cooperative, No acute distress Heart: Regular rate, Normal S1, No murmurs Lungs: Clear Abdomen: Soft (drain in place) Extremities: No clubbing Skin: Other (warm,dry) Labs LABS HISTORY: Abdominal pain, colitis. TECHNIQUE: Computed tomography of the abdomen and pelvis was performed after the intravenous administration of iodinated contrast. One or more of the following individualized dose reduction techniques were utilized for this examination: 1. Automated exposure control. 2. Adjustment of the mA and/or kV according to patient size. 3. Use of iterative reconstruction technique. COMPARISON: None. FINDINGS: Lung windows through the visualized portions of the bases reveal trace bilateral pleural effusions and dependent atelectasis. Bone windows reveal no suspicious lesions. A peripherally enhancing lesion in hepatic segment 2 comparison views 2.3 cm and is consistent with a benign hemangioma. A long calculus in the right distal ureter measures 2.2 cm in length and 6 mm transaxially. There is only mild dilatation of a right extrarenal pelvis. The kidneys are otherwise unremarkable. The gallbladder, pancreas, adrenal glands, and spleen are unremarkable. There are no pathologically enlarged lymph nodes. An extraluminal gas and fluid collection in the midline false pelvis measures 4.8 x 3.5 cm and is consistent with an abscess. It abuts a few adjacent small bowel loops in the sigmoid colon with mild secondary inflammation. There is no small bowel obstruction. Fluid throughout the right colon may be normal or reflect diarrhea. IMPRESSION: 1. 4.8 x 3.5 cm abscess in the false pelvis to the right of midline. 2. A long calculus in the right distal ureter measures 2.2 x 0.6 cm. No significant proximal obstructive findings 3. Trace bilateral pleural effusions. Electronically signed by: Josie Givens MD (06/22/2019 10:07 AM) [id number] DICTATED and SIGNED BY: CURTIS GIVENS MD DATE: 06/22/19 1007 EXAM: KUB 06/23/2019 12:00 AM CLINICAL INDICATION:Postop KUB in OR. Post open appendectomy, abscess drain. Counts okay. COMPARISON:CT abdomen and pelvis 06/22/2019 TECHNIQUE:AP supine view of the abdomen FINDINGS:There is a new surgical drain projecting over the pelvis, terminating near the right sacroiliac joint. Adjacent to this is a long rectangular radiopaque device measuring approximately 12 x 0.8 cm with a bent end, possibly part of the surgical drain with an intervening nonradiopaque component. Otherwise, no retained radiopaque foreign body. Suture material seen in the pelvis. There is gaseous distention of bowel. Lumbar scoliosis and degenerative disc disease is redemonstrated. IMPRESSION:New surgical drain in the pelvis. A long rectangular radiopaque device projecting over the right hemisacrum is likely part of the surgical drain, however recommend correlation with operative report to exclude retained surgical sponge. Electronically signed by: Kiki Vo MD (06/23/2019 1:37 PM) [id number] DICTATED and SIGNED BY: KIKI VO MD DATE: 06/23/19 1337 EXAM: CT ABDOMEN/PELVIS WITH CONTRAST. HISTORY: Abdominal pain, colitis. TECHNIQUE: Computed tomography of the abdomen and pelvis was performed after the intravenous administration of iodinated contrast. One or more of the following individualized dose reduction techniques were utilized for this examination: 1. Automated exposure control. 2. Adjustment of the mA and/or kV according to patient size. 3. Use of iterative reconstruction technique. COMPARISON: None. FINDINGS: Lung windows through the visualized portions of the bases reveal trace bilateral pleural effusions and dependent atelectasis. Bone windows reveal no suspicious lesions. A peripherally enhancing lesion in hepatic segment 2 comparison views 2.3 cm and is consistent with a benign hemangioma. A long calculus in the right distal ureter measures 2.2 cm in length and 6 mm transaxially. There is only mild dilatation of a right extrarenal pelvis. The kidneys are otherwise unremarkable. The gallbladder, pancreas, adrenal glands, and spleen are unremarkable. There are no pathologically enlarged lymph nodes. An extraluminal gas and fluid collection in the midline false pelvis measures 4.8 x 3.5 cm and is consistent with an abscess. It abuts a few adjacent small bowel loops in the sigmoid colon with mild secondary inflammation. There is no small bowel obstruction. Fluid throughout the right colon may be normal or reflect diarrhea. IMPRESSION: 1. 4.8 x 3.5 cm abscess in the false pelvis to the right of midline. 2. A long calculus in the right distal ureter measures 2.2 x 0.6 cm. No significant proximal obstructive findings 3. Trace bilateral pleural effusions. Electronically signed by: Josie Givens MD (06/22/2019 10:07 AM) [id number] Laboratory Tests Brief Hospital Course Ms. Dumont is a 64 old [sex] who presented with [ reptured appendix] CONDITION AT DISCHARGE: Improved Discharge Medications Current Medications Sodium Chloride (Normal Saline Flush) 3 ml QSHIFT PRN IV AFTER MEDS AND BLOOD DRAWS; Start 06/18/19 at 13:00; Stop 06/23/19 at 12:09; Status DC Sodium Chloride 1,000 ml @ 50 mls/hr Q20H IV Last administered on 06/27/19at 08:46; Start 06/18/19 at 12:48 Ondansetron HCl (Zofran) 4 mg PRN Q4HRS PRN IV NAUSEA/VOMITING; Start 06/18/19 at 13:00; Stop 06/23/19 at 12:10; Status DC Acetaminophen (Tylenol Supp) 650 mg PRN Q4HRS PRN [place] TEMP OVER 100.4F OR MILD PAIN; Start 06/18/19 at 13:00 Albuterol Sulfate (Ventolin Neb Soln) 2.5 mg PRN Q4HRS PRN NEB SHORTNESS OF BREATH; Start 06/18/19 at 13:00 Piperacillin Sod/ Tazobactam Sod 3.375 gm/Sodium Chloride 50 ml @ 100 mls/hr Q6HRS IV Last administered on 06/22/19at 06:10; Start 06/18/19 at 13:00; Stop 06/22/19 at 08:34; Status DC Fentanyl Citrate (Fentanyl 2ml Vial) 50 mcg PRN Q2HR PRN IVP MOD TO SEVERE PAIN, 2ND CHOICE Last administered on 06/20/19at 05:09; Start 06/18/19 at 13:00 Pantoprazole Sodium (PROTONIX VIAL for IV PUSH) 40 mg DAILYAC IVP Last administered on 06/21/19at 05:34; Start 06/19/19 at 07:30; Stop 06/21/19 at 10:11; Status DC Pantoprazole Sodium (PROTONIX VIAL for IV PUSH) 40 mg 1X ONCE IVP Last administered on 06/18/19at 13:50; Start 06/18/19 at 13:45; Stop 06/18/19 at 13:46; Status DC Metronidazole 100 ml @ 100 mls/hr Q8HRS IV Last administered on 06/19/19at 06:45; Start 06/18/19 at 14:00; Stop 06/19/19 at 08:51; Status DC Hydromorphone HCl (Dilaudid) 1 mg PRN Q3HRS PRN IV MODERATE PAIN, 1ST CHOICE Last administered on 06/24/19at 00:19; Start 06/18/19 at 14:30 Hydromorphone HCl (Dilaudid) 1.5 mg PRN Q3HRS PRN IV SEVERE PAIN 7-10, 1ST CHOICE; Start 06/18/19 at 14:30 Sodium Chloride 1,000 ml @ 1,980 mls/hr Q31M IV Last administered on 06/18/19at 16:44; Start 06/18/19 at 15:06; Stop 06/18/19 at 16:06; Status DC Sodium Chloride 500 ml @ 1,000 mls/hr PRN Q30MIN PRN IV SEE COMMENTS; Start 06/18/19 at 15:15 Meropenem 1 gm/ Sodium Chloride 100 ml @ 200 mls/hr Q8HRS IV Last administered on 06/19/19at 05:50; Start 06/18/19 at 15:15; Stop 06/19/19 at 08:51; Status DC Acetaminophen (Tylenol) 650 mg PRN Q6HRS PRN PO MILD PAIN 1-3 Last administered on 06/20/19at 20:57; Start 06/19/19 at 11:30 Polyethylene Glycol (miraLAX PACKET) 17 gm DAILY PO Last administered on 06/25/19at 08:50; Start 06/20/19 at 17:30; Stop 06/28/19 at 12:34; Status DC Pantoprazole Sodium (Protonix) 40 mg DAILYAC PO Last administered on 06/28/19at 06:06; Start 06/22/19 at 07:30 Potassium Chloride (Klor-Con) 40 meq 1X ONCE PO Last administered on 06/21/19at 18:09; Start 06/21/19 at 13:15; Stop 06/21/19 at 13:16; Status DC Potassium Chloride (Klor-Con) 40 meq 1X ONCE PO ; Start 06/21/19 at 18:30; Stop 06/21/19 at 18:31; Status DC Iohexol (Omnipaque 240 Mg/ml) 50 ml 1X ONCE PO Last administered on 06/22/19at 08:30; Start 06/22/19 at 08:30; Stop 06/22/19 at 08:31; Status DC Iohexol (Omnipaque 300 Mg/ml) 75 ml 1X ONCE IV Last administered on 06/22/19at 08:30; Start 06/22/19 at 08:30; Stop 06/22/19 at 08:31; Status DC Info (CONTRAST GIVEN -- Rx MONITORING) 1 each PRN DAILY PRN MC SEE COMMENTS; Start 06/22/19 at 08:30; Stop 06/24/19 at 08:29; Status DC Amoxicillin/ Clavulanate Potassium (Augmentin 875/ 125mg) 1 tab BID PO Last administered on 06/22/19at 21:59; Start 06/22/19 at 09:00; Stop 06/23/19 at 08:04; Status DC Lorazepam (Ativan) 2 mg 1X ONCE PO Last administered on 06/22/19at 21:59; Star t 06/22/19 at 21:00; Stop 06/22/19 at 21:01; Status DC Ondansetron HCl (Zofran) 4 mg PRN Q6HRS PRN IV NAUSEA/VOMITING; Start 06/23/19 at 07:00; Stop 06/24/19 at 06:59; Status DC Fentanyl Citrate (Fentanyl 2ml Vial) 25 mcg PRN Q5MIN PRN IV MILD PAIN 1-3; Start 06/23/19 at 07:00; Stop 06/24/19 at 06:59; Status DC Fentanyl Citrate (Fentanyl 2ml Vial) 50 mcg PRN Q5MIN PRN IV MODERATE TO SEVERE PAIN Last administered on 06/23/19at 12:58; Start 06/23/19 at 07:00; Stop 06/24/19 at 06:59; Status DC Morphine Sulfate (Morphine Sulfate) 1 mg PRN Q10MIN PRN IV SEVERE PAIN 7-10 Last administered on 06/23/19at 12:31; Start 06/23/19 at 07:00; Stop 06/24/19 at 06:59; Status DC Ringer's Solution 1,000 ml @ 30 mls/hr Q24H IV Last administered on 06/23/19at 09:58; Start 06/23/19 at 07:00; Stop 06/23/19 at 18:59; Status DC Lidocaine HCl (Xylocaine-Mpf 1% 2ml Vial) 2 ml PRN 1X PRN ID PRIOR TO IV START; Start 06/23/19 at 07:00; Stop 06/24/19 at 06:59; Status DC Hydromorphone HCl (Dilaudid) 0.5 mg PRN Q10MIN PRN IV SEV PAIN, Second choice; Start 06/23/19 at 07:00; Stop 06/24/19 at 06:59; Status DC Prochlorperazine Edisylate (Compazine) 5 mg PACU PRN PRN IV NAUSEA, MRX1; Start 06/23/19 at 07:00; Stop 06/24/19 at 06:59; Status DC Piperacillin Sod/ Tazobactam Sod 3.375 gm/Sodium Chloride 50 ml @ 100 mls/hr Q6HRS IV Last administered on 06/28/19at 06:06; Start 06/23/19 at 10:00; Stop 06/28/19 at 09:57; Status DC Propofol (Diprivan) 200 mg STK-MED ONCE IV ; Start 06/23/19 at 09:41; Stop 06/23/19 at 09:41; Status DC Dexamethasone Sodium Phosphate (Decadron) 4 mg STK-MED ONCE .ROUTE ; Start 06/23/19 at 09:41; Stop 06/23/19 at 09:41; Status DC Lidocaine HCl (Lidocaine Pf 2% Vial) 5 ml STK-MED ONCE .ROUTE ; Start 06/23/19 at 09:41; Stop 06/23/19 at 09:41; Status DC Ondansetron HCl (Zofran) 4 mg STK-MED ONCE .ROUTE ; Start 06/23/19 at 09:41; Stop 06/23/19 at 09:41; Status DC Succinylcholine Chloride (Anectine) 200 mg STK-MED ONCE .ROUTE ; Start 06/23/19 at 09:41; Stop 06/23/19 at 09:41; Status DC Ondansetron HCl (Zofran) 4 mg STK-MED ONCE .ROUTE ; Start 06/23/19 at 09:41; Stop 06/23/19 at 09:42; Status DC Fentanyl Citrate (Fentanyl 2ml Vial) 100 mcg STK-MED ONCE .ROUTE ; Start 06/23/19 at 09:41; Stop 06/23/19 at 09:42; Status DC Rocuronium [place] (Zemuron) 50 mg STK-MED ONCE .ROUTE ; Start 06/23/19 at 09:42; Stop 06/23/19 at 09:42; Status DC Bupivacaine HCl/ Epinephrine Bitart (Sensorcain-Epi 0.5%-1:494994 Mpf) 30 ml STK-MED ONCE .ROUTE Last administered on 06/23/19at 10:33; Start 06/23/19 at 09:45; Stop 06/23/19 at 09:46; Status DC Bacitracin 32574 unit/Sodium Chloride 500 ml @ 500 mls/hr 1X ONCE IRR ; Start 06/23/19 at 10:00; Stop 06/23/19 at 10:59; Status DC Glycopyrrolate (Robinul) 1 mg STK-MED ONCE .ROUTE ; Start 06/23/19 at 11:01; Stop 06/23/19 at 11:01; Status DC Neostigmine [place] (Neostigmine Methylsulfate) 5 mg STK-MED ONCE .ROUTE ; Start 06/23/19 at 11:01; Stop 06/23/19 at 11:01; Status DC Phenylephrine HCl (PHENYLEPHRINE in 0.9% NACL PF) 1 mg STK-MED ONCE IV ; Start 06/23/19 at 11:02; Stop 06/23/19 at 11:02; Status DC Desflurane (Suprane) 60 ml STK-MED ONCE IH ; Start 06/23/19 at 11:18; Stop 06/23/19 at 11:19; Status DC Fentanyl Citrate (Fentanyl 2ml Vial) 100 mcg STK-MED ONCE .ROUTE ; Start 06/23/19 at 11:18; Stop 06/23/19 at 11:19; Status DC Diphenhydramine HCl (Benadryl) 25 mg PRN Q6HRS PRN PO ITCHING; Start 06/23/19 at 12:00 Enoxaparin Sodium (Lovenox 40mg Syringe) 40 mg Q24H SQ Last administered on 06/27/19at 21:17; Start 06/23/19 at 21:00 Sodium Chloride (Normal Saline Flush) 3 ml QSHIFT PRN IV AFTER MEDS AND BLOOD DRAWS; Start 06/23/19 at 12:00 Oxycodone/ Acetaminophen (Percocet 5/325) 1 tab PRN Q4HRS PRN PO MODERATE PAIN, SEVERE PAIN Last administered on 06/28/19at 13:11; Start 06/23/19 at 12:00 Naloxone HCl (Narcan) 0.4 mg PRN Q2MIN PRN IV SEE INSTRUCTIONS; Start 06/23/19 at 12:00 Sodium Chloride 1,000 ml @ 25 mls/hr Q24H IV ; Start 06/23/19 at 11:57; Status UNV Hydromorphone HCl (Dilaudid) 1 mg PRN Q3HRS PRN IV PAIN; Start 06/23/19 at 12:00; Stop 06/24/19 at 12:16; Status DC Docusate Sodium (Colace) 100 mg BID PO Last administered on 06/27/19at 21:16; Start 06/23/19 at 21:00; Stop 06/28/19 at 12:34; Status DC Ondansetron HCl (Zofran) 4 mg PRN Q6HRS PRN IVP NAUESA, 1ST CHOICE; Start 06/23/19 at 12:00 Morphine Sulfate (Morphine Sulfate) 2 mg STK-MED ONCE .ROUTE ; Start 06/23/19 at 12:12; Stop 06/23/19 at 12:12; Status DC Fentanyl Citrate (Fentanyl 2ml Vial) 100 mcg STK-MED ONCE .ROUTE ; Start 06/23/19 at 12:21; Stop 06/23/19 at 12:22; Status DC Fentanyl Citrate (Fentanyl 2ml Vial) 100 mcg STK-MED ONCE .ROUTE ; Start 06/23/19 at 12:56; Stop 06/23/19 at 12:57; Status DC Lactobacillus Rhamnosus (Culturelle) 1 cap BID PO Last administered on 06/28/19at 08:01; Start 06/25/19 at 21:00 Potassium Chloride/Water 100 ml @ 100 mls/hr Q1H IV Last administered on 06/27/19at 21:28; Start 06/27/19 at 11:00; Stop 06/27/19 at 14:59; Status DC Amoxicillin/ Clavulanate Potassium (Augmentin 875/ 125mg) 1 tab BID PO ; Start 06/28/19 at 21:00 Polyethylene Glycol (miraLAX PACKET) 17 gm DAILY PRN PO constipation; Start 06/28/19 at 12:45 Potassium Chloride (Klor-Con) 40 meq 1X ONCE PO Last administered on 5/18/20at 13:09; Start 06/28/19 at 12:45; Stop 06/28/19 at 12:48; Status DC Potassium Chloride (Klor-Con) 20 meq DAILYWBKFT PO ; Start 06/29/19 at 08:00 Active Scripts Active Culturelle (Lactobacillus Rhamnosus Gg) 1 Each Cap.sprink 1 Cap PO BID 30 Days Pantoprazole Sodium (Pantoprazole Sodium) 40 Mg Tablet.dr 40 Mg PO DAILYAC 30 Days Polyethylene Glycol 3350 17 Gm Powd.pack 17 Gm PO DAILY PRN 14 Days Tylenol (Acetaminophen) 325 Mg Tablet 650 Mg PO PRN Q6HRS PRN 14 Days Percocet 5-325 Mg Tablet (Oxycodone/Acetaminophen) 1 Each Tablet 1 Tab PO PRN Q4HRS PRN 10 Days Amox Tr-K Clv 875-125 Mg Tab (Amoxicillin/Potassium Clav) 1 Each Tablet 1 Tab PO BID 10 Days Percocet 5-325 mg Tablet (Oxycodone HCl/Acetaminophen) 1 Each Tablet 1 Tab PO QIDPRN PRN MDD 4 Tablet(s) 10 Days Reported Vitamin B12 (Cyanocobalamin (Vitamin B-12)) 2,500 Mcg Tablet 1 Tab PO DAILY 30 Days Vitamin E (Vitamin E Acid Succinate) 100 Unit Tablet 100 Unit PO DAILY Tonalin Cla 1,000 Mg Softgel (Safflower Oil/Linoleic Acid,Co) 1,000 Mg Capsule 1,000 Mg PO DAILY Mag-Oxide (Magnesium Oxide) 200 Mg Tablet 1 Tab PO DAILY 30 Days Levothyroxine Sodium 100 Mcg Tablet 1 Tab PO DAILY Liothyronine Sodium 5 Mcg Tablet 1 Tab PO DAILY 30 Days Lisinopril 10 Mg Tablet 1 Tab PO DAILY Pravastatin Sodium 20 Mg Tablet 1 Tab PO DAILY Vital Signs Vital Signs Date Time Temp Pulse Resp B/P (MAP) Pulse Ox O2 Delivery O2 Flow Rate FiO2 06/28/19 14:20 98.0 68 16 132/83 (99) 93 Room Air 98.0 Labs Laboratory Tests Test 06/27/19 04:00 06/28/19 04:00 White Blood Count 7.4 x10^3/uL (4.0-11.0) 6.4 x10^3/uL (4.0-11.0) Red Blood Count 4.01 x10^6/uL (3.50-5.40) 4.10 x10^6/uL (3.50-5.40) Hemoglobin 12.0 g/dL (12.0-15.5) 12.1 g/dL (12.0-15.5) Hematocrit 35.4 % (36.0-47.0) 36.4 % (36.0-47.0) Mean Corpuscular Volume 88 fL (79-100) 89 fL (79-100) Mean Corpuscular Hemoglobin 30 pg (25-35) 30 pg (25-35) Mean Corpuscular Hemoglobin Concent 34 g/dL (31-37) 33 g/dL (31-37) Red Cell Distribution Width 16.9 % (11.5-14.5) 17.1 % (11.5-14.5) Platelet Count 598 x10^3/uL (140-400) 642 x10^3/uL (140-400) Neutrophils (%) (Auto) 57 % (31-73) 44 % (31-73) Lymphocytes (%) (Auto) 26 % (24-48) 39 % (24-48) Monocytes (%) (Auto) 10 % (0-9) 10 % (0-9) Eosinophils (%) (Auto) 6 % (0-3) 6 % (0-3) Basophils (%) (Auto) 1 % (0-3) 1 % (0-3) Neutrophils # (Auto) 4.2 x10^3/uL (1.8-7.7) 2.8 x10^3/uL (1.8-7.7) Lymphocytes # (Auto) 1.9 x10^3/uL (1.0-4.8) 2.5 x10^3/uL (1.0-4.8) Monocytes # (Auto) 0.7 x10^3/uL (0.0-1.1) 0.7 x10^3/uL (0.0-1.1) Eosinophils # (Auto) 0.5 x10^3/uL (0.0-0.7) 0.4 x10^3/uL (0.0-0.7) Basophils # (Auto) 0.1 x10^3/uL (0.0-0.2) 0.1 x10^3/uL (0.0-0.2) Sodium Level 140 mmol/L (136-145) 141 mmol/L (136-145) Potassium Level 3.0 mmol/L (3.5-5.1) 3.1 mmol/L (3.5-5.1) Chloride Level 106 mmol/L (98-107) 107 mmol/L (98-107) Carbon Dioxide Level 27 mmol/L (21-32) 27 mmol/L (21-32) Anion Gap 7 (6-14) 7 (6-14) Blood Urea Nitrogen 5 mg/dL (7-20) 3 mg/dL (7-20) Creatinine 0.7 mg/dL (0.6-1.0) 0.8 mg/dL (0.6-1.0) Estimated GFR (Cockcroft-Gault) 84.0 72.0 Glucose Level 91 mg/dL (70-99) 79 mg/dL (70-99) Calcium Level 8.1 mg/dL (8.5-10.1) 8.0 mg/dL (8.5-10.1) BUN/Creatinine Ratio 4 (6-20) Total Bilirubin 0.3 mg/dL (0.2-1.0) Aspartate Amino Transf (AST/SGOT) 23 U/L (15-37) Alanine Aminotransferase (ALT/SGPT) 13 U/L (14-59) Alkaline Phosphatase 50 U/L (46-116) Total Protein 5.3 g/dL (6.4-8.2) Albumin 2.1 g/dL (3.4-5.0) Albumin/Globulin Ratio 0.7 (1.0-1.7) Laboratory Tests Test 06/28/19 04:00 White Blood Count 6.4 x10^3/uL (4.0-11.0) Red Blood Count 4.10 x10^6/uL (3.50-5.40) Hemoglobin 12.1 g/dL (12.0-15.5) Hematocrit 36.4 % (36.0-47.0) Mean Corpuscular Volume 89 fL (79-100) Mean Corpuscular Hemoglobin 30 pg (25-35) Mean Corpuscular Hemoglobin Concent 33 g/dL (31-37) Red Cell Distribution Width 17.1 % (11.5-14.5) Platelet Count 642 x10^3/uL (140-400) Neutrophils (%) (Auto) 44 % (31-73) Lymphocytes (%) (Auto) 39 % (24-48) Monocytes (%) (Auto) 10 % (0-9) Eosinophils (%) (Auto) 6 % (0-3) Basophils (%) (Auto) 1 % (0-3) Neutrophils # (Auto) 2.8 x10^3/uL (1.8-7.7) Lymphocytes # (Auto) 2.5 x10^3/uL (1.0-4.8) Monocytes # (Auto) 0.7 x10^3/uL (0.0-1.1) Eosinophils # (Auto) 0.4 x10^3/uL (0.0-0.7) Basophils # (Auto) 0.1 x10^3/uL (0.0-0.2) Sodium Level 141 mmol/L (136-145) Potassium Level 3.1 mmol/L (3.5-5.1) Chloride Level 107 mmol/L (98-107) Carbon Dioxide Level 27 mmol/L (21-32) Anion Gap 7 (6-14) Blood Urea Nitrogen 3 mg/dL (7-20) Creatinine 0.8 mg/dL (0.6-1.0) Estimated GFR (Cockcroft-Gault) 72.0 BUN/Creatinine Ratio 4 (6-20) Glucose Level 79 mg/dL (70-99) Calcium Level 8.0 mg/dL (8.5-10.1) Total Bilirubin 0.3 mg/dL (0.2-1.0) Aspartate Amino Transf (AST/SGOT) 23 U/L (15-37) Alanine Aminotransferase (ALT/SGPT) 13 U/L (14-59) Alkaline Phosphatase 50 U/L (46-116) Total Protein 5.3 g/dL (6.4-8.2) Albumin 2.1 g/dL (3.4-5.0) Albumin/Globulin Ratio 0.7 (1.0-1.7) Allergies Allergies Coded Allergies Type Severity Reaction Last Updated Verified No Known Drug Allergies 06/18/19 No Disposition/Orders: D/C to Home Hemodynamically unstable?: No Is patient in severe pain?: No Is NPO status required?: No SADI VASQUEZ MD June 28, 2019 14:44
--- NOTE | 2019-06-28 16:05 | NUR ---
Discharge instructions given with prescriptions. Answered questions and concerns. Verbalized understanding. Anxious to go home. Ambulated to Emergency room entrance and daughter picked her up.
[2019-06-28] MEDS ORDERED: AMOXICILLIN/K CLAV 875/125MG TABLET. PO SCH (21:00)
[2019-06-29] MEDS ORDERED: POTASSIUM CHLORIDE 20 MEQ TABLET.ER. PO SCH (08:00)
== END 2019-06-28 16:05 | disposition home or self-care (01) | DRG 853 ==
LOC: 1 WEST ICU 12:28 → 4 NORTH 06-19 13:45
PROVIDERS: ADMIT Family Medicine; ATTEND Family Medicine
PROC: 0WJG4ZZ Inspection of Peritoneal Cavity, Percutaneous Endoscopic Approach (ICD-10-PCS; 2019-06-23)
PROC: 0W9J00Z Drainage of Pelvic Cavity with Drainage Device, Open Approach (ICD-10-PCS; 2019-06-23)
PROC: 0DTJ0ZZ Resection of Appendix, Open Approach (ICD-10-PCS; principal; 2019-06-23 11:00)
DX: A41.9 Sepsis, unspecified organism (principal); K35.33 Acute appendicitis with perforation, localized peritonitis, and gangrene, with abscess; K56.7 Ileus, unspecified; K57.80 Diverticulitis of intestine, part unspecified, with perforation and abscess without bleeding; N20.1 Calculus of ureter; E03.9 Hypothyroidism, unspecified; E78.00 Pure hypercholesterolemia, unspecified; E78.5 Hyperlipidemia, unspecified; E87.6 Hypokalemia; F17.200 Nicotine dependence, unspecified, uncomplicated; R82.81 Pyuria; G43.909 Migraine, unspecified, not intractable, without status migrainosus; Z20.828 Contact with and (suspected) exposure to other viral communicable diseases; I10 Essential (primary) hypertension; K52.9 Noninfective gastroenteritis and colitis, unspecified; R16.0 Hepatomegaly, not elsewhere classified; B96.20 Unspecified Escherichia coli [E. coli] as the cause of diseases classified elsewhere; D63.8 Anemia in other chronic diseases classified elsewhere; N73.9 Female pelvic inflammatory disease, unspecified; Z53.31 Laparoscopic surgical procedure converted to open procedure; Z80.0 Family history of malignant neoplasm of digestive organs; Z82.49 Family history of ischemic heart disease and other diseases of the circulatory system; Z87.11 Personal history of peptic ulcer disease; Z79.899 Other long term (current) drug therapy; Z90.49 Acquired absence of other specified parts of digestive tract
CPT/HCPCS: 36415; 74018; 74021; 74177; 80048; 80053; 82378; 82607; 83540; 83550; 83605; 84145; 85025; 85027; 85379; 85384; 85610; 86140; 87040; 87071; 87075; 87186; 87635; 88304; 93970; A7015; C1769; C9113; G0238; J0330; J1100; J1170; J1650; J2185; J2270; J2370; J2405; J2543; J2704; J2710; J3010; J3480; J3490; J7030; J7120; Q9966; Q9967; 99285-25; G0378